=== PATIENT | female | born 1950 | race Caucasian/White ===

== ENCOUNTER 2022-09-08 18:03 | Outpatient (RCR) | payer MEDICARE, OTHER, SELFPAY | END 2022-10-03 23:59 | disposition home or self-care (01) | LOC: MM 18:03 | PROVIDERS: PCP Internal Medicine; Visit Provider Internal Medicine | DX: Z51.81 Encounter for therapeutic drug level monitoring (principal); Z79.01 Long term (current) use of anticoagulants; I48.91 Unspecified atrial fibrillation | CPT/HCPCS: 85610; G0463 ==

== ENCOUNTER 2022-10-01 14:39 | Emergency (ER) | payer MEDICARE, OTHER, SELFPAY ==
[2022-10-01 14:41] VITALS: BP 108/72; PULSE 88; RESP 20; TEMP 36.6; O2SAT 96; BMI 33.7
--- NOTE | 2022-10-01 14:53 | ED.GENADUL1 ---
HPI - General Adult General Chief complaint: Skin/Abscess/Foreign Body Stated complaint: BLEEDING AT KIDNEY OPERATION SITE/POSS. INFECTION Time Seen by Provider: 10/01/22 14:47 Source: patient and family Mode of arrival: walk-in Limitations: no limitations History of Present Illness HPI narrative: patient is a 72-year-old female who presents to the emergency department with concern for bleeding and possible infection at incisional site. Patient had surgery at the clinic clinic six weeks ago and has a large incision over the suprapubic abdomen, she had a kidney, ovaries and tubes removed for concern of cancer. [facility] in [place] 3-4 weeks ago with no issues to the incision site. Patient states she has had bleeding from the incision for the last six weeks intermittently but in the last several days has noticed some soreness to the area and a family member evaluated the incision with concern for redness and purulent drainage. She has had no fevers or vomiting. She is not receiving chemotherapy. She states she did not receive a call back from the [facility] so they presented to this emergency department. Related Data Home Medications Medication Instructions Recorded Confirmed carvedilol 25 mg tablet 25 mg PO DAILY 10/01/22 10/01/22 furosemide 20 mg tablet 40 mg PO DAILY 10/01/22 10/01/22 hydralazine 25 mg tablet 25 mg PO DAILY 10/01/22 10/01/22 omeprazole 40 mg capsule,delayed 40 mg PO DAILY 10/01/22 10/01/22 release pravastatin 80 mg tablet 80 mg PO DAILY 10/01/22 10/01/22 sacubitril 49 mg-valsartan 51 mg 1 tab PO BID 10/01/22 10/01/22 tablet (Entresto) sertraline 50 mg tablet 50 mg PO Q24H 10/01/22 10/01/22 warfarin 5 mg tablet 5 mg PO DAILY 10/01/22 10/01/22 Previous Rx's Medication Instructions Recorded cephalexin 500 mg capsule 500 mg PO Q8H 10 days #30 caps 10/01/22 fluconazole 150 mg tablet See Rx Instructions .Route 10/01/22 (Diflucan) .COMPLEX 2 doses #2 tabs Allergies Allergy/AdvReac Type Severity Reaction Status Date / Time No Known Drug Allergies Allergy Verified 10/01/22 14:46 Review of Systems ROS Constitutional Denies: fever or chills Ears, nose, mouth, and throat Denies: throat pain Respiratory Denies: shortness of breath or cough Gastrointestinal Denies: nausea or vomiting Genitourinary Denies: painful urination Integumentary/Breast Reports: rash, redness, skin pain and skin tenderness Neurological Denies: headache Allergic/Immunologic Denies: hives Exam Narrative Exam Narrative: Gen.: Awake, alert, in no distress Head: Normocephalic, atraumatic ENT: Moist mucous membranes Respiratory: No respiratory distress, lungs clear bilaterally Cardio: Regular rate and rhythm Gastrointestinal: Abdomen is soft, nondistended and nontender to palpation; incision to the suprapubic abdomen with erythema, no palpable abscess. Surrounding red patchy rash consistent with candidal irritation. No visible purulence or bleeding at this time Extremities: Moves extremities equally, no injuries noted Psych: Normal mood and affect Neuro: No focal neuro deficit Skin: Warm, dry Constitutional Vital Signs - 24 hr 10/01/22 14:41 Temperature 97.9 F Pulse Rate [Monitor] 88 Respiratory Rate 20 Blood Pressure [Right Arm] 108/72 Pulse Oximetry 96 Oxygen Delivery Method Room Air Course Vital Signs Vital signs: Vital Signs Temperature 97.9 F 10/01/22 14:41 Pulse Rate 88 10/01/22 14:41 Respiratory Rate 20 10/01/22 14:41 Blood Pressure 108/72 10/01/22 14:41 Pulse Oximetry 96 10/01/22 14:41 Oxygen Delivery Method Room Air 10/01/22 14:41 Temperature 97.9 F 10/01/22 14:41 Pulse Rate 88 10/01/22 14:41 Respiratory Rate 20 10/01/22 14:41 Blood Pressure 108/72 10/01/22 14:41 Pulse Oximetry 96 10/01/22 14:41 Oxygen Delivery Method Room Air 10/01/22 14:41 Medical Decision Making MDM Narrative Medical decision making narrative: patient declined any medication for pain or nausea in the Emergency Room. IV was established and labs were drawn, patient with no leukocytosis or bandemia. CT of the abdomen and pelvis was performed without IV contrast as the patient only has one kidney and her creatinine and BUN her too high. CT of the abdomen and pelvis without contrast shows no evidence of intraperitoneal abnormality or abscess. The area to the incision is draining, consistent with wound infection and probable candidal rash. Patient will be treated with Keflex, Diflucan. She is encouraged to keep warm compresses to the area. No evidence of wound dehiscence at this time. Follow-up with [facility] oncology/surgery. Return to the emergency department if symptoms change or worsen. Medical Records Medical records reviewed: Yes I reviewed the patient's medical records Lab Data Lab results reviewed: Yes I reviewed the patient's lab results Imaging Data CT scan - abdomen: Attestation: I have reviewed the pertinent imaging results. Radiologist's impression: Procedure: CT abdomen pelvis wo con EXAM: CT abdomen pelvis wo con; [id number] REASON FOR EXAM: Incisional abscess TECHNIQUE: Helical CT images of the abdomen and pelvis were obtained without IV contrast. Multiplanar reformats were generated at the scanner. Dose reduction technique used: Automated exposure control and/or adjustment of the mA and/or kV according to patient size and/or use of iterative reconstruction technique. COMPARISON: CT abdomen/pelvis 05/17/2022.. FINDINGS: Note: Compared with a contrast-enhanced CT exam, noncontrast images are relatively insensitive for detection of solid organ and vascular abnormalities. Visualized Chest: No acute abnormality. Medium-sized hiatal hernia containing approximately 20% of the stomach. Abdomen: Liver: -Multiple well-circumscribed subcentimeter hypodensities in the liver are too small to further characterize with any imaging modality though likely represent benign lesions. Gallbladder: Resected. Bile Ducts: No significant biliary ductal dilatation. Pancreas: No ductal dilatation or inflammatory changes. Spleen: No splenomegaly. Adrenals: -Low-density benign adrenal adenoma in the left adrenal gland measuring 7 mm, similar. -Intermediate attenuation nodularity of the right adrenal gland, similar. Kidneys: -Status post right nephrectomy. Postsurgical changes in the right nephrectomy surgical bed without loculated fluid collection or mass. -Intermediate attenuation partially exophytic lesion in the interpolar region of the left kidney measuring 12 mm (series 3 image 50), similar. -Cyst in the upper pole of the left kidney measuring 2.5 cm, similar. -Left renal vascular calcifications with a single possible punctate nonobstructing stone. Vascular: No aortic aneurysm. Lymph Nodes: Borderline enlarged upper periaortic lymph nodes are similar, for example, left upper periaortic lymph node at the level of the interpolar left kidney measuring 9 mm short axis (series 3 image 46), similar. No enlarging lymph nodes. Abdominal Wall: -Recent postsurgical changes to the intra-abdominal wall without evidence of subcutaneous gas or loculated fluid collection. -Small fat-containing right inguinal hernia. Pelvis: Postsurgical changes from hysterectomy and bilateral salpingo-oophorectomy. No loculated fluid collection. Bowel/Peritoneal Cavity/Mesentery: -No bowel obstruction or significant ileus. -No acute inflammatory changes. -No free air or free fluid. Musculoskeletal: No acute fracture or suspicious osseous lesion. IMPRESSION: Postsurgical changes to the low anterior abdominal wall without evidence of subcutaneous abscess or associated intraperitoneal abnormality. Electronically authenticated by: CARO SILVEIRA Date: 10/01/2022 16:36 Discharge Plan Discharge Chief Complaint: Skin/Abscess/Foreign Body Clinical Impression: Incisional infection, Maya infection Patient Disposition: Home, Self-Care Time of Disposition Decision: 16:44 Condition: Good Prescriptions / Home Meds: New cephalexin 500 mg capsule 500 mg PO Q8H 10 Days Qty: 30 0RF fluconazole [Diflucan] 150 mg tablet See Rx Instructions .ROUTE .COMPLEX Qty: 2 0RF Rx Instructions: 150 mg orally at the on day 1 and day 10 of antibiotic course No Action carvedilol 25 mg tablet 25 mg PO DAILY furosemide 20 mg tablet 40 mg PO DAILY hydralazine 25 mg tablet 25 mg PO DAILY omeprazole 40 mg capsule,delayed release(DR/EC) 40 mg PO DAILY pravastatin 80 mg tablet 80 mg PO DAILY Entresto 49-51 mg tablet 1 tab PO BID sertraline 50 mg tablet 50 mg PO Q24H warfarin 5 mg tablet 5 mg PO DAILY Instructions: Wound Infection (ED) Additional Instructions: Follow up with your surgeon in 3-5 days Stand Alone Forms: Portal Instructions Referrals: Shaikh Chung MD [Primary Care Provider] - 1 week
[2022-10-01 15:47] LABS: Basophils Absolute Auto 0.1 10^3/uL (0.0-0.1); Basophils Percent Auto 1.4 % (0.2-2.0); Eosinophils Absolute Auto 0.2 10^3/uL (0.0-0.7); Eosinophils Percent Auto 2.8 % (0.9-7.0); Hematocrit 39.7 % (36.0-48.0); Immature Granulocytes Abs Auto 0.03 10^3/uL (0.00-0.03); Immature Granulocytes Pct Auto 0.4 % (0.0-0.5); Lymphocytes Absolute Auto 1.6 10^3/uL (1.2-3.8); Lymphocytes Percent Auto 22.8 % (20.5-60.0); Mean Corpuscular HGB Conc 32.7 g/dL (29.9-35.2); Mean Corpuscular Hemoglobin 30.4 pg (26.7-34.0); Mean Platelet Volume 9.3 fL (9.5-13.5); Monocytes Absolute Auto 0.5 10^3/uL (0.3-0.8); Monocytes Percent Auto 6.9 % (1.7-12.0); Neutrophils Absolute Auto 4.7 10^3/uL (1.4-6.5); Neutrophils Percent Auto 65.7 % (43.0-75.0); Platelet Count 316 10^3/uL (150-450); Red Blood Count 4.27 10^6/uL (4.20-5.40); Red Cell Distribution Width 14.4 % (11.0-15.0); White Blood Count 7.1 10^3/uL (4.0-11.0)
[2022-10-01 15:57] LABS: Alanine Aminotransferase 30 U/L (14-59); Albumin Globulin Ratio 0.7; Albumin Level 3.4 g/dL (3.4-5.0); Alkaline Phosphatase 106 U/L (46-116); Anion Gap 12.3; Aspartate Amino Transferase 21 U/L (15-37); BUN Creatinine Ratio 13.7; Bilirubin Total 0.3 mg/dL (0.2-1.0); Calcium 8.8 mg/dL (8.5-10.1); Carbon Dioxide 27.9 mmol/L (21.0-32.0); Chloride 97 mmol/L (98-107); Estimated GFR (African America 29 (>=60); Estimated GFR (Non-African Ame 24 (>=60); Globulin 4.7 g/dL; Glucose 142 mg/dL (74-106); Potassium 4.2 mmol/L (3.5-5.1); Sodium 133 mmol/L (136-145); Total Protein 8.1 g/dL (6.4-8.2)
--- NOTE | 2022-10-01 16:02 | CT_ITS ---
[address] [address] Patient Name: THADDEUS RUBI MRN: [id number] date: 1950 Sex: F Assigned Patient Location: ER Current Patient Location: Accession/Order Number: [id number] Exam Date: 10/01/2022 16:09 Report Date: 10/01/2022 16:36 At the request of: NICOALS LYNCH Procedure: CT abdomen pelvis wo con EXAM: CT abdomen pelvis wo con; [id number] REASON FOR EXAM: Incisional abscess TECHNIQUE: Helical CT images of the abdomen and pelvis were obtained without IV contrast. Multiplanar reformats were generated at the scanner. Dose reduction technique used: Automated exposure control and/or adjustment of the mA and/or kV according to patient size and/or use of iterative reconstruction technique. COMPARISON: CT abdomen/pelvis 05/17/2022.. FINDINGS: Note: Compared with a contrast-enhanced CT exam, noncontrast images are relatively insensitive for detection of solid organ and vascular abnormalities. Visualized Chest: No acute abnormality. Medium-sized hiatal hernia containing approximately 20% of the stomach. Abdomen: Liver: -Multiple well-circumscribed subcentimeter hypodensities in the liver are too small to further characterize with any imaging modality though likely represent benign lesions. Gallbladder: Resected. Bile Ducts: No significant biliary ductal dilatation. Pancreas: No ductal dilatation or inflammatory changes. Spleen: No splenomegaly. Adrenals: -Low-density benign adrenal adenoma in the left adrenal gland measuring 7 mm, similar. -Intermediate attenuation nodularity of the right adrenal gland, similar. Kidneys: -Status post right nephrectomy. Postsurgical changes in the right nephrectomy surgical bed without loculated fluid collection or mass. -Intermediate attenuation partially exophytic lesion in the interpolar region of the left kidney measuring 12 mm (series 3 image 50), similar. -Cyst in the upper pole of the left kidney measuring 2.5 cm, similar. -Left renal vascular calcifications with a single possible punctate nonobstructing stone. Vascular: No aortic aneurysm. Lymph Nodes: Borderline enlarged upper periaortic lymph nodes are similar, for example, left upper periaortic lymph node at the level of the interpolar left kidney measuring 9 mm short axis (series 3 image 46), similar. No enlarging lymph nodes. Abdominal Wall: -Recent postsurgical changes to the intra-abdominal wall without evidence of subcutaneous gas or loculated fluid collection. -Small fat-containing right inguinal hernia. Pelvis: Postsurgical changes from hysterectomy and bilateral salpingo-oophorectomy. No loculated fluid collection. Bowel/Peritoneal Cavity/Mesentery: -No bowel obstruction or significant ileus. -No acute inflammatory changes. -No free air or free fluid. Musculoskeletal: No acute fracture or suspicious osseous lesion. IMPRESSION: Postsurgical changes to the low anterior abdominal wall without evidence of subcutaneous abscess or associated intraperitoneal abnormality. Electronically authenticated by: CARO SILVEIRA Date: 10/01/2022 16:36
[2022-10-01 16:08] LABS: INR 1.56; Prothrombin Time 16.1 sec (9.0-11.6)
[2022-10-01 16:55] VITALS: BP 108/76; PULSE 91; RESP 18; O2SAT 98
== END 2022-10-01 17:00 | disposition home or self-care (01) ==
PROVIDERS: Physician Assistant; Emergency Provider Emergency Medicine; PCP Internal Medicine
DX: T81.49XA Infection following a procedure, other surgical site, initial encounter (principal); B37.2 Candidiasis of skin and nail; Z90.5 Acquired absence of kidney; Z90.79 Acquired absence of other genital organ(s); Z90.722 Acquired absence of ovaries, bilateral; Z79.899 Other long term (current) drug therapy; Z79.01 Long term (current) use of anticoagulants
CPT/HCPCS: 36415; 74176; 80053; 83605; 85025; 85610; 87040; 87070; 99285

== ENCOUNTER 2022-10-09 08:55 | Outpatient (RCR) | payer MEDICARE, OTHER, SELFPAY | END 2022-11-03 16:50 | disposition home or self-care (01) | LOC: MM 08:55 | PROVIDERS: PCP Internal Medicine; Visit Provider Internal Medicine | DX: Z51.81 Encounter for therapeutic drug level monitoring (principal); Z79.01 Long term (current) use of anticoagulants; I48.0 Paroxysmal atrial fibrillation | CPT/HCPCS: 85610; G0463 ==

== ENCOUNTER 2022-10-09 13:49 | Outpatient (OUT) | payer MEDICARE, OTHER, SELFPAY ==
[2022-10-09 14:53] LABS: Chol HDL Ratio 3.7; Cholesterol 196 mg/dL (<=200); HDL Cholesterol 53 mg/dL (40-60); Triglycerides 217 mg/dL (<=150); VLDL CHOLESTEROL 43.4 mg/dL
== END 2022-10-09 13:50 | disposition home or self-care (01) ==
LOC: LAB 13:50
PROVIDERS: PCP Internal Medicine; Visit Provider Internal Medicine
DX: E78.5 Hyperlipidemia, unspecified (principal); Z51.81 Encounter for therapeutic drug level monitoring; Z79.01 Long term (current) use of anticoagulants; I48.0 Paroxysmal atrial fibrillation
CPT/HCPCS: 36415; 80061; 85610; G0463

== ENCOUNTER 2022-11-04 09:04 | Outpatient (RCR) | payer MEDICARE, OTHER, SELFPAY | END 2022-12-04 17:23 | disposition home or self-care (01) | LOC: MM 09:04 | PROVIDERS: PCP Internal Medicine; Visit Provider Internal Medicine | DX: Z51.81 Encounter for therapeutic drug level monitoring (principal); Z79.01 Long term (current) use of anticoagulants; I48.0 Paroxysmal atrial fibrillation | CPT/HCPCS: 85610; G0463 ==

== ENCOUNTER 2022-11-26 15:28 | Outpatient (OUT) | payer MEDICARE, OTHER, SELFPAY ==
[2022-11-26 16:21] LABS: Hematocrit 35.6 % (36.0-48.0); Hemoglobin 11.4 g/dL (12.0-16.0); Mean Corpuscular Volume 93.7 fL (81.0-99.0); Platelet Count 290 10^3/uL (150-450); Red Cell Distribution Width 14.8 % (11.0-15.0); White Blood Count 4.9 10^3/uL (4.0-11.0)
[2022-11-26 16:47] LABS: Albumin Level 3.6 g/dL (3.4-5.0); Anion Gap 15.2; BUN Creatinine Ratio 16.5; Calcium 8.8 mg/dL (8.5-10.1); Carbon Dioxide 28.5 mmol/L (21.0-32.0); Chloride 101 mmol/L (98-107); Estimated GFR (African America 23 (>=60); Estimated GFR (Non-African Ame 19 (>=60); Glucose 120 mg/dL (74-106); Magnesium 2.4 mg/dL (1.8-2.4); Phosphorus 4.5 mg/dL (2.6-4.7); Potassium 4.7 mmol/L (3.5-5.1); Sodium 140 mmol/L (136-145); Uric Acid 6.9 mg/dL (2.6-6.0)
[2022-11-26 17:05] LABS: Percent Iron Saturation 12.6 %
[2022-11-26 17:16] LABS: Creatinine Urine Random 165.12 mg/dL (20.00-300.00); Protein Creatinine Ratio Urine 0.22; Total Protein Urine Random 36.7 mg/dL (<=11.9)
[2022-11-26 17:17] LABS: Bilirubin Urine NEGATIVE (NEGATIVE); Blood Urine NEGATIVE (NEGATIVE); Clarity Urine CLEAR (CLEAR); Color Urine LT. YELLOW (YELLOW); Glucose Urine UA NEGATIVE (NEGATIVE); Ketones Urine NEGATIVE (NEGATIVE); Leukocyte Esterase Urine NEGATIVE (NEGATIVE); Nitrite Urine NEGATIVE (NEGATIVE); Protein Urine TRACE mg/dL (NEG/TRACE); Specific Gravity Urine 1.015 (1.005-1.025); Urobilinogen Urine 0.2 EU/dL (0.2-1.0); pH Urine 6.5 (5.0-9.0)
[2022-11-26 17:22] LABS: Bacteria Urine NONE SEEN #/HPF (NONE SEEN); RBC Urine NONE SEEN #/HPF (0-2); WBC Urine NONE SEEN #/HPF (NONE SEEN)
[2022-11-26 17:23] LABS: Cast Seen? NONE SEEN #/LPF (NONE SEEN); Crystals Seen? None Seen #/HPF (None Seen); Mucus Urine NONE SEEN (NONE SEEN); Squamous Epithelial Cell Urine MODERATE #/LPF (NONE/RARE)
[2022-11-28 13:08] LABS: PTH, Intact 107 pg/mL (15-65)
== END 2022-11-26 15:29 | disposition home or self-care (01) ==
LOC: LAB 15:30
PROVIDERS: PCP Internal Medicine; Visit Provider Internal Medicine
DX: I13.0 Hypertensive heart and chronic kidney disease with heart failure and stage 1 through stage 4 chronic kidney disease, or unspecified chronic kidney disease (principal); N18.30 Chronic kidney disease, stage 3 unspecified; D63.1 Anemia in chronic kidney disease; N25.81 Secondary hyperparathyroidism of renal origin; I50.22 Chronic systolic (congestive) heart failure; E78.5 Hyperlipidemia, unspecified
CPT/HCPCS: 36415; 80069; 81001; 82306; 82570; 82728; 83540; 83550; 83735; 83970; 84156; 84550; 85027

== ENCOUNTER 2022-12-05 08:38 | Outpatient (RCR) | payer MEDICARE, OTHER, SELFPAY | END 2023-01-02 16:41 | disposition home or self-care (01) | LOC: MM 08:38 | PROVIDERS: PCP Internal Medicine; Visit Provider Internal Medicine | DX: Z51.81 Encounter for therapeutic drug level monitoring (principal); Z79.01 Long term (current) use of anticoagulants; I48.0 Paroxysmal atrial fibrillation ==

== ENCOUNTER 2023-01-05 01:39 | Outpatient (RCR) | payer MEDICARE, OTHER, SELFPAY | END 2023-02-03 17:16 | disposition home or self-care (01) | LOC: MM 01:39 | PROVIDERS: PCP Internal Medicine; Visit Provider Internal Medicine | DX: Z51.81 Encounter for therapeutic drug level monitoring (principal); Z79.01 Long term (current) use of anticoagulants; I48.0 Paroxysmal atrial fibrillation | CPT/HCPCS: 85610; G0463 ==

== ENCOUNTER 2023-01-30 15:24 | Outpatient (OUT) | payer MEDICARE, OTHER, SELFPAY ==
[2023-01-30 15:47] LABS: Hematocrit 27.4 % (36.0-48.0); Hemoglobin 8.6 g/dL (12.0-16.0); Mean Corpuscular HGB Conc 31.4 g/dL (29.9-35.2); Mean Corpuscular Hemoglobin 27.9 pg (26.7-34.0); Mean Platelet Volume 8.8 fL (9.5-13.5); Platelet Count 286 10^3/uL (150-450); Red Blood Count 3.08 10^6/uL (4.20-5.40); Red Cell Distribution Width 13.6 % (11.0-15.0)
[2023-01-30 15:52] LABS: Creatinine Urine Random 156.71 mg/dL (20.00-300.00); Protein Creatinine Ratio Urine 0.12; Total Protein Urine Random 19.2 mg/dL (<=11.9)
[2023-01-30 16:00] LABS: Bilirubin Urine NEGATIVE (NEGATIVE); Blood Urine NEGATIVE (NEGATIVE); Clarity Urine CLEAR (CLEAR); Color Urine LT. YELLOW (YELLOW); Glucose Urine UA NEGATIVE (NEGATIVE); Ketones Urine NEGATIVE (NEGATIVE); Leukocyte Esterase Urine TRACE (NEGATIVE); Nitrite Urine NEGATIVE (NEGATIVE); Protein Urine NEGATIVE (NEG/TRACE); Specific Gravity Urine 1.015 (1.005-1.025); Urobilinogen Urine 0.2 EU/dL (0.2-1.0); pH Urine 5.5 (5.0-9.0)
[2023-01-30 16:09] LABS: Albumin Level 3.7 g/dL (3.4-5.0); Anion Gap 13.2; BUN Creatinine Ratio 13.5; Calcium 8.9 mg/dL (8.5-10.1); Carbon Dioxide 28.6 mmol/L (21.0-32.0); Chloride 102 mmol/L (98-107); Estimated GFR (African America 21 (>=60); Estimated GFR (Non-African Ame 18 (>=60); Glucose 111 mg/dL (74-106); Magnesium 2.3 mg/dL (1.8-2.4); Phosphorus 4.4 mg/dL (2.6-4.7); Potassium 4.8 mmol/L (3.5-5.1); Sodium 139 mmol/L (136-145); Uric Acid 6.6 mg/dL (2.6-6.0)
[2023-01-30 16:23] LABS: RBC Urine NONE SEEN #/HPF (0-2); WBC Urine 0-2 #/HPF (NONE SEEN)
[2023-01-30 16:24] LABS: Bacteria Urine SMALL #/HPF (NONE SEEN); Cast Seen? NONE SEEN #/LPF (NONE SEEN); Crystals Seen? None Seen #/HPF (None Seen); Mucus Urine NONE SEEN (NONE SEEN); Squamous Epithelial Cell Urine MODERATE #/LPF (NONE/RARE)
[2023-02-01 14:07] LABS: PTH, Intact 163 pg/mL (15-65)
== END 2023-01-30 15:25 | disposition home or self-care (01) ==
LOC: LAB 15:26
PROVIDERS: PCP Nurse Practitioner; Visit Provider Internal Medicine
DX: I13.0 Hypertensive heart and chronic kidney disease with heart failure and stage 1 through stage 4 chronic kidney disease, or unspecified chronic kidney disease (principal); D63.1 Anemia in chronic kidney disease; N18.30 Chronic kidney disease, stage 3 unspecified; N25.81 Secondary hyperparathyroidism of renal origin; I50.22 Chronic systolic (congestive) heart failure; E78.5 Hyperlipidemia, unspecified; R25.1 Tremor, unspecified
CPT/HCPCS: 36415; 80069; 81001; 82306; 82570; 83735; 83970; 84156; 84550; 85027

== ENCOUNTER 2023-02-04 00:42 | Outpatient (RCR) | payer MEDICARE, OTHER, SELFPAY | END 2023-03-05 16:36 | disposition home or self-care (01) | LOC: MM 00:42 | PROVIDERS: PCP Nurse Practitioner; Visit Provider Internal Medicine | DX: Z51.81 Encounter for therapeutic drug level monitoring (principal); Z79.01 Long term (current) use of anticoagulants; I48.0 Paroxysmal atrial fibrillation | CPT/HCPCS: 85610; G0463 ==

== ENCOUNTER 2023-02-20 07:34 | Outpatient (RCR) | payer MEDICARE, OTHER, SELFPAY ==
[2023-02-11] MEDS: IRON SUCROSE COMPLEX 200 MG in 0.9 % SODIUM CHLORIDE 100 ML 220 MG IV (14:28)
[2023-02-11 14:35] VITALS: BP 112/67; PULSE 77; RESP 20; TEMP 36.1; O2SAT 98
--- NOTE | 2023-02-11 14:37 | PC.NURSE ---
1400: Pt. to [facility] amb. Seated in recliner. VSS. Denies questions about Venofer. IV initiated to left hand on first attempt without difficulty. Flushes easily. Pt. karma. with minimal c/o.
--- NOTE | 2023-02-11 14:39 | PC.NURSE ---
1428: IV Odilia initiated at this time. Pt. denies needs. Snack and beverage offered, pt. declines.
--- NOTE | 2023-02-11 14:52 | PC.NURSE ---
Tolerating infusion without c/o.
--- NOTE | 2023-02-11 15:04 | PC.NURSE ---
1458: IV Venofer complete. Pt. without s&s of adverse reaction. IV d/c'd, pressure to site. 1503: Pt. d/c'd amb. to home.
[2023-02-13 13:00] VITALS: BP 108/55; PULSE 88; RESP 18; TEMP 36.8; O2SAT 95
[2023-02-13] MEDS: IRON SUCROSE COMPLEX 200 MG in 0.9 % SODIUM CHLORIDE 100 ML 220 MG IV (13:35)
[2023-02-13 13:37] VITALS: BP 108/55; PULSE 85; RESP 18; TEMP 36.8; O2SAT 95
[2023-02-16] MEDS: IRON SUCROSE COMPLEX 200 MG in 0.9 % SODIUM CHLORIDE 100 ML 220 MG IV (14:11)
[2023-02-16 14:17] VITALS: BP 126/58; PULSE 90; RESP 16; TEMP 36.8; O2SAT 98
--- NOTE | 2023-02-16 14:19 | PC.NURSE ---
1400: Pt. to [facility] amb. for iron infusion. Seated in recliner. VSS. Denies c/o adverse effects from previous iron infusions. #22 gauge IV initiated to right arm on first attempt without difficulty. Pt. tolerated without c/o. IV Venofer initiated at this time. Denies needs.
--- NOTE | 2023-02-16 14:40 | PC.NURSE ---
1433: ROSIBEL Hartley completed. Pt. denies c/o. IV d/c'd, pressure to site. 1435: Pt. d/c'd amb to home.
[2023-02-18] MEDS: IRON SUCROSE COMPLEX 200 MG in 0.9 % SODIUM CHLORIDE 100 ML 220 MG IV (14:36)
[2023-02-18 15:12] VITALS: BP 148/84; PULSE 81; RESP 18; TEMP 36.6; O2SAT 96
[2023-02-20 14:08] VITALS: BP 135/84; PULSE 83; RESP 18; TEMP 36.2; O2SAT 99
[2023-02-20] MEDS: IRON SUCROSE COMPLEX 200 MG in 0.9 % SODIUM CHLORIDE 100 ML 220 MG IV (14:13)
== END 2023-03-05 23:59 | disposition home or self-care (01) ==
LOC: INF 07:34
PROVIDERS: PCP Nurse Practitioner; Visit Provider Internal Medicine
DX: N18.30 Chronic kidney disease, stage 3 unspecified (principal); D63.1 Anemia in chronic kidney disease; Z51.81 Encounter for therapeutic drug level monitoring; Z79.01 Long term (current) use of anticoagulants; I48.0 Paroxysmal atrial fibrillation
CPT/HCPCS: 36415; 85610; 96360; 96365; G0463; J1756

== ENCOUNTER 2023-03-06 09:20 | Outpatient (RCR) | payer MEDICARE, OTHER, SELFPAY | END 2023-04-03 15:05 | disposition home or self-care (01) | LOC: MM 09:20 | PROVIDERS: PCP Nurse Practitioner; Visit Provider Internal Medicine | DX: Z51.81 Encounter for therapeutic drug level monitoring (principal); Z79.01 Long term (current) use of anticoagulants; I48.0 Paroxysmal atrial fibrillation | CPT/HCPCS: 85610; G0463 ==

== ENCOUNTER 2023-03-07 14:23 | Outpatient (OUT) | payer MEDICARE, OTHER, SELFPAY ==
[2023-03-07 16:48] LABS: INR 2.76; Prothrombin Time 27.6 sec (9.0-11.6)
== END 2023-03-07 14:24 | disposition home or self-care (01) ==
LOC: LAB 14:25
PROVIDERS: PCP Nurse Practitioner; Visit Provider Internal Medicine Interventional Cardiology
DX: U07.1 COVID-19 (principal)
CPT/HCPCS: 36415; 85610

== ENCOUNTER 2023-03-27 16:17 | Outpatient (OUT) | payer MEDICARE, OTHER, SELFPAY ==
[2023-03-27 16:44] LABS: Hematocrit 34.1 % (36.0-48.0); Hemoglobin 10.6 g/dL (12.0-16.0); Mean Corpuscular HGB Conc 31.1 g/dL (29.9-35.2); Mean Corpuscular Volume 93.2 fL (81.0-99.0); Mean Platelet Volume 9.5 fL (9.5-13.5); Platelet Count 254 10^3/uL (150-450); Red Blood Count 3.66 10^6/uL (4.20-5.40); Red Cell Distribution Width 18.4 % (11.0-15.0); White Blood Count 5.1 10^3/uL (4.0-11.0)
[2023-03-27 16:44] LABS: Bilirubin Urine NEGATIVE (NEGATIVE); Blood Urine NEGATIVE (NEGATIVE); Clarity Urine CLEAR (CLEAR); Color Urine LT. YELLOW (YELLOW); Glucose Urine UA NEGATIVE (NEGATIVE); Ketones Urine NEGATIVE (NEGATIVE); Leukocyte Esterase Urine NEGATIVE (NEGATIVE); Nitrite Urine NEGATIVE (NEGATIVE); Protein Urine NEGATIVE (NEG/TRACE); Urobilinogen Urine 0.2 EU/dL (0.2-1.0)
[2023-03-27 16:53] LABS: Bacteria Urine TRACE #/HPF (NONE SEEN); Cast Seen? NONE SEEN #/LPF (NONE SEEN); Crystals Seen? None Seen #/HPF (None Seen); Mucus Urine NONE SEEN (NONE SEEN); RBC Urine 0-2 #/HPF (0-2); Squamous Epithelial Cell Urine FEW #/LPF (NONE/RARE); WBC Urine NONE SEEN #/HPF (NONE SEEN)
[2023-03-27 17:10] LABS: Albumin Level 3.5 g/dL (3.4-5.0); Anion Gap 15.4; BUN Creatinine Ratio 15.4; Carbon Dioxide 27.1 mmol/L (21.0-32.0); Chloride 104 mmol/L (98-107); Estimated GFR (African America 23 (>=60); Estimated GFR (Non-African Ame 19 (>=60); Glucose 92 mg/dL (74-106); Magnesium 2.3 mg/dL (1.8-2.4); Phosphorus 4.1 mg/dL (2.6-4.7); Potassium 4.5 mmol/L (3.5-5.1); Sodium 142 mmol/L (136-145); Uric Acid 6.8 mg/dL (2.6-6.0)
[2023-03-27 17:10] LABS: Creatinine Urine Random 65.75 mg/dL (20.00-300.00); Protein Creatinine Ratio Urine 0.15; Total Protein Urine Random 9.6 mg/dL (<=11.9)
[2023-03-27 17:37] LABS: Percent Iron Saturation 13.2 %
[2023-03-29 14:08] LABS: PTH, Intact 147 pg/mL (15-65)
== END 2023-03-27 16:18 | disposition home or self-care (01) ==
PROVIDERS: PCP Nurse Practitioner; Visit Provider Internal Medicine
DX: I12.9 Hypertensive chronic kidney disease with stage 1 through stage 4 chronic kidney disease, or unspecified chronic kidney disease (principal); N18.30 Chronic kidney disease, stage 3 unspecified; D63.1 Anemia in chronic kidney disease; N25.81 Secondary hyperparathyroidism of renal origin; Q60.0 Renal agenesis, unilateral; E78.5 Hyperlipidemia, unspecified
CPT/HCPCS: 36415; 80069; 81001; 82306; 82570; 82607; 82728; 82746; 83540; 83550; 83735; 83970; 84156; 84550; 85027

== ENCOUNTER 2023-04-06 01:03 | Outpatient (RCR) | payer MEDICARE, OTHER, SELFPAY | END 2023-05-06 17:17 | disposition home or self-care (01) | LOC: MM 01:03 | PROVIDERS: PCP Nurse Practitioner; Visit Provider Internal Medicine | DX: Z51.81 Encounter for therapeutic drug level monitoring (principal); Z79.01 Long term (current) use of anticoagulants; I48.0 Paroxysmal atrial fibrillation | CPT/HCPCS: 85610; G0463 ==

== ENCOUNTER 2023-04-09 14:56 | Outpatient (OUT) | payer MEDICARE, OTHER, SELFPAY ==
--- NOTE | 2023-04-09 15:01 | XR_ITS ---
The [address] [address] Patient Name: THADDEUS RUBI MRN: [id number] date: 1950 Sex: F Assigned Patient Location: [facility] Current Patient Location: [facility] Accession/Order Number: [id number] Exam Date: 04/09/2023 15:08 Report Date: 04/09/2023 15:46 At the request of: KRYSTYNA HOLCOMB Procedure: XR chest 2V EXAMINATION: XR chest 2V, , 04/09/2023 3:08 PM EST INDICATION: chest congestion R09.89 HISTORY: Ordering Provider Reason for Exam: chest congestion R09.89 Technologist Note: Additional: COMPARISON: Chest dated 06/24/2018. TECHNIQUE: Chest x-ray: Two views. FINDINGS: No pneumothorax, pleural effusion or focal airspace consolidation. Heart is normal in size. Cardiac pacemaker is seen in place. Bony thorax is unremarkable. XR/XR chest 2V IMPRESSION: No acute cardiopulmonary process. Electronically authenticated by: JIAN FRENCH Date: 04/09/2023 15:46
== END 2023-04-09 14:57 | disposition home or self-care (01) ==
LOC: RAD 14:57
PROVIDERS: PCP Nurse Practitioner; Visit Provider Nurse Practitioner
DX: R09.89 Other specified symptoms and signs involving the circulatory and respiratory systems (principal)
CPT/HCPCS: 71046

== ENCOUNTER 2023-05-07 01:56 | Outpatient (RCR) | payer MEDICARE, OTHER, SELFPAY | END 2023-06-04 17:15 | disposition home or self-care (01) | LOC: MM 01:56 | PROVIDERS: PCP Nurse Practitioner; Visit Provider Internal Medicine | DX: Z51.81 Encounter for therapeutic drug level monitoring (principal); Z79.01 Long term (current) use of anticoagulants; I48.0 Paroxysmal atrial fibrillation | CPT/HCPCS: 85610; G0463 ==

== ENCOUNTER 2023-05-15 13:45 | Outpatient (OUT) | payer MEDICARE, OTHER, SELFPAY ==
[2023-05-15 15:00] LABS: Chol HDL Ratio 2.6; Cholesterol 138 mg/dL (<=200); HDL Cholesterol 54 mg/dL (40-60); Triglycerides 169 mg/dL (<=150); VLDL CHOLESTEROL 33.8 mg/dL
== END 2023-05-15 13:46 | disposition home or self-care (01) ==
LOC: LAB 13:46
PROVIDERS: PCP Nurse Practitioner; Visit Provider Internal Medicine Interventional Cardiology
DX: I25.10 Atherosclerotic heart disease of native coronary artery without angina pectoris (principal); I25.83 Coronary atherosclerosis due to lipid rich plaque
CPT/HCPCS: 36415; 80061

== ENCOUNTER 2023-05-15 13:47 | Outpatient (OUT) | payer MEDICARE, OTHER, SELFPAY ==
[2023-05-15 14:53] LABS: Albumin Level 3.3 g/dL (3.4-5.0); Anion Gap 10.2; BUN Creatinine Ratio 15.6; Calcium 8.8 mg/dL (8.5-10.1); Carbon Dioxide 30.2 mmol/L (21.0-32.0); Chloride 104 mmol/L (98-107); Estimated GFR (African America 24 (>=60); Estimated GFR (Non-African Ame 19 (>=60); Glucose 108 mg/dL (74-106); Hematocrit 37.4 % (36.0-48.0); Hemoglobin 11.6 g/dL (12.0-16.0); Magnesium 2.3 mg/dL (1.8-2.4); Mean Corpuscular Hemoglobin 28.7 pg (26.7-34.0); Mean Corpuscular Volume 92.6 fL (81.0-99.0); Mean Platelet Volume 9.3 fL (9.5-13.5); Phosphorus 3.6 mg/dL (2.6-4.7); Platelet Count 250 10^3/uL (150-450); Potassium 4.4 mmol/L (3.5-5.1); Red Blood Count 4.04 10^6/uL (4.20-5.40); Red Cell Distribution Width 15.9 % (11.0-15.0); Sodium 140 mmol/L (136-145); Uric Acid 6.9 mg/dL (2.6-6.0); White Blood Count 5.5 10^3/uL (4.0-11.0)
[2023-05-15 14:59] LABS: Creatinine Urine Random 75.37 mg/dL (20.00-300.00); Protein Creatinine Ratio Urine 0.22; Total Protein Urine Random 16.4 mg/dL (<=11.9)
[2023-05-15 15:40] LABS: Bilirubin Urine NEGATIVE (NEGATIVE); Blood Urine NEGATIVE (NEGATIVE); Clarity Urine CLEAR (CLEAR); Color Urine LT. YELLOW (YELLOW); Glucose Urine UA NEGATIVE (NEGATIVE); Ketones Urine NEGATIVE (NEGATIVE); Leukocyte Esterase Urine TRACE (NEGATIVE); Nitrite Urine NEGATIVE (NEGATIVE); Protein Urine NEGATIVE (NEG/TRACE); Specific Gravity Urine 1.015 (1.005-1.025); Urobilinogen Urine 0.2 EU/dL (0.2-1.0)
[2023-05-15 15:45] LABS: Percent Iron Saturation 11.1 %
[2023-05-15 16:06] LABS: Bacteria Urine TRACE #/HPF (NONE SEEN); Cast Seen? NONE SEEN #/LPF (NONE SEEN); Crystals Seen? None Seen #/HPF (None Seen); Mucus Urine NONE SEEN (NONE SEEN); RBC Urine 0-2 #/HPF (0-2); Squamous Epithelial Cell Urine FEW #/LPF (NONE/RARE)
[2023-05-16 14:09] LABS: PTH, Intact 75 pg/mL (15-65)
== END 2023-05-15 13:48 | disposition home or self-care (01) ==
LOC: LAB 13:48
PROVIDERS: PCP Nurse Practitioner; Visit Provider Internal Medicine
DX: I25.10 Atherosclerotic heart disease of native coronary artery without angina pectoris (principal); I25.83 Coronary atherosclerosis due to lipid rich plaque; N18.30 Chronic kidney disease, stage 3 unspecified; D63.1 Anemia in chronic kidney disease; I12.9 Hypertensive chronic kidney disease with stage 1 through stage 4 chronic kidney disease, or unspecified chronic kidney disease; N25.81 Secondary hyperparathyroidism of renal origin; Q60.0 Renal agenesis, unilateral; E78.5 Hyperlipidemia, unspecified
CPT/HCPCS: 36415; 80061; 80069; 81001; 82306; 82570; 82728; 83540; 83550; 83735; 83970; 84156; 84550; 85027

== ENCOUNTER 2023-06-05 01:09 | Outpatient (RCR) | payer MEDICARE, OTHER, SELFPAY | END 2023-07-03 13:12 | disposition home or self-care (01) | LOC: MM 01:09 | PROVIDERS: PCP Nurse Practitioner; Visit Provider Internal Medicine | DX: Z51.81 Encounter for therapeutic drug level monitoring (principal); Z79.01 Long term (current) use of anticoagulants; I48.0 Paroxysmal atrial fibrillation | CPT/HCPCS: 85610; G0463 ==

== ENCOUNTER 2023-07-06 00:07 | Outpatient (RCR) | payer MEDICARE, OTHER, SELFPAY | END 2023-08-04 17:51 | disposition home or self-care (01) | LOC: MM 00:07 | PROVIDERS: PCP Nurse Practitioner; Visit Provider Internal Medicine | DX: Z51.81 Encounter for therapeutic drug level monitoring (principal); Z79.01 Long term (current) use of anticoagulants; I48.0 Paroxysmal atrial fibrillation | CPT/HCPCS: 85610; G0463 ==

== ENCOUNTER 2023-08-05 04:35 | Outpatient (RCR) | payer MEDICARE, OTHER, SELFPAY | END 2023-09-04 11:50 | disposition home or self-care (01) | LOC: MM 04:35 | PROVIDERS: PCP Nurse Practitioner; Visit Provider Internal Medicine | DX: Z51.81 Encounter for therapeutic drug level monitoring (principal); Z79.01 Long term (current) use of anticoagulants; I48.0 Paroxysmal atrial fibrillation | CPT/HCPCS: 85610; G0463 ==

== ENCOUNTER 2023-09-07 00:22 | Outpatient (RCR) | payer MEDICARE, OTHER, SELFPAY | END 2023-10-02 10:18 | disposition home or self-care (01) | LOC: MM 00:22 | PROVIDERS: PCP Nurse Practitioner; Visit Provider Internal Medicine | DX: Z51.81 Encounter for therapeutic drug level monitoring (principal); Z79.01 Long term (current) use of anticoagulants; I48.0 Paroxysmal atrial fibrillation | CPT/HCPCS: 85610; G0463 ==

== ENCOUNTER 2023-10-05 00:48 | Outpatient (RCR) | payer MEDICARE, OTHER, SELFPAY | END 2023-11-04 16:52 | disposition home or self-care (01) | LOC: MM 00:48 | PROVIDERS: PCP Nurse Practitioner; Visit Provider Internal Medicine | DX: Z51.81 Encounter for therapeutic drug level monitoring (principal); Z79.01 Long term (current) use of anticoagulants; I48.0 Paroxysmal atrial fibrillation | CPT/HCPCS: 85610; G0463 ==

== ENCOUNTER 2023-11-05 00:27 | Outpatient (RCR) | payer MEDICARE, OTHER, SELFPAY | END 2023-12-04 09:32 | disposition home or self-care (01) | LOC: MM 00:27 | PROVIDERS: PCP Nurse Practitioner; Visit Provider Internal Medicine | DX: Z51.81 Encounter for therapeutic drug level monitoring (principal); Z79.01 Long term (current) use of anticoagulants; I48.0 Paroxysmal atrial fibrillation | CPT/HCPCS: 85610; G0463 ==

== ENCOUNTER 2023-12-07 00:57 | Outpatient (RCR) | payer MEDICARE, OTHER, SELFPAY | END 2024-01-04 23:36 | disposition home or self-care (01) | LOC: MM 00:57 | PROVIDERS: PCP Nurse Practitioner; Visit Provider Internal Medicine | DX: Z51.81 Encounter for therapeutic drug level monitoring (principal); Z79.01 Long term (current) use of anticoagulants; I48.0 Paroxysmal atrial fibrillation | CPT/HCPCS: 85610; G0463 ==

== ENCOUNTER 2023-12-16 15:42 | Outpatient (OUT) | payer MEDICARE, OTHER, SELFPAY ==
[2023-12-16 15:59] LABS: Bilirubin Urine NEGATIVE (NEGATIVE); Blood Urine NEGATIVE (NEGATIVE); Clarity Urine CLEAR (CLEAR); Color Urine LT. YELLOW (YELLOW); Glucose Urine UA NEGATIVE (NEGATIVE); Ketones Urine NEGATIVE (NEGATIVE); Leukocyte Esterase Urine TRACE (NEGATIVE); Nitrite Urine NEGATIVE (NEGATIVE); Protein Urine NEGATIVE (NEG/TRACE); Specific Gravity Urine 1.015 (1.005-1.025); Urobilinogen Urine 0.2 EU/dL (0.2-1.0)
[2023-12-16 16:05] LABS: Hematocrit 32.7 % (36.0-48.0); Hemoglobin 10.1 g/dL (12.0-16.0); Mean Corpuscular HGB Conc 30.9 g/dL (29.9-35.2); Mean Corpuscular Hemoglobin 25.6 pg (26.7-34.0); Mean Corpuscular Volume 82.8 fL (81.0-99.0); Mean Platelet Volume 9.4 fL (9.5-13.5); Platelet Count 280 10^3/uL (150-450); Red Blood Count 3.95 10^6/uL (4.20-5.40); Red Cell Distribution Width 15.7 % (11.0-15.0); White Blood Count 6.2 10^3/uL (4.0-11.0)
[2023-12-16 16:11] LABS: Bacteria Urine MODERATE #/HPF (NONE SEEN); Cast Seen? NONE SEEN #/LPF (NONE SEEN); Crystals Seen? None Seen #/HPF (None Seen); Mucus Urine TRACE (NONE SEEN); RBC Urine 0-2 #/HPF (0-2); Squamous Epithelial Cell Urine MODERATE #/LPF (NONE/RARE)
[2023-12-16 16:16] LABS: Creatinine Urine Random 65.16 mg/dL (20.00-300.00); Protein Creatinine Ratio Urine 0.11
[2023-12-16 16:35] LABS: Albumin Level 3.5 g/dL (3.4-5.0); Anion Gap 12.5; BUN Creatinine Ratio 13.6; Calcium 8.8 mg/dL (8.5-10.1); Carbon Dioxide 28.8 mmol/L (21.0-32.0); Chloride 105 mmol/L (98-107); Estimated GFR (African America 24 (>=60); Estimated GFR (Non-African Ame 20 (>=60); Glucose 118 mg/dL (74-106); Magnesium 1.9 mg/dL (1.8-2.4); Phosphorus 3.8 mg/dL (2.6-4.7); Potassium 4.3 mmol/L (3.5-5.1); Sodium 142 mmol/L (136-145); Uric Acid 7.2 mg/dL (2.6-6.0)
[2023-12-16 16:42] LABS: Percent Iron Saturation 7.4 %
[2023-12-18 11:10] LABS: PTH, Intact 113 pg/mL (15-65)
== END 2023-12-16 15:43 | disposition home or self-care (01) ==
LOC: LAB 15:43
PROVIDERS: PCP Nurse Practitioner; Visit Provider Internal Medicine
DX: N25.81 Secondary hyperparathyroidism of renal origin (principal); N18.4 Chronic kidney disease, stage 4 (severe); D63.1 Anemia in chronic kidney disease; N18.9 Chronic kidney disease, unspecified
CPT/HCPCS: 36415; 80069; 81001; 82306; 82570; 82728; 83540; 83550; 83735; 83970; 84156; 84550; 85027

== ENCOUNTER 2024-01-03 12:30 | Outpatient (RCR) | payer MEDICARE, OTHER, SELFPAY ==
[2023-12-28 12:50] VITALS: BP 146/84; PULSE 80; TEMP 36.2; O2SAT 98
[2023-12-28] MEDS: IRON SUCROSE COMPLEX 200 MG in 0.9 % SODIUM CHLORIDE 100 ML 220 MG IV (13:15)
--- NOTE | 2023-12-28 14:11 | PC.NURSE ---
1350 tolerated iron infusion without any s/s of reaction. IV line flushed with NS. IV dc'd, cottonball and coban applied, observed for 5 mins, no bleeding noted from venipuncture site. released ambulatory
[2023-12-31 13:42] VITALS: BP 138/72; PULSE 81; TEMP 36.4; O2SAT 96
[2023-12-31] MEDS: IRON SUCROSE COMPLEX 200 MG in 0.9 % SODIUM CHLORIDE 100 ML 220 MG IV (13:56)
--- NOTE | 2023-12-31 14:57 | PC.NURSE ---
1342: Pt. to [facility] amb. for iron infusion. Seated in recliner. VSS. Denies c/o or needs. Declines snack or drink. IV initiated, see documentation. Pt. tolerates without c/o. 1356: IV Venofer initiated at this time. Pt. cont. to deny needs.
[2024-01-03] MEDS: IRON SUCROSE COMPLEX 200 MG in 0.9 % SODIUM CHLORIDE 100 ML 220 MG IV (12:54)
== END 2024-01-04 23:59 | disposition home or self-care (01) ==
LOC: INF 12:30
PROVIDERS: PCP Nurse Practitioner; Visit Provider Internal Medicine
DX: N18.4 Chronic kidney disease, stage 4 (severe) (principal); D63.1 Anemia in chronic kidney disease; Z51.81 Encounter for therapeutic drug level monitoring; Z79.01 Long term (current) use of anticoagulants; I48.0 Paroxysmal atrial fibrillation
CPT/HCPCS: 85610; 96365; G0463; J1756

== ENCOUNTER 2024-01-05 01:30 | Outpatient (RCR) | payer MEDICARE, OTHER, SELFPAY | END 2024-02-04 23:38 | disposition home or self-care (01) | LOC: MM 01:30 | PROVIDERS: PCP Nurse Practitioner; Visit Provider Internal Medicine | DX: Z51.81 Encounter for therapeutic drug level monitoring (principal); Z79.01 Long term (current) use of anticoagulants; I48.0 Paroxysmal atrial fibrillation | CPT/HCPCS: 85610; G0463 ==

== ENCOUNTER 2024-01-09 12:38 | Outpatient (RCR) | payer MEDICARE, OTHER, SELFPAY ==
[2024-01-05 00:09] VITALS: BP 138/72; PULSE 81; TEMP 36.4; O2SAT 96
[2024-01-06] MEDS: IRON SUCROSE COMPLEX 200 MG in 0.9 % SODIUM CHLORIDE 100 ML 220 MG IV (13:58)
[2024-01-06 14:02] VITALS: BP 120/70; PULSE 60; TEMP 36.7; O2SAT 97
[2024-01-09 12:43] VITALS: BP 133/80; PULSE 84; O2SAT 97
[2024-01-09] MEDS: IRON SUCROSE COMPLEX 200 MG in 0.9 % SODIUM CHLORIDE 100 ML 220 MG IV (13:01)
== END 2024-02-04 23:59 | disposition home or self-care (01) ==
LOC: INF 12:38
PROVIDERS: PCP Nurse Practitioner; Visit Provider Internal Medicine
DX: N18.4 Chronic kidney disease, stage 4 (severe) (principal); D63.1 Anemia in chronic kidney disease
CPT/HCPCS: 96365; J1756

== ENCOUNTER 2024-02-05 11:15 | Outpatient (RCR) | payer MEDICARE, OTHER, SELFPAY | END 2024-03-05 23:59 | disposition home or self-care (01) | LOC: MM 11:15 | PROVIDERS: PCP Nurse Practitioner; Visit Provider Internal Medicine | DX: Z51.81 Encounter for therapeutic drug level monitoring (principal); Z79.01 Long term (current) use of anticoagulants; I48.0 Paroxysmal atrial fibrillation | CPT/HCPCS: 85610; G0463 ==

== ENCOUNTER 2024-03-02 15:19 | Outpatient (OUT) | payer MEDICARE, OTHER, SELFPAY ==
--- NOTE | 2024-03-02 15:11 | CA_ITS ---
Patient Name: THADDEUS RUBI MR#: [id number] : 1950 Exam Date: 03/02/2024 Ordering Doctor: DR DARIANA HELMS M.D. ECHOCARDIOGRAM REPORT PROCEDURE: CA ECHO DOPPLER COMPLETE INDICATIONS: heart failure with reduced ejection fraction COMPARISON: None. DESCRIPTION: COMPLETE ECHOCARDIOGRAM Real-time transthoracic echocardiography with 2D, M-mode, spectral and color flow Doppler performed. QUALITY: Technical quality was adequate. LEFT VENTRICLE: Normal chamber size. Thickened septal wall. Abnormal septal motion likely due to bundle branch block/pacing. Dyssynchronous contraction of the ventricular segments is noted. Global left ventricular systolic function is moderately to severely decreased. LV EF: Estimated left ventricular ejection fraction is 30%. DIASTOLIC: Grade I diastolic dysfunction. ATRIAL SEPTUM: LEFT ATRIUM: Mild dilatation. RIGHT ATRIUM: Mild dilatation. RIGHT VENTRICLE: Normal chamber size. Normal right ventricular systolic function. Pacer wire present. TRICUSPID VALVE: Normal mobility and thickness. No stenosis with No evidence of pulmonary hypertension. RVSP 20 mmHg MITRAL VALVE: Normal mobility and thickness. No evidence of mitral valve stenosis. Mild mitral annular calcification. Trivial mitral regurgitation. AORTIC VALVE: Normal trileaflet appearance. No visible sclerosis. Normal leaflet mobility. No evidence of aortic valve stenosis. No aortic regurgitation. AORTIC ROOT: Normal diameter and appearance. PULMONIC VALVE: Normal thickness and mobility. No stenosis. Trivial regurgitation. PERICARDIUM: No evidence of pericardial effusion. IVC: Collapses with inspirations. Normal size. PLEURA: CONCLUSION: 1. The left ventricle is normal in size and exhibits dyssynchronous contraction with abnormal septal motion and moderately to severely reduced systolic function. Estimated LVEF is 30%. 2. Normal right ventricular size and systolic function. 3. No significant valvular dysfunction. 4. Normal right-sided pressures. Adult Echocardiography Procedure Report Left Ventricle LVEDD (3.7 - 5.6 cm): 4.81 cm LVESD (2.2 - 4.0 cm): 4.02 cm LVIVS thickness (0.6 - 1.2 cm): 1.30 cm LVPW thickness (0.5 - 1.0 cm): 1.03 cm e': 0.08 m/s E - e': 5.55 LVOT Max Gradient: 1.19 mm[Hg] LVOT Area (cm2): 0.55 m/s Peak Velocity (LVOT): 0.55 m/s Mean Velocity (LVOT): 0.31 m/s LVOT Diameter 2.27 cm Left Ventricular Ejection Fraction: 30 % Left Atrium LA Volume Index (2D A2C): 38.54 ml/m2 Left Atrium Systolic Dimension: 3.87 cm Mitral Valve MV E to A Ratio: 0.67 Mitral Valve A-Wave Peak Velocity: 0.69 m/s Mitral Valve E-Wave Peak Velocity: 0.47 m/s Right Ventricle RV Internal Diastolic Dimension: 4.29 cm Aorta AO Root Diam: 3.21 cm Ascending Ao Diam: 2.59 cm Aortic Valve AoV Area (Peak Jack): 2.19 cm2, 2.19 cm2 AoV Area (VTI): 2.62 cm2, 2.62 cm2 Peak Velocity(Antegrade Flow): 1.01 m/s Peak Gradient(Antegrade Flow): 4.07 mm[Hg] Mean Velocity(Antegrade Flow): 0.58 m/s Mean Gradient(Antegrade Flow): 1.61 mm[Hg] Velocity Time Integral: 16.35 cm Tricuspid Valve Peak Velocity (Regurgitant Flow): 2.04 m/s, 1.85 m/s Pulmonic Valve Mean Gradient: 1.58 mm[Hg], 1.66 mm[Hg] Mean Velocity: 0.58 m/s, 0.60 m/s Peak Velocity: 0.95 m/s, 0.95 m/s Peak Gradient: 3.63 mm[Hg], 3.26 mm[Hg], 3.91 mm[Hg] Right Atrium Right Atrium Systolic Pressure: 50.04 ml, 50.04 ml Dictated by: Dariana Helms M.D. on 03/03/2024 at 14:59 Approved by: Dariana Helms M.D. on 03/03/2024 at 15:05
== END 2024-03-02 15:20 | disposition home or self-care (01) ==
LOC: CARD 15:19
PROVIDERS: PCP Nurse Practitioner; Visit Provider Internal Medicine Interventional Cardiology
DX: I50.22 Chronic systolic (congestive) heart failure (principal); Z51.81 Encounter for therapeutic drug level monitoring; Z79.01 Long term (current) use of anticoagulants; I48.0 Paroxysmal atrial fibrillation
CPT/HCPCS: 93306; G0463

== ENCOUNTER 2024-03-07 03:28 | Outpatient (RCR) | payer MEDICARE, OTHER, SELFPAY | END 2024-04-05 09:39 | disposition home or self-care (01) | LOC: MM 03:28 | PROVIDERS: PCP Nurse Practitioner; Visit Provider Internal Medicine | DX: Z51.81 Encounter for therapeutic drug level monitoring (principal); Z79.01 Long term (current) use of anticoagulants; I48.0 Paroxysmal atrial fibrillation ==

== ENCOUNTER 2024-03-07 14:02 | Emergency (ER) | payer MEDICARE, OTHER, SELFPAY ==
[2024-03-07 14:15] VITALS: BP 127/71; PULSE 76; TEMP 36.6; O2SAT 93; BMI 36.6
--- NOTE | 2024-03-07 14:27 | ECG_ITS ---
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
--- NOTE | 2024-03-07 14:27 | XR_ITS ---
The [address] [address] Patient Name: THADDEUS RUBI MRN: [id number] date: 1950 Sex: F Assigned Patient Location: ER Current Patient Location: Accession/Order Number: [id number] Exam Date: 03/07/2024 14:58 Report Date: 03/07/2024 15:14 At the request of: NICOLAS LYNCH Procedure: XR chest 1V EXAMINATION: XR chest 1V HISTORY: Cough, shortness of breath COMPARISON: XR chest 04/09/2023 FINDINGS: LUNGS: Underexpanded lungs with chronically elevated left hemidiaphragm. Mild opacities and stranding within lung bases. VASCULATURE: No increased pulmonary vasculature. PLEURA: No pneumothorax, effusion, or pleural thickening. CARDIAC: No cardiomegaly or cardiac silhouette abnormality. MEDIASTINUM: Prior sternotomy. No abnormal widening. BONES: No fracture or visible bone lesion. OTHER: Cardiac pacer. XR/XR chest 1V IMPRESSION: 1. Low lung volume examination with mild bibasilar infiltrates versus atelectasis. Electronically authenticated by: REGINA AGUIRRE Date: 03/07/2024 15:14
--- NOTE | 2024-03-07 14:28 | ED_ITS ---
HPI HPI - General Adult General Chief complaint: Upper Respiratory Infection Stated complaint: flu symptoms Time Seen by Provider: 03/07/24 14:20 Source: patient Limitations: no limitations History of Present Illness HPI narrative: Patient is a 73-year-old female with a history of CHF who is referred to the emergency department to be evaluated for upper respiratory symptoms for the last 4 days. She was seen by her primary care provider in the office just prior to arrival and because of her apparently multiple chronic medical conditions, she was referred to the ER to be evaluated. She reports cough, congestion, generalized bodyaches and shortness of breath. No objective fevers, chest pain, vomiting or diarrhea. No medications taken prior to arrival. She denies any peripheral edema. No difficulty swallowing. Related Data Home Medications ?Medication ?Instructions ?Recorded ?Confirmed carvedilol 25 mg tablet 25 mg PO DAILY 10/01/22 02/13/23 furosemide 20 mg tablet 40 mg PO DAILY 10/01/22 02/13/23 hydralazine 25 mg tablet 25 mg PO DAILY 10/01/22 02/13/23 omeprazole 40 mg capsule,delayed 40 mg PO DAILY 10/01/22 02/13/23 release pravastatin 80 mg tablet 80 mg PO DAILY 10/01/22 02/13/23 sacubitril 49 mg-valsartan 51 mg 1 tab PO BID 10/01/22 02/13/23 tablet (Entresto) sertraline 50 mg tablet 50 mg PO Q24H 10/01/22 02/13/23 warfarin 5 mg tablet 5 mg PO DAILY 10/01/22 02/13/23 Previous Rx's ?Medication ?Instructions ?Recorded albuterol sulfate 90 mcg/actuation 2 inh inhalation Q4H PRN shortness 03/07/24 aerosol inhaler of breath or wheezing #8.5 grams prednisone 20 mg tablet See Rx Instructions .Route 03/07/24 .COMPLEX #12 tabs Allergies Allergy/AdvReac Type Severity Reaction Status Date / Time No Known Drug Allergies Allergy Verified 03/07/24 14:20 Opioid HPI Opioid Management Most Recent Opioid Data: Last Pain Scale 4 10/01/22 14:51 10/01/22 Review of Systems ROS Constitutional Denies: fever or chills Ears, nose, mouth, and throat Reports: nasal congestion; Denies: throat pain Cardiovascular Denies: chest pain, edema or swelling of feet/ankles Respiratory Reports: shortness of breath, cough and wheezing Gastrointestinal Denies: abdominal pain, nausea or vomiting Musculoskeletal Denies: back pain Integumentary/Breast Denies: rash Neurological Reports: headache; Denies: numbness in extremities or weakness in extremities Hematologic/Lymphatic Denies: easy bruising or easy bleeding Exam Narrative Exam Narrative: Gen.: Awake, alert, in no distress Head: Normocephalic, atraumatic ENT: Moist mucous membranes Respiratory: No respiratory distress, lungs clear bilaterally; speaks in full sentences, no coughing noted. No wheezing or rhonchi Cardio: Regular rate and rhythm Gastrointestinal: Abdomen is soft, nondistended and nontender to palpation Extremities: Moves extremities equally, no pedal edema Psych: Normal mood and affect Neuro: No focal neuro deficit Skin: Warm, dry, intact Constitutional Vital Signs, click to edit/add: Last Vital Signs Temp 98 F 03/07/24 14:15 Pulse 62 03/07/24 14:44 Resp 20 03/07/24 14:44 BP 127/71 03/07/24 14:15 Pulse Ox 93 L 03/07/24 14:15 Course Vital Signs Vital signs: Vital Signs Temperature 98 F 03/07/24 14:15 Pulse Rate 76 03/07/24 14:15 Respiratory Rate 20 03/07/24 14:15 Blood Pressure 127/71 03/07/24 14:15 Pulse Oximetry 93 L 03/07/24 14:15 Temperature 98 F 03/07/24 14:15 Pulse Rate 62 03/07/24 14:44 Respiratory Rate 20 03/07/24 14:44 Blood Pressure 127/71 03/07/24 14:15 Pulse Oximetry 93 L 03/07/24 14:15 Medical Decision Making MDM Narrative Medical decision making narrative: Patient was given albuterol and prednisone. Laboratory studies show the patient's BNP is elevated, however she has no peripheral edema, rales or pulmonary edema on the chest x-ray. Patient is positive for RSV. Vital signs are stable. Reevaluated by attending physician and the patient is comfortable with discharge home. Follow-up with PCP and return to the emergency department if symptoms change or worsen. Albuterol and prednisone given for home with viral instructions. SHARED APC VISIT, PHYSICIAN ATTESTATION: [id number] I performed a substantive part of the MDM during the patient?s E/M visit. I personally evaluated and examined the patient. I personally made or approved the documented management plan and acknowledge its risk of complications. Medical Records Medical records reviewed: Yes I reviewed the patient's medical records Lab Data Lab results reviewed: Yes I reviewed the patient's lab results Labs: Lab Results 03/07/24 03/07/24 Range/Units 14:27 14:39 WBC 4.0 (4.0-11.0) 10^3/uL RBC 4.24 (4.20-5.40) 10^6/uL Hgb 12.7 (12.0-16.0) g/dL Hct 38.9 (36.0-48.0) % MCV 91.7 (81.0-99.0) fL MCH 30.0 (26.7-34.0) pg MCHC 32.6 (29.9-35.2) g/dL RDW 16.6 H (11.0-15.0) % Plt Count 186 (150-450) 10^3/uL MPV 9.2 L (9.5-13.5) fL Neut % (Auto) 61.8 (43.0-75.0) % Lymph % (Auto) 24.3 (20.5-60.0) % [place] % (Auto) 12.3 H (1.7-12.0) % Eos % (Auto) 0.8 L (0.9-7.0) % Baso % (Auto) 0.5 (0.2-2.0) % Neut # (Auto) 2.5 (1.4-6.5) 10^3/uL Lymph # (Auto) 1.0 L (1.2-3.8) 10^3/uL [place] # (Auto) 0.5 (0.3-0.8) 10^3/uL Eos # (Auto) 0.0 (0.0-0.7) 10^3/uL Baso # (Auto) 0.0 (0.0-0.1) 10^3/uL Abs Immat Gran (auto) 0.01 (0.00-0.03) 10^3/uL Imm/Tot Granulo (auto) 0.3 (0.0-0.5) % PT 19.0 H (9.0-11.6) sec INR 1.91 VBG pH 7.357 (7.330-7.430) VBG pCO2 44.7 (40.0-52.0) mmHg Sodium 139 (136-145) mmol/L Potassium 4.8 (3.5-5.1) mmol/L Chloride 105 (98-107) mmol/L Carbon Dioxide 25.4 (21.0-32.0) mmol/L Anion Gap 13.4 BUN 18.0 (7.0-18.0) mg/dL Creatinine 2.09 H (0.55-1.02) mg/dL Est GFR ( Amer) 28 L (>=60 mL/min/1.73m^2) Est GFR (Non-Af Amer) 23 L (>=60 mL/min/1.73m^2) BUN/Creatinine Ratio 8.6 Glucose 110 H (74-106) mg/dL Calcium 8.5 (8.5-10.1) mg/dL Total Bilirubin 0.3 (0.2-1.0) mg/dL AST 26 (15-37) U/L ALT 25 (14-59) U/L Alkaline Phosphatase 98 (46-116) U/L Troponin I High Sens 17.9 (4.0-51.3) pg/mL NT-Pro-B Natriuret Pep 7272.0 H* (<=900.0) pg/mL Total Protein 7.2 (6.4-8.2) g/dL Albumin 3.2 L (3.4-5.0) g/dL Globulin 4.0 g/dL Albumin/Globulin Ratio 0.8 Influenza Type A Ag Negative Influenza Type B Ag Negative RSV Antigen Detected A* (NOT DETECTE) SARS-CoV-2 Ag (CV2AG) Negative (NEGATIVE) Imaging Data Chest x-ray: Attestation: I have reviewed the pertinent imaging results. Radiologist's impression: ITS Impressions Chest X-Ray 03/07/24 14:27 IMPRESSION: 1. Low lung volume examination with mild bibasilar infiltrates versus atelectasis. Electronically authenticated by: REGINA AGUIRRE Date: 03/07/2024 15:14 ECG Data Attestation: I personally reviewed and interpreted this ECG as follows: (Electronic ventricular pacemaker at a rate of [address] elevation or ectopy. EKG reviewed by attending physician) Discharge Plan Discharge Chief Complaint: Upper Respiratory Infection Clinical Impression: Upper respiratory infection, RSV infection Patient Disposition: Home, Self-Care Time of Disposition Decision: 15:30 Condition: Good Prescriptions / Home Meds: New prednisone 20 mg tablet See Rx Instructions .ROUTE .COMPLEX Qty: 12 0RF Rx Instructions: 3 tabs daily for 2 days, then 2 tabs daily for 2 days, then 1 tab daily for 2 days albuterol sulfate 90 mcg/actuation HFA aerosol inhaler 2 inh inhalation Q4H PRN (Reason: shortness of breath or wheezing) Qty: 8.5 0RF No Action carvedilol 25 mg tablet 25 mg PO DAILY furosemide 20 mg tablet 40 mg PO DAILY hydralazine 25 mg tablet 25 mg PO DAILY omeprazole 40 mg capsule,delayed release(DR/EC) 40 mg PO DAILY pravastatin 80 mg tablet 80 mg PO DAILY Entresto 49-51 mg tablet 1 tab PO BID sertraline 50 mg tablet 50 mg PO Q24H warfarin 5 mg tablet 5 mg PO DAILY Print Language: Latvian Instructions: Upper Respiratory Infection (ED), RSV (Respiratory Syncytial Virus) Infection (ED) Referrals: Nadia Peacock NP [Primary Care Provider] - 1 week
[2024-03-07] MEDS: ALBUTEROL SULFATE 2.5 MG/3 ML VIAL NEB IH (14:42)
[2024-03-07 14:44] VITALS: PULSE 62
[2024-03-07 14:46] LABS: PCO2 VBG 44.7 mmHg (40.0-52.0); pH VBG 7.357 (7.330-7.430)
[2024-03-07 14:54] LABS: Influenza Virus A Antigen Negative; Influenza Virus B Antigen Negative; Internal Control Within Normal Limits
[2024-03-07 14:55] LABS: Internal Control Within Normal Limits; Respiratory Syncytial Virus Detected (NOT DETECTE); SARS-CoV-2 Ag NEGATIVE (NEGATIVE)
[2024-03-07 14:55] LABS: Basophils Percent Auto 0.5 % (0.2-2.0); Eosinophils Percent Auto 0.8 % (0.9-7.0); Hematocrit 38.9 % (36.0-48.0); Hemoglobin 12.7 g/dL (12.0-16.0); Immature Granulocytes Abs Auto 0.01 10^3/uL (0.00-0.03); Immature Granulocytes Pct Auto 0.3 % (0.0-0.5); Lymphocytes Percent Auto 24.3 % (20.5-60.0); Mean Corpuscular HGB Conc 32.6 g/dL (29.9-35.2); Mean Corpuscular Volume 91.7 fL (81.0-99.0); Mean Platelet Volume 9.2 fL (9.5-13.5); Monocytes Absolute Auto 0.5 10^3/uL (0.3-0.8); Monocytes Percent Auto 12.3 % (1.7-12.0); Neutrophils Absolute Auto 2.5 10^3/uL (1.4-6.5); Neutrophils Percent Auto 61.8 % (43.0-75.0); Platelet Count 186 10^3/uL (150-450); Red Blood Count 4.24 10^6/uL (4.20-5.40); Red Cell Distribution Width 16.6 % (11.0-15.0)
[2024-03-07 15:00] LABS: INR 1.91
[2024-03-07] MEDS: METHYLPREDNISOLONE SOD SUCC PF 125 MG/2 ML VIAL IVP (15:04)
[2024-03-07 15:08] LABS: Alanine Aminotransferase 25 U/L (14-59); Albumin Globulin Ratio 0.8; Albumin Level 3.2 g/dL (3.4-5.0); Alkaline Phosphatase 98 U/L (46-116); Anion Gap 13.4; Aspartate Amino Transferase 26 U/L (15-37); BUN Creatinine Ratio 8.6; Bilirubin Total 0.3 mg/dL (0.2-1.0); Calcium 8.5 mg/dL (8.5-10.1); Carbon Dioxide 25.4 mmol/L (21.0-32.0); Chloride 105 mmol/L (98-107); Estimated GFR (African America 28 (>=60 mL/min/1.73m^2); Estimated GFR (Non-African Ame 23 (>=60 mL/min/1.73m^2); Glucose 110 mg/dL (74-106); Potassium 4.8 mmol/L (3.5-5.1); Sodium 139 mmol/L (136-145); Total Protein 7.2 g/dL (6.4-8.2); Troponin I High Sensitivity 17.9 pg/mL (4.0-51.3)
[2024-03-07 15:48] VITALS: BP 146/70; PULSE 61; O2SAT 92
== END 2024-03-07 16:01 | disposition home or self-care (01) ==
PROVIDERS: Physician Assistant; Emergency Provider Emergency Medicine; PCP Nurse Practitioner
DX: J06.9 Acute upper respiratory infection, unspecified (principal); B97.4 Respiratory syncytial virus as the cause of diseases classified elsewhere; R06.02 Shortness of breath; I50.9 Heart failure, unspecified
CPT/HCPCS: 36415; 71045; 80053; 82800; 83880; 84484; 85025; 85610; 87420; 87804; 87811; 93005; 94640; 96374; 99285; J2919

== ENCOUNTER 2024-03-15 12:02 | Outpatient (OUT) | payer MEDICARE, OTHER, SELFPAY ==
--- NOTE | 2024-03-15 12:20 | XR_ITS ---
The [address] [address] Patient Name: THADDEUS RUBI MRN: [id number] date: 1950 Sex: F Assigned Patient Location: [facility] Current Patient Location: [facility] Accession/Order Number: [id number] Exam Date: 03/15/2024 12:10 Report Date: 03/15/2024 12:56 At the request of: KRYSTYNA HOLCOMB Procedure: XR chest 2V EXAM: XR chest 2V HISTORY: Acute Cough COMPARISON: 04/09/2023 TECHNIQUE: Upright PA and lateral chest x-ray FINDINGS: The heart is borderline enlarged without overt cardiac decompensation. Multiple sternal wire sutures and mediastinal clips are present as well as a left-sided pacemaker. No acute infiltrate, effusion or pneumothorax is identified. Diffuse osteopenia is noted with degenerative changes in the spine. XR/XR chest 2V IMPRESSION: Borderline cardiac enlargement without overt cardiac decompensation. A focal infiltrate is not identified. The overall appearance of the chest is essentially unchanged. Electronically authenticated by: YSABEL THOMPSON Date: 03/15/2024 12:56
== END 2024-03-15 12:03 | disposition home or self-care (01) ==
LOC: RAD 12:03
PROVIDERS: PCP Nurse Practitioner; Visit Provider Nurse Practitioner
DX: R05.1 Acute cough (principal)
CPT/HCPCS: 71046

== ENCOUNTER 2024-04-07 00:31 | Outpatient (RCR) | payer MEDICARE, OTHER, SELFPAY | END 2024-05-06 15:23 | disposition home or self-care (01) | LOC: MM 00:31 | PROVIDERS: PCP Nurse Practitioner; Visit Provider Internal Medicine | DX: Z51.81 Encounter for therapeutic drug level monitoring (principal); Z79.01 Long term (current) use of anticoagulants; I48.0 Paroxysmal atrial fibrillation | CPT/HCPCS: 85610; G0463 ==

== ENCOUNTER 2024-05-09 02:21 | Outpatient (RCR) | payer MEDICARE, OTHER, SELFPAY | END 2024-06-03 12:42 | disposition home or self-care (01) | LOC: MM 02:21 | PROVIDERS: PCP Nurse Practitioner; Visit Provider Internal Medicine | DX: Z51.81 Encounter for therapeutic drug level monitoring (principal); Z79.01 Long term (current) use of anticoagulants; I48.0 Paroxysmal atrial fibrillation | CPT/HCPCS: 85610; G0463 ==

== ENCOUNTER 2024-05-25 15:31 | Outpatient (OUT) | payer MEDICARE, OTHER, SELFPAY ==
[2024-05-25 15:52] LABS: Hematocrit 40.3 % (36.0-48.0); Mean Corpuscular HGB Conc 32.3 g/dL (29.9-35.2); Mean Corpuscular Hemoglobin 29.9 pg (26.7-34.0); Mean Corpuscular Volume 92.6 fL (81.0-99.0); Mean Platelet Volume 9.2 fL (9.5-13.5); Platelet Count 296 10^3/uL (150-450); Red Blood Count 4.35 10^6/uL (4.20-5.40); Red Cell Distribution Width 13.3 % (11.0-15.0); White Blood Count 7.8 10^3/uL (4.0-11.0)
[2024-05-25 16:42] LABS: Creatinine Urine Random 587.77 mg/dL (20.00-300.00); Protein Creatinine Ratio Urine 0.17; Total Protein Urine Random 100.7 mg/dL (<=11.9)
[2024-05-25 16:46] LABS: Percent Iron Saturation 65.8 %
[2024-05-25 16:47] LABS: Albumin Level 3.5 g/dL (3.4-5.0); Anion Gap 10.5; BUN Creatinine Ratio 15.7; Calcium 8.9 mg/dL (8.5-10.1); Carbon Dioxide 30.9 mmol/L (21.0-32.0); Chloride 104 mmol/L (98-107); Estimated GFR (African America 32 (>=60 mL/min/1.73m^2); Estimated GFR (Non-African Ame 27 (>=60 mL/min/1.73m^2); Glucose 100 mg/dL (74-106); Magnesium 2.2 mg/dL (1.8-2.4); Phosphorus 4.7 mg/dL (2.6-4.7); Potassium 4.4 mmol/L (3.5-5.1); Sodium 141 mmol/L (136-145); Uric Acid 5.2 mg/dL (2.6-6.0)
[2024-05-27 10:08] LABS: PTH, Intact 119 pg/mL (15-65)
== END 2024-05-25 15:32 | disposition home or self-care (01) ==
LOC: LAB 15:32
PROVIDERS: PCP Nurse Practitioner; Visit Provider Internal Medicine
DX: E79.0 Hyperuricemia without signs of inflammatory arthritis and tophaceous disease (principal); N18.4 Chronic kidney disease, stage 4 (severe); C64.9 Malignant neoplasm of unspecified kidney, except renal pelvis; I12.9 Hypertensive chronic kidney disease with stage 1 through stage 4 chronic kidney disease, or unspecified chronic kidney disease; N25.81 Secondary hyperparathyroidism of renal origin; Z90.5 Acquired absence of kidney
CPT/HCPCS: 36415; 80069; 82306; 82570; 82728; 83540; 83550; 83735; 83970; 84156; 84550; 85027

== ENCOUNTER 2024-06-05 08:14 | Outpatient (RCR) | payer MEDICARE, OTHER, SELFPAY | END 2024-07-01 13:28 | disposition home or self-care (01) | LOC: MM 08:14 | PROVIDERS: PCP Nurse Practitioner; Visit Provider Internal Medicine | DX: Z51.81 Encounter for therapeutic drug level monitoring (principal); Z79.01 Long term (current) use of anticoagulants; I48.0 Paroxysmal atrial fibrillation | CPT/HCPCS: 85610; G0463 ==

== ENCOUNTER 2024-07-05 05:58 | Outpatient (RCR) | payer MEDICARE, OTHER, SELFPAY | END 2024-08-03 15:03 | disposition home or self-care (01) | LOC: MM 05:58 | PROVIDERS: PCP Nurse Practitioner; Visit Provider Internal Medicine | DX: Z51.81 Encounter for therapeutic drug level monitoring (principal); Z79.01 Long term (current) use of anticoagulants; I48.0 Paroxysmal atrial fibrillation | CPT/HCPCS: 85610; G0463 ==

== ENCOUNTER 2024-07-07 12:56 | Outpatient (OUT) | payer MEDICARE, OTHER, SELFPAY ==
--- NOTE | 2024-07-07 12:59 | US_ITS ---
The [address] [address] Patient Name: THADDEUS RUBI MRN: [id number] date: 1950 Sex: F Assigned Patient Location: [place] Current Patient Location: [place] Accession/Order Number: [id number] Exam Date: 07/07/2024 13:35 Report Date: 07/07/2024 13:44 At the request of: PERLA LOPEZ MD Procedure: US soft tissue head and neck LIMITED ULTRASOUND - left upper neck CLINICAL DATA: Follow-up left parotid nodule seen on outside PET scan. History of small lymphocytic lymphoma and renal carcinoma COMPARISON: None A slightly lobulated hypoechoic nodule is present within the left parotid gland. It measures 2.5 x 1.1 x 1.3 cm. Given the configuration, lymph node is possible. Inferior to the parotid gland is another slightly lobulated hypoechoic nodule measuring 15 x 7 x 6 mm. This is near the carotid bifurcation. It may also be a lymph node. US/US soft tissue head and neck IMPRESSION: HYPOECHOIC NODULARITY WITHIN AND INFERIOR TO THE LEFT PAROTID GLAND, DESCRIBED. LYMPH NODES ARE IN THE DIFFERENTIAL. A PRIMARY PAROTID MASS IS THOUGHT LESS LIKELY, HOWEVER NOT COMPLETELY EXCLUDED. CORRELATION WITH PATIENT'S OUTSIDE PET CT IS THEREFORE RECOMMENDED. Impression dictated by: Laura Mcmahon M.D.07/07/2024 1:44 PM Dictation Location: [place] [address] Electronically authenticated by: [id number] Y Date: 07/07/2024 13:44
--- NOTE | 2024-07-07 13:00 | US_ITS ---
The [address] [address] Patient Name: THADDEUS RUBI MRN: [id number] date: 1950 Sex: F Assigned Patient Location: [place] Current Patient Location: [place] Accession/Order Number: [id number] Exam Date: 07/07/2024 14:25 Report Date: 07/07/2024 14:27 At the request of: PERLA LOPEZ MD Procedure: US renal bladder Renal ultrasound HISTORY: Right renal cell carcinoma. Right nephrectomy. Follow-up left renal cyst. Left kidney measures 11.0 cm in length. The cortex is 9 mm in thickness. Largest anechoic renal cyst is identified in the superior pole laterally measuring up to 2.9 cm. No hydronephrosis. The left ureteral jet visualized. No post steroid residual urinary bladder. US/US renal bladder IMPRESSION: Anechoic left renal cyst measuring up to 2.9 cm. No hydronephrosis. Right nephrectomy. Impression dictated by: Xiang Esqueda M.D.07/07/2024 2:27 PM Dictation Location: [place] [address] Electronically authenticated by: [id number] Y Date: 07/07/2024 14:27
== END 2024-07-07 12:57 | disposition home or self-care (01) ==
LOC: US 12:57
PROVIDERS: PCP Nurse Practitioner; Visit Provider Student in an Organized Health Care Education/Training Program
DX: C83.00 Small cell B-cell lymphoma, unspecified site (principal); C64.1 Malignant neoplasm of right kidney, except renal pelvis; R22.2 Localized swelling, mass and lump, trunk
CPT/HCPCS: 76536; 76770

== ENCOUNTER 2024-08-04 04:46 | Outpatient (RCR) | payer MEDICARE, OTHER, SELFPAY | END 2024-09-02 15:10 | disposition home or self-care (01) | LOC: MM 04:46 | PROVIDERS: PCP Nurse Practitioner; Visit Provider Internal Medicine | DX: Z51.81 Encounter for therapeutic drug level monitoring (principal); Z79.01 Long term (current) use of anticoagulants; I48.0 Paroxysmal atrial fibrillation | CPT/HCPCS: 85610; G0463 ==

== ENCOUNTER 2024-09-01 18:52 | Emergency (ER) | payer MEDICARE, OTHER, SELFPAY ==
[2024-09-01 19:30] VITALS: BP 135/67; PULSE 85; TEMP 36.8; O2SAT 96; BMI 36.0
[2024-09-01 21:34] LABS: Basophils Absolute Auto 0.1 10^3/uL (0.0-0.1); Basophils Percent Auto 1.6 % (0.2-2.0); Eosinophils Absolute Auto 0.2 10^3/uL (0.0-0.7); Eosinophils Percent Auto 3.6 % (0.9-7.0); Hematocrit 37.7 % (36.0-48.0); Hemoglobin 12.2 g/dL (12.0-16.0); Immature Granulocytes Abs Auto 0.01 10^3/uL (0.00-0.03); Immature Granulocytes Pct Auto 0.2 % (0.0-0.5); Lymphocytes Absolute Auto 1.7 10^3/uL (1.2-3.8); Lymphocytes Percent Auto 34.1 % (20.5-60.0); Mean Corpuscular HGB Conc 32.4 g/dL (29.9-35.2); Mean Corpuscular Hemoglobin 28.3 pg (26.7-34.0); Mean Corpuscular Volume 87.5 fL (81.0-99.0); Mean Platelet Volume 8.9 fL (9.5-13.5); Monocytes Absolute Auto 0.4 10^3/uL (0.3-0.8); Monocytes Percent Auto 8.3 % (1.7-12.0); Neutrophils Absolute Auto 2.6 10^3/uL (1.4-6.5); Neutrophils Percent Auto 52.2 % (43.0-75.0); Platelet Count 275 10^3/uL (150-450); Red Blood Count 4.31 10^6/uL (4.20-5.40); Red Cell Distribution Width 14.2 % (11.0-15.0)
[2024-09-01 21:42] LABS: Anion Gap 13.8; BUN Creatinine Ratio 15.5; Calcium 9.1 mg/dL (8.5-10.1); Carbon Dioxide 26.5 mmol/L (21.0-32.0); Chloride 104 mmol/L (98-107); Estimated GFR (African America 40 (>=60 mL/min/1.73m^2); Estimated GFR (Non-African Ame 33 (>=60 mL/min/1.73m^2); Glucose 128 mg/dL (74-106); Potassium 4.3 mmol/L (3.5-5.1); Sodium 140 mmol/L (136-145)
[2024-09-01] MEDS: PIPERACILLIN SODIUM/TAZOBACTAM 4.5 GM in 0.9 % SODIUM CHLORIDE 50 ML IV (21:43)
--- NOTE | 2024-09-01 21:50 | PC.NURSE ---
open area to lower abd, area open and skin surrounding this red. pt denies pain to this area, wound culture obtained
[2024-09-01 21:51] VITALS: BP 131/84
[2024-09-01 23:10] VITALS: BP 135/73; PULSE 72; O2SAT 95
[2024-09-02 00:24] VITALS: BP 165/97; PULSE 77; O2SAT 94
--- NOTE | 2024-09-02 07:18 | ED.GENADUL1 ---
HPI HPI - General Adult General Chief complaint: Skin/Abscess/Foreign Body Stated complaint: ABSESS LEAKING Time Seen by Provider: 09/01/24 20:32 Source: patient Mode of arrival: walk-in Limitations: no limitations Related Data Home Medications ?Medication ?Instructions ?Recorded ?Confirmed carvedilol 25 mg tablet 25 mg PO DAILY 10/01/22 09/01/24 hydralazine 25 mg tablet 25 mg PO DAILY 10/01/22 09/01/24 omeprazole 40 mg capsule,delayed 40 mg PO DAILY 10/01/22 09/01/24 release sacubitril 49 mg-valsartan 51 mg 1 tab PO BID 10/01/22 09/01/24 tablet (Entresto) warfarin 5 mg tablet 2.5 mg PO .COMPLEX 10/01/22 09/01/24 ezetimibe 10 mg tablet 10 mg PO QDAY 09/01/24 09/01/24 ferrous sulfate 325 mg (65 mg 325 mg PO .2 x weekly 09/01/24 09/01/24 iron) tablet rosuvastatin 10 mg tablet 10 mg PO .qhs 09/01/24 09/01/24 Previous Rx's ?Medication ?Instructions ?Recorded albuterol sulfate 90 mcg/actuation 2 inh inhalation Q4H PRN shortness 03/07/24 aerosol inhaler of breath or wheezing #8.5 grams amoxicillin 875 mg-potassium 1 tab PO Q12H #20 tabs 09/02/24 clavulanate 125 mg tablet Allergies Allergy/AdvReac Type Severity Reaction Status Date / Time No Known Drug Allergies Allergy Verified 09/01/24 19:26 Opioid HPI Opioid Management Most Recent Opioid Data: Last Pain Scale 4 10/01/22, 14:51 Review of Systems ROS Status of ROS 10 or more systems reviewed and unremarkable except as noted in history and below PFS PFS Social History Little interest or pleasure in doing things: not at all Feeling down, depressed, or hopeless: not at all Exam Narrative Exam Narrative: Prior to examining the patient, I have washed with hospital approved and provided Antiseptic Hand Drainman and have also applied gloves.? Prior to touching the patient, I asked for consent to examine the patient.? General: Alert and oriented, well nourished, mild distress. increased BMI Eye: PERRL, EOMI, normal conjunctiva. HENT: Normocephalic, normal hearing, moist oral mucosa, no scleral icterus, no sinus tenderness. Lungs: Clear to auscultation and percussion, non-labored respiration. Heart: Normal rate, regular rhythm, no murmur, gallop or edema. Abdomen: Soft, non-tender, non-distended, normal bowel sounds, no masses. BMI increased Musculoskeletal: Normal range of motion and strength, no tenderness or swelling. Skin: Skin is warm, dry and pink, no rashes or lesions. well-healed surgical incision. 2 cm opening and 1 cm open. No discharge. Induration of surrounding skin. Neurologic: Awake, alert, and oriented X3, CN II-XII intact. Psychiatric: Cooperative, appropriate mood and affect.? Following the conclusion of the examination, I have washed my hands thoroughly after removing examination gloves. Constitutional Vital Signs, click to edit/add: Last Vital Signs Temp 98.3 F 09/01/24 19:30 Pulse 77 09/02/24 00:24 Resp 20 09/02/24 00:24 BP 165/97 H 09/02/24 00:24 Pulse Ox 94 L 09/02/24 00:24 O2 Del Method Room Air 09/01/24 23:10 Course Course Hospital Course: Patient did consent to receiving a CT scan to make sure that the patient did not have any abscess that needed to be I&D. This is extremely important as the patient has a large body habitus and cannot visualize the lesion herself. Patient did consent to wound cultures and lab work. Due to the odor and evidence of surrounding cellulitis the patient did consent to receiving intravenous antibiotic therapy, although she did not want an IV. Vital Signs Vital signs: Vital Signs Temperature 98.3 F 09/01/24 19:30 Pulse Rate 85 09/01/24 19:30 Respiratory Rate 18 09/01/24 19:30 Blood Pressure 135/67 09/01/24 19:30 Pulse Oximetry 96 09/01/24 19:30 Oxygen Delivery Method Room Air 09/01/24 19:30 Temperature 98.3 F 09/01/24 19:30 Pulse Rate 77 09/02/24 00:24 Respiratory Rate 20 09/02/24 00:24 Blood Pressure 165/97 H 05/30/25 00:24 Pulse Oximetry 94 L 09/02/24 00:24 Oxygen Delivery Method Room Air 09/01/24 23:10 Medical Decision Making MDM Narrative Medical decision making narrative: Patient was evaluated. She had no evidence of sepsis. Patient had her wound cultured and was given intravenous antibiotic therapy thereafter. Her wound was cleaned and prepped in the normal fashion and then she had an dressing placed. Patient's cannot have prolonged healing. She likely had an infected seroma at the surgical site. Patient will be discharged with antibiotic therapy and follow-up with her primary care physician. She is return if her symptoms get worse or change. Differential Diagnosis Differential Diagnosis: Seroma, abscess, cellulitis, infected seroma Medical Records Medical records reviewed: Yes I reviewed the patient's medical records Lab Data Lab results reviewed: Yes I reviewed the patient's lab results Labs: Lab Results 09/01/24 Range/Units 21:23 WBC 5.0 (4.0-11.0) 10^3/uL RBC 4.31 (4.20-5.40) 10^6/uL Hgb 12.2 (12.0-16.0) g/dL Hct 37.7 (36.0-48.0) % MCV 87.5 (81.0-99.0) fL MCH 28.3 (26.7-34.0) pg MCHC 32.4 (29.9-35.2) g/dL RDW 14.2 (11.0-15.0) % Plt Count 275 (150-450) 10^3/uL MPV 8.9 L (9.5-13.5) fL Neut % (Auto) 52.2 (43.0-75.0) % Lymph % (Auto) 34.1 (20.5-60.0) % [place] % (Auto) 8.3 (1.7-12.0) % Eos % (Auto) 3.6 (0.9-7.0) % Baso % (Auto) 1.6 (0.2-2.0) % Neut # (Auto) 2.6 (1.4-6.5) 10^3/uL Lymph # (Auto) 1.7 (1.2-3.8) 10^3/uL [place] # (Auto) 0.4 (0.3-0.8) 10^3/uL Eos # (Auto) 0.2 (0.0-0.7) 10^3/uL Baso # (Auto) 0.1 (0.0-0.1) 10^3/uL Abs Immat Gran (auto) 0.01 (0.00-0.03) 10^3/uL Imm/Tot Granulo (auto) 0.2 (0.0-0.5) % Sodium 140 (136-145) mmol/L Potassium 4.3 (3.5-5.1) mmol/L Chloride 104 (98-107) mmol/L Carbon Dioxide 26.5 (21.0-32.0) mmol/L Anion Gap 13.8 BUN 24.0 H (7.0-18.0) mg/dL Creatinine 1.55 H (0.55-1.02) mg/dL Est GFR ( Amer) 40 L (>=60 mL/min/1.73m^2) Est GFR (Non-Af Amer) 33 L (>=60 mL/min/1.73m^2) BUN/Creatinine Ratio 15.5 Glucose 128 H (74-106) mg/dL Calcium 9.1 (8.5-10.1) mg/dL Discharge Plan Discharge Chief Complaint: Skin/Abscess/Foreign Body Clinical Impression: Left kidney mass Cellulitis Qualifiers: Site of cellulitis of trunk: abdominal wall Patient Disposition: Home, Self-Care Condition: Good Mode of Transportation: Private Vehicle Prescriptions / Home Meds: New amoxicillin-pot clavulanate 875-125 mg tablet 1 tab PO Q12H Qty: 20 0RF No Action ezetimibe 10 mg tablet 10 mg PO QDAY ferrous sulfate 325 mg (65 mg iron) tablet 325 mg PO .2 x weekly rosuvastatin 10 mg tablet 10 mg PO .qhs carvedilol 25 mg tablet 25 mg PO DAILY hydralazine 25 mg tablet 25 mg PO DAILY omeprazole 40 mg capsule,delayed release(DR/EC) 40 mg PO DAILY Entresto 49-51 mg tablet 1 tab PO BID warfarin 5 mg tablet 2.5 mg PO .COMPLEX Rx Instructions: 2.5 mg orally wed, Sat. 1.25mg on other 5 days; albuterol sulfate 90 mcg/actuation HFA aerosol inhaler 2 inh inhalation Q4H PRN (Reason: shortness of breath or wheezing) Qty: 8.5 0RF Print Language: Italian Instructions: Cellulitis (ED), Kidney Cyst (ED) Additional Instructions: The CT scan of the abdomen and pelvis was done to see if you had an abscess. Although you do not have an abscess. They do see a mass at the mid pole of your left kidney it is suspicious for cancer. There is a small possible cystic component as well. Having said that, your personal oncologist has done an ultrasound and has other films available for comparison. This may be something they are not concerned about or it may be something they are very concerned about. I know your appointment is not until January, but you must be seen sooner. I am providing you a copy of your CT scan to take with you for your follow-up appointment. It is imperative that you go to this follow-up. You can remove your abdominal bandage in 2 days. Then, you can keep it clean and dry and use some sort of padding to soak up any additional leakage. This will have to heal from the inside out and will take several weeks. Your primary medical physician may want to refer you to wound care. Thank you very much for providing me the opportunity to care for you. I appreciate your patience. We just wanted to make sure we are providing you with the highest quality of care possible for your condition. Enjoy your weekend. Referrals: Nadia Peacock NP [Primary Care Provider, [facility]] - 1 week Discharge Date/Time: 09/02/24 01:22 Procedures ED Procedure Instructions Procedures Procedures: Patient was cleaned and prepped in the normal sterile fashion by me with Hibiclens and sterile water. Patient was scrubbing her pannus and the wound area. Patient then had Xeroform gauze placed atop pressure dressing and sterile nonocclusive dressing was applied. Patient was given supplies for an additional dressing change until she can get some at the store. Patient sister is a nurse. The expectation is that she would go to a wound clinic or have her sister help her with daily dressing changes. Is can have to do granulate and heal from the inside out.
== END 2024-09-02 01:22 | disposition home or self-care (01) ==
PROVIDERS: Emergency Provider Emergency Medicine; PCP Nurse Practitioner
DX: L03.311 Cellulitis of abdominal wall (principal); Z90.49 Acquired absence of other specified parts of digestive tract; Z90.710 Acquired absence of both cervix and uterus; M16.0 Bilateral primary osteoarthritis of hip; M51.369 Other intervertebral disc degeneration, lumbar region without mention of lumbar back pain or lower extremity pain
CPT/HCPCS: 36415; 74177; 80048; 85025; 87070; 87075; 96365; 99285; J2543; Q9966

== ENCOUNTER 2024-09-04 07:59 | Outpatient (RCR) | payer MEDICARE, OTHER, SELFPAY | END 2024-09-29 14:50 | disposition home or self-care (01) | LOC: MM 07:59 | PROVIDERS: PCP Nurse Practitioner; Visit Provider Internal Medicine | DX: Z51.81 Encounter for therapeutic drug level monitoring (principal); Z79.01 Long term (current) use of anticoagulants; I48.0 Paroxysmal atrial fibrillation | CPT/HCPCS: 85610; G0463 ==

== ENCOUNTER 2024-10-04 02:36 | Outpatient (RCR) | payer MEDICARE, OTHER, SELFPAY | END 2024-11-03 16:39 | disposition home or self-care (01) | LOC: MM 02:36 | PROVIDERS: PCP Nurse Practitioner; Visit Provider Internal Medicine | DX: Z51.81 Encounter for therapeutic drug level monitoring (principal); Z79.01 Long term (current) use of anticoagulants; I48.0 Paroxysmal atrial fibrillation ==

== ENCOUNTER 2024-11-04 00:42 | Outpatient (RCR) | payer MEDICARE, OTHER, SELFPAY | END 2024-12-01 12:57 | disposition home or self-care (01) | LOC: MM 00:42 | PROVIDERS: PCP Nurse Practitioner; Visit Provider Internal Medicine | DX: Z51.81 Encounter for therapeutic drug level monitoring (principal); Z79.01 Long term (current) use of anticoagulants; I48.0 Paroxysmal atrial fibrillation | CPT/HCPCS: 85610; G0463 ==

== ENCOUNTER 2024-12-05 00:48 | Outpatient (RCR) | payer MEDICARE, OTHER, SELFPAY | END 2025-01-03 15:21 | disposition home or self-care (01) | LOC: MM 00:48 | PROVIDERS: PCP Nurse Practitioner; Visit Provider Internal Medicine | DX: Z51.81 Encounter for therapeutic drug level monitoring (principal); Z79.01 Long term (current) use of anticoagulants; I48.0 Paroxysmal atrial fibrillation | CPT/HCPCS: 85610; G0463 ==

== ENCOUNTER 2024-12-21 11:51 | Outpatient (OUT) | payer MEDICARE, OTHER, SELFPAY ==
[2024-12-21 12:22] LABS: Protein Creatinine Ratio Urine 0.32; Total Protein Urine Random 106.0 mg/dL (<=11.9)
[2024-12-21 12:23] LABS: Hematocrit 41.4 % (36.0-48.0); Hemoglobin 13.3 g/dL (12.0-16.0); Mean Corpuscular HGB Conc 32.1 g/dL (29.9-35.2); Mean Corpuscular Hemoglobin 29.2 pg (26.7-34.0); Mean Corpuscular Volume 90.8 fL (81.0-99.0); Platelet Count 206 10^3/uL (150-450); Red Blood Count 4.56 10^6/uL (4.20-5.40); White Blood Count 5.5 10^3/uL (4.0-11.0)
[2024-12-21 13:13] LABS: Iron 115.0 ug/dL (50.0-170.0); Percent Iron Saturation 32.9 %; Total Iron Binding Capacity 350.0 ug/dL (250.0-450.0)
[2024-12-21 13:14] LABS: Albumin Level 3.4 g/dL (3.4-5.0); Anion Gap 9.9; Blood Urea Nitrogen 20.0 mg/dL (7.0-18.0); Calcium 8.7 mg/dL (8.5-10.1); Carbon Dioxide 27.2 mmol/L (21.0-32.0); Chloride 108 mmol/L (98-107); Estimated GFR (African America 42 (>=60 mL/min/1.73m^2); Estimated GFR (Non-African Ame 35 (>=60 mL/min/1.73m^2); Glucose 100 mg/dL (74-106); Magnesium 2.0 mg/dL (1.8-2.4); Potassium 4.1 mmol/L (3.5-5.1); Sodium 141 mmol/L (136-145); Uric Acid 4.2 mg/dL (2.6-6.0)
[2024-12-21 13:28] LABS: Ferritin 27.0 ng/mL (8.0-252.0)
[2024-12-21 13:52] LABS: Glucose Urine UA NEGATIVE (NEGATIVE)
[2024-12-21 15:19] LABS: Cast Seen? NONE SEEN #/LPF (NONE SEEN); Crystals Seen? None Seen #/HPF (None Seen)
== END 2024-12-21 11:52 | disposition home or self-care (01) ==
LOC: LAB 11:54
PROVIDERS: PCP Nurse Practitioner; Visit Provider Internal Medicine
DX: E79.0 Hyperuricemia without signs of inflammatory arthritis and tophaceous disease (principal); N18.4 Chronic kidney disease, stage 4 (severe); C64.9 Malignant neoplasm of unspecified kidney, except renal pelvis; I12.9 Hypertensive chronic kidney disease with stage 1 through stage 4 chronic kidney disease, or unspecified chronic kidney disease; N25.81 Secondary hyperparathyroidism of renal origin; Z90.5 Acquired absence of kidney
CPT/HCPCS: 36415; 80069; 81001; 82306; 82570; 82728; 83540; 83550; 83735; 83970; 84156; 84550; 85027

== ENCOUNTER 2025-01-04 04:16 | Outpatient (RCR) | payer MEDICARE, OTHER, SELFPAY | END 2025-02-03 23:59 | disposition home or self-care (01) | LOC: MM 04:16 | PROVIDERS: PCP Nurse Practitioner; Visit Provider Internal Medicine | DX: Z51.81 Encounter for therapeutic drug level monitoring (principal); Z79.01 Long term (current) use of anticoagulants; I48.0 Paroxysmal atrial fibrillation | CPT/HCPCS: 85610; G0463 ==

== ENCOUNTER 2025-01-25 15:10 | Emergency (ER) | payer MEDICARE, OTHER, SELFPAY ==
--- OUTSIDE RECORDS SUMMARY | 2025-01-11 14:20 | XMS_ITS | Encounter Summary ---
Author Organization [facility] Address [address] [place] [id number] Care Team Providers Care Help Desk Engineer Name Role Phone Nadia Peacock CNP Primary Care Provider [phone] Issac Helms MD Unavailable [phone] Source Comments In the event this information is protected by the Federal Confidentiality of Alcohol and Drug AbusePatient Records regulations: The Federal rules restrict any use of the information to criminally investigate or prosecute any alcohol or drug abuse patient.[facility] Reason for Referral * MRI/CT (Routine) - AuthorizedSpecialtyDiagnoses / ProceduresReferred By ContactReferred To ContactCT IMAGING Diagnoses Renal oncocytoma of left kidney Procedures CT ABD/PEL WO IVCON CT ABD & PELVIS W/O CONTRAST Kenadll Clarke MD [address] [place] [address] [place] [address] Phone: tel: fax: [place] [address] Referral IDStatusReasonStart DateExpiration DateVisits RequestedVisits [id number] Auto-Generated Referral / Encounter Details DateTypeDepartmentCare Team (Latest Contact Info)Digujwccxfo68/08/2025 2:20 PM EDTVisit (SP) Office Hematology/Oncology [address] [facility] [facility] [place] [address] Kendall Clarke MD [address] [place] [address] [place] [address] Renal oncocytoma of left kidney (Primary Dx) Social History Tobacco UseTypesPacks/DayYears UsedDateSmoking Tobacco: [id number] - 2017Smokeless Tobacco: NeverAlcohol UseStandard Drinks/WeekCommentsNever0 (1 standard drink = 0.6 oz pure alcohol)Overall Financial Resource Strain (CARDIA) AnswerDate RecordedHow hard is it for you to pay for the very basics like food, housing, medical care, and heating?Patient /08/2023HQ-2AnswerDate RecordedPHQ-2 efmky446Hunger Vital SignAnswerDate RecordedWithin the past 12 months, you worried that your food would run out before you got the money to buymore.Patient /08/2023Within the past 12 months, the food you bought just didn't last and you didn't have money to get more.Patient wzuiwaxx75/08/2023RAPARE - TransportationAnswerDate RecordedIn the past 12 months, has lack of transportation kept you from medical appointments or from getting medications?Patient /08/2023In the past 12 months, has lack of transportation kept you from meetings, work, or from getting things needed for daily living?Patient yzeflwpi66/08/2023Housing Stability Vital SignAnswerDate RecordedIn the last 12 months, was there a time when you were not able to pay the mortgage or rent on time?Patient bfvnnmt1108/11/2022Number of Places Lived in the Last YearNot on file08/11/2022In the last 12 months, was there a time when you did not have a steady place to sleep or slept in ashelter (including now)? Patient knqngvs6908/11/2022rea Deprivation IndexAnswerDate RecordedNational Score (1-100), lower number is lower bojm790508/20/2022State Score (1-10), lower number is lower ziya3353Data from: https://www.neighborhoodatlas.[facility]/. Last address used for [address] [id number] and Gender InformationValueDate RecordedSex Assigned at BirthNot on fileLegal SexFemale 03/07/2012 9:35 AM ESTGender IdentityNot on fileSexual OrientationNot on file documented as of this encounter Last Filed Vital Signs Vital SignReadingTime TakenCommentsBlood Lzqjotvl242/7410 2:23 PM EDT Gmzzi6810 2:23 PM DPZRvufgfvtejg24.3 ??C (97.4 ??F)01/11/2025 2:23 PM EDTRespiratory Svau9170 2:23 PM EDTOxygen Fqvkccdtxd62%01/11/2025 2:23 PM EDTInhaled Oxygen Concentration--Xstspi90.9 kg (204 lb 12.9 oz)01/11/2025 2:23 PM EDTHeight--Body Mass Index36.8403 2:48 PM EDTdocumented in this encounter Functional Status * Are you deaf or do you have serious difficulty hearing?AnswerDate of PqrrdxjyanVtcnixGe86/10/2023 3:06 PM Contreras Walter RN * Are you blind or do you have serious difficulty seeing, even when wearing glasses?AnswerDate of HyhdmoykvwObxykqHo83/10/2023 3:06 PM Contreras Walter RN * Do you have serious difficulty walking or climbing stairs?AnswerDate of NolzwtrozyGdpbbpBo70/10/2023 3:06 PM Contreras Walter RN * Do you have difficulty dressing or bathing?AnswerDate of AssessmentAuthorNo 08/13/2022 3:06 PM Contreras Walter RN * Because of a physical, mental, or emotional condition, do you have difficulty doing errands alone such as visiting a doctor's office or shopping?AnswerDate of LfswoerbuiKmxmmnKa65/10/2023 3:06 PM Contreras Walter RN documented as of this encounter Mental Status * Because of a physical, mental, or emotional condition, do you have serious difficulty concentrating, remembering, or making decisions?AnswerEntry Date EjfkriGe61/10/2023 3:06 PM Contreras Walter RN documented in this encounter Patient Instructions * Patient Instructions* Kendall Clarke MD - 01/11/2025 2:[address] A/P to be done in 4 months F/u in 4 months documented in this encounter Progress Notes * Kendall Clarke MD - 01/11/2025 2:20 PM EDT PATIENT NAME: Jessica Burkett CLINIC NO.: [id number] ATTENDING PHYSICIAN: Kendall Clarke MD DATE OF SERVICE: 01/11/25 Some of the elements of this note have been copied from my previous progress note dated 11/14/24. All the information has been reviewed carefully. 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 HPI: Jessica returns for her 6 month follow up. She had a repeat CT chest without contrast 05/2023 as detailed below. Still seeing Dr. Mayorga. Did give her 5 IV iron infusions and her hemoglobin went from 8 to 11. Nowon oral iron every other days per nephrology. She contacted [facility] in February and was admitted. Overall doing well. Denies any new pain, fever, chills, nausea, vomiting, or appetite issues. No significant fatigue. Updated visit 12/29/23: Doing well Getting iron infusion with nephrology On warfarin - prescribed by cardiology Declined to do mammogram 07/05/24: - Doing well - No major complaints. - Had blood work done recently at [facility] - No smoking, alcohol 09/07/24: - Doing well - No major complaints. 11/14/24: - Left kidney biopsy on 11/01/24 showed - oncocytic renal neoplasm. This suggests an oncocytic renal neoplasm of low malignant potential within the spectrum of tumors described as low-grade oncocytic tumor/LOT . Tumor board (11/07/24)- Although pathology classifies it as an oncocytic renal neoplasm within the LOT (low-grade oncocytic tumor) spectrum and not clearly indolent, the renal preservation priority outweighs the unclear malignant potential. No immediate intervention is indicated. Continue close multid isciplinary monitoring with interval imaging and nephrology follow-up. - Doing well - Sees nephrology () at [facility]. - On warfarin for afib. 01/11/25: - Doing well - No major complaints - Seen last week - Quit smoking 8 yrs ago. PAST MEDICAL HISTORY Diagnosis Date CAD (coronary artery disease) CHF (congestive heart failure) (HCC) CKD (chronic kidney disease) HLD (hyperlipidemia) Social History Tobacco Use Smoking status: Former Current packs/day: 0.00 Average packs/day: 1 pack/day for 50.0 years (50.0 ttl pk-yrs) Types: Cigarettes Start date: 1966 Quit date: 2017 Years since quittin.7 Smokeless tobacco: Never Vaping Use Vaping status: Never Used Substance Use Topics Alcohol use: Never Drug use: Never FAMILY HISTORY Problem Relation Age of Onset Liver Transplant Mother Heart disease Mother Cancer Father bladder Heart disease Father Heart disease Sister Cancer Sister soft tissue Pancreatic Cancer Brother Pancreatic Cancer Brother Heart disease Maternal Grandmother Diabetes Maternal Grandmother No Known Problems Maternal Grandfather Heart disease Paternal Grandmother Past medical, social and family history reviewed without any changes. REVIEW OF SYSTEMS GENERAL: No weight loss, malaise or fevers. No night sweats. HEENT: Negative for headaches, No changes in hearing or vision, no nose bleeds or other nasal problems. RESPIRATORY: Negative for cough, wheezing and shortness of breath CARDIOVASCULAR: Negative for chest pain, leg swelling and palpitations GI: Negative for abdominal discomfort, blood in stools or black stools and change in bowel habits : Negative for dysuria, frequency and incontinence MUSCULOSKELETAL: Negative for joint pain or swelling, back pain, and muscle pain. SKIN: Negative for lesions, rash, and itching. HEMATOLOGY/LYMPHOLOGY Negative for prolonged bleeding, bruising easily, and swollen nodes. NEURO: Negative for numbness or tingling of hands/feet. No weakness. PHYSICAL EXAMINATION: There were no vitals taken for this visit. ECOG PERFORMANCE STATUS: 1- Restricted in physically strenuous activity. Carries out light duty. General: Alert and oriented, no distress, pleasant and cooperative. Heart: Regular, normal S1 and S2, no murmurs, rubs, or gallops Lungs: Clear to auscultation bilaterally Abdomen: Benign Extremities: Feet/ankles without edema, posterior tibial pulses full and symmetrical Lymph: no cervical, SC or axillary nodes on exam LABS: Glucose (mg/dL) Date Value 12/29/2023 123 Potassium (mmol/L) Date Value 12/29/2023 4.0 Sodium (mmol/L) Date Value 12/29/2023 140 Chloride (mmol/L) Date Value 12/29/2023 102 CO2 (mmol/L) Date Value 12/29/2023 26 Creatinine (mg/dL) Date Value 12/29/2023 2.10 BUN (mg/dL) Date Value 12/29/2023 28 Anion Gap (mmol/L) Date Value 12/29/2023 12 Calcium, Total (mg/dL) Date Value 12/29/2023 9.5 Protein, Total (g/dL) Date Value 12/29/2023 7.2 Albumin (g/dL) Date Value 12/29/2023 4.3 Bilirubin, Total (mg/dL) Date Value 12/29/2023 0.3 Alkaline Phosphatase (U/L) Date Value 12/29/2023 100 AST (U/L) Date Value 12/29/2023 13 ALT (U/L) Date Value 12/29/2023 11 WBC Date Value Ref Range Status 10/10/2024 5.20 3.70 - 11.00 k/uL Final RBC Date Value Ref Range Status 10/10/2024 4.90 3.90 - 5.20 m/uL Final Hemoglobin Date Value Ref Range Status 10/10/2024 14.0 11.5 - 15.5 g/dL Final Hematocrit Date Value Ref Range Status 10/10/2024 43.3 36.0 - 46.0 % Final MCV Date Value Ref Range Status 10/10/2024 88.4 80.0 - 100.0 fL Final MCH Date Value Ref Range Status 10/10/2024 28.6 26.0 - 34.0 pg Final MCHC Date Value Ref Range Status 10/10/2024 32.3 30.5 - 36.0 g/dL Final RDW-CV Date Value Ref Range Status 10/10/2024 14.9 11.5 - 15.0 % Final Platelet Count Date Value Ref Range Status 10/10/2024 218 150 - 400 k/uL Final MPV Date Value Ref Range Status 10/10/2024 8.9 (L) 9.0 - 12.7 fL Final Abs Neut Date Value Ref Range Status 12/29/2023 3.92 1.45 - 7.50 k/uL Final Lymphocytes % Date Value Ref Range Status 12/29/2023 28.9 % Final Abs Lymph Date Value Ref Range Status 12/29/2023 1.96 1.00 - 4.00 k/uL Final Monocytes % Date Value Ref Range Status 12/29/2023 8.2 % Final Abs Worth Date Value Ref Range Status 12/29/2023 0.56 <0.87 k/uL Final Abs Eosin Date Value Ref Range Status 12/29/2023 0.19 <0.46 k/uL Final Basophils % Date Value Ref Range Status 12/29/2023 1.2 % Final Abs Baso Date Value Ref Range Status 12/29/2023 0.08 <0.11 k/uL Final PATH: Right nephrectomy August 2022: KIDNEY: Nephrectomy 8th Edition - Protocol posted: 10/03/2020 KIDNEY: RESECTION - B SPECIMEN Procedure Total nephrectomy Specimen Laterality Right TUMOR Tumor Focality Unifocal Tumor Size Greatest Dimension (Centimeters): 7.7 cm Histologic Type Clear cell renal cell carcinoma Histologic Grade (WHO / ISUP) G4 (extreme nuclear pleomorphism and / or multi- nuclear giant cells and / or rhabdoid and / or sarcomatoid differentiation) Tumor Extent Limited to kidney Sarcomatoid Features Present Percentage of Sarcomatoid Element 20 % Rhabdoid Features Not identified Tumor Necrosis Not identified Lymphovascular Invasion Not identified MARGINS Margin Status All margins negative for invasive carcinoma REGIONAL LYMPH NODES Regional Lymph Node Status All regional lymph nodes negative for tumor Number of Lymph Nodes Examined 1 PATHOLOGIC STAGE CLASSIFICATION (pTNM, AJCC 8th Edition) Reporting of pT, pN, and (when applicable) pM categories is based on information available to the pathologist at the time the report is issued. As per the AJCC (Chapter 1, 8th Ed.) it is the managingphysician???s responsibility to establish the final pathologic stage based upon all pertinent information, including but potentially not limited to this pathology report. Primary Tumor (pT) pT2a Regional Lymph Nodes (pN) pN0 ADDITIONAL FINDINGS Additional Findings in Nonneoplastic Kidney None iden A. Paracaval lymph node, excision: - Lymph node involved by chronic lymphocytic leukemia/small lymphocytic lymphoma (CLL/SLL). - See comment IMAGING: PET June 2022: IMPRESSION: 1. NECK: * FDG avid left parotid nodules, may represent intrinsic low grade parotid neoplasm unrelated to renal mass. Otherwise no FDG avid neoplastic process. 2. CHEST: * No FDG avid neoplastic process. Multiple small lung nodules without focal FDG uptake, recommend continued CT follow-up. 3. ABDOMEN/PELVIS: * Large cystic right renal mass with mild peripheral FDG activity, compatible with renal cell carcinoma. * An indeterminate 1 cm interpolar exophytic left nodule with minimal FDG activity, cannot exclude additional sites of RCC * No FDG avid lymphadenopathy. Please note that FDG PET may not be sensitive to RCC. * Bilateral ovarian cystic masses with minimal peripheral FDG activity, cannot exclude ovarian neoplasm. * FDG avid skin thickening in the medial left upper thigh skin fold with a normal sized FDG avid left inguinal node, may represent focal inflammation/infection with reactive lymph node, recommend clinical correlation. 4. EXTREMITIES/SKELETON: * No suspicious FDG avid osseous lesion CT chest without contrast June 2022: 1. Several subcentimeter right-sided pulmonary nodules, largest measuring approximately 7-8 mm, the possibility of metastases cannot be excluded. Correlation with continued follow-up examinations is recommended. 2. Mildly prominent precarinal mediastinal lymph node. This can also be further assessed on follow-up studies. 3. Small bilateral pleural effusions, as above. 4. 1.1 cm left thyroid lobe nodule. Further workup with thyroid sonography is recommended. CT without contrast abdomen 06/2022 : 1. Exophytic large mass off the right kidney both solid and cystic neoplasm 2. Extensive atherosclerosis 3. Abnormal enlarged external iliac lymph node on the left. CT Scan of the Chest and Abdomen and Pelvis 12/2022: 1. Right-sided pulmonary nodules measuring up to 7 mm are unchanged in size and number from the previous CT in June 2022. No new pulmonary nodules or masses are identified. 2. No CT evidence of new metastatic disease in the chest. 1. Interval postsurgical changes from right nephrectomy. There is no CT evidence of residual neoplasm or metastatic disease in the abdomen/pelvis, given limitations of noncontrast technique. 2. No pathologically enlarged lymph nodes are identified in the abdomen or pelvis. 3. Stable incidental findings as detailed above. CT chest without contrast 06/10/2023: 1. Right-sided pulmonary nodules measuring up to 7 mm are unchanged from the previous CT performed in June 2022. No new pulmonary nodules or masses are identified. 2. No CT evidence of new metastatic disease in the chest. 3. Stable incidental findings are detailed above. Assessment and Plan: Jessica Burkett is a 72 year old year old female here for follow up. T2a,N0,MX clear cell RCC with 20% sarcomatoid feautures post resection 08/2022 - Had discussed adjuvant IO and decided not appropriate for her. Imaging studies in December 2023 did not show evidence of recurrence. Imaging studies in June 2024 did not show any evidence of recurrence. Ordered repeatimaging studies in 6 months. US kidney on 07/07/24 showed left renal cyst measuring 3cm. CT A/P with contrast on 09/01/24 done at [facility] showed heterogenous mass at midpole of left kidney measuring 3.7cm. Left kidney biopsy on 11/01/24 showed - oncocytic renal neoplasm. This suggests an oncocytic renal neoplasm of low malignant potential within the spectrum of tumors described as low-grade oncocytictumor/LOT . Tumor board (11/07/24)- Although pathology classifies it as an oncocytic renal neoplasm within the LOT (low-grade oncocytic tumor) spectrum and not clearly indolent, the renal preservation priority outweighs the unclear malignant potential. No immediate intervention is indicated. Continue close multid isciplinary monitoring with interval imaging and nephrology follow-up. - Seen by Urology on 11/22/24. Recommended surveillance - CT A/P on 01/04/25 showed mild increase in left midpole mass upto 2.1cm. Monitor for now - Ordered repeat CT A/P to be done in 4 months. Incidental SLL found in portacaval node with nephrectomy - no indication for therapy and will continue watchful waiting. CT A/P on 01/04/25 showed stable 1.4 x 1.1 cm left paraceliac lymph node and Stable 1.6 x 0.8 cm left para-aortic lymph node. CRI- Follows nephrology- F/u with at [facility]. CAD / CHF- Follow up with cardiology. Remains on warfarin for h/o Afib. Thyroid nodule chronic and has had US in the past Lung nodules-stable on recent CT chest from Jan 2025. F/u in 4 months. Total time spent 20 min. Kendall Clarke MD. [facility] Hematology/Oncology. CC: Nadia Peacock CNP Michelle Kuznicki, MD documented in this encounter Plan of Treatment DateTypeDepartmentCare Team (Latest Contact Info)Kpzubavpsww96/05/2026 1:45 PM ESTAppointment Radiology Pet CT [address] [facility] [place] [address] CT Abd / PelNameTypePriorityAssociated DiagnosesOrder ScheduleCT ABD/PEL WO IVCONRadiologyRoutine Renal oncocytoma of left kidney Expected: 05/14/2025 (Approximate), Expires: 02/10/2026OMPLETE BLOOD COUNT AND DIFFERENTIALLabRoutine Renal oncocytoma of left kidney Expected: 05/14/2025 (Approximate), Expires: 08/13/2025OMPREHENSIVE METABOLIC PANELLabRoutine Renal oncocytoma of left kidney Expected: 05/14/2025 (Approximate), Expires: 08/13/2025documented as of this encounter Visit Diagnoses Diagnosis Renal oncocytoma of left kidney- Primary documented in this encounter Care Teams Team MemberRelationshipSpecialtyStart DateEnd Date Nadia Peacock, SENIOR MORTGAGE UNDERWRITER [address] [place] [address] PCP - GeneralFamily Medicine06/04/22 Issac Helms MD [address] [facility] [address] [place] [phone] Cardiology07/15/22documented as of this encounter
--- OUTSIDE RECORDS SUMMARY | 2025-01-16 09:05 | XMS_ITS | Encounter Summary ---
Author Organization [facility] Address [address] [place] [address] Care Team Providers Care Forming Roll Operator Name Role Phone Nadia Peacock MD Primary Care Provider [phone] Encounter Details DateTypeDepartmentCare Team (Latest Contact Info)Kdeojeuytay73/13/2025 9:05 AM EDTAncillary Procedure [facility] [address] [place] [address] Pre-operative cardiovascular examination, ICD in place Social History Tobacco UseTypesPacks/DayYears UsedDateSmoking Tobacco: FormerCigarettes Smokeless Tobacco: NeverAlcohol UseStandard Drinks/WeekCommentsNot Currently0 (1 standard drink = 0.6 oz pure alcohol)UT Safety & EnvironmentAnswerDate Recorded Fear of Current or Ex-PartnerNot on file05/28/2023Emotionally AbusedNot on file 4Physically AbusedNot on file05/28/2023Sexually AbusedNot on file 4Physically or Sexually AbusedNot on file4CommentsNo Sex and Gender InformationValueDate RecordedSex Assigned at BirthFemale 06/15/2024 10:41 AM EDTLegal KisBsdhjd93/29/2022 10:33 PM EDTGender Identity Kpdcen1906/15/2024 10:41 AM EDTSexual OrientationHeterosexual or Straight 06/15/2024 10:41 AM EDTdocumented as of this encounter Plan of Treatment DateTypeDepartmentCare Team (Latest Contact Info)Yhcwfaesjfm39/03/2025 1:00 PM ESTOffice Visit [facility] [address] [place] [phone] Issac Helms MD [address] [facility] [address] [facility] [place] [phone] documented as of this encounter Procedures Procedure NamePriorityDate/TimeAssociated DiagnosisCommentsCARDIAC DEVICE CHECK CHECK - VXYJJDPwjwhiv14/15/2025 11:00 AM EDT Pre-operative cardiovascular examination, ICD in place documented in this encounter Results * CARDIAC DEVICE CHECK - REMOTE - ICD (01/18/2025 11:00 AM EDT)Specimen (Source) Anatomical Location / LateralityCollection Method / VolumeCollection Time Received Time Narrative Authorizing ProviderResult TypeResult StatusPaul Sivakumar MDCV IMPLANTABLE CARDIAC DEVICE PROCEDURESFinal ResultPerforming OrganizationAddressCity/State/ZIP Code Phone Number CPACS documented in this encounter Visit Diagnoses Diagnosis Pre-operative cardiovascular examination, ICD in place Pre-operative cardiovascular examination documented in this encounter Care Teams Team MemberRelationshipSpecialtyStart DateEnd Date Nadia Peacock MD [address] [place] [address] PCP - General06/16/22documented as of this encounter
--- OUTSIDE RECORDS SUMMARY | 2025-01-20 14:30 | XMS_ITS | Encounter Summary ---
Author Organization [facility] Address [address] [place] [id number] Care Team Providers Care Copy Camera Operator Name Role Phone Nadia Peacock CNP Primary Care Provider [phone] Issac Helms MD Unavailable [phone] Source Comments In the event this information is protected by the Federal Confidentiality of Alcohol and Drug AbusePatient Records regulations: The Federal rules restrict any use of the information to criminally investigate or prosecute any alcohol or drug abuse patient.[facility] Reason for Visit * ReasonCommentsEstablished Patient Encounter Details DateTypeDepartmentCare Team (Latest Contact Info)Bnzyeggekyy98/17/2025 2:30 PM EDTVisit (SP) Office Hematology [address] [facility] [place] [address] aErnest Joyce MD [address] [place] [address] Renal oncocytoma of left kidney (Primary Dx) Social History Tobacco UseTypesPacks/DayYears UsedDateSmoking Tobacco: [id number] - 2017Smokeless Tobacco: NeverAlcohol UseStandard Drinks/WeekCommentsNever0 (1 standard drink = 0.6 oz pure alcohol)Overall Financial Resource Strain (CARDIA) AnswerDate RecordedHow hard is it for you to pay for the very basics like food, housing, medical care, and heating?Patient uqtjdzxz32/08/2023HQ-2AnswerDate RecordedPHQ-2 cqlbw114Hunger Vital SignAnswerDate RecordedWithin the past 12 months, you worried that your food would run out before you got the money to buymore.Patient vxbeiyik49/08/2023Within the past 12 months, the food you bought just didn't last and you didn't have money to get more.Patient adynbepx67/08/2023RAPARE - TransportationAnswerDate RecordedIn the past 12 months, has lack of transportation kept you from medical appointments or from getting medications?Patient lojxuwff84/08/2023In the past 12 months, has lack of transportation kept you from meetings, work, or from getting things needed for daily living?Patient ijewwmai65/08/2023Housing Stability Vital SignAnswerDate RecordedIn the last 12 months, was there a time when you were not able to pay the mortgage or rent on time?Patient zvxzmmw9008/11/2022Number of Places Lived in the Last YearNot on file08/11/2022In the last 12 months, was there a time when you did not have a steady place to sleep or slept in ashelter (including now)? Patient axmjutr4108/11/2022rea Deprivation IndexAnswerDate RecordedNational Score (1-100), lower number is lower xlhb441908/20/2022State Score (1-10), lower number is lower [id number] from: https://www.neighborhoodatlas.medicine.[facility].edu/. Last address used for [address] regnantCommentsNoSex and Gender InformationValueDate RecordedSex Assigned at BirthNot on fileLegal SexFemale 03/07/2012 9:35 AM ESTGender IdentityNot on fileSexual OrientationNot on file documented as of this encounter Last Filed Vital Signs Vital SignReadingTime TakenCommentsBlood Juuthsze622/5201/20/2025 2:48 PM EDT Xxufw431201/20/2025 2:48 PM CMUQwpkbwgvpbm17.7 ??C (98.1 ??F)01/20/2025 2:48 PM EDTRespiratory Rate--Oxygen Lhalahnvow40%01/20/2025 2:48 PM EDTInhaled Oxygen Concentration--Qkrmwz33.5 kg (206 lb 2.1 oz)01/20/2025 2:48 PM EDTHeight--Body Mass Index37.0806/15/2023 2:48 PM EDTdocumented in this encounter Functional Status * Are you deaf or do you have serious difficulty hearing?AnswerDate of NvvjthovpwPefllcJr82/10/2023 3:06 PM Contreras Walter RN * Are you blind or do you have serious difficulty seeing, even when wearing glasses?AnswerDate of IshmirbzlyZwtcrrUy38/10/2023 3:06 PM Contreras Walter RN * Do you have serious difficulty walking or climbing stairs?AnswerDate of NakeesytmpQebqmpRp85/10/2023 3:06 PM Contreras Walter RN * Do you have difficulty dressing or bathing?AnswerDate of AssessmentAuthorNo 08/13/2022 3:06 PM Contreras Walter RN * Because of a physical, mental, or emotional condition, do you have difficulty doing errands alone such as visiting a doctor's office or shopping?AnswerDate of HltuxbnppuBiycwnFn49/10/2023 3:06 PM Contreras Walter RN documented as of this encounter Mental Status * Because of a physical, mental, or emotional condition, do you have serious difficulty concentrating, remembering, or making decisions?AnswerEntry Date LsicctTf69/10/2023 3:06 PM Contreras Walter RN documented in this encounter Progress Notes * Earnest Joyce MD - 01/20/2025 3:07 PM EDT PATIENT NAME: [facility] NO.: [id number] ATTENDING PHYSICIAN: Earnest Joyce MD DATE OF SERVICE: January 20, 2025 Some of the elements of this note have been copied from my previous progress note dated 12/17/2022. All the information has been reviewed carefully. 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 HPI: Jessica Burkett is a 74 year old year old female here for follow up. In 10/2024, a new renal mass was identified on CT scan and subsequently biopsied, confirming low-grade renal cell carcinoma. The patient has one remaining kidney. She has been under the care of Dr. Cook, who recommended annual CT scans for surveillance. A cyst was also identified on imaging, which has remained stable in size over the past 2 years. Today, the patient reports no hematuria and states that all other tests have been normal. She follows with a healthcare specialist every 6 months, with recent improvement in kidney function from 29% to 37% over the past 6 months. She expresses confusion regarding the significance of the renal cyst and the fr equency of surveillance imaging, as her previous oncologist recommended CT scans every 4 months. PAST MEDICAL HISTORY Diagnosis Date CAD (coronary [...] tingling of hands/feet. No weakness. PHYSICAL EXAMINATION: BP 125/52 Pulse 71 Temp (Src) 98.1 (Temporal Artery) Wt 206 lb 2.1 oz (93.5kg) SpO2 96% Wt 89.7 kg (197 lb 12.8 oz) BMI 35.58 kg/m2 Last 3 Encounter Wt Readings: Date: Wt: 12/17/2022 89.7 kg (197 lb 12.8 oz) 09/10/2022 86.5 kg (190 lb 9.6 oz) 08/20/2022 89.8 kg (198 lb) General appearance:ECOG PERFORMANCE STATUS: 1- Restricted in physically strenuous activity. Carries out light duty. Patient in NAD. Skin: Skin color, texture, turgor normal. No rashes or lesions. Eyes: Anicteric sclera. Pupils are equally round and reactive to light. Extraocular movements are intact. Lymph Nodes: No cervical, supraclavicular, axillary or inguinal adenopathy. Oropharynx: Lips, mucosa, and tongue normal. Back: No pain to percussion. Negative SLR test Lungs clear to auscultation, No wheezing or rhonchi Heart: RRR without murmur, gallop, or rubs. Abdomen soft, non-tender. No masses, organomegaly Extremities: No deformities. No edema Neuro: Gait and speech normal. Reflexes normal and symmetric. Muscular strength intact. Sensation grossly intact. Rectal: Deferred : Deferred LABS: Glucose (mg/dL) Date Value 12/29/2023 123 [...] Range Status 12/29/2023 8.2 % Final Abs [place] Date Value Ref Range Status 12/29/2023 0.56 [...] leukemia/small lymphocytic lymphoma (CLL/SLL). - See comment L Kidney Biopsy 10/2024: A. Kidney, left, needle core biopsy: - Oncocytic renal neoplasm (see comment). JKM 11/04/2024 at 1054 EDT Diagnosis Comment Histologic sections show an oncocytic renal neoplasm with low-grade/low-risk features. I performed immunohistochemistry in the assessment of this tumor, utilizing antibodies for CK7 and CD117. CK7 shows strong and diffuse cytoplasmic reactivity, whereas CD117 is negative. This suggests an oncocytic renal neoplasm of low malignant potential within the spectrum of tumors described as low-grade oncocytic tumor/LOT . IMAGING: PET June 2022: IMPRESSION: 1. NECK: [...] Stable incidental findings as detailed above. CT Abdomen and Pelvis 01/2025: 1. Along the lateral mid pole of the left kidney, there is a 2.1 x 2.1 cm exophytic hyperdense lesion, increased in size when compared to the prior exam from 06/28/2024, it measured 1.7 x 1.6 cm. This was also seen on an interval outside CT scan from 09/01/2024, where it demonstrated enhancement. Therefore, this is highly suspicious for a growing left renal cell carcinoma. Would advise urology referral to discuss management options. 2. Scattered small nonspecific retroperitoneal lymph nodes which are relatively stable when compared to the prior exam. 3. Stable nodular thickening of the adrenal glands. 4. Moderate sized hiatal hernia. Assessment and Plan: Jessica Burkett is a 74 year old year old female here for follow up. T2a,N0,MX clear cell RCC with 20% sarcomatoid feautures post resection 08/2022- Had discussed adjuvant IO and decided not appropriate for her Incidental SLL- no indication for therapy and will continue watchful waiting CRI- Follows nephrology CAD CHF- Parotid lesion on CT Thyroid nodule chronic and has had US in the past L kidney mid pole lesion biopsy per urology- Oncocytioc low malignant potential tumor also a cysticlesion in the L kidney which has been stable- She will follow up with Urology and imaging per urology Follow up with [facility] in [place] and Urology as planned Thank you for the kind referral. If there are any questions and or concerns please do not hesitate to contact me at [phone]. Earnest Joyce MD Hematology/Medical Oncology [facility] I spent a total of 30 minutes on the date of the service which included preparing to see the patient, lfqr-gu-wuje patient care, completing clinical documentation, obtaining and/or reviewing separately obtained history, performing a medically appropriate examination, and counseling and educating the patient/family/caregiver. CC: Nadia Peacock, BALWINDER Xiao MD documented in this encounter Plan of Treatment DateTypeDepartmentCare Team (Latest Contact Info)Qnpzjoofezy71/05/2026 1:45 PM ESTAppointment Radiology Pet CT [address] [place] [address] [place] [address] CT Abd / Peldocumented as of this encounter Visit Diagnoses Diagnosis Renal oncocytoma of left kidney- Primary documented in this encounter Care Teams Team MemberRelationshipSpecialtyStart DateEnd Date Nadia Peacock CNP [address] [place] [address] PCP - GeneralFamily Medicine06/04/22 Issac Helms MD [address] [facility] [address] [facility] [place] [id number] Cardiology07/15/22documented as of this encounter
[2025-01-25] VITALS (56 sets, daily range): BP systolic 122–188; BP diastolic 72–100; PULSE 0–101; TEMP 36.8; O2SAT 87–99; BMI 36.6
--- OUTSIDE RECORDS SUMMARY | 2025-01-25 15:36 | XMS_ITS ---
Author Organization [facility] Address [address] [place] [address] Care Team Providers Care Secondary Set Up Man Name Role Phone Nadia Peacock MD Primary Care Provider [phone] Active Problems ProblemNoted DateDiagnosed DateCentrilobular hbgzbewaj08/20/2025RSV infection 03/16/2024cute cough03/15/20243366Wrxjcchwtk52/02/2024KI (acute kidney injury) 02/24/2024Encounter for prophylactic measures, xrbvujfkxbe85/20/2024Generalized pvydubjl44/20/2024Impaired gait and cnofivpg55/20/2024Lesion of liver less than 1 cm in bcbwmjeb74/20/2024Mass of uterine sjcssn2104/25/2023UTI (urinary tract infection)02/24/20243915Nwhapkwuaolyz79/20/2024Immunodeficiency due to conditions classified vlbxxajvn48/20/2024Morbid (severe) obesity due to excess calories 11/24/2023Other wumkhxmlvcltq72/20/2024DD (degenerative disc disease), lumbar 08/20/2023Major depressive disorder, single episode, bvruiqrd95/14/2024Malignant neoplasm of right kidney, except renal kbnbmv9505/20/2023Thyroglossal duct cyst 05/20/2023hest fyuowwgali64/04/2024andidiasis, wuyyabzzj96/04/2023hronic lymphocytic /04/2023losed fracture of one rib of left side with routine ltzpqqy3903/09/2023OVID-19105/10/2022epressive ctpqqbzu12/04/2023 Gastroesophageal reflux qcsbdqt1303/09/2023Heart ekbocu0105/10/2022Hypokalemia 03/09/2023Ischemic myocardial coofzhqhokp23/04/2023Thyroid rtookf3103/09/2023S/P CABG (coronary artery bypass graft)08/10/2022Renal mass08/07/2022Obesity, Class II, BMI 35-39.9008/07/2022iventricular ICD (implantable cardioverter- defibrillator) in place07/17/2022 Overview (08/29/2022): Last Assessment & Plan: Assessment: ischemic s/p BEHAVIORAL INTERVENTIONIST-D placement ( 2017) in W for ischemic cardiomyopathy last device check 06/27/2022 (scanned into [employer]) Follows with cardiology Heralavuwxcxjv16/13/2023 Overview (08/29/2022): Last Assessment & Plan: Assessment: Per Dr. Issac Helms ([facility]) last visit 06/16/2022: Aspirin and warfarin can be held 5 days prior to the surgery and resumed afterwards Injury of delygf8206/05/2022Lack of hwahzlr9406/05/20220535Nwgemecnphbz04/02/2023leural digfwbfy13/02/2023Secondary surzhsefwbutagturzk40/02/2023Vomiting and diarrhea 06/05/2022Hypotension due to ojgoxmeiyzf35/02/2023Iron deficiency anemia 02/24/2022tage 3 chronic kidney avbdpmb1602/19/2022wollen dazhqwc5107/28/2018 Systolic heart wnuifpi6712/10/2017Atrial eiftkoqbazsf69/07/5392Eufelxhnh11/24/2018 Coronary mniqvcnydbqmnqf47/23/2018Coronary ftnbwqfyjststjrr99/23/2018 Cardiomyopathy, rjtenxmnkjb60/14/2018Tobacco dependence /14/2018 Hdffsqvcfhhtsc33/09/2018Peripheral vascular raizrhb6208/12/2017Hypertensive xaepbptf08/09/2018 Current Treatment and Therapy Plans No current plan information found. Past Treatment and Therapy Plans No past plan information found. Lifetime Dose Tracking * ChemicalLifetime DoseAutomatic EntryManual EntryFluoro Time15 minutes0 minutes 15 minutesAir Kerma69 mGy0 mGy69 mGy
--- OUTSIDE RECORDS SUMMARY | 2025-01-25 15:36 | XMS_ITS | Clinical Summary ---
Author Organization [facility] Address [address] [place] [address] Care Team Providers Care Hanging Flags Decorator Name Role Phone Nadia Peacock MD Primary Care Provider [phone] Allergies Active AllergyReactionsCriticalityNoted QlmuIvxyomvgBkczsishdupx03/25/2023 myalgias Medications MedicationSigDispense QuantityRefillsLast FilledStart DateEnd DateStatus aspirin 81 mg chewable tablet Chew 1 tablet every day by oral route.Active sacubitriL-valsartan (Entresto) 49-51 mg tablet Indications:Acute on chronic systolic heart failure (CMS/HCC)Take 1 tablet by mouth in the morning and at bedtime. 14 tablet 05/28/2022ctive warfarin (Coumadin) 5 mg tablet TAKE 1 TABLET BY MOUTH ONCE DAILY DIRECTED BY COUMADIN LPCHTV8512/04/2021ctive omeprazole (PriLOSEC) [address] capsule Take 40 mg by mouth in the morning.08/16/2022ctive ferrous sulfate 325 (65 Fe) MG tablet Take 325 mg by mouth 2 (two) times a week.06/12/2023ctive hydrALAZINE (Apresoline) 25 mg tablet Indications:Acute on chronic systolic heart failure (CMS/HCC)TAKE 1 TABLET IN THE MORNING AND AT BEDTIME 180 tablet tive rosuvastatin (Crestor) 10 mg tablet Indications:Hyperlipidemia, unspecified hyperlipidemia type,Coronary artery disease without angina pectoris, unspecified vessel or lesion type, unspecified whether rosebud or transplanted heartTAKE 1 TABLET AT BEDTIME (THIS IS REPLACING ATORVASTATIN) 90 tablet 5Active carvedilol (Coreg) 25 mg tablet Indications:Essential hypertensionTAKE 1 TABLET IN THE MORNING AND AT BEDTIME 180 tablet 303/24/2025Active furosemide (Lasix) 20 mg tablet Take 20 mg by mouth in the morning. Taking when slfdhp5002/18/2022ctive ezetimibe (Zetia) 10 mg tablet Indications:Hyperlipidemia, unspecified hyperlipidemia type,Coronary artery disease without angina pectoris, unspecified vessel or lesion type, unspecified whether rosebud or transplanted heartTake 1 tablet (10 mg) by mouth once daily as directed. 90 tablet /726011/ctive Active Problems ProblemNoted DateDiagnosed DateCentrilobular jtfusggis92/20/2025RSV infection 03/16/2024cute cough03/15/20249748Kxpcrkxnos59/02/2024KI (acute kidney injury) 02/24/2024Encounter for prophylactic measures, fcwwhiunknd93/20/2024Generalized ulwxvroq76/20/2024Impaired gait and cxnmvcok57/20/2024Lesion of liver less than 1 cm in rdmaigif66/20/2024Mass of uterine icxgor9604/25/2023UTI (urinary tract infection)02/24/20245626Xanenuyndxmaf81/20/2024Immunodeficiency due to conditions classified dtasroyqq22/20/2024Morbid (severe) obesity due to excess calories 11/24/2023Other goxgbgklmdabn26/20/2024DD (degenerative disc disease), lumbar 08/20/2023Major depressive disorder, single episode, /14/2024Malignant neoplasm of right kidney, except renal cmznuj0105/20/2023Thyroglossal duct cyst 05/20/2023hest wpmyocbnfd45/04/2024andidiasis, vgaoylntb52/04/2023hronic lymphocytic /04/2023losed fracture of one rib of left side with routine zepfgtz6103/09/2023OVID-19105/10/2022epressive juewjikv78/04/2023 Gastroesophageal reflux cjyqujc1703/09/2023Heart mtetqn8305/10/2022Hypokalemia 03/09/2023Ischemic myocardial oxxklejoida11/04/2023Thyroid tnstvb2903/09/2023S/P CABG (coronary artery bypass graft)08/10/2022Renal mass08/07/2022Obesity, Class II, BMI 35-39.905iventricular ICD (implantable cardioverter- defibrillator) in place07/17/2022 Overview (08/29/2022): Last Assessment & Plan: Assessment: 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 Issac Helms ([place] [facility]) last visit 06/16/2022: Aspirin and warfarin can be held 5 days prior to the surgery and resumed afterwards Injury of dlkpty1006/05/2022Lack of nrsfprs0806/05/20223839Sqavkzixcisv13/02/2023leural natxmein18/02/2023Secondary ahpgdkzoxrviofydqwi48/02/2023Vomiting and diarrhea 06/05/2022Hypotension due to rahuymifwao06/02/2023Iron deficiency anemia 02/24/2022tage 3 chronic kidney wjsvxte8802/19/2022wollen ktxsnfy2707/28/2018 Systolic heart dnwizxe2012/10/2017Atrial xgmmmxjgidcd51/07/1428Sazdbwcpt76/24/2018 Coronary mbtztodimixvmqo84/23/2018Coronary pecwzirrdrejflsg44/23/2018 Cardiomyopathy, zmdyxautred28/14/2018Tobacco dependence bhyllhac44/14/2018 Xmqapeiferjhie33/09/2018Peripheral vascular djglite5908/12/2017Hypertensive pjycirsm46/09/2018 Encounters DateTypeDepartmentCare SpshCppxompfeex03/13/2025 9:05 AM EDTAncillary Procedure [facility] [address] [place] [id number] Pre-operative cardiovascular examination, ICD in place01/14/2025Orders Only [facility] Heart [facility] [address] [place] [phone] Dominguez Shaver MD 12/21/2024 11:00 AM EDTAncillary Procedure [facility] Heart [facility] [address] [place] [address] Encounter for implantable defibrillator reprogramming or check11/16/2024Refill [facility] [address] [place] [phone] Belkis Apodaca MA Hyperlipidemia, unspecified hyperlipidemia type; Coronary artery disease without angina pectoris, unspecified vessel or lesion type, unspecified whether rosebud or transplanted heartfrom Last 3 Months Immunizations ImmunizationAdministration DatesNext DueUnspecified Sars-Cov-2 Vaccination 03/19/2021 Family History Medical HistoryRelationNameCommentsCancerBrotherCoronary artery diseaseBrother DiabetesBrotherHeart failureMotherCoronary artery diseaseSisterRelationName StatusCommentsBrotherFatherDeceasedMotherDeceasedSister Social History Tobacco UseTypesPacks/DayYears UsedDateSmoking Tobacco: FormerCigarettes Smokeless Tobacco: Never Tobacco Cessation:Counseling Given: Not Answered Alcohol UseStandard Drinks/WeekCommentsNot Currently0 (1 standard drink = 0.6 oz pure alcohol)UT Safety & EnvironmentAnswerDate RecordedFear of Current or Ex-PartnerNot on file05/28/2023Emotionally AbusedNot on file05/28/2023hysically AbusedNot on file05/28/2023Sexually AbusedNot on file05/28/2023hysically or Sexually AbusedNot on file05/28/2023CommentsNoSex and Gender Information ValueDate RecordedSex Assigned at ScofsCnekyh73/12/2025 10:41 AM EDTLegal Sex Cdhhki1210/02/2021 10:33 PM EDTGender MkaroxcfBxgitz33/12/2025 10:41 AM EDTSexual OrientationHeterosexual or Xzaqfesn62/12/2025 10:41 AM EDT Last Filed Vital Signs Vital SignReadingTime TakenCommentsBlood Biymauqz320/7606 3:01 PM EDT Snvgh328909/06/2024 3:01 PM EDTTemperature--Respiratory Kfus681206/15/2024 4:00 PM EDTOxygen Sqljaqzzkw55%09/06/2024 3:01 PM EDTInhaled Oxygen Concentration-- Cvjnos93.4 kg (206 lb)09/06/2024 3:01 PM XRRLefyaw413.5 cm (5' 2 )09/06/2024 3:01 PM EDTBody Mass Index37.68009/06/2024 3:01 PM EDT Plan of Treatment DateTypeDepartmentCare Team (Latest Contact Info)Ucffibaaajm26/03/2025 1:00 PM ESTOffice Visit [facility] [address] [place] [address] Issac Helms MD [address] [facility] [place] [address] Health MaintenanceDue DateLast DoneCommentsCT Tbobgsuzizdd91/09/1951Colonoscopy 1950olorectal Cancer Jyirozxyj70/09/1951FIT-DNA1950FIT1950 FOBT1950Medicare Annual Wellness (AWV)1950 8406Cwbvgnaifqkwp95/09/1951 Depression Ufktcunei61/09/1963Pneumococcal Vaccine: 50+ Years (1 of 2 - PCV) 1969Zoster Vaccines (1 of 2)1969Adult Xvhraad5109/12/1972Mammogram 1990Fall Risk Upvwvuiha69/09/2016COVID-19 Vaccine ( season) , 03/19/2021, 06/11/2020Influenza Vaccine (#1)2024HIB VaccinesAged OutNo longer eligible based on patient's age to complete this topic HPV VaccinesAged OutNo longer eligible based on patient's age to complete this topicIPV VaccinesAged OutNo longer eligible based on patient's age to complete this topicMeningococcal B VaccineAged OutNo longer eligible based on patient's age to complete this topicMeningococcal VaccineAged OutNo longer eligible based on patient's age to complete this topicRotavirus VaccinesAged OutNo longer eligible based on patient's age to complete this topic Medical Devices ImplantedTypeAreaManufacturerDevice IdentifierShelf Expiration DateModel / Serial / [id number] Alison Posey Mp [id number] Implanted:01/06/2018 (Quantity not on file)SET UP MECHANIC HEADING MACHINES-D [id number] ALISON POSEY MP / [id number] / [employer] Implanted:Qty: 1 on 06/15/2024 by [facility] ICDLeft: HeartABBOTT [id number] [id number] / [id number] / [id number] Implanted:01/06/2018 (Quantity not on file)[id number] / [id number] / 1458q Quartet [id number] Implanted:01/06/2018 (Quantity not on file)[id number] QUARTET / [id number] / 7122q/52 [id number] Implanted:01/06/2018 (Quantity not on file)[id number] / [id number] / Tendril Sts Implanted:Qty: 1 on 06/15/2024 by [facility]inguez [facility]aver [facility] HospitalLeadN/A: HeartST FRAN MEDCIAL [id number] / [id number] / Procedures Procedure NamePriorityDate/TimeAssociated DiagnosisCommentsCARDIAC DEVICE CHECK CHECK - NJTUSEAfyyemy23/15/2025 11:00 AM EDT Pre-operative cardiovascular examination, ICD in place CARDIAC DEVICE CHECK - REMOTE - UJKJqomwbf91/11/2025 12:00 AM EDTCARDIAC DEVICE CHECK - IN CLINIC - ICD BIVENTRICULAR CHAMBER W/ TURXTrvezww35/18/2025 9:24 AM EDT Encounter for implantable defibrillator reprogramming or check CARDIAC DEVICE CHECK CHECK - REHWDHSweavvc89/30/2025 11:18 AM EDT Pre-operative cardiovascular examination, ICD in place from Last 3 Months Results * CARDIAC DEVICE CHECK - REMOTE - ICD (01/18/2025 11:00 AM EDT) Only the most recent of2 resultswithin the time period is included. Specimen (Source)Anatomical Location / LateralityCollection Method / Volume Collection TimeReceived Time Narrative Authorizing ProviderResult TypeResult StatusPaestuardo Worrello MDCV IMPLANTABLE CARDIAC DEVICE PROCEDURESFinal ResultPerforming OrganizationAddressCity/State/ZIP Code Phone Number CPACS * Cardiac device check - Remote ICD (01/14/2025 12:00 AM EDT)Anatomical Region LateralityModalityOtherSpecimen (Source)Anatomical Location / Laterality Collection Method / VolumeCollection TimeReceived Time01/14/2025 Narrative Authorizing ProviderResult TypeResult StatusPaul Sivakumar MDCV IMPLANTABLE CARDIAC DEVICE PROCEDURESFinal Result * CARDIAC DEVICE CHECK - IN CLINIC - ICD BIVENTRICULAR CHAMBER W/ PROG (12/22/2024 9:24 AM EDT)Anatomical RegionLateralityModalityOtherSpecimen (Source)Anatomical Location / LateralityCollection Method / VolumeCollection TimeReceived Time Narrative 12/27/2024 9:54 AM EDT By using the attestations below, the signing clinician agrees that I have read and verify that the documentation has been personally reviewed by me and ensure that the documentation accurately reflects the encounter. Routine EP device follow up as per schedule. Please see attached note Authorizing ProviderResult TypeResult StatusDominguez Shaver MDCV IMPLANTABLE CARDIAC DEVICE PROCEDURESFinal Result from Last 3 Months Insurance [place] [id number] Care Teams Team MemberRelationshipSpecialtyStart DateEnd Date Nadia Peacock MD [address] [place] [id number] [facility] - General06/16/22
--- OUTSIDE RECORDS SUMMARY | 2025-01-25 15:36 | XMS_ITS | Clinical Summary ---
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 Name Role Phone Nadia Peacock CNP Primary Care Provider [phone] Issac Helms MD Unavailable [phone] Allergies No known active allergies Medications MedicationSigDispense QuantityRefillsLast FilledStart DateEnd DateStatus carvedilol (COREG) 25 mg tablet twice daily.10/02/2021ctive sacubitril-valsartan (ENTRESTO) 49-51 mg tablet twice daily.02/24/2022ctive hydrALAZINE (APRESOLINE) 25 mg tablet twice daily.02/24/2022ctive furosemide (LASIX) 20 mg tablet as needed.02/18/2022ctive warfarin (COUMADIN) 2.5 mg tablet q 24 HR.02/24/2022ctive omeprazole (PRILOSEC) 40 mg capsule once daily.02/24/2022ctive ferrous sulfate 325 mg (65 mg iron) tablet TAKE 1 TABLET BY MOUTH EVERY OTHER DAY FOR 90 DAYS06/12/2023ctive rosuvastatin (CRESTOR) 10 mg tablet Take 10 mg by mouth daily at bedtime.05/25/2023ctive aspirin 81 mg cap Take by mouth.Active ezetimibe (ZETIA) 10 mg tablet once daily.03/02/2023ctive Active Problems ProblemNoted DateDiagnosed DateChronic renal disease, stage IV12/17/2022S/P CABG (coronary artery bypass graft)08/10/2022Obesity, Class II, BMI 35-39.9008/07/2022 Renal mass08/07/2022iventricular ICD (implantable cardioverter-defibrillator) in place07/17/2022 Assessment & Plan (07/17/2022 2:53 PM EDT): Assessment: ischemic 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 Issac Helms ([place] [facility]) last visit 06/16/2022: Aspirin and warfarin can be held 5 days prior to the surgery and resumed afterwards Injury of vkeofp6506/05/2022Lack of kdnqqrk9306/05/20221001Kmhdqhfbdrxr52/02/2023leural qwxaqhhf50/02/2023 Assessment & Plan (07/17/2022 2:50 PM EDT): Assessment: small bilateral on 06/13/2022 CT Chest Asymptomatic updated CXR Secondary weduzsdcdjvhmlxslri42/02/2023 Assessment & Plan (07/17/2022 2:51 PM EDT): Assessment: last calcium level stable Vomiting and pwvjrqil12/02/2023Hypotension due to yixjobcdtzl18/02/2023Iron deficiency usncta9102/24/2022 Assessment & Plan (07/17/2022 2:52 PM EDT): Assessment: Hx iron infusion; last labs stable Stage 3 chronic kidney gcaxnqg5202/19/2022 Assessment & Plan (07/17/2022 2:51 PM EDT): Assessment: 06/07/2022 GFR 53 mL/min Creatinine Date Value Ref Range Status 06/07/2022 1.12 (H) 0.58 - 0.96 mg/dL Final 06/06/2022 1.58 (H) 0.58 - 0.96 mg/dL Final 06/05/2022 2.23 (H) 0.58 - 0.96 mg/dL Final Monitored by Nephrology Q 6 months Systolic heart vduxeif7212/10/2017 Assessment & Plan (07/17/2022 2:49 PM EDT): Assessment: due to ischemic cardiomyopathy, per 06/04/2022 ECHO CONCLUSION: 1. Left ventricle exhibits global hypokinesis with dyssynchronous contraction and abnormal septal motion. Systolic function is severely reduced. LVEF is estimated at 25%. Right ventricle appears to be normal in size Follows with Dr. Issac Helms ([facility]) last visit 06/16/2022 Pacer-ICD, ENTRESTO, diuretic Atrial ezkaiappcybt09/07/2018 Assessment & Plan (07/17/2022 2:49 PM EDT): Assessment: anticoagulated with warfarin Monitored by Cardiology Lvcftygpl05/24/2018Coronary yjowqsdwekscwrr61/23/2018 Assessment & Plan (07/17/2022 2:48 PM EDT): Assessment: s/p CBAG 09/[address] 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 ( 2017) in [facility] for ischemic cardiomyopathy last device check 06/27/2022 (scanned into [employer]) Follows with cardiology Pesyjzpvlqnztj77/09/2018 Assessment & Plan (07/17/2022 2:48 PM EDT): Assessment: Managed with Statin Peripheral vascular zdmmiif5608/12/2017 Encounters DateTypeDepartmentCare XsbjOgaqprbnwqt82/17/2025 2:30 PM EDTVisit (SP) Office Hematology [address] [place], [place] [id number] Earnest Joyce MD Renal oncocytoma of left kidney (Primary Dx)01/20/20259385Szitky01/13/2025 Patient Msg Hematology/Oncology [address] [place] [address] Kendall Clarke MD Appointment Zpyeeur0201/16/2025 Get Medical Advice Hematology [address] [facility] [address] [place], [place] [id number] Earnest Joyce MD Change in tumor and or cyst size on latest CT scan01/11/2025 2:20 PM EDTVisit (SP) Office Hematology/Oncology [address] [place] [address] Kendall Clarke MD Renal oncocytoma of left kidney (Primary Dx)01/06/2025 [place] [address] Provider, [facility] Actionable Imaging Result Notification Patient Hrxpksvh42/01/2025 1:12 PM EDT - 01/04/2025 11:59 PM EDTHospital Encounter Radiology Pet CT [address] [place] [address] Renal cell carcinoma of right kidney (HCC) [C64.1] Discharge Disposition: Home01/03/20250383Qmwlvu97/19/2025 11:30 AM EDTOffice Visit Urology [address] [address] Jerson Laguerre MD Left renal mass (Primary Dx); Screening for genitourinary ebdyfrcvb56/19/2025Patient Outreach Urology [address] [address] Jerson Laguerre MD 11/14/2024 2:00 PM EDTVisit (SP) Office Hematology/Oncology [address] [place] [address] Kendall Clarke MD Renal oncocytoma of left kidney (Primary Dx)11/14/20246182Oopyzi42/05/2025Telephone Urology [address] [place] [address] Charlie Coker MD 11/08/20243905Lvzknz32/04/2025 12:00 PM EDTTumor Board Tumor Board [address] [place] [address] 11/07/2024Results Follow-Up Urology [address] [place] [address] Charlie Coker MD 11/01/2024 2:00 PM EDT - 11/01/2024 3:00 PM EDTSurgery Angio [address] [place] [address] Matty Esqueda MD BIOPSY KIDNEY TQNSPSNDIFOH97/29/2025 12:26 PM EDT - 11/01/2024 6:02 PM EDT Hospital Encounter HOSP MAIN FB[address] [id number] Matty Esqueda MD History of kidney cancer [Z85.528] Discharge Disposition: Home10/25/2024 Patient Msg Angio [address] [id number] Provider, [facility] Pre procedure instructions 11/01from Last 3 Months Immunizations ImmunizationAdministration DatesNext DueCOVID-19 original vaccine, age 12+ yr, monovalent ([employer] - [facility])03/19/2021OVID-19 vaccine ([employer]) 06/11/2020 Family History Medical HistoryRelationCommentsPancreatic CancerBrother 1Pancreatic Cancer Brother 2CancerFatherbladderHeart diseaseFatherNo Known ProblemsMaternal GrandfatherDiabetesMaternal GrandmotherHeart diseaseMaternal GrandmotherHeart diseaseMotherLiver TransplantMotherHeart diseasePaternal GrandmotherHeart diseaseSister 1CancerSister 2soft tissueRelationStatusCommentsBrother 1Alive Brother 2DeceasedFatherMaternal GrandfatherMaternal GrandmotherMotherPaternal GrandmotherSister 1Sister 2Deceased Social History Tobacco UseTypesPacks/DayYears UsedDateSmoking Tobacco: FyywlkCdxbzsxxmw9200935 - 2017Smokeless Tobacco: Never Tobacco Cessation:Counseling Given: Not Answered Alcohol UseStandard Drinks/WeekCommentsNever0 (1 standard drink = 0.6 oz pure alcohol)Overall Financial Resource Strain (CARDIA)AnswerDate RecordedHow hard is it for you to pay for the very basics like food, housing, medical care, and heating?Patient /08/2023PHQ-2AnswerDate RecordedPHQ-2 Hunger Vital SignAnswerDate RecordedWithin the past 12 months, you worried that your food would run out before you got the money to buymore.Patient declined 08/11/2022Within the past 12 months, the food you bought just didn't last and you didn't have money to get more.Patient /08/2023RAPARE - TransportationAnswerDate RecordedIn the past 12 months, has lack of transportation kept you from medical appointments or from getting medications? Patient /08/2023In the past 12 months, has lack of transportation kept you from meetings, work, or from getting things needed for daily living?Patient dihqbxfb04/08/2023Housing Stability Vital SignAnswerDate RecordedIn the last 12 months, was there a time when you were not able to pay the mortgage or rent on time?Patient mtjzjly3208/11/2022Number of Places Lived in the Last YearNot on file 08/11/2022In the last 12 months, was there a time when you did not have a steady place to sleep or slept in [facility] (including now)?Patient jjeidkw6308/11/2022 Area Deprivation IndexAnswerDate RecordedNational Score (1-100), lower number is lower tgou886108/20/2022State Score (1-10), lower number is lower amsh500 Data from: https://www.neighborhoodatlas.[facility].edu/. Last address used for [address] regnantCommentsNoSex and Gender InformationValueDate RecordedSex Assigned at BirthNot on fileLegal SexFemale 03/07/2012 9:35 AM ESTGender IdentityNot on fileSexual OrientationNot on file Last Filed Vital Signs Vital SignReadingTime TakenCommentsBlood Sotgsjjn372/5201/20/2025 2:48 PM EDT Lnxih312501/20/2025 2:48 PM HSLKnclxmjwgzl65.7 ??C (98.1 ??F)01/20/2025 2:48 PM EDTRespiratory Pslc0357 2:23 PM EDTOxygen Kyeebofwds82%01/20/2025 2:48 PM EDTInhaled Oxygen Concentration--Flkhhj41.5 kg (206 lb 2.1 oz)01/20/2025 2:48 PM QSPOxemum840.8 cm (5' 2.52 )06/15/2023 2:48 PM EDTBody Mass Index37.08 06/15/2023 2:48 PM EDT Plan of Treatment DateTypeDepartmentCare Team (Latest Contact Info)Jrhxitwcrpq10/05/2026 1:45 PM ESTAppointment Radiology Pet CT [address] [place] [address] [place] [address] CT Abd / [facility] MaintenanceDue DateLast DoneCommentsAnnual PCP Team Chronic Disease Visit1968Anxiety Dvhyddhmp80/09/1969Depression Wnxvnjsza70/09/1969 Hepatitis C Lkgautcgg25/09/1969LDL Faiemvlrgix87/09/1969DTaP,Tdap,Td Vaccine (1 - Tdap)1969Mammogram Mvwlianme39/09/1991CT Swrrxggwjmzu00/09/1996Cologuard (FIT-DNA)09/13/19951140Oyqlqpnnquy52/09/1996Colorectal Cancer Vmtvivofd73/09/1996 Fecal Occult Blood09/13/1995Lipid Mvfbzjksj79/09/2026Inyjdiiflbhtz74/09/1996 Pneumococcal Vaccine: 50+ (1 of 1 - PCV)2000Shingrix Vaccine (1 of 2) 2000Medicare Annual Wellness Visit09/05/2015Bone Density Screening 09/13/2015Advance Directive Zfpbeyajth61/01/2025ovid-19 Vaccine ( season), 06/11/2020Influenza Vaccine (#1)2024Serum Lfzjxataxy83/24/29471012/29/2023, 06/15/2023, 12/17/2022, Additional history existsRSV Vaccine (1 - 1-dose 75+ series)2025Hemoglobin/Hematocrit 7/10/2024, 10/10/2024, 12/29/2023, Additional history existsLung Cancer Ythunusxp70, 06/28/2024, 06/28/2024, Additional history existsDiabetes Mtwhgaqzn00, 06/15/2023, 12/17/2022, Additional history exists Medical Devices ImplantedTypeAreaManufacturerDevice IdentifierShelf Expiration DateModel / Serial / LotPacemakerPacemakerLeft: Chest Wall Procedures Procedure NamePriorityDate/TimeAssociated DiagnosisCommentsCT ABD/PEL WO IVCON Cyvmcxz8501/04/2025 2:01 PM EDT Renal cell carcinoma of right kidney (HCC) Small lymphocytic lymphoma (HCC) CT CHEST WO EFUOIQfujrle69/01/2025 2:01 PM EDT Renal cell carcinoma of right kidney (HCC) Small lymphocytic lymphoma (HCC) UA DIP, URINE (POC)Lmlxacu7011/22/2024 11:51 AM EDT Screening for genitourinary condition US IMAGING GUIDED BIOPSY RENAL11/01/2024 3:42 PM EDT SURGICAL JAQOEMZTXCwpgrtt16/29/2025 3:32 PM EDT History of kidney cancer RENAL BIOPSY PRQ TROCAR/NVBGYV7511/01/2024 2:43 PM EDT History of kidney cancer INR (POC)Airkokh3511/01/2024 1:29 PM EDT COMPLETE BLOOD YWGIJICBW58/07/2025 12:09 PM EDT Left renal mass COMPREHENSIVE METABOLIC AICFWGgqqocy25/24/2024 1:12 PM EDT Renal cell carcinoma of right kidney (HCC) Small lymphocytic lymphoma (HCC) from Last 3 Months or Most Recently Relevant to Health Maintenance Results * CT CHEST WO IVCON (01/04/2025 2:01 PM EDT)Anatomical RegionLateralityModality ChestNuclear Medicine, Nuclear MedicineSpecimen (Source)Anatomical Location / LateralityCollection Method / VolumeCollection TimeReceived Time01/04/2025 2:01 PM EDT Impressions 01/05/2025 9:42 AM EDT IMPRESSION: 1. ??Stable subcentimeter pulmonary nodules. ??No significant thoracic adenopathy. Transcribe Date/Time: Jan ??2024 ??9:02A Dictated by: SHEREEN CLARK MD This examination was interpreted and the report reviewed and electronically signed by: SHEREEN CLARK MD on Jan ??2024 ??9:40AM ??EST Thank you for allowing us to participate in the care of your patient. Should there be any questions regarding this interpretation, please call [phone]. If you are unable to reach us at the number above, please feel free to contact [facility] at [phone]. Narrative 01/05/2025 9:42 AM EDT * * *Final Report* * * DATE OF EXAM: Jan ??2024 ??2:01PM ?? NRC ?? 0541 ??- ??CT CHEST WO IVCON ??/ PROCEDURE REASON: multiple diagnoses ? * * * * Physician Interpretation * * * * RESULT: EXAMINATION: ??CHEST CT WITHOUT CONTRAST CLINICAL HISTORY: Small lymphocytic lymphoma. ??Renal cell carcinoma. Technique: ??Spiral CT acquisition of the chest from the thoracic inlet to the upper abdomen without contrast. MQ: ??CTCWO_6 CT Radiation dose: Integrated Dose-length product (DLP) for this visit = ?? 1473 mGy*cm CT Dose Reduction Employed: Automated exposure control (AEC) Comparison: Chest CT from 06/28/2024 RESULT: Limitations: ??None. Lines, tubes, and devices: ??None. Lung parenchyma and airways: Mild centrilobular emphysema. Scattered pulmonary nodules are again noted. ??For example, on series 4, -9 mm nodule in the posterior right upper on slice 81, stable when measured in the same plane as the prior exam. -Stable 6 mm nodule anterior right middle lobe on slice 114. -Stable 5 mm nodule in the lateral right lower lobe on slice 116. Additional stable subcentimeter pulmonary nodules Pleural space: ??Trace right pleural effusion. ??This is decreased in volume when compared to the prior exam. Lower neck, lymph nodes, and mediastinum: ??Nonspecific thyroid nodules which are similar in appearance to the prior exam. ??No significant axillary or mediastinal lymphadenopathy. Heart, pericardium, and thoracic vessels: ??No pericardial effusion. ?? Anterior chest surgery compatible with coronary artery bypass grafting. Bones and soft tissues: ??Old left lateral rib fracture. Upper abdomen: ??A CT of the abdomen and pelvis was performed and will be reported separately. Localizer images: No additional findings. Procedure Note Provider, [facility] - 01/05/2025 * * *Final Report* * * DATE OF EXAM: Jan 04 2025 2:01PM [facility] 0541 - CT CHEST WO IVCON / PROCEDURE REASON: multiple diagnoses * * * * Physician Interpretation * * * * RESULT: EXAMINATION: CHEST CT WITHOUT CONTRAST CLINICAL HISTORY: Small lymphocytic lymphoma. Renal cell carcinoma. Technique: Spiral CT acquisition of the chest from the thoracic inlet to the upper abdomen without contrast. MQ: CTCWO_6 CT Radiation dose: Integrated Dose-length product (DLP) for this visit = 1473 mGy*cm CT Dose Reduction Employed: Automated exposure control (AEC) Comparison: Chest CT from 06/28/2024 RESULT: Limitations: None. Lines, tubes, and devices: None. Lung parenchyma and airways: Mild centrilobular emphysema. Scattered pulmonary nodules are again noted. For example, on series 4, -9 mm nodule in the posterior right upper on slice 81, stable when measured in the same plane as the prior exam. -Stable 6 mm nodule anterior right middle lobe on slice 114. -Stable 5 mm nodule in the lateral right lower lobe on slice 116. Additional stable subcentimeter pulmonary nodules Pleural space: Trace right pleural effusion. This is decreased in volume when compared to the prior exam. Lower neck, lymph nodes, and mediastinum: Nonspecific thyroid nodules which are similar in appearance to the prior exam. No significant axillary or mediastinal lymphadenopathy. Heart, pericardium, and thoracic vessels: No pericardial effusion. Anterior chest surgery compatible with coronary artery bypass grafting. Bones and soft tissues: Old left lateral rib fracture. Upper abdomen: A CT of the abdomen and pelvis was performed and will be reported separately. Localizer images: No additional findings. IMPRESSION IMPRESSION: 1. Stable subcentimeter pulmonary nodules. No significant thoracic adenopathy. Transcribe Date/Time: Jan 05 2025 9:02A Dictated by: SHEREEN CLARK MD This examination was interpreted and the report reviewed and electronically signed by: SHEREEN CLARK MD on Jan 05 2025 9:40AM EST Thank you for allowing us to participate in the care of your patient. Should there be any questions regarding this interpretation, please call [phone]. If you are unable to reach us at the number above, please feel free to contact [facility] at [phone]. Authorizing ProviderResult TypeResult StatusAdarsh Vennepureddy MDCT-PAMAFinal Result * (ABNORMAL) CT ABD/PEL WO IVCON (01/04/2025 2:01 PM EDT)ComponentValueRef Range Test MethodAnalysis TimePerformed AtPathologist SignatureRadiology Result ACTIONABLE(Actionable)DIVISION OF RADIOLOGYComment: This report contains an incidental or actionable finding. ??This finding may be a new finding separate from the reason your provider ordered the imaging test or it may be an already known finding that needs additional or continued follow-up. Because of this incidental or actionable finding, you may need another test (imaging or a different type of test). ??Please contact your provider for the next steps. Anatomical RegionLateralityModalityAbdomenNuclear Medicine, Nuclear Medicine Specimen (Source)Anatomical Location / LateralityCollection Method / Volume Collection TimeReceived Time01/04/2025 2:01 PM EDT Impressions 01/05/2025 8:34 AM EDT IMPRESSION: 1. Along the lateral mid pole of the left kidney, there is a 2.1 x 2.1 cm exophytic hyperdense lesion, increased in size when compared to the prior exam from 06/28/2024, it measured 1.7 x 1.6 cm. ??This was also seen on an interval outside CT scan from 09/01/2024, where it demonstrated enhancement. ??Therefore, this is highly suspicious for a growing left renal cell carcinoma. ??Would advise urology referral to discuss management options. 2. ??Scattered small nonspecific retroperitoneal lymph nodes which are relatively stable when compared to the prior exam. 3. ??Stable nodular thickening of the adrenal glands. 4. ??Moderate sized hiatal hernia. ACTIONABLE RESULT: FOLLOW-UP Acuity: Actionable Findings: Kidneys/Ureters/Bladder Routing Code: ??GU_1 Recommendation: SUBSPECIALTY CONSULTATION SUGGESTED Time Frame: At the discretion of the clinical team. COMMUNICATION: Results will be communicated with the ordering provider via [employer] staff message or phone message by Imaging Support Services within 2 business days of report finalization. --END OF FINDING-- Algorithms for management of incidental imaging findings can be found on the [facility] Intranet Sharepoint site at: http://spo.cc.org/documentation/mychartlinks/Managing%20Incidental%20Findi ngs%20at%20Imaging/Forms/AllItems.aspx Transcribe Date/Time: Jan ??2024 ??7:53A Dictated by: SHEREEN CLARK MD This examination was interpreted and the report reviewed and electronically signed by: SHEREEN CLARK MD on Jan ??2024 ??8:32AM ??EST Thank you for allowing us to participate in the care of your patient. Should there be any questions regarding this interpretation, please call [phone]. If you are unable to reach us at the number above, please feel free to contact [facility] at [phone]. Narrative 01/05/2025 8:34 AM EDT * * *Final Report* * * DATE OF EXAM: Jan ??2024 ??2:01PM ?? NRC ?? 0531 ??- ??CT ABD/PEL WO IVCON ??/ PROCEDURE REASON: multiple diagnoses ? * * * * Physician Interpretation * * * * RESULT: EXAMINATION: ??CT ABDOMEN AND PELVIS WITHOUT IV CONTRAST CLINICAL HISTORY: ??Small lymphocytic lymphoma. ??Right renal cell carcinoma. TECHNIQUE: Non-IV contrast imaging of the abdomen and pelvis was performed using standard technique, scanning from just above the dome of the diaphragm to the symphysis pubis. ??Unenhanced imaging is limited for the evaluation of some intra-abdominal and pelvic pathology. MQ: ??CTAPWO_3 Contrast: IV: None Oral: ??500 ml of Omni 240 10-25ml diluted with water CT Radiation dose: Integrated Dose-length product (DLP) for this visit = ?? 1473 mGy*cm. CT Dose Reduction Employed: Automated exposure control (AEC) COMPARISON: Outside CT scan of the abdomen and pelvis with contrast from 09/01/[address] of the abdomen pelvis without contrast from 06/28/2024. RESULT: Evaluation of the abdomen and pelvis is limited due to the lack of intravenous contrast. ??The following findings are within this limitation. Abdomen / Pelvis: Liver: Scattered small hypodense hepatic lesions which are not adequately characterize of contrast but are stable and may represent cysts. ??Would advise continued attention on surveillance imaging. Biliary: Cholecystectomy. Spleen: No splenomegaly. Pancreas: Unremarkable. Adrenals: Stable nodular thickening of the adrenal glands. Kidneys: Status post right nephrectomy. ??No abnormal soft tissue detected within the nephrectomy bed within the limitations of a noncontrast examination. 3.1 x 2.9 cm exophytic hypodense lesion arising from the lateral upper pole of the left kidney, likely representing a renal cyst. Along the lateral mid pole of the left kidney, there is a 2.1 x 2.1 cm exophytic hyperdense lesion, increased in size when compared to the prior exam from 06/28/2024, it measured 1.7 x 1.6 cm. ??This was also seen on an interval outside CT scan from 09/01/2024, where it demonstrated enhancement. ??Therefore, this is highly suspicious for a growing left renal cell carcinoma. ??Would advise urology referral to discuss management options. GI Tract: Moderate sized hiatal hernia. ??No small bowel obstruction. Lymph Nodes: Again noted are scattered retroperitoneal lymph nodes. ??For example, on series 3, -Stable 1.4 x 1.1 cm left paraceliac lymph node on slice 26. -Stable 1.6 x 0.8 cm left para-aortic lymph node on slice 36. Mesentery/peritoneum: No ascites. Pelvis: Hysterectomy. Bones/Soft Tissues: Degenerative changes. ??Small fat-containing inguinal hernia bilaterally. Lower thorax: A chest CT performed will be reported separately. Localizer images: No additional findings. Procedure Note Provider, [facility] - 01/05/2025 * * *Final Report* * * DATE OF EXAM: Jan 04 2025 2:01PM [facility] 0531 - CT ABD/PEL WO IVCON / PROCEDURE REASON: multiple diagnoses * * * * Physician Interpretation * * * * RESULT: EXAMINATION: CT ABDOMEN AND PELVIS WITHOUT IV CONTRAST CLINICAL HISTORY: Small lymphocytic lymphoma. Right renal cell carcinoma. TECHNIQUE: Non-IV contrast imaging of the abdomen and pelvis was performed using standard technique, scanning from just above the dome of the diaphragm to the symphysis pubis. Unenhanced imaging is limited for the evaluation of some intra-abdominal and pelvic pathology. MQ: CTAPWO_3 Contrast: IV: None Oral: 500 ml of Omni 240 10-25ml diluted with water CT Radiation dose: Integrated Dose-length product (DLP) for this visit = 1473 mGy*cm. CT Dose Reduction Employed: Automated exposure control (AEC) COMPARISON: Outside CT scan of the abdomen and pelvis with contrast from 09/01/[address] of the abdomen pelvis without contrast from06/28/2024. RESULT: Evaluation of the abdomen and pelvis is limited due to the lack of intravenous contrast. The following findings are within thislimitation. Abdomen / Pelvis: Liver: Scattered small hypodense hepatic lesions which are not adequately characterize of contrast but are stable and may represent cysts. Would advise continued attention on surveillance imaging. Biliary: Cholecystectomy. Spleen: No splenomegaly. Pancreas: Unremarkable. Adrenals: Stable nodular thickening of the adrenal glands. Kidneys: Status post right nephrectomy. No abnormal soft tissue detected within the nephrectomy bed within the limitations of a noncontrast examination. 3.1 x 2.9 cm exophytic hypodense lesion arising from the lateral upper pole of the left kidney, likely representing a renal cyst. Along the lateral mid pole of the [...] advise urology referral to discuss management options. GI Tract: Moderate sized hiatal hernia. No small bowel obstruction. Lymph Nodes: Again noted are scattered retroperitoneal lymph nodes. For example, on series 3, -Stable 1.4 x 1.1 cm left paraceliac lymph node on slice 26. -Stable 1.6 x 0.8 cm left para-aortic lymph node on slice 36. Mesentery/peritoneum: No ascites. Pelvis: Hysterectomy. Bones/Soft Tissues: Degenerative changes. Small fat-containing inguinal hernia bilaterally. Lower thorax: A chest CT performed will be reported separately. Localizer images: No additional findings. IMPRESSION IMPRESSION: 1. Along the lateral mid pole of [...] adrenal glands. 4. Moderate sized hiatal hernia. ACTIONABLE RESULT: FOLLOW-UP Acuity: Actionable Findings: Kidneys/Ureters/Bladder Routing Code: GU_1 Recommendation: SUBSPECIALTY CONSULTATION SUGGESTED Time Frame: At the discretion of the clinical team. COMMUNICATION: Results will be communicated with the ordering provider via [employer] staff message or phone message by Imaging Support Services within 2 business days of report finalization. --END OF FINDING-- Algorithms for management of incidental imaging findings can be found on the [facility] Intranet Sharepoint site at: [email or web address] [email or web address].[email or web address] Transcribe Date/Time: Jan 05 2025 7:53A Dictated by: SHEREEN CLARK MD This examination was interpreted and the report reviewed and electronically signed by: SHEREEN CLARK MD on Jan 05 2025 8:32AM EST Thank you for allowing us to participate in the care of your patient. Should there be any questions regarding this interpretation, please call [phone]. If you are unable to reach us at the number above, please feel free to contact [facility]iology at [phone]. Authorizing ProviderResult TypeResult StatusAdarsevans Eddyepureddy MDCT-PAMAFinal Result * (ABNORMAL) UA DIP, URINE (POC) (11/22/2024 11:51 AM EDT)ComponentValueRef RangeTest MethodAnalysis TimePerformed AtPathologist SignatureGLUCOSE UA (POCT)NegativeNegative mg/dLGrafton ClinicBILIRUBIN UA (POCT)Negative NegativeGrafton ClinicKETONE UA (POCT)NegativeNegative mg/dLParkwood Hospital SPECIFIC GRAVITY UA (POCT)1.0201.005 - 1.030[facility] HospitalHEMOGLOBIN/BLOOD UA (POCT)NegativeNegativeParkwood HospitalPH UA (POCT)5.54.5 - 8.0[facility] HospitalPROTEIN UA (POCT)100(A)Negative mg/dLParkwood HospitalUROBILINOGEN UA (POCT)1.0Normal E.U./dLParkwood HospitalNITRITE UA (POCT)NegativeNegative [facility] HospitalLEUKOCYTES UA (POCT)Trace(A)NegativeParkwood HospitalCOLOR UA (POCT)Dark yellowParkwood HospitalCLARITY UA (POCT)Slightly CloudUniversity Hospitals Geneva Medical Centerpecimen (Source)Anatomical Location / LateralityCollection Method / VolumeCollection TimeReceived TimeUrine specimen (specimen)URINE SPECIMEN / Kwhugpj8911/22/2024 11:51 AM EDT Narrative [facility] - 11/22/2024 11:51 AM EDT Location:[facility], [address] [place] [address], [id number] Authorizing ProviderResult TypeResult StatusJerson Laguerre MDPOC TESTINGFinal ResultPerforming OrganizationAddressCity/State/ZIP CodePhone Number [facility] [address] * US IMAGING GUIDED BIOPSY RENAL (11/01/2024 3:42 PM EDT)Anatomical Region LateralityModalityUltrasoundSpecimen (Source)Anatomical Location / Laterality Collection Method / VolumeCollection TimeReceived Time11/01/2024 3:42 PM EDT Impressions 11/01/2024 5:04 PM EDT IMPRESSION: Ultrasound-guided left renal lesion biopsy, as described. Terrazzo Polisher Helper: PSCB ?? Transcribe Date/Time: Nov 01 2024 ??3:51P Dictated by : MARILYN DUVALL MD This examination was interpreted and the report reviewed and electronically signed by: MATTY ESQUEDA MD on Nov 01 2024 ??5:02PM ??EST Narrative 11/01/2024 5:04 PM EDT * * *Final Report* * * DATE OF EXAM: Nov 01 2024 ??3:42PM ?? [facility] ?? 1070 ??- ??US BIOPSY RENAL ??/ PROCEDURE REASON: HX of Kidney cancer, Left renal mass ? * * * * Physician Interpretation * * * * PROCEDURE PERFORMED: ULTRASOUND GUIDED BIOPSY PRE-PROCEDURE DIAGNOSIS: Left renal interpolar mass lesion POST-PROCEDURE DIAGNOSIS: Same as pre-procedure diagnosis INDICATION FOR PROCEDURE: Left renal interpolar mass lesion RELEVANT PRIOR STUDIES: CT 09/01/2024 STAFF RADIOLOGIST: Dr. Esquedafitter up(S): Dr. Duvall CONSENT: ??The risks, benefits, treatment options, potential complications and personnel involved were discussed with the patient. ??All questions were answered and consent was obtained. The patient indicated willingness to proceed. ??The staff physician personally verified consent. TIME OUT: ??A time out was performed immediately prior to procedure start with the nursing, anesthesia and interventional team, correctly identifying the patient name, date of , procedure, anatomy (including marking of site and side), patient position, procedure consent form, relevant diagnostic and radiology test results, antibiotic administration, safety precautions, and procedure-specific equipment needs. RESULT: PROCEDURE: After performing the time out, the kidney lesion was localized with ultrasound, images were obtained and archived. The left flank was prepped and draped in the usual sterile fashion. ??Under direct ultrasound guidance, 3 passes was/were made into the kidney lesion using an 18 gauge core biopsy needle. ? The procedure was performed by the: attending radiologist, with an real estate executive assistant. ? The attending radiologist performed the following procedural activities: Personal supervision and participation of the entire procedure, including hudson and critical portions. ANESTHESIA/SEDATION: ? Conscious sedation: ?Versed: 1.0 mg IV ?Fentanyl: 50 mcg IV ? Local anesthesia: ?Lidocaine 1%: 8 cc ? Vital signs were monitored by the nurse. START TIME: 1523 END TIME: 1537 INTRA-SERVICE (SEDATION) TIME: 14 minutes PATIENT MONITORING: ??The staff physician personally supervised and directed an independent trained observer who assisted in monitoring the patient?s level of consciousness and physiological status throughout the procedure. SIGNIFICANT COMPLICATIONS: None MINOR COMPLICATIONS: None SIGN-OUT DISCUSSION: ??Completed ESTIMATED BLOOD LOSS: ??None SPECIMENS: 3 core biopsy specimen(s) was/were placed in formalin and sent to surgical pathology BIOPSY DEVICE: 18 gauge Corvocet core biopsy needle. Procedure Note Provider, [facility] [place] - 11/01/2024 * * *Final Report* * * DATE OF EXAM: Nov 01 2024 3:42PM [facility] 1070 - US BIOPSY RENAL / PROCEDURE REASON: HX of Kidney cancer, Left renal mass * * * * Physician Interpretation * * * * PROCEDURE PERFORMED: ULTRASOUND GUIDED BIOPSY PRE-PROCEDURE DIAGNOSIS: Left renal interpolar mass lesion POST-PROCEDURE DIAGNOSIS: Same as pre-procedure diagnosis INDICATION FOR PROCEDURE: Left renal interpolar mass lesion RELEVANT PRIOR STUDIES: CT 09/01/2024 STAFF RADIOLOGIST: Dr. Esquedafitter up(S): Dr. Duvall CONSENT: The risks, benefits, treatment options, potential complications and personnel involved were discussed with the patient. All questions were answered and consent was obtained. The patient indicated willingness to proceed. The staff physician personally verified consent. TIME OUT: A time out was performed immediately prior to procedure start with the nursing, anesthesia and interventional team, correctly identifying the patient name, date of , procedure, anatomy (including marking of site and side), patient position, procedure consent form, relevant diagnostic and radiology test results, antibiotic administration, safety precautions, and procedure-specific equipment needs. RESULT: PROCEDURE: After performing the time out, the kidney lesion was localized with ultrasound, images were obtained and archived. The left flank was prepped and draped in the usual sterile fashion. Under direct ultrasound guidance, 3 passes was/were made into the kidney lesion using an 18 gauge core biopsy needle. The procedure was performed by the: attending radiologist, with an real estate executive assistant. The attending radiologist performed the following procedural activities: Personal supervision and participation of the entire procedure, including hudson and critical portions. ANESTHESIA/SEDATION: Conscious sedation: Versed: 1.0 mg IV Fentanyl: 50 mcg IV Local anesthesia: Lidocaine 1%: 8 cc Vital signs were monitored by the nurse. START TIME: 1523 END TIME: 1537 INTRA-SERVICE (SEDATION) TIME: 14 minutes PATIENT MONITORING: The staff physician personally supervised and directed an independent trained observer who assisted in monitoring the patient?s level of consciousness and physiological status throughout the procedure. SIGNIFICANT COMPLICATIONS: None MINOR COMPLICATIONS: None SIGN-OUT DISCUSSION: Completed ESTIMATED BLOOD LOSS: None SPECIMENS: 3 core biopsy specimen(s) was/were placed in formalin and sent to surgical pathology BIOPSY DEVICE: 18 gauge Corvocet core biopsy needle. IMPRESSION IMPRESSION: Ultrasound-guided left renal lesion biopsy, as described. Terrazzo Polisher Helper: SIDRA Transcribe Date/Time: Nov 01 2024 3:51P Dictated by : MARILYN DUVALL MD This examination was interpreted and the report reviewed and electronically signed by: MATTY ESQUEDA MD on Nov 01 2024 5:02PM EST Authorizing ProviderResult TypeResult StatusRobert Abouassaly MDUS-PAMAFinal Result * SURGICAL PATHOLOGY (11/01/2024 3:32 PM EDT)ComponentValueRef RangeTest Method Analysis TimePerformed AtPathologist SignatureCase ReportSurgical Pathology Report ? Case: [id number] ? Authorizing Provider: ??Matty Esqueda MD ? Collected: ? 11/01/2024 03:32PM ? Ordering Location: ? [facility] FB36 ? Received: ?11/01/2024 08:07 PM ? Pathologist: ? Phoenix Manuel MD ? Specimen: ?Kidney, Mass, Left, Biopsy ? 11/04/2024 10:54 AM [facility] LABFINAL DIAGNOSISA. Kidney, left, needle core biopsy: - Oncocytic renal neoplasm (see comment). JKM 10:54 AM [facility] at 1054 EDTDiagnosis CommentHistologic sections show an oncocytic renal neoplasm with low-grade/low-risk features. I performed immunohistochemistry in the assessment of this tumor, utilizing antibodies for CK7 and CD117. CK7 shows strong and diffuse cytoplasmic reactivity, whereas CD117 is negative. 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 Kidney, Mass, Left, Biopsy Received in formalin are multiple segments of cylindrical tissue aggregating to 1.8 x 0.4 x 0.1 cm,hart and of a soft and friable consistency. Totally submitted in one cassette. Gross examination performed at [facility], [address] [place] [address] FF 11/01/2024 11:59 PM11/04/2024 10:54 AM [facility] Clinical Historyleft renal interpolar mass11/04/2024 10:54 AM [facility] LABPerforming LabDiagnostic interpretation performed at: [facility], [address] [place] [address], [place] [address] CLIA# [id number] Cnc Mill Operator: Chris Murguia MD11/04/2024 10:54 AM [facility] LABDisclaimerLaboratory Developed Test (LDT) Disclaimer: Performance characteristics of immunohistochemical, immunofluorescent, and chromogenic in-situ hybridization tests have been determined by the performing laboratory within [facility]'s [facility] and Laboratory Medicine Department ([facility], [facility], [facility], [facility], [facility], [facility], or [facility]) in a manner consistent with CLIA requirements. One or more of these tests may not have been cleared or approved by the FDA. [facility] is regulated under CLIA as qualified to perform high- complexity testing. These tests are used for clinical purposes. These should not be regarded asinvestigational or for research. Positive and negative controls stain appropriately.11/04/2024 10:54 AM [facility] Specimen (Source)Anatomical Location / LateralityCollection Method / Volume Collection TimeReceived TimeTissueKIDNEY BIOPSY / Vgxnsws5811/01/2024 3:32 PM EDT 11/01/2024 8:07 PM EDTComment:Pre-op diagnosis: History of kidney cancer [Z85.528] Narrative Authorizing ProviderResult TypeResult StatusRyan Esqueda MDSURGICAL PATHOLOGYFinal ResultPerforming OrganizationAddressCity/State/ZIP CodePhone Number [facility] [address] [place] [address] [address] [place] [address], * INR (POC) (11/01/2024 1:29 PM EDT)ComponentValueRef RangeTest MethodAnalysis TimePerformed AtPathologist SignatureINR (POCT)1.20.8 - 1.2CAdena Pike Medical Center Internal Quality CheckAcceptableCleveland Clinic Mercy Hospitalpecimen (Source)Anatomical Location / LateralityCollection Method / VolumeCollection TimeReceived Time 11/01/2024 1:29 PM EDT Narrative [facility] - 11/01/2024 1:29 PM EDT Location:[facility], [address] [place] [address], [place] Authorizing ProviderResult TypeResult StatusRyan Esqueda MDPOC TESTINGFinal Result Performing OrganizationAddressCity/State/ZIP CodePhone Number [facility] [address] [place], [place] * (ABNORMAL) COMPLETE BLOOD COUNT (10/10/2024 12:09 PM EDT)ComponentValueRef RangeTest MethodAnalysis TimePerformed AtPathologist SignatureWBC5.203.70 - 11.00 k/uL10/10/2024 12:12 PM EDTNOWYOM[facility] LABRBC4.90 3.90 - 5.20 m/uL10/10/2024 12:12 PM EDTNOWYOMING [facility]AL [facility] LAB Lsfbxbjqou55.011.5 - 15.5 g/dL10/10/2024 12:12 PM EDTJE[facility] OCIUgpdeliaxx24.336.0 - 46.0 %10/10/2024 12:12 PM EDTJE[facility] LRJTOK07.480.0 - 100.0 fL10/10/2024 12:12 PM EDT [facility] AHOAFG30.626.0 - 34.0 pg10/10/2024 12:12 PM EDTJEFF[facility] UCDUNQF36.330.5 - 36.0 g/dL10/10/2024 12:12 PM EDTJEFF[facility] LABRDW-CV14.911.5 - 15.0 % 10/10/2024 12:12 PM [facility] LABPlatelet Pqqwu279 150 - 400 k/uL10/10/2024 12:12 PM [facility] LABMPV 8.9(L)9.0 - 12.7 fL10/10/2024 12:12 PM [facility] LABAbsolute nRBC<0.01<0.01 k/uL10/10/2024 12:12 PM [facility] LABSpecimen (Source)Anatomical Location / LateralityCollection Method / VolumeCollection TimeReceived TimeBloodBLOOD SPECIMEN / Unknown Venipuncture / Ziekfer5410/10/2024 12:09 PM EDT10/10/2024 12:09 PM EDT Narrative Authorizing ProviderResult TypeResult StatusChristopher P Coppa MDLABORATORY Final ResultPerforming OrganizationAddressCity/State/ZIP CodePhone Number [facility] [address] [place] [address] * (ABNORMAL) COMP METABOLIC PANEL (12/29/2023 1:12 PM EDT)ComponentValueRef RangeTest MethodAnalysis TimePerformed AtPathologist SignatureProtein, Total 7.26.3 - 8.0 g/dL12/29/2023 1:56 PM EDTNORTHCBRONSON [facility]ATTLE [facility] LAB Albumin4.33.9 - 4.9 g/dL12/29/2023 1:56 PM EDTNOWYOMING GENERAL [facility] LABCalcium, Total9.58.5 - 10.2 mg/dL12/29/2023 1:56 PM EDTNORTSELECT [facility] LABBilirubin, Total0.30.2 - 1.3 mg/dL12/29/2023 1:56 PM EDTNORTSELECT [facility] LABAlkaline Vfvbhwmejko10850 - 123 U/L 12/29/2023 1:56 PM EDTJEFF[facility] RQNQWA5697 - 35 U/L 12/29/2023 1:56 PM EDTNOWYOMING GENERAL [facility]OSP[facility] YECGKP953 - 38 U/L 12/29/2023 1:56 PM [facility] KJNGuahwlc023(H)74 - 99 mg/dL12/29/2023 1:56 PM [facility]DLOG[facility] LABComment: The [place] Diabetes Association (ADA) provides guidance for cutoff values for fasting glucose andrandom glucose. The ADA defines fasting as no caloric intake for at least 8 hours. Fasting plasma glucose results between 100 to 125 mg/dL indicate increased risk for diabetes (prediabetes). Fasting plasma glucose results greater than or equal to 126 mg/dL meet the criteria for diagnosis of diabetes. In the absence of unequivocal hyperglycemia, results should be confirmed by repeat testing. In a patient with classic symptoms of hyperglycemia or hyperglycemic crisis, random plasma glucose results greater than or equal to 200 mg/dL meet the criteria for diagnosis of diabetes. Reference: Standards of Medical Care in Diabetes 2016, [place] Diabetes Association. Diabetes Care. 2016.39(Suppl 1). BUN28(H)7 - 21 mg/dL12/29/2023 1:56 PM [facility] Creatinine2.10(H)0.58 - 0.96 mg/dL12/29/2023 1:56 PM [facility] DSJMjiiyr019964 - 144 mmol/L12/29/2023 1:56 PM [facility] LABPotassium4.03.7 - 5.1 mmol/L12/29/2023 1:56 PM EDT [facility] YJEKbkcmdlg97727 - 107 mmol/L12/29/2023 1:56 PM [facility] ANAAI14055 - 30 mmol/L12/29/2023 1:56 PM [facility] LABAnion Evn219 - 15 mmol/L12/29/2023 1:56 PM [facility] LABEstimated Glomerular Filtration Rate 24(L)>=60 mL/min/1.73m 12/29/2023 1:56 PM [facility] LABComment:Estimated Glomerular Filtration Rate (eGFR) is calculated using the 2020 CKD-EPI creatinine equation. This equation utilizes serum creatinine, sex, and age as parameters. The creatinine assay has traceable calibration to isotope dilution- mass spectrometry. Refer to KDIGO guidelines for clinical interpretation. In patients with unstable renal function, e.g. those with acute kidney injury, the eGFRmay not accurately reflect actual GFR.Specimen (Source)Anatomical Location / LateralityCollection Method / VolumeCollection TimeReceived TimeBloodBLOOD SPECIMEN / UnknownVenipuncture / Ekxekzn3412/29/2023 1:12 PM EDT12/29/2023 1:12 PM EDT Narrative Authorizing ProviderResult TypeResult StatusMindakotah KENNY-CLABORATORYFinal ResultPerforming OrganizationAddressCity/State/ZIP CodePhone Number [facility] [address] [place] [address] from Last 3 Months or Most Recently Relevant to Health Maintenance Insurance Advance Directives TypeDate RecordedPatient RepresentativeExplanationAdvance Directive(s)06/05/2022 7:58 AM * DNR-CCA (Latest Code Status on File) Date ActivatedDate InactivatedComments06/05/2022 4:13 PM06/07/2022 3:47 PMQuestion AnswerCommentsDNR Order Discussed With:* Patient Care Teams Team MemberRelationshipSpecialtyStart DateEnd Date Nadia Peacock, SECURITY INSTALLATION TECHNICIAN [address] [place] [address] PCP - GeneralFamily Medicine06/04/22 Issac Helms MD [address] [facility] [address] [facility] [place] [address] 07/15/22
--- OUTSIDE RECORDS SUMMARY | 2025-01-25 15:36 | XMS_ITS | Encounter Summary ---
Author Organization [facility] Address [address] [place] [address] Care Team Providers Care District Director Name Role Phone Nadia Peacock MD Primary Care Provider [phone] Encounter Details DateTypeDepartmentCare Team (Latest Contact Info)Vxhqwbehgeo39/11/2025Orders Only [facility] [address] [place] [address] Dominguez Shaver MD [address] [place] [address] Social History Tobacco UseTypesPacks/DayYears UsedDateSmoking Tobacco: FormerCigarettes Smokeless Tobacco: NeverAlcohol UseStandard Drinks/WeekCommentsNot Currently0 (1 standard drink = 0.6 oz pure alcohol)[place] Safety & EnvironmentAnswerDate Recorded Fear of Current or Ex-PartnerNot on file05/28/2023Emotionally AbusedNot on file 4Physically AbusedNot on file05/28/2023Sexually AbusedNot on file 4Physically or Sexually AbusedNot on file05/28/2023CommentsNo Sex and Gender InformationValueDate RecordedSex Assigned at BirthFemale 06/15/2024 10:41 AM EDTLegal UrdTqbiwb33/29/2022 10:33 PM EDTGender Identity Zznnae1706/15/2024 10:41 AM EDTSexual OrientationHeterosexual or Straight 06/15/2024 10:41 AM EDTdocumented as of this encounter Plan of Treatment DateTypeDepartmentCare Team (Latest Contact Info)Ltqjelytbyh87/06/2024 1:00 PM ESTOffice Visit [facility] [address] [place] [phone] Issac Helms MD [address] [facility] [address] [place] [address] documented as of this encounter Procedures Procedure NamePriorityDate/TimeAssociated DiagnosisCommentsCARDIAC DEVICE CHECK - REMOTE - FWCOwcekyl36/11/2025 12:00 AM EDTdocumented in this encounter Results * Cardiac device check - Remote ICD (01/14/2025 12:00 AM EDT)Anatomical Region LateralityModalityOtherSpecimen (Source)Anatomical Location / Laterality Collection Method / VolumeCollection TimeReceived Time01/14/2025 Narrative Authorizing ProviderResult TypeResult StatusPaul Sivakumar MDCV IMPLANTABLE CARDIAC DEVICE PROCEDURESFinal Result documented in this encounter Visit Diagnoses Not on filedocumented in this encounter Care Teams Team MemberRelationshipSpecialtyStart DateEnd Date Nadia Peacock MD [address] [place] [address] PCP - General06/16/22documented as of this encounter
--- OUTSIDE RECORDS SUMMARY | 2025-01-25 15:37 | XMS_ITS | Encounter Summary ---
Author Organization [facility] Address [address] [place] [id number] Care Team Providers Care Water Meter Reader Name Role Phone Nadia Peacock CNP Primary Care Provider [phone] Issac Helms MD Unavailable [phone] Source Comments In the event this information is protected by the Federal Confidentiality of Alcohol and Drug AbusePatient Records regulations: The Federal rules restrict any use of the information to criminally investigate or prosecute any alcohol or drug abuse patient.[facility] Encounter Details DateTypeDepartmentCare Team (Latest Contact Info)Gimmwzbdnos12/13/2025 Patient Msg Hematology/Oncology [address] [place] [address] Kendall Clarke MD [facility] [address] Appointment Request Social History Tobacco UseTypesPacks/DayYears UsedDateSmoking Tobacco: [id number] - 2017Smokeless Tobacco: NeverAlcohol UseStandard Drinks/WeekCommentsNever0 (1 standard drink = 0.6 oz pure alcohol)Overall Financial Resource Strain (CARDIA) AnswerDate RecordedHow hard is it for you to pay for the very basics like food, housing, medical care, and heating?Patient xkazxgim65/08/2023HQ-2AnswerDate RecordedPHQ-2 [id number] Vital SignAnswerDate RecordedWithin the past 12 months, you worried that your food would run out before you got the money to buymore.Patient inbqhkws09/08/2023Within the past 12 months, the food you bought just didn't last and you didn't have money to get more.Patient ubwwgrwg57/08/2023RAPARE - TransportationAnswerDate RecordedIn the past 12 months, has lack of transportation kept you from medical appointments or from getting medications?Patient zgdayybe69/08/2023In the past 12 months, has lack of transportation kept you from meetings, work, or from getting things needed for daily living?Patient lfconmmi91/08/2023Housing Stability Vital SignAnswerDate RecordedIn the last 12 months, was there a time when you were not able to pay the mortgage or rent on time?Patient gstnfqq1808/11/2022Number of Places Lived in the Last YearNot on file08/11/2022In the last 12 months, was there a time when you did not have a steady place to sleep or slept in ashelter (including now)? Patient hnduynn7408/11/2022rea Deprivation IndexAnswerDate RecordedNational Score (1-100), lower number is lower lwqh150908/20/2022State Score (1-10), lower number is lower mnhk000ata from: https://www.neighborhoodatlas.medicine.[facility].edu/. Last address used for [address] regnantCommentsNoSex and Gender InformationValueDate RecordedSex Assigned at BirthNot on fileLegal SexFemale 03/07/2012 9:35 AM ESTGender IdentityNot on fileSexual OrientationNot on file documented as of this encounter Functional Status * Are you deaf or do you have serious difficulty hearing?AnswerDate of LutbcyrnzkKlbsniWs96/10/2023 3:06 PM Contreras Walter RN * Are you blind or do you have serious difficulty seeing, even when wearing glasses?AnswerDate of KariumflmtFhkegaAz24/10/2023 3:06 PM Contreras Walter RN * Do you have serious difficulty walking or climbing stairs?AnswerDate of PingzlesfdHcbuicJx52/10/2023 3:06 PM Contreras Walter RN * Do you have difficulty dressing or bathing?AnswerDate of AssessmentAuthorNo 08/13/2022 3:06 PM Contreras Walter RN * Because of a physical, mental, or emotional condition, do you have difficulty doing errands alone such as visiting a doctor's office or shopping?AnswerDate of DwaourdtbaLikwncVy59/10/2023 3:06 PM Contreras Walter RN documented as of this encounter Mental Status * Because of a physical, mental, or emotional condition, do you have serious difficulty concentrating, remembering, or making decisions?AnswerEntry Date CwkudoMz99/10/2023 3:06 PM Contreras Walter RN documented in this encounter Plan of Treatment DateTypeDepartmentCare Team (Latest Contact Info)Btzmbxwahsr72/05/2026 1:45 PM ESTAppointment Radiology Pet CT [address] [place] [address] [place] [address] CT Abd / Peldocumented as of this encounter Visit Diagnoses Not on filedocumented in this encounter Care Teams Team MemberRelationshipSpecialtyStart DateEnd Date Nadia Peacock, [employer] [address] [place] [address] PCP - GeneralFamily Medicine06/04/22 Issac Helms MD [address] [facility] [address] [place] [id number] Cardiology07/15/22documented as of this encounter
--- OUTSIDE RECORDS SUMMARY | 2025-01-25 15:37 | XMS_ITS | Clinical Summary ---
Author Organization [facility] Address [address] [place] [address] Care Team Providers Care Cmm Technician Name Role Phone Nadia Peacock NP Unavailable [phone] Mychal Bowie MD Primary Care Provider [phone] Nadia Peacock PHARMACY RESOURCE TECH Unavailable [phone] Nadia Peacock PHARMACY RESOURCE TECH Unavailable [phone] Allergies Active AllergyReactionsCriticalityNoted RtkqVijqvwfsUjedwgwfrsih92/25/2023 myalgias Medications MedicationSigDispense QuantityRefillsLast FilledStart DateEnd DateStatus aspirin (Aspir-Low) 81 MG EC tablet Take 81 mg by mouth 1 (one) timeActive furosemide (Lasix) 20 MG tablet Take 20 mg by mouth in the morning and 20 mg before bedtime.02/23/2023ctive warfarin (Coumadin) 2.5 MG tablet Take 10 mg by mouth 1 (one) time per week03/08/2023ctive carvedilol (Coreg) 25 MG tablet Take 1 tablet by mouth in the morning and 1 tablet before bedtime.Active ezetimibe (Zetia) 10 MG tablet Take 10 mg by mouth in the morning.Active rosuvastatin (Crestor) 10 MG tablet Take 10 mg by mouth at bedtimeActive Entresto 49-51 MG tablet Take 1 tablet by mouth in the morning and 1 tablet before bedtime.05/28/2022 Active nystatin (Mycostatin) cream Apply 1 application topically if neededActive hydrALAZINE (Apresoline) 25 MG tablet Take 1 tablet by mouth in the morning and 1 tablet before bedtime.Active ferrous sulfate 325 (65 Fe) MG tablet Take 325 mg by mouth 2 (two) times a week03/08/2024Active iron sucrose (Venofer) 20 MG/ML injection Infuse 200 mg into a venous cgnxafnh92/17/2024Active Qcawwmbfdzl-Daemfvatz-Lsggbl (Trelegy Ellipta) 100-62.5-25 MCG/ACT aerosol powder Inhale 1 puff DailyActive albuterol HFA 90 mcg/act inhaler Indications:BronchitisInhale 2 puffs every 6 (six) hours if needed for shortness of breath or wheezing 18 g 5Active omeprazole (PriLOSEC) [address] capsule Indications:Gastroesophageal reflux disease, unspecified whether esophagitis presentTake 1 capsule (40 mg) by mouth Daily 90 capsule 5Active Active Problems ProblemNoted DateDiagnosed DateChronic kidney disease, stage 3b08/24/2024 Centrilobular wirplainn60/20/2025 Assessment & Plan (08/24/2024 6:56 AM EDT): No longer smoker Current med: albuterol and trelegy Assessment & Plan (05/26/2024 1:38 PM EST): No longer smoker Current med: albuterol and trelegy Dyspnea does not seem to be COPD related, sounds more heart failure related RSV msrqiascd09/11/2024 Assessment & Plan (03/23/2024 6:56 AM EST): Dx in [facility] on 03/07/24 Assessment & Plan (03/16/2024 2:10 PM EST): Dx in [facility] on 03/07/24 Morbid (severe) obesity due to excess dndvqcwe68/20/2024 Assessment & Plan (08/24/2024 6:59 AM EDT): Discussed with patient their BMI (actual, verses recommended). We have also discussed lifestyle modifications: attempts to perform physical activity as chronic conditions allow, also to monitor dietary intake: increasing protein/fruits/veggies and lowering carb intake (unless contraindicated). Limit sodas, juices, and sugary drinks. D/t chronic conditions physical activity is diffiult Assessment & Plan (05/26/2024 6:49 AM EST): Discussed with patient their BMI (actual, verses recommended). We have also discussed lifestyle modifications: attempts to perform physical activity as chronic conditions allow, also to monitor dietary intake: increasing protein/fruits/veggies and lowering carb intake (unless contraindicated). Limit sodas, juices, and sugary drinks. D/t chronic conditions physical activity is diffiult Assessment & Plan (03/23/2024 6:56 AM EST): Discussed with patient their BMI (actual, verses recommended). We have also discussed lifestyle modifications: attempts to perform physical activity as chronic conditions allow, also to monitor dietary intake: increasing protein/fruits/veggies and lowering carb intake (unless contraindicated). Limit sodas, juices, and sugary drinks. Assessment & Plan (03/16/2024 6:53 AM EST): Discussed with patient their BMI (actual, verses recommended). We have also discussed lifestyle modifications: attempts to perform physical activity as chronic conditions allow, also to monitor dietary intake: increasing protein/fruits/veggies and lowering carb intake (unless contraindicated). Limit sodas, juices, and sugary drinks. Body mass index (BMI) 35.0-35.9, adult11/24/2023Other thrombophilia ([facility]) 11/24/2023Immunodeficiency due to conditions classified owzhnuizn10/20/2024 Atherosclerosis of aorta11/24/2023 Assessment & Plan (11/24/2023 6:56 AM EDT): Cont statin use Hypertensive chronic kidney disease with stage 1 through stage 4 chronic kidney disease, or unspecified chronic kidney kdoliyr4311/24/2023 Assessment & Plan (05/26/2024 6:53 AM EST): Continue with Nephrology Had labs 05/25/24: cr 1.85 Assessment & Plan (03/07/2024 1:54 PM EST): Continue with Nephrology Assessment & Plan (11/24/2023 12:08 PM EDT): Continue with Nephrology CKD (chronic kidney disease) stage 4, GFR 15-29 ml/min11/24/2023 Assessment & Plan (08/24/2024 6:59 AM EDT): Continues with Nephrology on a regular basis Recommend adequate control of BP Assessment & Plan (03/23/2024 6:56 AM EST): Continues with Nephrology on a regular basis Assessment & Plan (03/16/2024 6:52 AM EST): Continues with Nephrology on a regular basis Fkxwkpnbyqrwk32/20/2024nemia of renal kjqpyzg4811/24/2023Encounter for subsequent annual wellness visit (AWV) in Medicare nsduhec6211/24/2023 Assessment & Plan (11/24/2023 12:06 PM EDT): Reviewed Ht/Wt/BMI Recommend eye exam yearly Recommend dental exams twice a year Balance work/leisure activities Exercises is recommended most days of the week (appropriate as chronic conditions allow) Follow up yearly and prn DDD (degenerative disc disease), xjxuon7808/20/2023 Assessment & Plan (08/20/2023 1:28 PM EDT): Will work with chiropractor for this, Peripheral vascular disease, kexbqxjyonn39/14/2024 Assessment & Plan (05/26/2024 6:47 AM EST): Continue statin and asa Assessment & Plan (11/24/2023 6:56 AM EDT): Continue statin and asa Systolic heart ekwozfj9105/20/2023 Assessment & Plan (08/24/2024 6:57 AM EDT): Managed by [facility] Recent ECHO completed 03/02/24 Current meds: asa, b mallory, entresto, hydralazine, lasix, crestor, coumadin Assessment & Plan (05/26/2024 1:39 PM EST): Managed by [facility] Recent ECHO completed 03/02/24 Current meds: asa, b mallory, entresto, hydralazine, lasix, crestor, coumadin Took 2 dose of lasix 20mg on Thursday, diuresed 6 pounds, had been compliant with meds, cardiology took her off of lasix a few months ago to give kidneys a break Is feeling better now Assessment & Plan (03/23/2024 6:56 AM EST): Managed by [facility] Recent ECHO completed 03/02/24 Assessment & Plan (03/07/2024 1:52 PM EST): Managed by [facility] Recent ECHO completed 03/02/24 Assessment & Plan (08/20/2023 1:24 PM EDT): Appears to be stable, no acute symptoms at this time No changes in meds or doses Assessment & Plan (05/20/2023 1:29 PM EST): Stable, chest is clear today Major depressive disorder, single episode, /14/2024 Assessment & Plan (05/26/2024 1:40 PM EST): No current medication use PHQ 9=1 JUAN 7=0 Malignant neoplasm of right kidney, except renal qtqlpn3805/20/2023 Assessment & Plan (11/24/2023 6:57 AM EDT): Follows with nephrology/oncology Thyroglossal duct cyst05/20/2023hronic lymphocytic leukemia of B-cell type not having achieved ohlfjomzn49/14/2024 Assessment & Plan (03/23/2024 6:56 AM EST): Continue with Oncology Assessment & Plan (03/16/2024 6:53 AM EST): Continue with Oncology Assessment & Plan (03/07/2024 1:53 PM EST): Continue with Oncology Assessment & Plan (11/24/2023 12:08 PM EDT): Continue with Oncology Unspecified atrial macyupgnuuyr23/04/2023 Assessment & Plan (05/26/2024 6:48 AM EST): B mallory, coumadin cardiology Assessment & Plan (11/24/2023 12:07 PM EDT): Cont coumadin as well as cardiac meds Cont with cardiology Leukemia, lymphocytic, vghfunv3603/09/2023 Assessment & Plan (11/24/2023 6:58 AM EDT): Continue with oncology Heart fgkvro7305/10/20220026Izpawpcuywfoyi82/04/2023Essential (primary) hypertension 03/09/2023 Assessment & Plan (08/24/2024 6:56 AM EDT): Please check blood pressure daily and record DASH diet Limit caffeine Take medication as directed Contact office if chest pain, pressure, dizziness, shortness of breath, swelling legs Recommend slow position changes Current meds: carvedilol, entresto, hydralazine, furosemide, Assessment & Plan (05/26/2024 6:47 AM EST): Please check blood pressure daily and record DASH diet Limit caffeine Take medication as directed Contact office if chest pain, pressure, dizziness, shortness of breath, swelling legs Recommend slow position changes Current meds: carvedilol, entresto, hydralazine, furosemide, Assessment & Plan (03/23/2024 6:55 AM EST): Please check blood pressure daily and record DASH diet Limit caffeine Take medication as directed Contact office if chest pain, pressure, dizziness, shortness of breath, swelling legs Recommend slow position changes Current meds: carvedilol, entresto, hydralazine, furosemide, Assessment & Plan (03/16/2024 6:50 AM EST): Please check blood pressure daily and record DASH diet Limit caffeine Take medication as directed Contact office if chest pain, pressure, dizziness, shortness of breath, swelling legs Recommend slow position changes Current meds: carvedilol, entresto, hydralazine, furosemide, Assessment & Plan (11/24/2023 12:07 PM EDT): Continue current meds Assessment & Plan (08/20/2023 1:24 PM EDT): No changes in meds or doses Assessment & Plan (05/20/2023 1:29 PM EST): stable Assessment & Plan (04/09/2023 2:36 PM EST): stable Assessment & Plan (03/09/2023 4:43 PM EST): Stable at this time No changes to meds Uupeufcbwrc40/04/2023astroesophageal reflux eneqoqt0703/09/2023 Assessment & Plan (05/26/2024 6:49 AM EST): Recommendations: freq small meals, nothing to eat or drink at least 2 hours prior to bed, limit caffeine, alcohol, as well as spicy foods Meds to limit or avoid if possible: NSAIDS Elevate HOB if possible Current meds: omeprazole Cardiomyopathy, pipnmyrn93/04/2023 Assessment & Plan (08/24/2024 6:57 AM EDT): Continues w cardiology Current meds: carvedilol, entresto, asa, lasix, hydralazine, crest, zetia,, coumadin Assessment & Plan (05/26/2024 6:46 AM EST): Continues w cardiology Current meds: carvedilol, entresto, asa, lasix, hydralazine, crest, zetia,, coumadin Assessment & Plan (03/23/2024 6:55 AM EST): Continues w cardiology Current meds: carvedilol, entresto, asa, lasix, hydralazine, crest, zetia,, coumadin Assessment & Plan (03/16/2024 6:51 AM EST): Continues w cardiology Current meds: carvedilol, entresto, asa, lasix, hydralazine, crest, zetia,, coumadin Assessment & Plan (04/09/2023 2:36 PM EST): Follows with cardiology once a year now Thyroid wfaxoh8003/09/20239330MKYYQ78/04/2023 Assessment & Plan (03/09/2023 4:44 PM EST): Resp ruff is better Still w some weakness, will trial home PT for strengthening Fu in 2-3 weeks for a recheck Closed fracture of one rib of left side with routine uaodetv0403/09/2023 Assessment & Plan (03/09/2023 4:43 PM EST): Xray rib fracture from fall with dog Encouraged deep breathing and cough S/P CABG (coronary artery bypass graft)08/10/2022iventricular ICD (implantable cardioverter-defibrillator) in place07/17/2022 Overview (03/09/2023): Last Assessment & Plan: Assessment: 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 ( 2018) in [facility] for ischemic cardiomyopathy last device check 06/27/2022 (scanned into Epic) Follows with cardiology Last Assessment & Plan: Assessment: 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 ( 2018) in [facility] for ischemic cardiomyopathy last device check06/27/2022 (scanned into Epic) Follows with cardiology Assessment & Plan (05/26/2024 1:38 PM EST): Continues with [facility] cardiology Current meds: asa, carvedilol, entresto, hydralizine, crestor, warfarin Will be having battery replacement in future Assessment & Plan (03/16/2024 6:52 AM EST): Continues with [facility] cardiology Current meds: asa, carvedilol, entresto, hydralizine, crestor, warfarin Dowattrxyvzskf53/13/2023 Overview (05/20/2023): Last Assessment & Plan: Assessment: Per Dr. Issac Helms ([facility]) last visit 06/16/2022: Aspirin and warfarin can be held 5 days prior to the surgery and resumed afterwards Last Assessment & Plan: Assessment: Per Dr. Issac Helms ([facility]) last visit 06/16/2022: Aspirin and warfarin can be held 5 days prior to the surgery and resumed afterwards Assessment & Plan (03/07/2024 1:53 PM EST): Continues on anti coagulation Secondary hyperparathyroidism of renal ajjjwd4706/05/2022 Overview (03/09/2023): Last Assessment & Plan: Assessment: last calcium level stable Assessment & Plan (11/24/2023 6:57 AM EDT): Cont with nephrology Iron deficiency wsmuih6702/24/2022 Overview (03/09/2023): Last Assessment & Plan: Assessment: Hx iron infusion; last labs stable Coronary gioesuezxonhcvqq64/23/2018 Assessment & Plan (08/24/2024 6:57 AM EDT): Current meds: asa, b mallory, entresto, zetia, crestor Assessment & Plan (05/26/2024 6:47 AM EST): Current meds: asa, b mallory, entresto, zetia, crestor Resolved Problems ProblemNoted DateDiagnosed DateResolved DateAcute cough Wdveyploqj43 Assessment & Plan (03/23/2024 10:19 AM EST): Repeat cxr on 03/15/24 no pneumonia Last appt was prescribed: Trelegy 100 sample given, Augmentin BID for 10 days, and Low dose of bromfed, reduced dose d/t PMH. Repeat cxr was neg Today feels a lot better, no cough no current sxs Assessment & Plan (03/16/2024 2:43 PM EST): Repeat cxr on 03/15/24 no pneumonia Trelegy 100 sample given, explained how to use this and rinse mouth Augmentin BID for 10 days Low dose of bromfed, reduced dose d/t PMH Sat is better today Fu in 1 week Fluids, rest Assessment & Plan (03/07/2024 1:55 PM EST): Suspect possible pneumonia, ?COVID, ?FLU D/t chronic health problems, would recommend go to ER to be evaluated Pt presents with her sister, and is agreeable to be seen and will go to [facility] ER CKD (chronic kidney disease) Assessment & Plan (08/20/2023 1:24 PM EDT): Continue with seeing Nephrology Assessment & Plan (05/20/2023 1:28 PM EST): Continue with Nephrology Fractured rib/ Overview (05/20/2023): left side number 7 Tobacco user4Chest qilmbdprrw61 Assessment & Plan (04/09/2023 2:35 PM EST): Lung sound as though loose rales, absolutely no resp distress No s/s URI Will check CXR Advised if sudden onset dyspnea, cough etc go to ER Acute kidney injury (nontraumatic)hronic kidney disease epressive flitmdsg99 Assessment & Plan (05/26/2024 1:40 PM EST): PHQ 9=1 No current meds Candidiasis, eynqjrqtz52Heart failure, epgqufds50/04/2023 03/07/2024 Assessment & Plan (04/09/2023 2:36 PM EST): Cont with entresto Will check cxr for evidence of acute HR Cont current meds, VSS Obesity (BMI 30-39.9)ardiomyopathy, dotsdokggnl04/14/2018 03/07/2024 Overview (03/09/2023): Last Assessment & Plan: Assessment: 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 ( 2017) in [facility] for ischemic cardiomyopathy last device check 06/27/2022 (scanned into [employer]) Follows with cardiology Encounters DateTypeDepartmentCare EwtiYoabuhfpprh26/11/2025Abstract [facility] [address] [place] [address] Nadia Peacock NP 11/13/2024Refill [facility] [address] [place] [address] Nadia Peacock NP Gastroesophageal reflux disease, unspecified whether esophagitis present 5Clinisync Result Encounter [facility] External Department Unsolicited Provider, Generic External Data from Last 3 Months Immunizations ImmunizationAdministration DatesNext DueJanssen MGBT-PgB-414/08/2021Pfizer Purple Cap SARS-CoV-2 Yiuoisguusj29/14/4906WFAP-ZqS-4, Eyjtvgxtjle16/14/2021 Family History Medical HistoryRelationNameCommentsCancerFatherHeart diseaseFatherHypertension Fatherbladder problemFatherstomach problemFatherHeart diseaseMaternal GrandfatherHeart diseaseMaternal GrandmotherHypertensionMaternal Grandmother StrokeMaternal GrandmotherDiabetesMotherHeart diseaseMotherHypertensionMother Heart diseasePaternal GrandmotherHypertensionPaternal GrandmotherDiabetesSibling Heart diseaseSiblingRelationNameStatusCommentsFatherDeceasedMaternal Grandfather Maternal GrandmotherMotherDeceasedPaternal GrandmotherSibling Social History Tobacco UseTypesPacks/DayYears UsedDateSmoking Tobacco: FormerCigarettesQuit: 10/2017Smokeless Tobacco: Never Tobacco Cessation:Counseling Given: Not Answered Alcohol UseStandard Drinks/WeekCommentsNever0 (1 standard drink = 0.6 oz pure alcohol)caffeine more than 4 cups per dayPHQ-2AnswerDate RecordedPatient Health Questionnaire-2 Ffksx112CommentsUnknownSex and Gender InformationValueDate RecordedSex Assigned at BirthNot on fileLegal SexFemale 06/18/2022 8:26 PM EDTGender IdentityNot on fileSexual OrientationNot on file Last Filed Vital Signs Vital SignReadingTime TakenCommentsBlood Vrsusgga340/80008/24/2024 1:03 PM EDT Fpnem482108/24/2024 1:03 PM APNFjbbfqlrguk33.7 ??C (98.1 ??F)08/24/2024 1:03 PM EDTRespiratory Toeb880508/24/2024 1:03 PM EDTOxygen Wqfjwpdzsm24%08/24/2024 1:03 PM EDTInhaled Oxygen Concentration--Zfqqdo08.8 kg (202 lb 6.4 oz)08/24/2024 1:03 PM QHOVzfnda577.6 cm (5' 4 )03/23/2024 10:03 AM ESTBody Mass Index34.74 03/23/2024 10:03 AM EST Plan of Treatment Health MaintenanceDue DateLast DoneCommentsCT Ibgbdhqtwotn93/09/1951FIT-DNA 1950FIT1950FOBT1950 3782Bxtbvrvkwxpit15/09/1951neumococcal Vaccine: 65+ Years (1 of 2 - PCV)06/09/1970Medicare Annual Wellness (AWV) 508/, 11/24/20237734Hixuurtiz79/11/375807/02/2024 (Patient Refused), 03/09/2023 (Patient Refused)Iolubvrzwyl93/21/22342804/26/2021olorectal Cancer Ueasovnvz36/21/2032Influenza VaccineDiscontinued Procedures Procedure NamePriorityDate/TimeAssociated DiagnosisCommentsTISS PATH BX REPORT Rnyyvuu7711/01/2024 3:32 PM EDT from Last 3 Months Results * TISS PATH BX REPORT (11/01/2024 3:32 PM EDT)ComponentValueRef RangeTest Method Analysis TimePerformed AtPathologist SignatureCCF CASE REPORTCCFComment: Surgical Pathology Report ? Case: [id number] ? Authorizing Provider: ??Matty Esqueda MD ? Collected: ? 11/01/2024 03:32PM ? Ordering Location: ? [facility] FB36 ? Received: ?11/01/2024 08:07 PM ? Pathologist: ? Phoenix Manuel MD ? Specimen: ?Kidney, Mass, Left, Biopsy ? [facility] FINAL DIAGNOSISCCFComment: A. ??Kidney, left, needle core biopsy: - Oncocytic renal neoplasm (see comment). 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 ??I performed immunohistochemistry in the assessment of this tumor, utilizing antibodies for CK7 and CD117. ??CK7 shows strong and diffuse cytoplasmic reactivity, whereas CD117 is negative. 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 CCFCCF GROSS DESCRIPTIONCCFComment: A. Kidney, Mass, Left, Biopsy Received in formalin are multiple segments of cylindrical tissue aggregating to 1.8 x 0.4 x 0.1 cm,hart and of a soft and friable consistency. Totally submitted in one cassette. Gross examination performed at [facility], [address] [place] [address] 11/01/2024 11:59 PM [facility] CLINICAL HISTORYleft renal interpolar massCCFCCF FINAL PERFORMING LABCCF Comment: Diagnostic interpretation performed at: [facility], [address] [place] [address], [place] [address] ?? CLIA# [id number] Labor Relations Or Personnel Negotiator: Chris Murguia MD AP DISCLAIMERCCFComment: Laboratory Developed Test (LDT) Disclaimer: Performance characteristics of immunohistochemical, immunofluorescent, and chromogenic in-situ hybridization tests have been determined by the performing laboratory within [facility]'s [facility] Pathology and Laboratory Medicine Department ([facility], [facility], [facility], [facility], [facility], [facility], or [facility]) in a manner consistent with CLIA requirements. One or more of these tests may not have been cleared or approved by the FDA. [facility] is regulated under CLIA as qualified to perform high- complexity testing. These tests are used for clinical purposes. These should not be regarded asinvestigational or for research. Positive and negative controls stain appropriately. Specimen (Source)Anatomical Location / LateralityCollection Method / Volume Collection TimeReceived Time11/01/2024 3:32 PM EDT11/01/2024 8:07 PM EDT Narrative [facility] - 11/04/2024 10:54 AM EDT Specimen Type: TISSUE SPECIMEN Ordering Facility: [facility] ?Address: [address] [place] [address] Original Ordering Provider: MATTY ESQUEDA Authorizing ProviderResult TypeResult StatusGeneric External Data ProviderLAB BLOOD ORDERABLESFinal ResultPerforming OrganizationAddressCity/State/ZIP Code Phone Number [place] [facility] [address] [place] [address] from Last 3 Months Insurance Care Teams Team MemberRelationshipSpecialtyStart DateEnd Date Mychal Bowie MD PCP - GeneralFamily Medicine05/20/23 Nadia Peacock NP [address] [place] [address] PCP - ACO Reach05/13/24 Nadia Peacock NP Nurse Practitioner[facility]12/05/22 Nadia Peacock NP [facility]05/20/23
--- OUTSIDE RECORDS SUMMARY | 2025-01-25 15:37 | XMS_ITS | Encounter Summary ---
Author Organization [facility] Address [address] [place] [address] Care Team Providers Care Senior Mechanical Project Manager Name Role Phone Nadia Peacock CNP Primary Care Provider [phone] Issac Helms MD Unavailable [phone]- [phone] Source Comments In the event this information is protected by the Federal Confidentiality of Alcohol and Drug AbusePatient Records regulations: The Federal rules restrict any use of the information to criminally investigate or prosecute any alcohol or drug abuse patient.[facility] Encounter Details DateTypeDepartmentCare Team (Latest Contact Info)Uuaazrzpkdu76/13/2025 Get Medical Advice Hematology [address] [facility] [place] [address] Earnest Joyce MD [address] [place] [address] Change in tumor and or cyst size on latest CT scan Social History Tobacco UseTypesPacks/DayYears UsedDateSmoking Tobacco: [id number] - 2017Smokeless Tobacco: NeverAlcohol UseStandard Drinks/WeekCommentsNever0 (1 standard drink = 0.6 oz pure alcohol)Overall Financial Resource Strain (CARDIA) AnswerDate RecordedHow hard is it for you to pay for the very basics like food, housing, medical care, and heating?Patient azlydfnp91/08/2023HQ-2AnswerDate RecordedPHQ-2 sqate125Hunger Vital SignAnswerDate RecordedWithin the past 12 months, you worried that your food would run out before you got the money to buymore.Patient madakivd02/08/2023Within the past 12 months, the food you bought just didn't last and you didn't have money to get more.Patient nydyrmqr33/08/2023RAPARE - TransportationAnswerDate RecordedIn the past 12 months, has lack of transportation kept you from medical appointments or from getting medications?Patient uoxuriku29/08/2023In the past 12 months, has lack of transportation kept you from meetings, work, or from getting things needed for daily living?Patient excexkcx72/08/2023Housing Stability Vital SignAnswerDate RecordedIn the last 12 months, was there a time when you were not able to pay the mortgage or rent on time?Patient bewnlsb1608/11/2022Number of Places Lived in the Last YearNot on file08/11/2022In the last 12 months, was there a time when you did not have a steady place to sleep or slept in ashelter (including now)? Patient ocfdnnc3208/11/2022rea Deprivation IndexAnswerDate RecordedNational Score (1-100), lower number is lower qrhv405108/20/2022State Score (1-10), lower number is lower zfkl353ata from: https://www.neighborhoodatlas.medicine.[facility].edu/. Last address used for [address] regnantCommentsNoSex and Gender InformationValueDate RecordedSex Assigned at BirthNot on fileLegal SexFemale 03/07/2012 9:35 AM ESTGender IdentityNot on fileSexual OrientationNot on file documented as of this encounter Functional Status * Are you deaf or do you have serious difficulty hearing?AnswerDate of UblzokuiqaAidzzqTo60/10/2023 3:06 PM Contreras Walter RN * Are you blind or do you have serious difficulty seeing, even when wearing glasses?AnswerDate of ItbdealhvyYakqgwIv82/10/2023 3:06 PM Contreras Walter RN * Do you have serious difficulty walking or climbing stairs?AnswerDate of NdcrxdgcqpFhwkstDo33/10/2023 3:06 PM Contreras Walter RN * Do you have difficulty dressing or bathing?AnswerDate of AssessmentAuthorNo 08/13/2022 3:06 PM Contreras Walter RN * Because of a physical, mental, or emotional condition, do you have difficulty doing errands alone such as visiting a doctor's office or shopping?AnswerDate of HucgdkclkiCsaeuzGb77/10/2023 3:06 PM Contreras Walter RN documented as of this encounter Mental Status * Because of a physical, mental, or emotional condition, do you have serious difficulty concentrating, remembering, or making decisions?AnswerEntry Date WhzwnwWv98/10/2023 3:06 PM Contreras Walter RN documented in this encounter Miscellaneous Notes * Telephone Encounter - Marlene Rodas - 01/18/2025 1:03 PM EDT [facility] and sent to schedule follow up with Dr. Joyce to review scans as well as a follow up withthe urologist at [facility]. documented in this encounter Plan of Treatment DateTypeDepartmentCare Team (Latest Contact Info)Ybqnkuodjyg80/05/2026 1:45 PM ESTAppointment Radiology Pet CT [address] [place] [address] [place] [address] CT Abd / Peldocumented as of this encounter Visit Diagnoses Not on filedocumented in this encounter Care Teams Team MemberRelationshipSpecialtyStart DateEnd Date Nadia Peacock, COMMUNITY DEVELOPMENT SPECIALIST [address] [place] [address] PCP - GeneralFamily Medicine06/04/22 Issac Helms MD [address] [place] [id number] Cardiology07/15/22documented as of this encounter
--- OUTSIDE RECORDS SUMMARY | 2025-01-25 15:37 | XMS_ITS | Clinical Summary ---
Author Organization [facility] Address [id number] [address] [place] [address] Care Team Providers Care Pick Up Man Name Role Phone Nadia Peacock [facility] Primary Care Provider Allergies No known active allergies Medications MedicationSigDispense QuantityRefillsLast FilledStart DateEnd DateStatus apixaban (ELIQUIS) 5 mg tablet Eliquis 5 mg tabletActive aspirin 81 mg chewable tablet daily.Active carvediloL (COREG) 25 mg tablet carvedilol 25 mg tabletActive famotidine (PEPCID) 20 mg tablet famotidine 20 mg tabletActive furosemide (LASIX) 20 mg tablet furosemide 20 mg tabletActive hydrALAZINE (APRESOLINE) 25 mg tablet hydralazine 25 mg tabletActive pravastatin (PRAVACHOL) 40 mg tablet pravastatin 40 mg tabletActive sacubitriL-valsartan (ENTRESTO) 49-51 mg tablet Entresto 49 mg-51 mg tabletActive Social History Tobacco UseTypesPacks/DayYears UsedDateSmoking Tobacco: FormerSmokeless Tobacco: NeverPHQ-2AnswerDate RecordedTotal Djxxn737ChildcareAnswerDate Recorded FxswaktpfGikydpy19/24/2020EmploymentAnswerDate RecordedEmploymentUnknown 11/28/2019Purpose - LifeAnswerDate RecordedPurpose and direction in lifeUnknown 1CommentsUnknownSex and Gender InformationValueDate RecordedSex Assigned at BirthNot on fileLegal DreIpfxkr86/24/2020 3:06 PM EDTGender Identity Not on fileSexual OrientationNot on file Last Filed Vital Signs Vital SignReadingTime TakenCommentsBlood Wjhhmiff079/8212/28/2019 4:19 PM EDT Pulse--Temperature--Respiratory Rate--Oxygen Saturation--Inhaled Oxygen Concentration--Arrpai23.7 kg (200 lb)12/28/2019 4:19 PM TYIIkhtnu985.5 cm (5' 2 )12/28/2019 4:19 PM EDTBody Mass Index36.5809 4:19 PM EDT Plan of Treatment Health MaintenanceDue DateLast DoneCommentsDepression Qybjheypf42/09/1963Tobacco Yafvilbgy39/09/1963Adult BMI Vloetlalq50/09/1969DTaP,Tdap and Td Vaccines (1 - Tdap)1969Zoster (Shingles) Vaccine (1 of 2)2000Fall Risk Screening 09/13/2015Influenza Zqgtdpb2112/05/2024 Medical Devices Not on file Insurance Care Teams Team MemberRelationshipSpecialtyStart DateEnd Date Nadia Peacock, CRYPTOLOGICAL TECHNICIAN-MECHANICAL MAINTENANCE ENGINEER PCP - GeneralNurse Practitioner12/28/19
--- OUTSIDE RECORDS SUMMARY | 2025-01-25 15:37 | XMS_ITS | Encounter Summary ---
Author Organization [facility] Address [address] [place] [address] Care Team Providers Care Authorization Representative Name Role Phone Nadia Peacock CNP Primary Care Provider [phone] Issac Helms MD Unavailable [phone] Source Comments In the event this information is protected by the Federal Confidentiality of Alcohol and Drug AbusePatient Records regulations: The Federal rules restrict any use of the information to criminally investigate or prosecute any alcohol or drug abuse patient.[facility] Encounter Details DateTypeDepartmentCare Team (Latest Contact Info)Dhnanmrsinv25/17/2025Travel Social History Tobacco UseTypesPacks/DayYears UsedDateSmoking Tobacco: [id number] - 2017Smokeless Tobacco: NeverAlcohol UseStandard Drinks/WeekCommentsNever0 (1 standard drink = 0.6 oz pure alcohol)Overall Financial Resource Strain (CARDIA) AnswerDate RecordedHow hard is it for you to pay for the very basics like food, housing, medical care, and heating?Patient mxljrwly84/08/2023PHQ-2AnswerDate RecordedPHQ-2 ttyqn620Hunger Vital SignAnswerDate RecordedWithin the past 12 months, you worried that your food would run out before you got the money to buymore.Patient mkubaxap20/08/2023Within the past 12 months, the food you bought just didn't last and you didn't have money to get more.Patient xzoxcvcq50/08/2023RAPARE - TransportationAnswerDate RecordedIn the past 12 months, has lack of transportation kept you from medical appointments or from getting medications?Patient byhnxnnk41/08/2023In the past 12 months, has lack of transportation kept you from meetings, work, or from getting things needed for daily living?Patient jwdkeyvp56/08/2023Housing Stability Vital SignAnswerDate RecordedIn the last 12 months, was there a time when you were not able to pay the mortgage or rent on time?Patient okprmqu5108/11/2022Number of Places Lived in the Last YearNot on file08/11/2022In the last 12 months, was there a time when you did not have a steady place to sleep or slept in ashelter (including now)? Patient cxudeek5708/11/2022rea Deprivation IndexAnswerDate RecordedNational Score (1-100), lower number is lower hont480208/20/2022State Score (1-10), lower number is lower zhgy6013Data from: https://www.neighborhoodatlas.medicine.[facility].edu/. Last address used for [address] regnantCommentsNoSex and Gender InformationValueDate RecordedSex Assigned at BirthNot on fileLegal SexFemale 03/07/2012 9:35 AM ESTGender IdentityNot on fileSexual OrientationNot on file documented as of this encounter Functional Status * Are you deaf or do you have serious difficulty hearing?AnswerDate of NoostrlyojNhxsewNp53/10/2023 3:06 PM Contreras Walter RN * Are you blind or do you have serious difficulty seeing, even when wearing glasses?AnswerDate of AmdkksatspLcbzdwVa08/10/2023 3:06 PM Contreras Walter RN * Do you have serious difficulty walking or climbing stairs?AnswerDate of RjinooqkhjScbvwaVr33/10/2023 3:06 PM Contreras Walter RN * Do you have difficulty dressing or bathing?AnswerDate of AssessmentAuthorNo 08/13/2022 3:06 PM Contreras Walter RN * Because of a physical, mental, or emotional condition, do you have difficulty doing errands alone such as visiting a doctor's office or shopping?AnswerDate of GfetdcrmddWxrefeGv20/10/2023 3:06 PM Contreras Walter RN documented as of this encounter Mental Status * Because of a physical, mental, or emotional condition, do you have serious difficulty concentrating, remembering, or making decisions?AnswerEntry Date GsznacTw50/10/2023 3:06 PM Contreras Walter RN documented in this encounter Plan of Treatment DateTypeDepartmentCare Team (Latest Contact Info)Ozepbvrmruf84/05/2026 1:45 PM ESTAppointment Radiology Pet CT [address] [facility] [place] [address] CT Abd / Peldocumented as of this encounter Visit Diagnoses Not on filedocumented in this encounter Care Teams Team MemberRelationshipSpecialtyStart DateEnd Date Nadia Peacock, WASTEWATER PLANT OPERATOR [address] [place] [address] PCP - GeneralFamily Medicine06/04/22 Issac Helms MD [address] [place] [address] Cardiology07/15/22documented as of this encounter
--- NOTE | 2025-01-25 15:52 | ECG_ITS ---
[facility] Test Date: 2025-01-25 Pat Name: THADDEUS RUBI Department: Room: - Gender: Female Food And Beverage Coordinator: : 1950 Requested By: [id number] Order Number: [id number] Reading MD: DARIANA MARQUEZ M.D. Measurements Intervals [place] Rate: 75 P: 36 AL: 124 QRS: -48 QRSD: 158 T: 169 QT: 480 QTc: 508 Interpretive Statements 1100 Sinus rhythm Electronic ventricular pacemaker 1570 with occasional ventricular premature complexes 9150 abnormal ECG Compared to ECG 03/07/2024 15:02:20 Ventricular premature complex(es) now present Electronically Signed On 01-26-2025 0:00:56 EDT by DARIANA MARQUEZ M.D.
--- NOTE | 2025-01-25 15:57 | ED.GENADUL1 ---
HPI HPI - General Adult General Chief complaint: Shortness of Breath/Dyspnea Stated complaint: SOB Time Seen by Provider: 01/25/25 15:42 Source: patient Mode of arrival: walk-in History of Present Illness HPI narrative: Patient is a 74-year-old female with a PMH of left-sided kidney cancer, A-fib, pacemaker/defibrillator, and surgical history of CABG on Coumadin that presents with progressive shortness of breath, started to get worse on Thursday. She does follow with Dr. Helms at [facility]. Her nurse practitioner prescribed her an inhaler recently for the shortness of breath. She denies having COPD or asthma. She has been using that over the weekend up until today without relief of her shortness of breath. She states when she had a heart attack 9 years ago she somewhat felt like this. She states that her defibrillator has not fired in 9 years since she got it. She denies cough, sore throat, fever, or chills. She has been getting night sweats for many years. Related Data Home Medications ?Medication ?Instructions ?Recorded ?Confirmed carvedilol 25 mg tablet 25 mg PO DAILY 10/01/22 01/25/25 hydralazine 25 mg tablet 25 mg PO DAILY 10/01/22 01/25/25 omeprazole 40 mg capsule,delayed 40 mg PO DAILY 10/01/22 01/25/25 release sacubitril 49 mg-valsartan 51 mg 1 tab PO BID 10/01/22 01/25/25 tablet (Entresto) warfarin 5 mg tablet 2.5 mg PO .COMPLEX 10/01/22 01/25/25 ezetimibe 10 mg tablet 10 mg PO QDAY 09/01/24 01/25/25 ferrous sulfate 325 mg (65 mg 325 mg PO .2 x weekly 09/01/24 01/25/25 iron) tablet rosuvastatin 10 mg tablet 10 mg PO .qhs 09/01/24 01/25/25 Previous Rx's ?Medication ?Instructions ?Recorded albuterol sulfate 90 mcg/actuation 2 inh inhalation Q4H PRN shortness 03/07/24 aerosol inhaler of breath or wheezing #8.5 grams Allergies Allergy/AdvReac Type Severity Reaction Status Date / Time No Known Drug Allergies Allergy Verified 01/25/25 15:28 Opioid HPI Opioid Management Most Recent Opioid Data: Last Pain Scale 4 10/01/22, 14:51 Review of Systems ROS Status of ROS 10 or more systems reviewed and unremarkable except as noted in history and below PFSH [facility] Social History Little interest or pleasure in doing things: not at all Feeling down, depressed, or hopeless: not at all Exam Narrative Exam Narrative: General: No distress, age-appropriate Skin: Warm, dry, no pallor. No rash. Head: Normocephalic, atraumatic. Neck: Supple, non-tender. Eye: Pupils are equal, round and EOMI. No scleral icterus. Ears, Nose, Mouth, and Throat: No nasal mucosal hypertrophy. Oral mucosa is moist, no posterior oropharynx erythema, uvula is mid-line Cardiovascular: Regular Rate and Rhythm without murmur, gallop or rub. Respiratory: No accessory muscle use or respiratory distress. Lungs are clear to auscultation, no wheezing, rales or rhonchi Chest Wall: no tenderness, well-healed midline surgical incision, left chest wall transverse well-healed surgical incision consistent with pacemaker/defibrillator. Musculoskeletal: Full ROM of all extremities, no calf or popliteal tenderness GI: Abdomen is soft, non-distended, non tender to palpation. No masses appreciated. No rebound, guarding, or rigidity noted. Neurological: A&O x4. No cranial nerve dysfunction observed. No truncal ataxia. Moves all extremities. Sensation intact. Psychiatric: Cooperative and interactive. Normal mood and affect. Constitutional Vital Signs, click to edit/add: Last Vital Signs Temp 98.2 F 01/25/25 15:29 Pulse 78 01/25/25 18:10 Resp 23 H 01/25/25 18:10 BP 149/81 H 01/25/25 18:01 Pulse Ox 96 01/25/25 18:10 O2 Del Method Room Air 01/25/25 15:29 Course Vital Signs Vital signs: Vital Signs Temperature 98.2 F 01/25/25 15:29 Pulse Rate 66 01/25/25 15:29 Respiratory Rate 18 01/25/25 15:29 Blood Pressure 156/84 H 01/25/25 15:29 Pulse Oximetry 96 01/25/25 15:29 Oxygen Delivery Method Room Air 01/25/25 15:29 Temperature 98.2 F 01/25/25 15:29 Pulse Rate 78 01/25/25 18:10 Respiratory Rate 23 H 01/25/25 18:10 Blood Pressure 149/81 H 01/25/25 18:01 Pulse Oximetry 96 01/25/25 18:10 Oxygen Delivery Method Room Air 01/25/25 15:29 Medical Decision Making MDM Narrative Medical decision making narrative: This is a 74-year-old female with a PMH of A-fib, CABG, pacemaker/defibrillator, left kidney mass that presented to the emergency department with a few weeks of shortness of breath that worsened about 3 days ago on Thursday. She had been using an inhaler given by her WAITER/WAITRESS COUNTER for this known issue. The SOB persisted despite inhaler use this weekend and would be at rest at times. Patient concerned as she states this is similar to when she had her first heart attack 9 years ago. She did have a CABG and is on Coumadin. She also has a pacemaker/defibrillator, she states that the defibrillator has not fired in the 9 years that she has had it. On arrival patient is in no distress, speaks in full sentences. No respiratory distress. 96% O2 saturation on room air. Vital signs are hemodynamically stable. IV placed. CBC, CMP, INR, troponin, D-Dimer, EKG and chest x-ray ordered. CTA considered, patient has had a right sided nephrectomy and does have cancer in the left kidney. She is not on chemo or radiation, they are just watching it with serial imaging. VQ scan ordered as PE is high on differential despite negative D-dimer. Left kidney mass, s/p right nephrectomy - Cr/BUN: 1.6/22-at baseline - Cannot have IV contrast Shortness of breath -No anemia, Hgb 14.3 - Chest x-ray with cardiomegaly. Minimal atelectasis suspected. No effusion. -Troponin 27, 31 on repeat - VQ scan ordered At this time, 2200 patient was signed out to Dr Kim at the end of my shift. Disposition depending on VQ scan results. Differential Diagnosis Differential Diagnosis: ACS, arrhythmia, PE Lab Data Lab results reviewed: Yes I reviewed the patient's lab results Labs: Lab Results 01/25/25 01/25/25 Range/Units 16:34 19:45 WBC 5.7 (4.0-11.0) 10^3/uL RBC 4.70 (4.20-5.40) 10^6/uL Hgb 14.3 (12.0-16.0) g/dL Hct 42.7 (36.0-48.0) % MCV 90.9 (81.0-99.0) fL MCH 30.4 (26.7-34.0) pg MCHC 33.5 (29.9-35.2) g/dL RDW 14.2 (11.0-15.0) % Plt Count 215 (150-450) 10^3/uL MPV 9.4 L (9.5-13.5) fL Neut % (Auto) 51.1 (43.0-75.0) % Lymph % (Auto) 33.5 (20.5-60.0) % Sharkey % (Auto) 9.8 (1.7-12.0) % Eos % (Auto) 4.2 (0.9-7.0) % Baso % (Auto) 1.2 (0.2-2.0) % Neut # (Auto) 2.9 (1.4-6.5) 10^3/uL Lymph # (Auto) 1.9 (1.2-3.8) 10^3/uL Sharkey # (Auto) 0.6 (0.3-0.8) 10^3/uL Eos # (Auto) 0.2 (0.0-0.7) 10^3/uL Baso # (Auto) 0.1 (0.0-0.1) 10^3/uL Abs Immat Gran (auto) 0.01 (0.00-0.03) 10^3/uL Imm/Tot Granulo (auto) 0.2 (0.0-0.5) % PT 22.6 H (9.0-11.6) sec INR 2.32 APTT 44.9 H* (22.3-36.2) sec D-Dimer 0.25 (<=0.59) mg/L FEU Sodium 143 (136-145) mmol/L Potassium 4.4 (3.5-5.1) mmol/L Chloride 103 (98-107) mmol/L Carbon Dioxide 30.5 (21.0-32.0) mmol/L Anion Gap 13.9 BUN 22.0 H (7.0-18.0) mg/dL Creatinine 1.68 H (0.55-1.02) mg/dL Est GFR ( Amer) 36 L (>=60 mL/min/1.73m^2) Est GFR (Non-Af Amer) 30 L (>=60 mL/min/1.73m^2) BUN/Creatinine Ratio 13.1 Glucose 101 (74-106) mg/dL Calcium 9.1 (8.5-10.1) mg/dL Total Bilirubin 0.5 (0.2-1.0) mg/dL AST 17 (15-37) U/L ALT 20 (14-59) U/L Alkaline Phosphatase 97 (46-116) U/L Troponin I High Sens 27.1 31.1 (4.0-51.3) pg/mL Total Protein 7.7 (6.4-8.2) g/dL Albumin 3.7 (3.4-5.0) g/dL Globulin 4.0 g/dL Albumin/Globulin Ratio 0.9 Imaging Data Chest x-ray: Attestation: I have reviewed the pertinent imaging results. Radiologist's impression: ITS Impressions Chest X-Ray 01/25/25 16:25 IMPRESSION: Cardiomegaly. Minimal atelectasis suspected. Impression dictated by: Olegario Moreno M.D. 01/25/2025 4:42 PM Dictation Location: [place] [address] Electronically authenticated by: [id number] Y Date: 01/25/2025 16:42 ECG Data Attestation: ?I have reviewed the pertinent ECG results. Discharge Plan Discharge Patient Disposition: Still a Patient
--- NOTE | 2025-01-25 16:25 | XR_ITS ---
The [address] [address] Patient Name: THADDEUS RUBI MRN: [id number] date: 1950 Sex: F Assigned Patient Location: ER Current Patient Location: ER Accession/Order Number: [id number] Exam Date: 01/25/2025 16:20 Report Date: 01/25/2025 16:42 At the request of: JULISA KENNY Procedure: XR chest 1V PA CHEST: CLINICAL HISTORY: SOB COMPARISON: 03/15/2024 Sternotomy wires. Left-sided pacemaker device. No central congestion. Suspect minimal bibasilar atelectasis. XR/XR chest 1V IMPRESSION: Cardiomegaly. Minimal atelectasis suspected. Impression dictated by: Olegario Moreno M.D. 01/25/2025 4:42 PM Dictation Location: [place] [address] Electronically authenticated by: [id number] Y Date: 01/25/2025 16:42
[2025-01-25 16:41] LABS: Hematocrit 42.7 % (36.0-48.0); Hemoglobin 14.3 g/dL (12.0-16.0); Immature Granulocytes Abs Auto 0.01 10^3/uL (0.00-0.03); Immature Granulocytes Pct Auto 0.2 % (0.0-0.5); Lymphocytes Absolute Auto 1.9 10^3/uL (1.2-3.8); Mean Corpuscular HGB Conc 33.5 g/dL (29.9-35.2); Mean Corpuscular Hemoglobin 30.4 pg (26.7-34.0); Mean Corpuscular Volume 90.9 fL (81.0-99.0); Platelet Count 215 10^3/uL (150-450); Red Blood Count 4.70 10^6/uL (4.20-5.40); White Blood Count 5.7 10^3/uL (4.0-11.0)
[2025-01-25 16:56] LABS: Alanine Aminotransferase 20 U/L (14-59); Albumin Globulin Ratio 0.9; Albumin Level 3.7 g/dL (3.4-5.0); Alkaline Phosphatase 97 U/L (46-116); Anion Gap 13.9; Aspartate Amino Transferase 17 U/L (15-37); Blood Urea Nitrogen 22.0 mg/dL (7.0-18.0); Calcium 9.1 mg/dL (8.5-10.1); Carbon Dioxide 30.5 mmol/L (21.0-32.0); Chloride 103 mmol/L (98-107); Estimated GFR (African America 36 (>=60 mL/min/1.73m^2); Estimated GFR (Non-African Ame 30 (>=60 mL/min/1.73m^2); Globulin 4.0 g/dL; Glucose 101 mg/dL (74-106); Potassium 4.4 mmol/L (3.5-5.1); Sodium 143 mmol/L (136-145); Total Protein 7.7 g/dL (6.4-8.2)
[2025-01-25 17:29] LABS: INR 2.32; Prothrombin Time 22.6 sec (9.0-11.6)
[2025-01-25 17:30] LABS: Partial Thromboplastin Time 44.9 sec (22.3-36.2)
--- NOTE | 2025-01-25 19:13 | PC.NURSE ---
States feels fine at present. Denies SOB. Explained testing and aprox. wait time
--- NOTE | 2025-01-25 22:56 | ED.SOB1 ---
HPI - SOB/Dyspnea General Chief Complaint: Shortness of Breath/Dyspnea Stated Complaint: SOB Time Seen by Provider: 01/25/25 15:42 Source: patient Mode of arrival: walk-in History of Present Illness HPI Narrative: This 74-year-old female was signed out to me at shift change pending VQ scan to rule out pulmonary embolism. The patient presents for evaluation of intermittent shortness of breath for the past several weeks to months. She does have a history of coronary artery disease. She has had bypass surgery in the past and has a pacemaker defibrillator. She denies that the fibrillator has fired. She was making an appointment with her director of scientific research earlier today when she decided to come to the emergency department. She is on blood thinners. Her shortness of breath is exertional and she states comes and goes frequently. She does not have any chest pain. She was on the monitor while we are waiting the radioactive isotope for the VQ scan. She remains paced with intermittent episodes of bradycardia and tachycardia. Her pulse ox did drop when she was ambulating but quickly returned to a normal level. The patient states that she has been having exertional shortness of breath that has been worsening to the point where she can only walk up to 10 feet without becoming dyspneic. 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 She states that she had a PET scan at the beginning of this month at the cancer center in [place] and she has several nodules that have not grown. They are not thought to be cancer. I reviewed her labs. She has a normal white count and stable hemoglobin. Troponins x 2 are negative. D-dimer is normal. INR is 2.32. BUN and creatinine are mildly elevated. Potassium is normal. After the VQ scan the patient requested to be discharged home. She feels comfortable being discharged home. I explained to her that I will call her with the report and she agreed to come back to the emergency department if there is any notable findings. She states she made an appointment with her director of scientific research for February 06 and thinks he will probably do a repeat cardiac cath on her as her bypass surgery was 9 years ago. She does not wish to be admitted at this time. She feels comfortable being discharged home. VQ scan results are normal with normal ventilation/perfusion lung scan with no features to suggest pulmonary embolus. It did show an enlarged heart size. The patient was called and I left a message on her phone regarding these results. Related Data Home Medications ?Medication ?Instructions ?Recorded ?Confirmed carvedilol 25 mg tablet 25 mg PO DAILY 10/01/22 01/25/25 hydralazine 25 mg tablet 25 mg PO DAILY 10/01/22 01/25/25 omeprazole 40 mg capsule,delayed 40 mg PO DAILY 10/01/22 01/25/25 release sacubitril 49 mg-valsartan 51 mg 1 tab PO BID 10/01/22 01/25/25 tablet (Entresto) warfarin 5 mg tablet 2.5 mg PO .COMPLEX 10/01/22 01/25/25 ezetimibe 10 mg tablet 10 mg PO QDAY 09/01/24 01/25/25 ferrous sulfate 325 mg (65 mg 325 mg PO .2 x weekly 09/01/24 01/25/25 iron) tablet rosuvastatin 10 mg tablet 10 mg PO .qhs 09/01/24 01/25/25 Previous Rx's ?Medication ?Instructions ?Recorded albuterol sulfate 90 mcg/actuation 2 inh inhalation Q4H PRN shortness 03/07/24 aerosol inhaler of breath or wheezing #8.5 grams Allergies Allergy/AdvReac Type Severity Reaction Status Date / Time No Known Drug Allergies Allergy Verified 01/25/25 15:28 [facility] Social History Little interest or pleasure in doing things: not at all Feeling down, depressed, or hopeless: not at all Exam Constitutional Vital Signs, click to edit/add: Last Vital Signs Temp 98.2 F 01/25/25 15:29 Pulse 77 01/25/25 22:20 Resp 21 H 01/25/25 21:01 BP 133/88 01/25/25 22:00 Pulse Ox 93 L 01/25/25 22:20 O2 Del Method Room Air 01/25/25 15:29 Course Vital Signs Vital signs: Vital Signs Temperature 98.2 F 01/25/25 15:29 Pulse Rate 66 01/25/25 15:29 Respiratory Rate 18 01/25/25 15:29 Blood Pressure 156/84 H 01/25/25 15:29 Pulse Oximetry 96 01/25/25 15:29 Oxygen Delivery Method Room Air 01/25/25 15:29 Temperature 98.2 F 01/25/25 15:29 Pulse Rate 77 01/25/25 22:20 Respiratory Rate 21 H 01/25/25 21:01 Blood Pressure 133/88 01/25/25 22:00 Pulse Oximetry 93 L 01/25/25 22:20 Oxygen Delivery Method Room Air 01/25/25 15:29 MDM - SOB/Dyspnea Lab Data Labs: Lab Results 01/25/25 01/25/25 Range/Units 16:34 19:45 WBC 5.7 (4.0-11.0) 10^3/uL RBC 4.70 (4.20-5.40) 10^6/uL Hgb 14.3 (12.0-16.0) g/dL Hct 42.7 (36.0-48.0) % MCV 90.9 (81.0-99.0) fL MCH 30.4 (26.7-34.0) pg MCHC 33.5 (29.9-35.2) g/dL RDW 14.2 (11.0-15.0) % Plt Count 215 (150-450) 10^3/uL MPV 9.4 L (9.5-13.5) fL Neut % (Auto) 51.1 (43.0-75.0) % Lymph % (Auto) 33.5 (20.5-60.0) % [facility] % (Auto) 9.8 (1.7-12.0) % Eos % (Auto) 4.2 (0.9-7.0) % Baso % (Auto) 1.2 (0.2-2.0) % Neut # (Auto) 2.9 (1.4-6.5) 10^3/uL Lymph # (Auto) 1.9 (1.2-3.8) 10^3/uL [facility] # (Auto) 0.6 (0.3-0.8) 10^3/uL Eos # (Auto) 0.2 (0.0-0.7) 10^3/uL Baso # (Auto) 0.1 (0.0-0.1) 10^3/uL Abs Immat Gran (auto) 0.01 (0.00-0.03) 10^3/uL Imm/Tot Granulo (auto) 0.2 (0.0-0.5) % PT 22.6 H (9.0-11.6) sec INR 2.32 APTT 44.9 H* (22.3-36.2) sec D-Dimer 0.25 (<=0.59) mg/L FEU Sodium 143 (136-145) mmol/L Potassium 4.4 (3.5-5.1) mmol/L Chloride 103 (98-107) mmol/L Carbon Dioxide 30.5 (21.0-32.0) mmol/L Anion Gap 13.9 BUN 22.0 H (7.0-18.0) mg/dL Creatinine 1.68 H (0.55-1.02) mg/dL Est GFR ( Amer) 36 L (>=60 mL/min/1.73m^2) Est GFR (Non-Af Amer) 30 L (>=60 mL/min/1.73m^2) BUN/Creatinine Ratio 13.1 Glucose 101 (74-106) mg/dL Calcium 9.1 (8.5-10.1) mg/dL Total Bilirubin 0.5 (0.2-1.0) mg/dL AST 17 (15-37) U/L ALT 20 (14-59) U/L Alkaline Phosphatase 97 (46-116) U/L Troponin I High Sens 27.1 31.1 (4.0-51.3) pg/mL Total Protein 7.7 (6.4-8.2) g/dL Albumin 3.7 (3.4-5.0) g/dL Globulin 4.0 g/dL Albumin/Globulin Ratio 0.9 Discharge Plan Discharge Chief Complaint: Shortness of Breath/Dyspnea Clinical Impression: Breath shortness, Exertional dyspnea Patient Disposition: Home, Self-Care Time of Disposition Decision: 00:11 Condition: Good Mode of Transportation: Private Vehicle Prescriptions / Home Meds: No Action ezetimibe 10 mg tablet 10 mg PO QDAY ferrous sulfate 325 mg (65 mg iron) tablet 325 mg PO .2 x weekly rosuvastatin 10 mg tablet 10 mg PO .qhs carvedilol 25 mg tablet 25 mg PO DAILY hydralazine 25 mg tablet 25 mg PO DAILY omeprazole 40 mg capsule,delayed release(DR/EC) 40 mg PO DAILY sacubitril-valsartan [Entresto] 49-51 mg tablet 1 tab PO BID warfarin 5 mg tablet 2.5 mg PO .COMPLEX Rx Instructions: 2.5 mg orally wed, Sat. 1.25mg on other 5 days; albuterol sulfate 90 mcg/actuation HFA aerosol inhaler 2 inh inhalation Q4H PRN (Reason: shortness of breath or wheezing) Qty: 8.5 0RF Print Language: Swedish Instructions: Dyspnea (ED) Referrals: Nadia Peacock NP [Primary Care Provider, Family Practice] - 1 week Discharge Date/Time: 01/26/25 00:21
== END 2025-01-26 00:21 | disposition home or self-care (01) ==
PROVIDERS: Physician Assistant; Emergency Provider Emergency Medicine; PCP Nurse Practitioner
DX: R06.02 Shortness of breath (principal); R06.09 Other forms of dyspnea; I25.10 Atherosclerotic heart disease of native coronary artery without angina pectoris; Z95.810 Presence of automatic (implantable) cardiac defibrillator; Z95.1 Presence of aortocoronary bypass graft; Z90.5 Acquired absence of kidney; I48.91 Unspecified atrial fibrillation; Z85.528 Personal history of other malignant neoplasm of kidney; Z79.01 Long term (current) use of anticoagulants; I25.2 Old myocardial infarction
CPT/HCPCS: 36415; 71045; 78582; 80053; 84484; 85025; 85378; 85610; 85730; 93005; 99285; A9540; A9567

== ENCOUNTER 2025-02-06 14:00 | Outpatient (OUT) | payer MEDICARE, OTHER, SELFPAY ==
--- OUTSIDE RECORDS SUMMARY | 2025-02-06 13:00 | XMS_ITS | Encounter Summary ---
Author Organization [facility] Address [address] [place] [address] Care Team Providers Care Primer Powder Blender Wet Name Role Phone Nadia Peacock MD Primary Care Provider [phone] Reason for Referral * Imaging (Routine) - Pending ReviewSpecialtyDiagnoses / ProceduresReferred By ContactReferred To ContactCardiology Diagnoses Chronic systolic congestive heart failure (CMS/HCC) Shortness of breath Procedures Transthoracic echo (TTE) complete Issac Helms MD [address] [facility] [address] Phone: tel: fax: Referral IDStatusReasonStart DateExpiration DateVisits RequestedVisits [id number] Review Perform Procedure Encounter Details DateTypeDepartmentCare Team (Latest Contact Info)Ctbbdxixtmk30/03/2025 1:00 PM ESTOffice Visit [facility] [place] [address] [place] [address] Issac Helms MD [address] [place] [address] Chronic systolic congestive heart failure (CMS/HCC) (Primary Dx); Shortness of breath; Coronary artery disease involving port lions coronary artery of port lions heart without angina pectoris; Hx of CABG; LBBB (left bundle branch block); Paroxysmal atrial fibrillation (CMS/HCC); Cardiac resynchronization therapy defibrillator (PAN DEVULCANIZER-D) in place Social History Tobacco UseTypesPacks/DayYears UsedDateSmoking Tobacco: FormerCigarettes Smokeless Tobacco: NeverAlcohol UseStandard Drinks/WeekCommentsNot Currently0 (1 standard drink = 0.6 oz pure alcohol)UT Safety & EnvironmentAnswerDate Recorded Fear of Current or Ex-PartnerNot on file05/28/2023Emotionally AbusedNot on file 05/28/2023hysically AbusedNot on file05/28/2023Sexually AbusedNot on file 05/28/2023hysically or Sexually AbusedNot on file05/28/2023CommentsNo Sex and Gender InformationValueDate RecordedSex Assigned at BirthFemale 06/15/2024 10:41 AM EDTLegal VwhZjsmgb59/29/2022 10:33 PM EDTGender Identity Dtzvsm0206/15/2024 10:41 AM EDTSexual OrientationHeterosexual or Straight 06/15/2024 10:41 AM EDTdocumented as of this encounter Last Filed Vital Signs Vital SignReadingTime TakenCommentsBlood Ittefesv280/6002/06/2025 1:20 PM EST Leaup250102/06/2025 1:20 PM ESTTemperature--Respiratory Rate--Oxygen Bihcevjyur65% 02/06/2025 1:20 PM ESTInhaled Oxygen Concentration--Btgydv69.6 kg (202 lb) 02/06/2025 1:20 PM QKHNrbxcs384.5 cm (5' 2 )02/06/2025 1:20 PM ESTBody Mass Index36.9502/06/2025 1:20 PM ESTdocumented in this encounter Functional Status * BPAnswerDate of PvcnpzcqxpZcpdsj934/6002/06/2025 1:20 PM Ibis Bettencourt MA * PulseAnswerDate of QeswwfsxcjWookhr0708/03/2025 1:20 PM Ibis Bettencourt MA * Patient PositionAnswerDate of XvxlbzltbnQeygpqIsbtucv42/03/2025 1:20 PM Ibis Raphael MA * BPAnswerDate of GpgbklueepZggfsq652/6002/06/2025 1:20 PM Ibis Bettencourt MA * PulseAnswerDate of CrjfiyscvyQdvugs9305 1:20 PM Ibis Bettencourt MA * OiT8UesyhuGqwi of EczthqtybvMswxwu6256/03/2025 1:20 PM Ibis Bettencourt MA * BP LocationAnswerDate of AssessmentAuthorLeft arm02/06/2025 1:20 PM Ibis Raphael MA * Patient PositionAnswerDate of DdaeufoxgfHxuwduLusgugb99/03/2025 1:20 PM Ibis Raphael MA documented as of this encounter Progress Notes * Issac Helms MD - 02/06/2025 1:00 PM EST Images from the original note were not included. [place] [facility] Subjective Jessica Burkett is a 74 y.o. year old female patient being seen for for a follow up [facility] for SOB .Patient states she had [...] Biventricular ICD (implantable cardioverter-defibrillator) in place Anticoagulated VICNETA (acute kidney injury) Candidiasis, cutaneous Chest congestion [...] increased and I stopped spironolactone. She underwent PAN DEVULCANIZER-D placement on 01/06/2019. Prior device check showed 99% biventricular pacing. Shenever really was a good responder to the therapy and her ejection fraction remained on the lower side. At visit of 05/20/2021 I recommended adding Jardiance. She could not afford it. Early in 2022 she underwent neph[place] [facility] [place] and postoperativelyshe went into heart failure from [...] (two) times a week., Disp: , Rfl: furosemide (Lasix) 20 mg tablet, Take 20 mg by mouth in the morning. Taking when needed (Patient taking differently: Take 20 mg by mouth if needed. Taking when needed), Disp: , Rfl: hydrALAZINE (Apresoline) 25 mg [...] DIRECTED BY [facility], Disp: , Rfl: Recent Labs No visits with results within 6 Month(s) from this visit. Latest known visit with results is: Admission on 06/15/2024, Discharged on 06/15/2024 Component Date Value INR 06/15/2024 1.8 Protime 06/15/2024 n/a QC Pass/Fail 06/15/2024 Passed QC LOT # 06/15/2024 [id number] QC Expiration Date 06/15/2024 [id number] Ventricular Rate 06/15/2024 81 Atrial Rate 06/15/2024 81 OH Interval 06/15/2024 116 QRS DURATION 06/15/2024 172 QT Interval 06/15/2024 488 QTC CALCULATION(BAZETT) 06/15/2024 566 P [place] 06/15/2024 42 R-[place] 06/15/2024 240 T Wave [place] 06/15/2024 91 Blood testing 01/25/2025: Hemoglobin 14.3, [...] QRS duration 158 ms. Device check 01/14/2025: [facility] Report PRESENTING RHYTHM Ap/BVp BATTERY 5.3-5.7 years remaining. LEADS No new or significant issues requiring intervention PACING PERCENTAGE AP: 58%, BVP: >99% ARRHYTHMIAS No episodes noted. THORACIC IMPEDANCE VALUES Within Normal Limits ECG 09/06/2024: Sinus rhythm with frequent AV dual paced complexes. Electrophysiology procedure 06/15/2024: PROCEDURE PERFORMED: 1. Biventricular ICD generator change ([place]). 2. Explantation of previously implanted BiV ICD generator ([place] [employer]). 3. New RV septal pacing lead placement. [...] pacemaker. Underlying sinus rhythm. Echocardiogram 10/10/2019 at [facility]: LVEF 20-25%. Blood testing 05/11/2019: Hemoglobin 13.9, [...] Future - Transthoracic echo (TTE) complete; Future Shortness of breath - Lexiscan Stress Myocardial Perfusion Imaging; Future - Transthoracic echo (TTE) complete; Future Coronary artery disease involving port lions coronary artery of port lions heart without angina pectoris Hx of CABG - Lexiscan Stress Myocardial Perfusion Imaging; Future LBBB (left bundle branch block) Paroxysmal atrial fibrillation (CMS/HCC) Cardiac resynchronization therapy defibrillator (PAN DEVULCANIZER-D) in place 1. CAD: She is doing [...] mg bid. continue Entresto. She is s/p PAN DEVULCANIZER-D. There was no clear response with PAN DEVULCANIZER therapy. She recently underwent generator change and [...] up in about 6 months (around 08/06/2025). Issac Helms MD documented in this encounter Plan of Treatment NameTypePriorityAssociated DiagnosesOrder SchedulePro-BNPLabRoutine Chronic systolic congestive heart failure (CMS/HCC) Expected: 02/06/2025 (Approximate), Expires: 02/06/2026Lexiscan Stress Myocardial Perfusion ImagingCardiac ServicesRoutine Hx of CABG Shortness of breath Expected: 02/06/2025 (Approximate), Expires: 02/06/2027Transthoracic echo (TTE) completeEchocardiographyRoutine Chronic systolic congestive heart failure (CMS/HCC) Shortness of breath Expected: 02/06/2025 (Approximate), Expires: 02/06/2027documented as of this encounter Visit Diagnoses Diagnosis Chronic systolic congestive heart failure (CMS/HCC)- Primary Shortness of breath Coronary artery disease involving port lions coronary artery of port lions heart without angina pectoris Hx of CABG Postsurgical aortocoronary bypass status LBBB (left bundle branch block) Other left bundle branch block Paroxysmal atrial fibrillation (CMS/HCC) Atrial fibrillation Cardiac resynchronization therapy defibrillator (PAN DEVULCANIZER-D) in place documented in this encounter Care Teams Team MemberRelationshipSpecialtyStart DateEnd Date Nadia Peacock MD [address] [place] [address] PCP - 06/16/22documented as of this encounter
--- OUTSIDE RECORDS SUMMARY | 2025-02-06 14:06 | XMS_ITS ---
Author Organization [facility] Address [address] [place] [address] Care Team Providers Care Ends Breakage Clerk Name Role Phone Nadia Peacock MD Primary Care Provider [phone] Active Problems ProblemNoted DateDiagnosed DateCOPD mixed type02/02/2025Lung cancer screening declined by znfyqmo9402/02/2025Morbid (severe) obesity with alveolar njxdmyhwfitwoek77/30/2025Oncocytic /30/2025Procedure and treatment not carried out because of patient's decision for unspecified gpyntxz6702/02/2025 Centrilobular xvdcdijrf95/20/2025RSV rpuloeavd51/11/2024cute cough03/15/2024 Cjtubgxpkm96/02/2024KI (acute kidney injury)02/24/2024Encounter for prophylactic measures, idfnvgleegj81/20/2024Generalized eeoaeoin28/20/2024 Impaired gait and /20/2024Lesion of liver less than 1 cm in diameter 02/24/2024Mass of uterine tmkgrz6604/25/2023UTI (urinary tract infection) 02/24/20244018Giugrxlhilnbi88/20/2024Immunodeficiency due to conditions classified fadtnggtj03/20/2024Morbid (severe) obesity due to excess rcxbpfoh07/20/2024Other csmjlhemzzyvc32/20/2024DD (degenerative disc disease), ezrkfh9708/20/2023Major depressive disorder, single episode, aaligjmd06/14/2024Malignant neoplasm of right kidney, except renal ktbmff6505/20/2023Thyroglossal duct cyst05/20/2023hest ynpjncuwqv66/04/2024andidiasis, yrpgvotun09/04/2023hronic lymphocytic leukemia 03/09/2023losed fracture of one rib of left side with routine bfpvckj7803/09/2023 COVID-19105/10/2022epressive mnqurnbj44/04/2023astroesophageal reflux disease 03/09/2023Heart gfingl6405/10/20225720Euvdbdvqqpk66/04/2023Ischemic myocardial slyfazsksab38/04/2023Thyroid krwukq4003/09/2023S/P CABG (coronary artery bypass graft)08/10/2022Renal mass08/07/2022Obesity, Class II, BMI 35-39.9008/07/2022 Biventricular ICD (implantable cardioverter-defibrillator) in place07/17/2022 Overview (08/29/2022): Last Assessment & Plan: Assessment: ischemic s/p HOME OFFICE CLAIMS EXAMINER-D placement ( 2017) in W for ischemic cardiomyopathy last device check 06/27/2022 (scanned into [employer]) Follows with cardiology Nomcrnhbtspnvm97/13/2023 Overview (08/29/2022): Last Assessment & Plan: Assessment: Per Dr. Issac Helms ([facility]) last visit 06/16/2022: Aspirin and warfarin can be held 5 days prior to the surgery and resumed afterwards Injury of rrctpp6006/05/2022Lack of hdgmlys9906/05/20221367Hcbtlhbqqcmq72/02/2023leural tnwdrejv59/02/2023Secondary gveqxsblaggsbbuesdy75/02/2023Vomiting and diarrhea 06/05/2022Hypotension due to jodgtfnlpgl45/02/2023Iron deficiency anemia 02/24/2022tage 3 chronic kidney phcpwvt1302/19/2022wollen sduflfn1207/28/2018 Systolic heart yqlrgyz4212/10/2017Atrial atttyztxmelq10/07/1653Rlnlkhxwg08/24/2018 Coronary fhuaxdaagnmghtv51/23/2018Coronary kkiuwosrfkfuniwh67/23/2018 Cardiomyopathy, cwieudwwwag49/14/2018Tobacco dependence /14/2018 Sfhucvcamblyvk49/09/2018Peripheral vascular gungpye2808/12/2017Hypertensive lyevouvb50/09/2018 Current Treatment and Therapy Plans No current plan information found. Past Treatment and Therapy Plans No past plan information found. Lifetime Dose Tracking * ChemicalLifetime DoseAutomatic EntryManual EntryFluoro Time15 minutes0 minutes 15 minutesAir Kerma69 mGy0 mGy69 mGy
--- OUTSIDE RECORDS SUMMARY | 2025-02-06 14:06 | XMS_ITS | Encounter Summary ---
Author Organization [facility] Address [address] [place] [address] Care Team Providers Care Sales Representative Adding Machines Name Role Phone Nadia Peacock SKY CAP Unavailable [phone] Mychal Bowie MD Primary Care Provider [phone] Nadia Peacock SKY CAP Unavailable [phone] Nadia Peacock SKY CAP Unavailable [phone] Kemal Biswas MA Unavailable [phone] Encounter Details DateTypeDepartmentCare Team (Latest Contact Info)Oyroepweqos57/06/2024Clinisync Result Encounter [facility] External Department Unsolicited Provider, Generic External Data Social History Tobacco UseTypesPacks/DayYears UsedDateSmoking Tobacco: FormerCigarettesQuit: 10/2017Smokeless Tobacco: NeverAlcohol UseStandard Drinks/WeekCommentsNever0 (1 standard drink = 0.6 oz pure alcohol)caffeine more than 4 cups per dayPHQ-2 AnswerDate RecordedPatient Health Questionnaire-2 Khclc0744 CommentsUnknownSex and Gender InformationValueDate RecordedSex Assigned at Not on fileLegal IrrSnxehd72/15/2023 8:26 PM EDTGender IdentityNot on fileSexual OrientationNot on filedocumented as of this encounter Functional Status * Over the past 2 weeks, how often have you been bothered by any of the following problems?QuestionAnswerDate of AssessmentAuthorLittle interest or pleasure in doing thingsSeveral days11/24/2023 11:07 AM Leticia Gregg MAFeeling down, depressed, or hopelessNot at all11/24/2023 11:07 AM Leticia Rodriguez MAPatient Health Questionnaire-2 Kqxyf476 11:07 AM Leticia Gregg MA * QuestionAnswerDate of AssessmentAuthorTrouble falling or staying asleep, or sleeping too muchNot at all11/24/2023 11:07 AM Leticia Gregg MA Feeling tired or having little energyNot at all11/24/2023 11:07 AM Leticia Rodriguez MAPoor appetite or overeatingNot at all11/24/2023 11:07 AM Leticia Gregg MAFeeling bad about yourself - or that you are a failure or have let yourself or your family downNot at all11/24/2023 11:07 AM Leticia Gregg MATrouble concentrating on things, such as reading the newspaper or watching televisionNot at all11/24/2023 11:07 AM Leticia Gregg, MAMoving or speaking so slowly that other people could have noticed? Or the opposite - being so fidgety or restless that you have been moving around a lot more than usual.Not at all11/24/2023 11:07 AM Leticia Gregg MAThoughts that you would be better off or hurting yourself in some wayNot at all11/24/2023 11:07 AM Leticia Gregg MAPatient Health Questionnaire-9 Awqbp706 11:07 AM Leticia Gregg MA * How difficult have these problems made it for you to do your work, take care of things at home, or get along with other people?AnswerDate of Assessment AuthorNot difficult at all11/24/2023 11:07 AM Leticia Gregg MA * Geriatric Depression Scale (Short Version)QuestionAnswerDate of Assessment AuthorAre you basically satisfied with your life?Yes11/24/2023 11:10 AM Leticia Rodriguez MAHave you dropped many of your activities and interests? No11/24/2023 11:10 AM eLticia Gregg MADo you feel that your life is empty?No11/24/2023 11:10 AM Leticia Gregg MADo you often get bored?No 11/24/2023 11:10 AM Leticia Gregg MAAre you in good spirits most of the time?No11/24/2023 11:10 AM Leticia Gregg MAAre you afraid that something bad is going to happen to you?No11/24/2023 11:10 AM Leticia Gregg MADo you feel happy most of the time?No11/24/2023 11:10 AM EDT Leticia Hays MADo you often feel helpless?No11/24/2023 11:10 AM EDT Leticia Hays MADo you prefer to stay at home, rather than going out and doing new things?Yes11/24/2023 11:10 AM Leticia Gregg MADo you feel you have more problems with memory than most?No11/24/2023 11:10 AM EDT Leticia Hays MADo you think it is wonderful to be alive now?No 11/24/2023 11:10 AM Leticia Gregg MADo you feel pretty worthless the way you are now?11/24/2023 11:10 AM Leticia Gregg MADo you feel full of energy?11/24/2023 11:10 AM Leticia Gregg MADo you feel that your situation is hopeless?No11/24/2023 11:10 AM Leticia Gregg MADo you think that most people are better off than you are?No11/24/2023 11:10 AM Leticia Gregg MAGeriatric Depression Scale (Short Version) Total5 11/24/2023 11:10 AM Leticia Gregg MA documented as of this encounter Plan of Treatment Not on file documented as of this encounter Procedures Procedure NamePriorityDate/TimeAssociated DiagnosisCommentsCT CHEST WO IV ARBCAIVK36/09/2023 1:16 PM EST documented in this encounter Results * CT chest wo IV contrast (06/10/2023 1:16 PM EST)Anatomical RegionLaterality ModalityBody, ChestComputed TomographySpecimen (Source)Anatomical Location / LateralityCollection Method / VolumeCollection TimeReceived Time06/10/2023 1:16 PM EST Narrative 06/10/2023 3:17 PM EST * * *Final Report* * * DATE OF EXAM: Jun ??2023 ??1:16PM ?? [facility] ?? 0541 ??- ??CT CHEST WO IVCON ??/ PROCEDURE REASON: multiple diagnoses ? * * * * Physician Interpretation * * * * RESULT: EXAMINATION: ??CHEST CT WITHOUT CONTRAST CLINICAL HISTORY: Renal cell carcinoma. Small lymphocytic lymphoma Technique: ??Spiral CT acquisition of the chest from the thoracic inlet to the upper abdomen without contrast. MQ: ??CTCWO_6 CT Radiation dose: Integrated Dose-length product (DLP) for this visit = ?? 338 mGy*cm CT Dose Reduction Employed: Automated exposure control (AEC) Comparison: Previous chest CTs dated 12/11/2022 and 06/13/2022 RESULT: Limitations: ??None. Lines, tubes, and devices: ??None. Lung parenchyma and airways: There is redemonstration of multiple right-sided pulmonary nodules measuring up to 7 mm in size, these are seen on series 3 images 75, 111, 106, 130, and 167. All of these nodules are unchanged from the two previous CT scans dating back to June 2022. No new pulmonary nodules or masses are identified. The lungs are otherwise clear. The central airways are patent. Pleural space: ??No pleural effusion. ??No pleural thickening. Lower neck, lymph nodes, and mediastinum: ??Partially calcified thyroid nodules measuring up to 1 cm are unchanged. No pathologically enlarged lymph nodes are identified in the chest, within limitations of noncontrast technique. Heart, pericardium, and thoracic vessels: ??Postsurgical changes from median sternotomy and CABG. Cardiac size is within normal limits. Moderate to significant coronary artery calcifications are again noted. The thoracic aorta and central pulmonary arteries normal in caliber. A moderate size hiatal hernia is unchanged. Bones and soft tissues: ??No destructive skeletal lesion is present. A mild superior endplate deformity at T10 is unchanged. No destructive skeletal lesion is present. Upper abdomen: ??There is an incidental cyst at the upper pole of the left kidney. The included images of the upper abdomen are otherwise unremarkable, within limitations of noncontrast technique. Hand Model (topogram) images: No additional findings. IMPRESSION: 1. ??Right-sided pulmonary nodules measuring up to 7 mm are unchanged from the previous CT performed in June 2022. No new pulmonary nodules or masses are identified. 2. ??No CT evidence of new metastatic disease in the chest. 3. ??Stable incidental findings are detailed above. Transcribe Date/Time: Jun ??2023 ??3:03P Dictated by: CANDACE LIVINGSTON MD This examination was interpreted and the report reviewed and electronically signed by: CANDACE LIVINGSTON MD on Jun ??2023 ??3:15PM ??EST Thank you for allowing us to participate in the care of your patient. Should there be any questions regarding this interpretation, please call [phone]. If you are unable to reach us at the number above, please feel free to contact [facility] at [phone]. [id number]^[email or web address]^SI^ACN Procedure Note Radiology, Radiologist, - 06/11/2023 * * *Final Report* * * DATE OF EXAM: Jun 10 2023 1:16PM [facility] 0541 - CT CHEST WO IVCON / PROCEDURE REASON: multiple diagnoses * * * * Physician Interpretation * * * * RESULT: EXAMINATION: CHEST CT WITHOUT CONTRAST CLINICAL HISTORY: Renal cell carcinoma. Small lymphocytic lymphoma Technique: Spiral CT acquisition of the chest from the thoracic inlet to the upper abdomen without contrast. MQ: CTCWO_6 CT Radiation dose: Integrated Dose-length product (DLP) for this visit = 338 mGy*cm CT Dose Reduction Employed: Automated exposure control (AEC) Comparison: Previous chest CTs dated 12/11/2022 and 06/13/2022 RESULT: Limitations: None. Lines, tubes, and devices: None. Lung parenchyma and airways: There is redemonstration of multiple right-sided pulmonary nodules measuring up to 7 mm in size, these are seen on series 3 images 75, 111, 106, 130, and 167. All of these nodules are unchanged from the two previous CT scans dating back to June 2022. No new pulmonary nodules or masses are identified. The lungs are otherwise clear. The central airways are patent. Pleural space: No pleural effusion. No pleural thickening. Lower neck, lymph nodes, and mediastinum: Partially calcified thyroid nodules measuring up to 1 cm are unchanged. No pathologically enlarged lymph nodes are identified in the chest, within limitations of noncontrast technique. Heart, pericardium, and thoracic vessels: Postsurgical changes from median sternotomy and CABG. Cardiac size is within normal limits. Moderate to significant coronary artery calcifications are again noted. The thoracic aorta and central pulmonary arteries normal in caliber. A moderate size hiatal hernia is unchanged. Bones and soft tissues: No destructive skeletal lesion is present. A mild superior endplate deformity at T10 is unchanged. No destructive skeletal lesion is present. Upper abdomen: There is an incidental cyst at the upper pole of the left kidney. The included images of the upper abdomen are otherwise unremarkable, within limitations of noncontrast technique. Hand Model (topogram) images: No additional findings. IMPRESSION: 1. Right-sided pulmonary nodules measuring up to 7 mm are unchanged from the previous CT performed in June 2022. No new pulmonary nodules or masses are identified. 2. No CT evidence of new metastatic disease in the chest. 3. Stable incidental findings are detailed above. Transcribe Date/Time: Jun 10 2023 3:03P Dictated by: CANDACE LIVINGSTON MD This examination was interpreted and the report reviewed and electronically signed by: CANDACE LIVINGSTON MD on Jun 10 2023 3:15PM EST Thank you for allowing us to participate in the care of your patient. Should there be any questions regarding this interpretation, please call [phone]. If you are unable to reach us at the number above, please feel free to contact [facility] at [phone]. [id number]^[email or web address]^SI^ACN Authorizing ProviderResult TypeResult StatusGeneric External Data ProviderIMG CT PROCEDURESFinal Result documented in this encounter Visit Diagnoses Not on filedocumented in this encounter Care Teams Team MemberRelationshipSpecialtyStart DateEnd Date Mychal Bowie MD PCP - GeneralFamily Medicine05/20/23 Nadia Peacock NP [address] [place] [address] PCP - ACO Reach05/13/24 Nadia Peacock NP Nurse PractitionerFamily Medicine12/05/22 Nadia Peacock NP Nurse PractitionerFami Medicine05/20/23 Kemal Biswas, [place] [address] [place] [address] Family Medicine08/31/documented as of this encounter
--- OUTSIDE RECORDS SUMMARY | 2025-02-06 14:06 | XMS_ITS | Encounter Summary ---
Author Organization [facility] Address [address] [facility] [place] [address] Care Team Providers Care Sales And In Home Delivery Specialist Name Role Phone Nadia Peacock NP Unavailable [phone] Mychal Bowie MD Primary Care Provider Nadia Peacock COOLING TOWER OPERATOR Unavailable [phone] Nadia Peacock COOLING TOWER OPERATOR Unavailable [phone] Kemal Biswas MA Unavailable [phone] Encounter Details DateTypeDepartmentCare Team (Latest Contact Info)Qoaaitlpren35/28/2024Clinisync Result Encounter [facility] External Department Unsolicited Provider, Generic External Data Social History Tobacco UseTypesPacks/DayYears UsedDateSmoking Tobacco: FormerCigarettesQuit: 10/2017Smokeless Tobacco: NeverAlcohol UseStandard Drinks/WeekCommentsNever0 (1 standard drink = 0.6 oz pure alcohol)caffeine more than 4 cups per dayPHQ-2 AnswerDate RecordedPatient Health Questionnaire-2 [id number] CommentsUnknownSex and Gender InformationValueDate RecordedSex Assigned at Not on fileLegal OiiQjuptl43/15/2023 8:26 PM EDTGender IdentityNot on fileSexual OrientationNot on filedocumented as of this encounter Plan of Treatment Not on file documented as of this encounter Procedures Procedure NamePriorityDate/TimeAssociated DiagnosisCommentsCA ECHO DOPPLER SABRXEAC44/28/2024 3:05 PM EST documented in this encounter Results * CA ECHO DOPPLER COMPLETE (03/03/2024 3:05 PM EST)Anatomical RegionLaterality ModalityOtherSpecimen (Source)Anatomical Location / LateralityCollection Method / VolumeCollection TimeReceived Time03/03/2024 3:05 PM EST Narrative 03/03/2024 3:07 PM EST [facility] ?[address] ? [place] [address] ? Cardiology Report ? Signed ? Patient: THADDEUS BURKETT ?MR#: [id number] ?? : 1950 ?Acct:[id number] ?? Age/Sex: 73 / F ?ADM Date: 03/02/24 ?? Loc: CARD ? Attending Dr: DARIANA HELMS ? Ordering Physician: DARIANA HELMS ?? Date of Service: 03/02/24 ?? Procedure(s): CA echo doppler complete ?? Accession Number(s): [id number] ? cc: Nadia Peacock NP; DARIANA HELMS ? Patient Name: ? THADDEUS BURKETT ? MR#: [id number] ? : 1950 ? Exam Date: 03/02/2024 ?? Ordering Doctor: DR DARIANA HELMS M.D. ? ECHOCARDIOGRAM REPORT ? PROCEDURE: ? CA ECHO DOPPLER COMPLETE ? INDICATIONS: ? heart failure with reduced ejection fraction ? COMPARISON: ? None. ? DESCRIPTION: ? COMPLETE ECHOCARDIOGRAM Real-time transthoracic ?? echocardiography with 2D, M-mode, spectral and color flow Doppler performed. ? QUALITY: ? Technical quality was adequate. ? LEFT VENTRICLE: ? Normal chamber size. Thickened septal wall. ??Abnormal ?? septal motion likely due to bundle branch block/pacing. ??Dyssynchronous ?? contraction of the ventricular segments is noted. ??Global left ventricular ?? systolic function is moderately to severely decreased. ?? LV EF: ? Estimated left ventricular ejection fraction is 30%. ?? DIASTOLIC: ? Grade I diastolic dysfunction. ?? ATRIAL SEPTUM: ? LEFT ATRIUM: ? Mild dilatation. ?? RIGHT ATRIUM: ? Mild dilatation. ?? RIGHT VENTRICLE: ? Normal chamber size. Normal right ventricular systolic ?? function. ?Pacer wire present. ?? TRICUSPID VALVE: ? Normal mobility and thickness. No stenosis with No ?? evidence of pulmonary hypertension. RVSP 20 mmHg ? MITRAL VALVE: ? Normal mobility and thickness. ?? No evidence of mitral valve ?? stenosis. ??Mild mitral annular calcification. Trivial mitral regurgitation. ? AORTIC VALVE: ? Normal trileaflet appearance. No visible sclerosis. ??Normal ?? leaflet mobility. ??No evidence of aortic valve stenosis. No aortic ?? regurgitation. ? AORTIC ROOT: ? Normal diameter and appearance. ? PULMONIC VALVE: ? Normal thickness and mobility. No stenosis. Trivial ?? regurgitation. ? PERICARDIUM: ? No evidence of pericardial effusion. ? IVC: ? Collapses with inspirations. Normal size. ? PLEURA: ? CONCLUSION: ? 1. The left ventricle is normal in size and exhibits dyssynchronous ?? contraction with abnormal septal motion and moderately to severely reduced ?? systolic function. ??Estimated LVEF is 30%. ?? 2. Normal right ventricular size and systolic function. ?? 3. No significant valvular dysfunction. ?? 4. Normal right-sided pressures. ? Adult Echocardiography Procedure Report ?? Left Ventricle ?? LVEDD (3.7 - 5.6 cm): ? 4.81 cm ?? LVESD (2.2 - 4.0 cm): ? 4.02 cm ?? LVIVS thickness (0.6 - 1.2 cm): ? 1.30 cm ?? LVPW thickness (0.5 - 1.0 cm): ? 1.03 cm ?? e': ? 0.08 m/s ?? E - e': ? 5.55 ?? LVOT Max Gradient: ? 1.19 mm[Hg] ?? LVOT Area (cm2): ? 0.55 m/s ?? Peak Velocity (LVOT): ? 0.55 m/s ?? Mean Velocity (LVOT): ? 0.31 m/s ?? LVOT Diameter ? 2.27 cm ?? Left Ventricular Ejection Fraction: ? 30 % ?? Left Atrium ?? LA Volume Index (2D A2C): ? 38.54 ml/m2 ?? Left Atrium Systolic Dimension: ? 3.87 cm ?? Mitral Valve ?? MV E to A Ratio: ? 0.67 ?? Mitral Valve A-Wave Peak Velocity: ? 0.69 m/s ?? Mitral Valve E-Wave Peak Velocity: ? 0.47 m/s ?? Right Ventricle ?? RV Internal Diastolic Dimension: ? 4.29 cm ?? Aorta ?? AO Root Diam: ? 3.21 cm ?? Ascending Ao Diam: ? 2.59 cm ?? Aortic Valve ?? AoV Area (Peak Jack): ? 2.19 cm2, 2.19 cm2 ?? AoV Area (VTI): ? 2.62 cm2, 2.62 cm2 ?? Peak Velocity(Antegrade Flow): ? 1.01 m/s ?? Peak Gradient(Antegrade Flow): ? 4.07 mm[Hg] ?? Mean Velocity(Antegrade Flow): ? 0.58 m/s ?? Mean Gradient(Antegrade Flow): ? 1.61 mm[Hg] ?? Velocity Time Integral: ? 16.35 cm ?? Tricuspid Valve ?? Peak Velocity (Regurgitant Flow): ? 2.04 m/s, 1.85 m/s ?? Pulmonic Valve ?? Mean Gradient: ? 1.58 mm[Hg], 1.66 mm[Hg] ?? Mean Velocity: ? 0.58 m/s, 0.60 m/s ?? Peak Velocity: ? 0.95 m/s, 0.95 m/s ?? Peak Gradient: ? 3.63 mm[Hg], 3.26 mm[Hg], 3.91 mm[Hg] ?? Right Atrium ?? Right Atrium Systolic Pressure: ? 50.04 ml, 50.04 ml ? Dictated by: Dariana Helms M.D. on 03/03/2024 at 14:59 ? Approved by: Dariana Helms M.D. on 03/03/2024 at 15:05 ? Dictated By: ?DARIANA HELMS ? Signed By: ?03/03/ 1507 ? DD/DT: 03/03/ 1505 ? TD/TT: ? Wool Shearer: Procedure Note Radiology, Radiologist, - 03/03/2024 [place] [address] Cardiology Report Signed Patient: THADDEUS BURKETT AMR#: [id number] : 1950cct:[id number] Age/Sex: 73 / FADM Date: 03/02/24 Loc: CARD Attending Dr: DARIANA HELMS Ordering Physician: DARIANA HELMS Date of Service: 03/02/24 Procedure(s): CA echo doppler complete Accession Number(s): [id number] cc: Nadia Peacock NP; DARIANA HELMS Patient Name: THADDEUS BURKETT MR#: [id number] : 1950 Exam Date: 03/02/2024 Ordering Doctor: DR DARIANA HELMS M.D. ECHOCARDIOGRAM REPORT PROCEDURE: CA ECHO DOPPLER COMPLETE INDICATIONS: heart failure with reduced ejection fraction COMPARISON: None. DESCRIPTION: COMPLETE ECHOCARDIOGRAM Real-time transthoracic echocardiography with 2D, M-mode, spectral and color flow Dopplerperformed. QUALITY: Technical quality was adequate. LEFT VENTRICLE: Normal chamber size. Thickened septal wall. Abnormal septal motion likely due to bundle branch block/pacing. Dyssynchronous contraction of the ventricular segments is noted. Global left ventricular systolic function is moderately to severely decreased. LV EF: Estimated left ventricular ejection fraction is 30%. DIASTOLIC: Grade I diastolic dysfunction. ATRIAL SEPTUM: LEFT ATRIUM: Mild dilatation. RIGHT ATRIUM: Mild dilatation. RIGHT VENTRICLE: Normal chamber size. Normal right ventricularsystolic function. Pacer wire present. TRICUSPID VALVE: Normal mobility and thickness. No stenosis with No evidence of pulmonary hypertension. RVSP 20 mmHg MITRAL VALVE: Normal mobility and thickness. No evidence of mitralvalve stenosis. Mild mitral annular calcification. Trivial mitralregurgitation. AORTIC VALVE: Normal trileaflet appearance. No visible sclerosis.Normal leaflet mobility. No evidence of aortic valve stenosis. No aortic regurgitation. AORTIC ROOT: Normal diameter and appearance. PULMONIC VALVE: Normal thickness and mobility. No stenosis. Trivial regurgitation. PERICARDIUM: No evidence of pericardial effusion. IVC: Collapses with inspirations. Normal size. PLEURA: CONCLUSION: 1. The left ventricle is normal in size and exhibits dyssynchronous contraction with abnormal septal motion and moderately to severely reduced systolic function. Estimated LVEF is 30%. 2. Normal right ventricular size and systolic function. 3. No significant valvular dysfunction. 4. Normal right-sided pressures. Adult Echocardiography Procedure Report Left Ventricle LVEDD (3.7 - 5.6 cm): 4.81 cm LVESD (2.2 - 4.0 cm): 4.02 cm LVIVS thickness (0.6 - 1.2 cm): 1.30 cm LVPW thickness (0.5 - 1.0 cm): 1.03 cm e': 0.08 m/s E - e': 5.55 LVOT Max Gradient: 1.19 mm[Hg] LVOT Area (cm2): 0.55 m/s Peak Velocity (LVOT): 0.55 m/s Mean Velocity (LVOT): 0.31 m/s LVOT Diameter 2.27 cm Left Ventricular Ejection Fraction: 30 % Left Atrium LA Volume Index (2D A2C): 38.54 ml/m2 Left Atrium Systolic Dimension: 3.87 cm Mitral Valve MV E to A Ratio: 0.67 Mitral Valve A-Wave Peak Velocity: 0.69 m/s Mitral Valve E-Wave Peak Velocity: 0.47 m/s Right Ventricle RV Internal Diastolic Dimension: 4.29 cm Aorta AO Root Diam: 3.21 cm Ascending Ao Diam: 2.59 cm Aortic Valve AoV Area (Peak Jack): 2.19 cm2, 2.19 cm2 AoV Area (VTI): 2.62 cm2, 2.62 cm2 Peak Velocity(Antegrade Flow): 1.01 m/s Peak Gradient(Antegrade Flow): 4.07 mm[Hg] Mean Velocity(Antegrade Flow): 0.58 m/s Mean Gradient(Antegrade Flow): 1.61 mm[Hg] Velocity Time Integral: 16.35 cm Tricuspid Valve Peak Velocity (Regurgitant Flow): 2.04 m/s, 1.85 m/s Pulmonic Valve Mean Gradient: 1.58 mm[Hg], 1.66 mm[Hg] Mean Velocity: 0.58 m/s, 0.60 m/s Peak Velocity: 0.95 m/s, 0.95 m/s Peak Gradient: 3.63 mm[Hg], 3.26 mm[Hg], 3.91 mm[Hg] Right Atrium Right Atrium Systolic Pressure: 50.04 ml, 50.04 ml Dictated by: Dariana Helms M.D. on 03/03/2024 at 14:59 Approved by: Dariana Helms M.D. on 03/03/2024 at 15:05 Dictated By: DARIANA HELMS Signed By:03/03/24 1507 DD/ 1505 TD/TT: Wool Shearer: Authorizing ProviderResult TypeResult StatusGeneric External Data Provider CLINISYNC IMAGINGFinal Result documented in this encounter Visit Diagnoses Not on filedocumented in this encounter Additional Health Concerns AssessmentNoted TimePQ-9 Depression Total Score: 11:07 AM EDT documented as of this encounter Care Teams Team MemberRelationshipSpecialtyStart DateEnd Date Mychal Bowie MD PCP - GeneralFamily Medicine05/20/23 Nadia Peacock NP [address] [place] [address] PCP - ACO Reach05/13/24 Nadia Peacock NP Nurse PractitionerFamily Medicine12/05/22 Nadia Peacock NP Nurse PractitionerFamily Medicine05/20/23 Kemal Biswas MA [address] [place] [address] Family Medicine08/31/documented as of this encounter
--- OUTSIDE RECORDS SUMMARY | 2025-02-06 14:06 | XMS_ITS | Clinical Summary ---
Author Organization [facility] Address [address] [place] [address] Care Team Providers Care Knife Finisher Name Role Phone Nadia Peacock NP Unavailable [phone] Mychal Bowie MD Primary Care Provider [phone] Nadia Peacock CHEMICAL PROCESSOR Unavailable [phone] Nadia Peacock CHEMICAL PROCESSOR Unavailable [phone] Allergies Active AllergyReactionsCriticalityNoted EveaAnogdhobEkwrvpcpegcp95/25/2023 myalgias Medications MedicationSigDispense QuantityRefillsLast FilledStart DateEnd DateStatus [...] injection Infuse 200 mg into a venous /17/2024Active Nyawlytknme-Rvbrpxnev-Kqheft (Trelegy Ellipta) 100-62.5-25 MCG/ACT aerosol powder Inhale [...] DateDiagnosed DateChronic kidney disease, stage 3b08/24/2024 Centrilobular ljfqpdhxo99/20/2025 Assessment & Plan (08/24/2024 6:56 AM EDT): No longer smoker Current med: albuterol and trelegy Assessment & Plan (05/26/2024 1:38 PM EST): No longer smoker Current med: albuterol and trelegy Dyspnea does not seem to be COPD related, sounds more heart failure related RSV /11/2024 Assessment & Plan (03/23/2024 6:56 AM EST): Dx in [facility] on 03/07/24 Assessment & Plan (03/16/2024 2:10 PM EST): Dx in [facility] on 03/07/24 Morbid (severe) obesity due to excess azbyfnpf31/20/2024 Assessment & Plan (08/24/2024 6:59 AM EDT): [...] Body mass index (BMI) 35.0-35.9, adult11/24/2023Other thrombophilia ([facility]) 11/24/2023Immunodeficiency due to conditions classified ukeftypra64/20/2024 Atherosclerosis of aorta11/24/2023 Assessment & Plan (11/24/2023 6:56 AM EDT): Cont statin use Hypertensive chronic kidney disease with stage 1 through stage 4 chronic kidney disease, or unspecified chronic kidney atfziqr7511/24/2023 Assessment & Plan (05/26/2024 6:53 AM EST): [...] Continues with Nephrology on a regular basis Wwmdjyisnuhea26/20/2024nemia of renal ktqwkcd0011/24/2023Encounter for subsequent annual wellness visit (AWV) in Medicare xqzurqj5411/24/2023 Assessment & Plan (11/24/2023 12:06 PM EDT): Reviewed Ht/Wt/BMI Recommend eye exam yearly Recommend dental exams twice a year Balance work/leisure activities Exercises is recommended most days of the week (appropriate as chronic conditions allow) Follow up yearly and prn DDD (degenerative disc disease), clfwrb6708/20/2023 Assessment & Plan (08/20/2023 1:28 PM EDT): Will work with chiropractor for this, Peripheral vascular disease, jzdrtsybfun25/14/2024 Assessment & Plan (05/26/2024 6:47 AM EST): Continue statin and asa Assessment & Plan (11/24/2023 6:56 AM EDT): Continue statin and asa Systolic heart zrtiojr1005/20/2023 Assessment & Plan (08/24/2024 6:57 AM EDT): Managed by [facility] Recent ECHO completed 03/02/24 Current meds: asa, b mallory, entresto, hydralazine, lasix, crestor, coumadin Assessment & Plan (05/26/2024 1:39 PM EST): Managed by [facility] Recent ECHO completed 03/02/24 Current meds: asa, b mallory, entresto, hydralazine, lasix, crestor, coumadin Took 2 dose of lasix 20mg on Thursday, diuresed 6 pounds, had been compliant with meds, cardiology took her off of lasix a few months ago to give kidneys a break Is feeling better now Assessment & Plan (03/23/2024 6:56 AM EST): Managed by [facility] Recent ECHO completed 03/02/24 Assessment & Plan (03/07/2024 1:52 PM EST): Managed by [facility] Recent ECHO completed 03/02/24 Assessment & Plan (08/20/2023 1:24 PM EDT): Appears to be stable, no acute symptoms at this time No changes in meds or doses Assessment & Plan (05/20/2023 1:29 PM EST): Stable, chest is clear today Major depressive disorder, single episode, gqlltmku13/14/2024 Assessment & Plan (05/26/2024 1:40 PM EST): No current medication use PHQ 9=1 JUAN 7=0 Malignant neoplasm of right kidney, except renal xwfuju6405/20/2023 Assessment & Plan (11/24/2023 6:57 AM EDT): Follows with nephrology/oncology Thyroglossal duct cyst05/20/2023hronic lymphocytic leukemia of B-cell type not having achieved ggyjpkghb87/14/2024 Assessment & Plan (03/23/2024 6:56 AM EST): Continue with Oncology Assessment & Plan (03/16/2024 6:53 AM EST): Continue with Oncology Assessment & Plan (03/07/2024 1:53 PM EST): Continue with Oncology Assessment & Plan (11/24/2023 12:08 PM EDT): Continue with Oncology Unspecified atrial crbroiwovzrm43/04/2023 Assessment & Plan (05/26/2024 6:48 AM EST): B mallory, coumadin cardiology Assessment & Plan (11/24/2023 12:07 PM EDT): Cont coumadin as well as cardiac meds Cont with cardiology Leukemia, lymphocytic, pjddibz3603/09/2023 Assessment & Plan (11/24/2023 6:58 AM EDT): Continue with oncology Heart ykwoyf4805/10/20223754Psrahzavegekwt20/04/2023Essential (primary) hypertension 03/09/2023 Assessment & Plan (08/24/2024 [...] at this time No changes to meds Gjmocqifgya71/04/2023astroesophageal reflux venjmbz1403/09/2023 Assessment & Plan (05/26/2024 6:49 AM EST): Recommendations: freq small meals, nothing to eat or drink at least 2 hours prior to bed, limit caffeine, alcohol, as well as spicy foods Meds to limit or avoid if possible: NSAIDS Elevate HOB if possible Current meds: omeprazole Cardiomyopathy, mxaieoja32/04/2023 Assessment & Plan (08/24/2024 6:57 AM EDT): [...] with cardiology once a year now Thyroid ssgnam0403/09/20233160HAZSA55/04/2023 Assessment & Plan (03/09/2023 4:44 PM EST): Resp ruff is better Still w some weakness, will trial home PT for strengthening Fu in 2-3 weeks for a recheck Closed fracture of one rib of left side with routine uwwpdfd8603/09/2023 Assessment & Plan (03/09/2023 4:43 PM EST): Xray rib fracture from fall with dog Encouraged deep breathing and cough S/P CABG (coronary artery bypass graft)08/10/2022iventricular ICD (implantable cardioverter-defibrillator) in place07/17/2022 Overview (03/09/2023): Last Assessment & Plan: Assessment: ischemic s/p AIRCRAFT CYLINDER MECHANIC-D placement ( 2018) in [facility] for ischemic cardiomyopathy last device check 06/27/2022 (scanned into Epic) Follows with cardiology Last Assessment & Plan: Assessment: ischemic s/p AIRCRAFT CYLINDER MECHANIC-D placement ( 2018) in [facility] for ischemic cardiomyopathy last device check06/27/2022 (scanned into Epic) Follows with cardiology Assessment & Plan (05/26/2024 1:38 PM EST): Continues with [facility] cardiology Current meds: asa, carvedilol, entresto, hydralizine, crestor, warfarin Will be having battery replacement in future Assessment & Plan (03/16/2024 6:52 AM EST): Continues with [facility] cardiology Current meds: asa, carvedilol, entresto, hydralizine, crestor, warfarin Ayhpjjdkbbisew11/13/2023 Overview (05/20/2023): Last Assessment & Plan: Assessment: Per Dr. Issac Helms ([facility]) last visit 06/16/2022: Aspirin and warfarin can be held 5 days prior to the surgery and resumed afterwards Last Assessment & Plan: Assessment: Per Dr. Issac Helms ([facility]) last visit 06/16/2022: Aspirin and warfarin can be held 5 days prior to the surgery and resumed afterwards Assessment & Plan (03/07/2024 1:53 PM EST): Continues on anti coagulation Secondary hyperparathyroidism of renal gxbiws9006/05/2022 Overview (03/09/2023): Last Assessment & Plan: Assessment: last calcium level stable Assessment & Plan (11/24/2023 6:57 AM EDT): Cont with nephrology Iron deficiency xkaknk1602/24/2022 Overview (03/09/2023): Last Assessment & Plan: Assessment: Hx iron infusion; last labs stable Coronary fcrubgyxzfhgguxp63/23/2018 Assessment & Plan (08/24/2024 6:57 AM EDT): Current meds: asa, b mallory, entresto, zetia, crestor Assessment & Plan (05/26/2024 6:47 AM EST): Current meds: asa, b mallory, entresto, zetia, crestor Resolved Problems ProblemNoted DateDiagnosed DateResolved DateAcute cough Ckxxzxtvlq20 Assessment & Plan (03/23/2024 10:19 AM EST): [...] to be seen and will go to [facility] ER CKD (chronic kidney disease) Assessment & Plan (08/20/2023 1:24 PM EDT): Continue with seeing Nephrology Assessment & Plan (05/20/2023 1:28 PM EST): Continue with Nephrology Fractured rib/ Overview (05/20/2023): left side number 7 Tobacco user4Chest bnndwtdemj17 Assessment & Plan (04/09/2023 2:35 PM EST): Lung sound as though loose rales, absolutely no resp distress No s/s URI Will check CXR Advised if sudden onset dyspnea, cough etc go to ER Acute kidney injury (nontraumatic)hronic kidney disease epressive vllruqls26 Assessment & Plan (05/26/2024 1:40 PM EST): PHQ 9=1 No current meds Candidiasis, xoymftyab45Heart failure, eqqrduuj90/04/2023 03/07/2024 Assessment & Plan (04/09/2023 2:36 PM EST): Cont with entresto Will check cxr for evidence of acute HR Cont current meds, VSS Obesity (BMI 30-39.9)ardiomyopathy, rgtcjsfwuwp90/14/2018 03/07/2024 Overview (03/09/2023): Last Assessment & Plan: Assessment: ischemic s/p AIRCRAFT CYLINDER MECHANIC-D placement ( 2017) in [facility] for ischemic cardiomyopathy last device check 06/27/2022 (scanned into [employer]) Follows with cardiology Encounters DateTypeDepartmentCare LnqiUeshpligvsw44/11/2025bstract [facility] [address] [place] [address] Nadia Peacock NP 11/13/2024Refill [facility] [address] [place] [address] Nadia Peacock NP Gastroesophageal reflux disease, unspecified whether esophagitis presentfrom Last 3 Months Immunizations ImmunizationAdministration DatesNext DueJanssen UXGL-DzA-902/08/2021Pfizer Purple Cap SARS-CoV-2 Xllukdyrrdn85/14/3394CKVJ-OgL-5, Moujflhnwap56/14/2021 Family History Medical HistoryRelationNameCommentsCancerFatherHeart diseaseFatherHypertension Fatherbladder problemFatherstomach problemFatherHeart diseaseMaternal GrandfatherHeart diseaseMaternal GrandmotherHypertensionMaternal Grandmother StrokeMaternal GrandmotherDiabetesMotherHeart diseaseMotherHypertensionMother Heart diseasePaternal GrandmotherHypertensionPaternal GrandmotherDiabetesSibling Heart diseaseSiblingRelationNameStatusCommentsFatherDeceasedMaternal Grandfather Maternal GrandmotherMotherDeceasedPaternal GrandmotherSibling Social History Tobacco UseTypesPacks/DayYears UsedDateSmoking Tobacco: FormerCigarettesQuit: 10/2017Smokeless Tobacco: Never Tobacco Cessation:Counseling Given: Not Answered Alcohol UseStandard Drinks/WeekCommentsNever0 (1 standard drink = 0.6 oz pure alcohol)caffeine more than 4 cups per dayPHQ-2AnswerDate RecordedPatient Health Questionnaire-2 Tbjtp7014CommentsUnknownSex and Gender InformationValueDate RecordedSex Assigned at BirthNot on fileLegal SexFemale 06/18/2022 8:26 PM EDTGender IdentityNot on fileSexual OrientationNot on file Last Filed Vital Signs Vital SignReadingTime TakenCommentsBlood Cyjxdnmk716/80008/24/2024 1:03 PM EDT Ubchr877108/24/2024 1:03 PM MTPTdfmxvpektj37.7 ??C (98.1 ??F)08/24/2024 1:03 PM EDTRespiratory Exut835308/24/2024 1:03 PM EDTOxygen Sdmgkqwmvn07%08/24/2024 1:03 PM EDTInhaled Oxygen Concentration--Pkqnkx20.8 kg (202 lb 6.4 oz)08/24/2024 1:03 PM OPWTfqxfz662.6 cm (5' 4 )03/23/2024 10:03 AM ESTBody Mass Index34.74 03/23/2024 10:03 AM EST Plan of Treatment Health MaintenanceDue DateLast DoneCommentsCT Xmbpbvhqckgu38/09/1951FIT-DNA 1950FIT1950FOBT1950 5654Nqatahcsigini62/09/1951DTaP/Tdap/Td Vaccines (1 - Tdap)1957Pneumococcal Vaccine: 65+ Years (1 of 2 - PCV) 1969Medicare Annual Wellness (AWV)508/, 4COVID-19 Vaccine ( season), 03/19/2021, 06/11/2020 Jhnpzkoij13 (Patient Refused), 03/09/2023 (Patient Refused) Zrdlvmlbxox592Colorectal Cancer Psfzwgltk26/21/2032HIB Vaccines Aged OutNo longer eligible based on patient's age to complete this topicHPV VaccinesAged OutNo longer eligible based on patient's age to complete this topic Hepatitis A VaccinesAged OutNo longer eligible based on patient's age to complete this topicHepatitis B VaccinesAged OutNo longer eligible based on patient's age to complete this topicIPV VaccinesAged OutNo longer eligible based on patient's age to complete this topicInfluenza VaccineDiscontinued Meningococcal B VaccineAged OutNo longer eligible based on patient's age to complete this topicMeningococcal VaccineAged OutNo longer eligible based on patient's age to complete this topicRotavirus VaccinesAged OutNo longer eligible based on patient's age to complete this topic Insurance Care Teams Team MemberRelationshipSpecialtyStart DateEnd Date Mychal Bowie MD [facility] - [facility] Nadia Peacock NP [address] [place] [address] PCP - ACO Reach05/13/24 Nadia Peacock [facility]12/05/22 Nad[facility]acock [facility]05/20/23
--- OUTSIDE RECORDS SUMMARY | 2025-02-06 14:06 | XMS_ITS | Encounter Summary ---
Author Organization [facility] Address [address] [facility] [place] [address] Care Team Providers Care Accounting Consultant Name Role Phone Nadia Peacock NP Unavailable [phone] Mychal Bowie MD Primary Care Provider Nadia Peacock NP Unavailable [phone] Nadia Peacock NP Unavailable [phone] Kemal Biswas MA Unavailable [phone] Encounter Details DateTypeDepartmentCare Team (Latest Contact Info)Wdprtkooges53/10/2024Clinisync Result Encounter [facility] External Department Unsolicited Nadia Peacock NP [address] [place] [address] Social History Tobacco UseTypesPacks/DayYears UsedDateSmoking Tobacco: FormerCigarettesQuit: 10/2017Smokeless Tobacco: NeverAlcohol UseStandard Drinks/WeekCommentsNever0 (1 standard drink = 0.6 oz pure alcohol)caffeine more than 4 cups per dayPHQ-2 AnswerDate RecordedPatient Health Questionnaire-2 [id number] CommentsUnknownSex and Gender InformationValueDate RecordedSex Assigned at Not on fileLegal ToyRkrcgd98/15/2023 8:26 PM EDTGender IdentityNot on fileSexual OrientationNot on filedocumented as of this encounter Plan of Treatment Not on file documented as of this encounter Procedures Procedure NamePriorityDate/TimeAssociated DiagnosisCommentsXR CHEST 2V105/16/2023 12:56 PM EST documented in this encounter Results * XR CHEST 2V (03/15/2024 12:56 PM EST)Anatomical RegionLateralityModalityOther Specimen (Source)Anatomical Location / LateralityCollection Method / Volume Collection TimeReceived Time03/15/2024 12:56 PM EST Narrative 03/15/2024 12:59 PM EST [facility] ?[address] ? [place] [address] ?XRay Report ? Signed ? Patient: GREYSONTHADDEUS A ?MR#: [id number] ?? : 1950 ?Acct:[id number] ?? Age/Sex: 73 / F ?ADM Date: 03/15/24 ?? Loc: RAD ? Attending Dr: Nadia Peacock GAS ANALYST ? Ordering Physician: Nadia Peacock NP ?? Date of Service: 03/15/24 ?? Procedure(s): XR chest 2V ?? Accession Number(s): [id number] ? cc: Nadia Peacock NP ? [facility] ? [address] [facility] ? [place] [address] ? Patient Name: ?? THADDEUS BURKETT ? MRN: [facility]:[id number] ? date: 1950 ?Sex: F ?? Assigned Patient Location: RAD ?? Current Patient Location: RAD ?? Accession/Order Number: [id number] ?? Exam Date: 03/15/2024 ??12:10 ?Report Date: 03/15/2024 ??12:56 ? At the request of: ?? NADIA PEACOCK ? Procedure: ??XR chest 2V ? EXAM: XR chest 2V ? HISTORY: Acute Cough ? COMPARISON: 04/09/2023 ? TECHNIQUE: Upright PA and lateral chest x-ray ? FINDINGS: The heart is borderline enlarged without overt cardiac ?? decompensation. Multiple sternal wire sutures and mediastinal clips are ?? present ?? as well as a left-sided pacemaker. No acute infiltrate, effusion or ?? pneumothorax is identified. Diffuse osteopenia is noted with degenerative ?? changes in the spine. ? XR/XR chest 2V ?? IMPRESSION: ? Borderline cardiac enlargement without overt cardiac decompensation. A focal ?? infiltrate is not identified. The overall appearance of the chest is ?? essentially unchanged. ? Electronically authenticated by: RAMU ??JAY ?? Date: 03/15/2024 ??12:56 ? Dictated By: ?Ramu Robb M.D. ? Signed By: ?03/15/24 1259 ? DD/ ? TD/TT: ? Flight Test Data Acquisition Technician: Procedure Note Radiology, Radiologist, MD - 03/15/2024 [place] [address] XRay Report Signed Patient: THADDEUS BURKETT [facility]#: [id number] : 1950cct:[id number] Age/Sex: 73 / FADM Date: 03/15/24 Loc: RAD Attending Dr: Nadia Peacock NP Ordering Physician: Nadia Peacock NP Date of Service: 03/15/24 Procedure(s): XR chest 2V Accession Number(s): [id number] cc: Nadia Peacock NP The [place] [address] Patient Name: THADDEUS BURKETT MRN: [id number] date: 1950 Sex: F Assigned Patient Location: [facility] Current Patient Location: [facility] Accession/Order Number: [id number] Exam Date: 03/15/2024 12:10 Report Date: 03/15/2024 12:56 At the request of: NADIA PEACOCK Procedure: XR chest 2V EXAM: XR chest 2V HISTORY: Acute Cough COMPARISON: 04/09/2023 TECHNIQUE: Upright PA and lateral chest x-ray FINDINGS: The heart is borderline enlarged without overt cardiac decompensation. Multiple sternal wire sutures and mediastinal clips are present as well as a left-sided pacemaker. No acute infiltrate, effusion or pneumothorax is identified. Diffuse osteopenia is noted with degenerative changes in the spine. XR/XR chest 2V IMPRESSION: Borderline cardiac enlargement without overt cardiac decompensation. Afocal infiltrate is not identified. The overall appearance of the chest is essentially unchanged. Electronically authenticated by: RAMU ROBB Date: 03/15/2024 12:56 Dictated By: Ramu Robb M.D. Signed By:03/15/24 1259 DD/ 1256 TD/TT: Flight Test Data Acquisition Technician: Authorizing ProviderResult TypeResult StatusLisa Peacock NPCLINISYNC IMAGING Final Result documented in this encounter Visit Diagnoses Not on filedocumented in this encounter Additional Health Concerns AssessmentNoted TimePHQ-9 Depression Total Score: 11:07 AM EDT documented as of this encounter Care Teams Team MemberRelationshipSpecialtyStart DateEnd Date Mychal Bowie MD PCP - GeneralFamily Medicine05/20/23 Nadia Peacock NP [address] [place] [address] PCP - ACO Reach05/13/24 Nadia Peacock NP Nurse PractitionerFamily Medicine12/05/22 Nadia Peacock NP Nurse PractitionerFami Medicine05/20/23 Kemal Biswas, SURESH [address] [place] [address] Family Medicine08/31/documented as of this encounter
--- OUTSIDE RECORDS SUMMARY | 2025-02-06 14:06 | XMS_ITS | Encounter Summary ---
Author Organization [facility] Address [address] [facility] [place] [address] Care Team Providers Care Client Care Representative Name Role Phone Nadia Peacock NP Unavailable [phone] Mychal Bowie MD Primary Care Provider Nadia Peacock NP Unavailable [phone] Nadia Peacock NP Unavailable [phone] Kemal Biswas MA Unavailable [phone] Encounter Details DateTypeDepartmentCare Team (Latest Contact Info)Wctzvkbnnhk05/04/2024Clinisync Result Encounter [facility] External Department Unsolicited Nadia Peacock NP [address] [place] [address] Social History Tobacco UseTypesPacks/DayYears UsedDateSmoking Tobacco: FormerCigarettesQuit: 10/2017Smokeless Tobacco: NeverAlcohol UseStandard Drinks/WeekCommentsNever0 (1 standard drink = 0.6 oz pure alcohol)caffeine more than 4 cups per dayPHQ-2 AnswerDate RecordedPatient Health Questionnaire-2 [id number] CommentsUnknownSex and Gender InformationValueDate RecordedSex Assigned at Not on fileLegal SwzTglltn30/15/2023 8:26 PM EDTGender IdentityNot on fileSexual OrientationNot on filedocumented as of this encounter Functional Status * Over the past 2 weeks, how often have you been bothered by any of the following problems?QuestionAnswerDate of AssessmentAuthorLittle interest or pleasure in doing thingsSeveral days11/24/2023 11:07 AM Leticia Gregg MAFeeling down, depressed, or hopelessNot at all11/24/2023 11:07 AM Leticia Rodriguez MAPatient Health Questionnaire-2 Vnvzx686 11:07 AM Leticia Gregg MA * QuestionAnswerDate [...] 11:07 AM Leticia Gregg MAPatient Health Questionnaire-9 [id number] 11:07 AM Leticia Gregg MA * How difficult have these problems made it for you to do your work, take care of things at home, or get along with other people?AnswerDate of Assessment AuthorNot difficult at all11/24/2023 11:07 AM Leticia Gregg MA * Geriatric Depression Scale (Short Version)QuestionAnswerDate of Assessment AuthorAre you basically satisfied with your life?Yes11/24/2023 11:10 AM EDT Leticia Hays MAHave you dropped many of your activities and interests? No11/24/2023 11:10 AM Leticia Gregg MADo you feel that your life [...] problems with memory than most?No11/24/2023 11:10 AM JOSE GT Leticia Hays MADo you think it is wonderful to be alive now?No 11/24/2023 11:10 AM Leticia Gregg MADo you feel pretty worthless the way you are now?No11/24/2023 11:10 AM Leticia Gregg MADo you feel [...] this encounter Procedures Procedure NamePriorityDate/TimeAssociated DiagnosisCommentsXR CHEST 2V04/09/2023 3:46 PM EST documented in this encounter Results * XR CHEST 2V (04/09/2023 3:46 PM EST)Anatomical RegionLateralityModalityOther Specimen (Source)Anatomical Location / LateralityCollection Method / Volume Collection TimeReceived Time04/09/2023 3:46 PM EST Narrative 04/09/2023 3:48 PM EST [facility] ?[address] ? [place], [place] [address] ?XRay Report ? Signed ? Patient: THADDEUS BURKETT A ?MR#: [id number] ?? : 1950 ?Acct:[id number] ?? Age/Sex: 72 / F ?ADM Date: 04/09/23 ?? Loc: RAD ? Attending Dr: Nadia Peacock CHALK EXTRUDING MACHINE OPERATOR ? Ordering Physician: Nadia Peacock NP ?? Date of Service: 04/09/23 ?? Procedure(s): XR chest 2V ?? Accession Number(s): [id number] ? cc: Nadia Peacock NP ? [facility] ? [address] ? [place] [address] ? Patient Name: ?? THADDEUS BURKETT ? MRN: [facility]:[id number] ? date: 1950 ?Sex: F ?? Assigned Patient Location: RAD ?? Current Patient Location: RAD ?? Accession/Order Number: [id number] ?? Exam Date: 04/09/2023 ??15:08 ?Report Date: 04/09/2023 ??15:46 ? At the request of: ?? NADIA ??ZHANG ? Procedure: ??XR chest 2V ? EXAMINATION: XR chest 2V, , 04/09/2023 3:08 PM EST ? INDICATION: ?? chest congestion R09.89 ? HISTORY: ?? Ordering Provider Reason for Exam: chest congestion R09.89 ?? Technologist Note: ?? Additional: ? COMPARISON: Chest dated 06/24/2018. ? TECHNIQUE: Chest x-ray: Two views. ? FINDINGS: ? No pneumothorax, pleural effusion or focal airspace consolidation. Heart is ?? normal in size. Cardiac pacemaker is seen in place. Bony thorax is ?? unremarkable. ? XR/XR chest 2V ?? IMPRESSION: ? No acute cardiopulmonary process. ? Electronically authenticated by: AGUSTINA ??GILLIAN ?? Date: 04/09/2023 ??15:46 ? Dictated By: ?Agustina Barrios M.D. ? Signed By: ?04/09/23 1548 ? DD/ 1546 ? TD/TT: ? Mortgage Underwriter: Procedure Note Radiology, Radiologist, MD - 04/09/2023 [place] [address] XRay Report Signed Patient: THADDEUS BURKETT AMR#: [id number] : 1950cct:[id number] Age/Sex: 72 / FADM Date: 04/09/23 Loc: [facility] Attending Dr: Nadia Peacock NP Ordering Physician: Nadia Peacock NP Date of Service: 04/09/23 Procedure(s): XR chest 2V Accession Number(s): [id number] cc: Nadia Peacock NP The [place] [address] Patient Name: THADDEUS BURKETT MRN: [id number] date: 1950 Sex: F Assigned Patient Location: [facility] Current Patient Location: [facility] Accession/Order Number: [id number] Exam Date: 04/09/2023 15:08 Report Date: 04/09/2023 15:46 At the request of: NADIA PEACOCK Procedure: XR chest 2V EXAMINATION: XR chest 2V, , 04/09/2023 3:08 PM EST INDICATION: chest congestion R09.89 HISTORY: Ordering Provider Reason for Exam: chest congestion R09.89 Technologist Note: Additional: COMPARISON: Chest dated 06/24/2018. TECHNIQUE: Chest x-ray: Two views. FINDINGS: No pneumothorax, pleural effusion or focal airspace consolidation. Heartis normal in size. Cardiac pacemaker is seen in place. Bony thorax is unremarkable. XR/XR chest 2V IMPRESSION: No acute cardiopulmonary process. Electronically authenticated by: AGUSTINA BARRIOS Date: 04/09/2023 15:46 Dictated By: Agustina Barrios M.D. Signed By:04/09/23 1548 DD/ 1546 TD/TT: Mortgage Underwriter: Authorizing ProviderResult TypeResult StatusLisa [facility] Systemsshane NPCLINISYNC IMAGING Final Result documented in this encounter Visit Diagnoses Not on filedocumented in this encounter Care Teams Team MemberRelationshipSpecialtyStart DateEnd Date Mychal Bowie MD PCP - GeneralFamily Medicine05/20/23 Nadia Peacock NP [address] [facility] [place] [address] PCP - ACO Reach05/13/24 Nadia Peacock NP Nurse PractitionerFamily Medicine12/05/22 Nadia Peacock NP Nurse PractitionerFamily Medicine05/20/23 Kemal Biswas, SURESH [address] [place] [address] Family Medicine08/31/documented as of this encounter
--- OUTSIDE RECORDS SUMMARY | 2025-02-06 14:06 | XMS_ITS | Encounter Summary ---
Author Organization [facility] Address [address] [facility] [place] [address] Care Team Providers Care Diathermy Equipment Repairer Name Role Phone Nadia Peacock DENTAL FLOSS PACKER Unavailable [phone] Mychal Bowie MD Primary Care Provider [phone] Nadia Peacock DENTAL FLOSS PACKER Unavailable [phone] Nadia Peacock DENTAL FLOSS PACKER Unavailable [phone] Kemal Biswas MA Unavailable [phone] Encounter Details DateTypeDepartmentCare Team (Latest Contact Info)Gvhkfqkhlbk60/17/2024Clinisync Result Encounter [facility] External Department Unsolicited Provider, Generic External Data Social History Tobacco UseTypesPacks/DayYears UsedDateSmoking Tobacco: FormerCigarettesQuit: 10/2017Smokeless Tobacco: NeverAlcohol UseStandard Drinks/WeekCommentsNever0 (1 standard drink = 0.6 oz pure alcohol)caffeine more than 4 cups per dayPHQ-2 AnswerDate RecordedPatient Health Questionnaire-2 [id number] CommentsUnknownSex and Gender InformationValueDate RecordedSex Assigned at Not on fileLegal YceXtpuww83/15/2023 8:26 PM EDTGender IdentityNot on fileSexual OrientationNot on filedocumented as of this encounter Plan of Treatment Not on file documented as of this encounter Procedures Procedure NamePriorityDate/TimeAssociated DiagnosisCommentsCT ABD/PEL WO IVCON 12/22/2023 1:48 PM EDT documented in this encounter Results * CT ABD/PEL WO IVCON (12/22/2023 1:48 PM EDT)Anatomical RegionLaterality ModalityOtherSpecimen (Source)Anatomical Location / LateralityCollection Method / VolumeCollection TimeReceived Time12/22/2023 1:48 PM EDT Narrative 12/22/2023 3:56 PM EDT * * *Final Report* * * DATE OF EXAM: Dec 22 2023 ??1:48PM ?? [facility] ?? 0531 ??- ??CT ABD/PEL WO IVCON ??/ PROCEDURE REASON: multiple diagnoses ? * * * * Physician Interpretation * * * * RESULT: EXAMINATION: ??CT ABDOMEN AND PELVIS WITHOUT IV CONTRAST PATIENT/TECHNOLOGIST PROVIDED HISTORY: ?? Kidney cancer CLINICAL INFORMATION ( PROVIDED BY ORDERING CLINICIAN) : ??Renal cell carcinoma of right kidney (HCC) Small lymphocytic lymphoma (HCC) TECHNIQUE: Non-IV contrast imaging of the abdomen and pelvis was performed using standard technique, scanning from just above the dome of the diaphragm to the symphysis pubis. ??Unenhanced imaging is limited for the evaluation of some intra-abdominal and pelvic pathology. M: CTAPWO_3 Contrast: IV: None Oral: ??500 ml of Omni Oral 9mg per ml CT Radiation dose: Integrated Dose-length product (DLP) for this visit = ?? 1616 mGy*cm. CT Dose Reduction Employed: mAs-kVp adjusted based on patient size-age COMPARISON: 12/11/2022 RESULT: Abdomen / Pelvis: Liver: ??Unchanged hepatic cysts. No new lesions. Spleen: No focal splenic lesion. Pancreas: No focal pancreatic lesions. Adrenals: Unchanged 2 cm right adrenal gland nodule. Left adrenal gland appears thickened, unchanged. Biliary: No bile duct dilation. ??Status post cholecystectomy. Kidneys: Right nephrectomy. No nodular soft tissue in the nephrectomy bed. No left-sided hydronephrosis or urolithiasis. Unchanged above water attenuation structure in the interpolar left kidney. Unchanged left upper pole cyst. Vasculature: ??Severe atherosclerotic calcifications of the abdominal aorta without aneurysm. GI tract: No bowel obstruction. Moderate hiatal hernia. Lymph nodes: Unchanged subcentimeter left para-aortic nodes. No adenopathy by size criteria. Mesentery/Peritoneum: No ascites, fluid collection, or mass. Pelvis: No mass, ascites or fluid collection. Urinary bladder is unremarkable. Bones/Soft Tissues: Bilateral fat-containing inguinal hernias. Degenerative changes in the lumbar spine. No aggressive osseous lesions. Lower thorax: Dedicated CT imaging of the chest was performed concurrently and is dictated separately. Teller Manager (topogram) images: Unremarkable. IMPRESSION: No metastatic disease in the abdomen or pelvis within limitations of a noncontrast examination. Transcribe Date/Time: Dec 22 2023 ??3:42P Dictated by: SAMM GILBERT MD This examination was interpreted and the report reviewed and electronically signed by: SAMM GILBERT MD on Dec 22 2023 ??3:54PM ??EST Thank you for allowing us to participate in the care of your patient. Should there be any questions regarding this interpretation, please call [phone]. If you are unable to reach us at the number above, please feel free to contact [facility] at [phone]. [id number]^[email or web address]^ACN Procedure Note Radiology, Radiologist, - 12/22/2023 * * *Final Report* * * DATE OF EXAM: Dec 22 2023 1:48PM [facility] 0531 - CT ABD/PEL WO IVCON / PROCEDURE REASON: multiple diagnoses * * * * Physician Interpretation * * * * RESULT: EXAMINATION: CT ABDOMEN AND PELVIS WITHOUT IV CONTRAST PATIENT/TECHNOLOGIST PROVIDED HISTORY: Kidney cancer CLINICAL INFORMATION ( PROVIDED BY ORDERING CLINICIAN) : Renal cell carcinoma of right kidney (HCC) Small lymphocytic lymphoma (HCC) TECHNIQUE: Non-IV contrast imaging of the abdomen and pelvis was performed using standard technique, scanning from just above the dome of the diaphragm to the symphysis pubis. Unenhanced imaging is limited for the evaluation of some intra-abdominal and pelvic pathology. M: CTAPWO_3 Contrast: IV: None Oral: 500 ml of Omni Oral 9mg per ml CT Radiation dose: Integrated Dose-length product (DLP) for this visit = 1616 mGy*cm. CT Dose Reduction Employed: mAs-kVp adjusted based on patient size-age COMPARISON: 12/11/2022 RESULT: Abdomen / Pelvis: Liver: Unchanged hepatic cysts. No new lesions. Spleen: No focal splenic lesion. Pancreas: No focal pancreatic lesions. Adrenals: Unchanged 2 cm right adrenal gland nodule. Left adrenal gland appears thickened, unchanged. Biliary: No bile duct dilation. Status post cholecystectomy. Kidneys: Right nephrectomy. No nodular soft tissue in the nephrectomy bed. No left-sided hydronephrosis or urolithiasis. Unchanged above water attenuation structure in the interpolar left kidney. Unchanged left upper pole cyst. Vasculature: Severe atherosclerotic calcifications of the abdominal aorta without aneurysm. GI tract: No bowel obstruction. Moderate hiatal hernia. Lymph nodes: Unchanged subcentimeter left para-aortic nodes. No adenopathy by size criteria. Mesentery/Peritoneum: No ascites, fluid collection, or mass. Pelvis: No mass, ascites or fluid collection. Urinary bladder is unremarkable. Bones/Soft Tissues: Bilateral fat-containing inguinal hernias. Degenerative changes in the lumbar spine. No aggressive osseous lesions. Lower thorax: Dedicated CT imaging of the chest was performed concurrently and is dictated separately. Teller Manager (topogram) images: Unremarkable. IMPRESSION: No metastatic disease in the abdomen or pelvis within limitations of a noncontrast examination. Transcribe Date/Time: Dec 22 2023 3:42P Dictated by: SAMM GILBERT MD This examination was interpreted and the report reviewed and electronically signed by: SAMM GILBERT MD on Dec 22 2023 3:54PM EST Thank you for allowing us to participate in the care of your patient. Should there be any questions regarding this interpretation, please call [phone]. If you are unable to reach us at the number above, please feel free to contact [facility] at [phone]. [id number]^[email or web address]^SI^ACN Authorizing ProviderResult TypeResult StatusGeneric External Data Provider CLINISYNC IMAGINGFinal Result documented in this encounter Visit Diagnoses Not on filedocumented in this encounter Additional Health Concerns AssessmentNoted TimePHQ-9 Depression Total Score: 11:07 AM EDT documented as of this encounter Care Teams Team MemberRelationshipSpecialtyStart DateEnd Date Mychal Bowie MD PCP - GeneralFamily Medicine05/20/23 Nadia Peacock NP [address] [place] [address] PCP - ACO Reach05/13/24 Nadia Peacock NP Nurse PractitionerFaboston nursery for blind babies Medicine12/05/22 Nadia Peacock NP Nurse PractitionerFami Medicine05/20/23 Kemal Biswas, SURESH [address] [place] [address] Family Medicine08/31/documented as of this encounter
--- OUTSIDE RECORDS SUMMARY | 2025-02-06 14:06 | XMS_ITS | Encounter Summary ---
Author Organization [facility] Address [address] [place] [address] Care Team Providers Care Certified Activities Director Name Role Phone Nadia Peacock PUBLIC WELFARE DIRECTOR Unavailable [phone] Mychal Bowie MD Primary Care Provider Nadia Peacock PUBLIC WELFARE DIRECTOR Unavailable [phone] Nadia Peacock PUBLIC WELFARE DIRECTOR Unavailable [phone] Kemal Biswas MA Unavailable [phone] Encounter Details DateTypeDepartmentCare Team (Latest Contact Info)Yxigcvcvtbk44/17/2024Clinisync Result Encounter [facility] External Department Unsolicited Provider, Generic External Data Social History Tobacco UseTypesPacks/DayYears UsedDateSmoking Tobacco: FormerCigarettesQuit: 10/2017Smokeless Tobacco: NeverAlcohol UseStandard Drinks/WeekCommentsNever0 (1 standard drink = 0.6 oz pure alcohol)caffeine more than 4 cups per dayPHQ-2 AnswerDate RecordedPatient Health Questionnaire-2 [id number] CommentsUnknownSex and Gender InformationValueDate RecordedSex Assigned at Not on fileLegal TvgRjxemz13/15/2023 8:26 PM EDTGender IdentityNot on fileSexual OrientationNot on filedocumented as of this encounter Plan of Treatment Not on file documented as of this encounter Procedures Procedure NamePriorityDate/TimeAssociated DiagnosisCommentsCT CHEST WO IV FIAKDDDA58/17/2024 1:48 PM EDT documented in this encounter Results * CT chest wo IV contrast (12/22/2023 1:48 PM EDT)Anatomical RegionLaterality ModalityBody, ChestComputed TomographySpecimen (Source)Anatomical Location / LateralityCollection Method / VolumeCollection TimeReceived Time12/22/2023 1:48 PM EDT Narrative 12/22/2023 3:42 PM EDT * * *Final Report* * * DATE OF EXAM: Dec 22 2023 ??1:48PM ?? [facility] ?? 0541 ??- ??CT CHEST WO IVCON ??/ PROCEDURE REASON: multiple diagnoses ? * * * * Physician Interpretation * * * * RESULT: EXAMINATION: ??CHEST CT WITHOUT CONTRAST CLINICAL HISTORY: ??Renal cell carcinoma of right kidney (HCC) Small lymphocytic lymphoma (HCC) ?? Kidney cancer Technique: ??Spiral CT acquisition of the chest from the thoracic inlet to the upper abdomen without contrast. MQ: ??CTCWOR_4 CT Dose-Length Product: ??1616 mGy*cm CT Dose Reduction Employed: mAs-kVp adjusted based on patient size-age Comparison: 06/10/2023 and 06/13/2022 RESULT: Lines, tubes, and devices: ??Left-sided cardiac device unchanged. Lung parenchyma and airways: Trachea and central airways are patent. Multiple unchanged pulmonary nodules since 06/13/2022. Index nodules are as follows: * ??7 mm right upper lobe nodule (image 69) * ??6 mm right middle lobe nodule (image 102) * ??4 mm right middle lobe nodule (125) No new suspicious appearing pulmonary nodules. Pleural space: ??No pleural effusion or pneumothorax. Lower neck, lymph nodes, and mediastinum: ??No axillary, supraclavicular, mediastinal or hilar lymphadenopathy by CT size criteria. Heart, pericardium, and thoracic vessels: ??Mild cardiomegaly. No pericardial effusion. The thoracic aorta and main pulmonary artery are normal in caliber. Atherosclerotic calcifications of the thoracic aorta and coronary arteries. CABG. Bones/Soft Tissues: Median sternotomy. Degenerative changes in thoracic spine. Upper abdomen: ??Dedicated CT imaging of the abdomen and pelvis was performed concurrently and is dictated separately. [employer] Pathology Associate Professor (topogram) images: Unremarkable. IMPRESSION: No metastatic disease in the chest. Transcribe Date/Time: Dec 22 2023 ??3:31P Dictated by: SAMM GILBERT MD This examination was interpreted and the report reviewed and electronically signed by: SAMM GILBERT MD on Dec 22 2023 ??3:40PM ??EST Thank you for allowing us to participate in the care of your patient. Should there be any questions regarding this interpretation, please call [phone]. If you are unable to reach us at the number above, please feel free to contact [facility] at [phone]. [id number]^[email or web address]^SI^ACN Procedure Note Radiology, Radiologist, - 12/22/2023 * * *Final Report* * * DATE OF EXAM: Dec 22 2023 1:48PM [facility] 0541 - CT CHEST WO IVCON / PROCEDURE REASON: multiple diagnoses * * * * Physician Interpretation * * * * RESULT: EXAMINATION: CHEST CT WITHOUT CONTRAST CLINICAL HISTORY: Renal cell carcinoma of right kidney (HCC) Small lymphocytic lymphoma (HCC) Kidney cancer Technique: Spiral CT acquisition of the chest from the thoracic inlet to the upper abdomen without contrast. MQ: CTCWOR_4 CT Dose-Length Product: 1616 mGy*cm CT Dose Reduction Employed: mAs-kVp adjusted based on patient size-age Comparison: 06/10/2023 and 06/13/2022 RESULT: Lines, tubes, and devices: Left-sided cardiac device unchanged. Lung parenchyma and airways: Trachea and central airways are patent. Multiple unchanged pulmonary nodules since 06/13/2022. Index nodules are as follows: * 7 mm right upper lobe nodule (image 69) * 6 mm right middle lobe nodule (image 102) * 4 mm right middle lobe nodule (125) No new suspicious appearing pulmonary nodules. Pleural space: No pleural effusion or pneumothorax. Lower neck, lymph nodes, and mediastinum: No axillary, supraclavicular, mediastinal or hilar lymphadenopathy by CT size criteria. Heart, pericardium, and thoracic vessels: Mild cardiomegaly. No pericardial effusion. The thoracic aorta and main pulmonary artery are normal in caliber. Atherosclerotic calcifications of the thoracic aorta and coronary arteries. CABG. Bones/Soft Tissues: Median sternotomy. Degenerative changes in thoracic spine. Upper abdomen: Dedicated CT imaging of the abdomen and pelvis was performed concurrently and is dictated separately. [employer] Pathology Associate Professor (topogram) images: Unremarkable. IMPRESSION: No metastatic disease in the chest. Transcribe Date/Time: Dec 22 2023 3:31P Dictated by: SAMM GILBERT MD This examination was interpreted and the report reviewed and electronically signed by: SAMM GILBERT MD on Dec 22 2023 3:40PM EST Thank you for allowing us to participate in the care of your patient. Should there be any questions regarding this interpretation, please call [phone]. If you are unable to reach us at the number above, please feel free to contact [facility] at [phone]. [id number]^AGFA_IDC^SI^ACN Authorizing ProviderResult TypeResult StatusGeneric External Data ProviderIMG CT PROCEDURESFinal Result documented in this encounter Visit Diagnoses Not on filedocumented in this encounter Additional Health Concerns AssessmentNoted TimePHQ-9 Depression Total Score: 108 11:07 AM EDT documented as of this encounter Care Teams Team MemberRelationshipSpecialtyStart DateEnd Date Mychal Bowie MD PCP - GeneralFamily Medicine05/20/23 Nadia Peacock NP [address] [place] [address] PCP - ACO Reach05/13/24 Nadia Peacock NP Nurse PractitionerFamily Medicine12/05/22 Nadia Peacock NP Nurse PractitionerFamily Medicine05/20/23 Kemal Biswas, MA [address] [place] [address] Family Medicine08/31//08/28documented as of this encounter
--- OUTSIDE RECORDS SUMMARY | 2025-02-06 14:06 | XMS_ITS | Clinical Summary ---
Author Organization [facility] Address [address] [place] [address] Care Team Providers Care Java J2Ee Application Developer Name Role Phone Nadia Peacock MD Primary Care Provider [phone] Allergies Active AllergyReactionsCriticalityNoted PtbnDccxdttmMsgvhgtyxsxy70/25/2023 myalgias Medications MedicationSigDispense QuantityRefillsLast FilledStart DateEnd DateStatus aspirin 81 mg chewable tablet Chew 1 tablet every day by oral route.Active sacubitriL-valsartan (Entresto) 49-51 mg tablet Indications:Acute on chronic systolic heart failure (CMS/HCC)Take 1 tablet by mouth in the morning and at bedtime. 14 tablet 05/28/2022ctive warfarin (Coumadin) 5 mg tablet TAKE 1 TABLET BY MOUTH ONCE DAILY DIRECTED BY COUMADIN AXUMXU4812/04/2021ctive omeprazole (PriLOSEC) [address] capsule Take [...] unspecified vessel or lesion type, unspecified whether [place] or transplanted heartTAKE 1 TABLET AT BEDTIME (THIS IS REPLACING ATORVASTATIN) 90 tablet 5Active carvedilol (Coreg) 25 mg tablet Indications:Essential hypertensionTAKE 1 TABLET IN THE MORNING AND AT BEDTIME 180 tablet 303/24/2025Active furosemide (Lasix) 20 mg tablet Take 20 mg by mouth in the morning. Taking when fbodjy552Active ezetimibe (Zetia) 10 mg tablet Indications:Hyperlipidemia, unspecified hyperlipidemia type,Coronary artery disease without angina pectoris, unspecified vessel or lesion type, unspecified whether [place] or transplanted heartTake 1 tablet (10 mg) by mouth once daily as directed. 90 tablet //6Active albuterol 90 mcg/actuation inhaler Inhale 2 puffs if needed.5Active Active Problems ProblemNoted DateDiagnosed DateCOPD mixed type02/02/2025Lung cancer screening declined by uuwjjaa5702/02/2025Morbid (severe) obesity with alveolar dohrljndxevfbok35/30/2025Oncocytic nkcqlpit03/30/2025Procedure and treatment not carried out because of patient's decision for unspecified doljxdt5702/02/2025 Centrilobular slkregcvh49/20/2025RSV kjfokyhew61/11/2024cute cough03/15/2024 Qgswdoaixu26/02/2024KI (acute kidney injury)02/24/2024Encounter for prophylactic measures, prezjvcjbav10/20/2024Generalized rzikaihc69/20/2024 Impaired gait and uacfkcrd44/20/2024Lesion of liver less than 1 cm in diameter 02/24/2024Mass of uterine idmrxw5904/25/2023UTI (urinary tract infection) 02/24/20242244Aqcdavsyzvekn74/20/2024Immunodeficiency due to conditions classified igxttssyr64/20/2024Morbid (severe) obesity due to excess vairodms43/20/2024Other tvgyjogbqnltf92/20/2024DD (degenerative disc disease), gotzhb6708/20/2023Major depressive disorder, single episode, dvdruqii30/14/2024Malignant neoplasm of right kidney, except renal vajdvm1405/20/2023Thyroglossal duct cyst05/20/2023hest icqkafgamt09/04/2024andidiasis, byvfcjlmd75/04/2023hronic lymphocytic leukemia 03/09/2023losed fracture of one rib of left side with routine pcknete3503/09/2023 COVID-19105/10/2022epressive ilqurfxq18/04/2023astroesophageal reflux disease 03/09/2023Heart rclhpg9405/10/20229307Wrguaihpiqw23/04/2023Ischemic myocardial oghmmbnfqbk88/04/2023Thyroid rvzrox1203/09/2023S/P CABG (coronary artery bypass graft)08/10/2022Renal mass08/07/2022Obesity, Class II, BMI 35-39.9008/07/2022 Biventricular ICD (implantable cardioverter-defibrillator) in place07/17/2022 Overview (08/29/2022): Last Assessment & Plan: Assessment: ischemic s/p ACCOUNTS RECEIVABLE ASSOCIATE-D placement ( 2017) in [facility] for ischemic cardiomyopathy last device check 06/27/2022 (scanned into [employer]) Follows with cardiology Qxbmiivgrxecwa84/13/2023 Overview (08/29/2022): Last Assessment & Plan: Assessment: Per Dr. Issac Helms ([facility]) last visit 06/16/2022: Aspirin and warfarin can be held 5 days prior to the surgery and resumed afterwards Injury of vamzrd8806/05/2022Lack of imlpbpb7906/05/20224954Tmrnerlxhsdx92/02/2023leural mkelgqqw20/02/2023Secondary pkjboiuxpliixjqizzb73/02/2023Vomiting and diarrhea 06/05/2022Hypotension due to spcqkrqygwv07/02/2023Iron deficiency anemia 02/24/2022tage 3 chronic kidney rjomexv2002/19/2022wollen eruzgcf5007/28/2018 Systolic heart schvkme4112/10/2017Atrial sdyckmseqzbe65/07/4055Vzqhkfelh89/24/2018 Coronary hkatccdygblybod72/23/2018Coronary widwglpttuiisuad23/23/2018 Cardiomyopathy, gqvutqgigzb15/14/2018Tobacco dependence zcmojsbw56/14/2018 Kwstxxgvvsloxz35/09/2018Peripheral vascular nqwywco1308/12/2017Hypertensive yievtrpg04/09/2018 Encounters DateTypeDepartmentCare TqbxZvuhzedrqzb89/03/2025 1:00 PM ESTOffice Visit [facility] [address] [place] [address] Issac Helms MD Chronic systolic congestive heart failure (CMS/HCC) (Primary Dx); Shortness of breath; Coronary artery disease involving [place] coronary artery of [place] heart without angina pectoris; Hx of CABG; LBBB (left bundle branch block); Paroxysmal atrial fibrillation (CMS/HCC); Cardiac resynchronization therapy defibrillator (ACCOUNTS RECEIVABLE ASSOCIATE-D) in place01/16/2025 9:05 AM EDTAncillary Procedure [facility] [address] [place] [phone] Pre-operative cardiovascular examination, ICD in place01/14/2025Orders Only [facility] [address] [place] [address] Dominguez Shaver MD 12/21/2024 11:00 AM EDTAncillary Procedure [facility] [address] [place] [address] Encounter for implantable defibrillator reprogramming or check11/16/2024Refill [address] [address] Belkis Apodaca MA Hyperlipidemia, unspecified hyperlipidemia type; Coronary artery disease without angina pectoris, unspecified vessel or lesion type, unspecified whether [place] or transplanted heartfrom Last 3 Months Immunizations [...] and Gender Information ValueDate RecordedSex Assigned at YmirxHfftdk70/12/2025 10:41 AM EDTLegal Sex Wrfazp7810/02/2021 10:33 PM EDTGender NvoevrujJauyhw87/12/2025 10:41 AM EDTSexual OrientationHeterosexual or Vfieocdj57/12/2025 10:41 AM EDT Last Filed Vital Signs Vital SignReadingTime TakenCommentsBlood Luaoxhde855/6002/06/2025 1:20 PM EST Mfmwg787202/06/2025 1:20 PM ESTTemperature--Respiratory Rwlx192606/15/2024 4:00 PM EDTOxygen Innmlzccal08%02/06/2025 1:20 PM ESTInhaled Oxygen Concentration-- Wgrzhl75.6 kg (202 lb)02/06/2025 1:20 PM XGWKrcfzv588.5 cm (5' 2 )02/06/2025 1:20 PM ESTBody Mass Index36.9502/06/2025 1:20 PM EST Plan of Treatment Health MaintenanceDue DateLast DoneCommentsCT Bmuozwanredk15/09/1951Colonoscopy 1950olorectal Cancer Mzuglclqn98/09/1951FIT-DNA1950FIT1950 FOBT1950Medicare Annual Wellness (AWV)1950 9095Syoetnotbkgoo31/09/1951 Depression Yfoqbohra33/09/1963Pneumococcal Vaccine: 50+ Years (1 of 2 - PCV) 1969Zoster Vaccines (1 of 2)1969Adult Wqjuvhw7509/12/1972Mammogram 1990Fall Risk Khozdjdip00/09/2016COVID-19 Vaccine ( - season) , 03/19/2021, 06/11/2020Influenza Vaccine (#1)2024HIB VaccinesAged [...] ImplantedTypeAreaManufacturerDevice IdentifierShelf Expiration DateModel / Serial / [id number] Quadra Assura Mp [id number] Implanted:01/06/2018 (Quantity not on file)ACCOUNTS RECEIVABLE ASSOCIATE-D [id number] QUADRA ASSURA MP / [id number] / Unify Assura Implanted:Qty: 1 on 06/15/2024 by [facility] ICDLeft: HeartABBOTT [id number] 40Q / [id number] / [id number] Implanted:01/06/2018 (Quantity not on file)[id number] / [id number] / 1458q Quartet [id number] Implanted:01/06/2018 (Quantity not on file)[id number] QUARTET / [id number] / 7122q/52 [id number] Implanted:01/06/2018 (Quantity not on file)[id number]/52 / [id number] / Tendril Sts Implanted:Qty: 1 on 06/15/2024 by Dominguez [facility]aver [facility]A: HeartST FRAN MEDCIAL [id number] / [id number] / Procedures Procedure NamePriorityDate/TimeAssociated DiagnosisCommentsCARDIAC DEVICE CHECK CHECK - KFENSMYsupbph83/15/2025 11:00 AM EDT Pre-operative cardiovascular examination, ICD in place CARDIAC DEVICE CHECK - REMOTE - UXCWcathzs80/11/2025 12:00 AM EDTCARDIAC DEVICE CHECK - IN CLINIC - ICD BIVENTRICULAR CHAMBER W/ FZXTXfqohfc49/18/2025 9:24 AM EDT Encounter for implantable defibrillator reprogramming or check from Last 3 Months Results * CARDIAC [...] Please see attached note Authorizing ProviderResult TypeResult StatusPaul Sivakumar [facility] [place] CARDIAC DEVICE PROCEDURESFinal Result from Last 3 Months Insurance Care Teams Team MemberRelationshipSpecialtyStart DateEnd Date Nadia ePacock MD [address] [place] [address] [facility]06/16/22
--- OUTSIDE RECORDS SUMMARY | 2025-02-06 14:06 | XMS_ITS | Clinical Summary ---
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 Issac Helms ([facility]) last visit 06/16/2022: Aspirin and warfarin can be held 5 days prior to the surgery and resumed afterwards Injury of geuhdq0806/05/2022Lack of kdxkhlb2406/05/20221259Ctkayqygvqsk20/02/2023leural tmkipgci84/02/2023 Assessment & Plan (07/17/2022 2:50 PM EDT): Assessment: small bilateral on 06/13/2022 CT Chest Asymptomatic updated CXR Secondary uoaaxwugcixmzxzhcwl30/02/2023 Assessment & Plan (07/17/2022 2:51 PM EDT): Assessment: last calcium level stable Vomiting and sikymyde60/02/2023Hypotension due to qjuxuuwnqwt39/02/2023Iron deficiency eiltxk3902/24/2022 Assessment & Plan (07/17/2022 2:52 PM EDT): Assessment: Hx iron infusion; last labs stable Stage 3 chronic kidney lmkslgg2502/19/2022 Assessment & Plan (07/17/2022 2:51 PM EDT): Assessment: 06/07/2022 GFR 53 mL/min Creatinine Date Value Ref Range Status 06/07/2022 1.12 (H) 0.58 - 0.96 mg/dL Final 06/06/2022 1.58 (H) 0.58 - 0.96 mg/dL Final 06/05/2022 2.23 (H) 0.58 - 0.96 mg/dL Final Monitored by Nephrology Q 6 months Systolic heart zwzzlqj1612/10/2017 Assessment & Plan (07/17/2022 2:49 PM EDT): Assessment: due to ischemic cardiomyopathy, per 06/04/2022 ECHO CONCLUSION: 1. Left ventricle exhibits global hypokinesis with dyssynchronous contraction and abnormal septal motion. Systolic function is severely reduced. LVEF is estimated at 25%. Right ventricle appears to be normal in size Follows with Dr. Issac Helms ([facility]) last visit 06/16/2022 Pacer-ICD, ENTRESTO, diuretic Atrial lfoimucdhnmd96/07/2018 Assessment & Plan (07/17/2022 2:49 PM EDT): Assessment: anticoagulated with warfarin Monitored by Cardiology Tcteufdir74/24/2018Coronary zepxrovaldjavlc58/23/2018 Assessment & Plan (07/17/2022 2:48 PM EDT): Assessment: s/p CBAG 09/[address] 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 [facility] for ischemic cardiomyopathy last device check 06/27/2022 (scanned into [facility]) Follows with cardiology Uclbxvbkzdjolh81/09/2018 Assessment & Plan (07/17/2022 2:48 PM EDT): Assessment: Managed with Statin Peripheral vascular zegwezj6408/12/2017 Encounters DateTypeDepartmentCare DbfzUleylpraurv30/17/2025 2:30 PM EDTVisit (SP) Office Hematology [address] [place], [place] [id number] Earnest Joyce MD Renal oncocytoma of left kidney (Primary Dx)01/20/20250041Iopnid34/13/2025 Patient Msg Hematology/Oncology [address] [place] [address] Kendall Clarke MD Appointment Onetwle0401/16/2025 Get Medical Advice Hematology [address] [facility] [address] [place], [place] [phone] Earnest Joyce MD Change in tumor and or cyst size on latest CT scan01/11/2025 2:20 PM EDTVisit (SP) Office Hematology/Oncology [address] [place] [address] Kendall Clarke MD Renal oncocytoma of left kidney (Primary Dx)01/06/2025 [place] [address] Provider, [facility] Actionable Imaging Result Notification Patient Rnrpumsm44/01/2025 1:12 PM EDT - 01/04/2025 11:59 PM EDTHospital Encounter Radiology Pet CT [address] [address] Renal cell carcinoma of right kidney (HCC) [C64.1] Discharge Disposition: Home01/03/20254917Tqahwr61/19/2025 11:30 AM EDTOffice Visit Urology [address] [address] Jerson Laguerre MD Left renal mass (Primary Dx); Screening for genitourinary /19/2025Patient Outreach Urology [address] [address] Jerson Laguerre MD 11/14/2024 2:00 PM EDTVisit (SP) Office Hematology/Oncology [address] [place] [address] Kendall Clarke MD Renal oncocytoma of left kidney (Primary Dx)11/14/20242187Yooclj22/05/2025Telephone Urology [address] [place] [address] Charlie Coker MD 11/08/20240309Pvepbt84/04/2025 12:00 PM EDTTumor Board Tumor Board [address] [place] [address] 11/07/2024Results Follow-Up Urology [address] [place] [address] Charlie Coker MD from Last 3 Months Immunizations ImmunizationAdministration DatesNext DueCOVID-19 original vaccine, age 12+ yr, monovalent ([facility] - [facility])03/19/2021OVID-19 vaccine (KIMMIE) 06/11/2020 Family History Medical HistoryRelationCommentsPancreatic CancerBrother 1Pancreatic Cancer Brother 2CancerFatherbladderHeart diseaseFatherNo Known ProblemsMaternal GrandfatherDiabetesMaternal GrandmotherHeart diseaseMaternal GrandmotherHeart diseaseMotherLiver TransplantMotherHeart diseasePaternal GrandmotherHeart diseaseSister 1CancerSister 2soft tissueRelationStatusCommentsBrother 1Alive Brother 2DeceasedFatherMaternal GrandfatherMaternal GrandmotherMotherPaternal GrandmotherSister 1Sister 2Deceased Social History Tobacco UseTypesPacks/DayYears UsedDateSmoking Tobacco: EowminUoxxqyuvpi9306087 - 2017Smokeless Tobacco: Never Tobacco Cessation:Counseling Given: Not Answered Alcohol UseStandard Drinks/WeekCommentsNever0 (1 standard drink = 0.6 oz pure alcohol)Overall Financial Resource Strain (CARDIA)AnswerDate RecordedHow hard is it for you to pay for the very basics like food, housing, medical care, and heating?Patient myrmzfzu13/08/2023PHQ-2AnswerDate RecordedPHQ-2 jeakw555 Hunger Vital SignAnswerDate RecordedWithin the past 12 months, you worried that your food would run out before you got the money to buymore.Patient declined 08/11/2022Within the past 12 months, the food you bought just didn't last and you didn't have money to get more.Patient dnxypdsq26/08/2023PRAPARE - TransportationAnswerDate RecordedIn the past 12 months, has lack of transportation kept you from medical appointments or from getting medications? Patient zcradyic46/08/2023In the past 12 months, has lack of transportation kept you from meetings, work, or from getting things needed for daily living?Patient pvapnaxc21/08/2023Housing Stability Vital SignAnswerDate RecordedIn the last 12 months, was there a time when you were not able to pay the mortgage or rent on time?Patient lgvddkk7208/11/2022Number of Places Lived in the Last YearNot on file 08/11/2022In the last 12 months, was there a time when you did not have a steady place to sleep or slept in ashelter (including now)?Patient hfustzr7608/11/2022 Area Deprivation IndexAnswerDate RecordedNational Score (1-100), lower number is lower lebp053608/20/2022State Score (1-10), lower number is lower radm013 Data from: https://www.neighborhoodatlas.medicine.[facility].edu/. Last address used for [address]/20/2022CommentsNoSex and Gender InformationValueDate RecordedSex Assigned at BirthNot on fileLegal SexFemale 03/07/2012 9:35 AM ESTGender IdentityNot on fileSexual OrientationNot on file Last Filed Vital Signs Vital SignReadingTime TakenCommentsBlood Dhiadyqe909/5201/20/2025 2:48 PM EDT Yukaf177501/20/2025 2:48 PM VQAXhajjffbysk70.7 ??C (98.1 ??F)01/20/2025 2:48 PM EDTRespiratory Utzt4120 2:23 PM EDTOxygen Irchjwllhq91%01/20/2025 2:48 PM EDTInhaled Oxygen Concentration--Roitps66.5 kg (206 lb 2.1 oz)01/20/2025 2:48 PM LTVLtdocu010.8 cm (5' 2.52 )06/15/2023 2:48 PM EDTBody Mass Index37.08 06/15/2023 2:48 PM EDT Plan of Treatment DateTypeDepartmentCare Team (Latest Contact Info)Evvkpdnhswn21/05/2026 1:45 PM ESTAppointment Radiology Pet CT [address] [place] [address] CT Abd / PelHealth MaintenanceDue DateLast DoneCommentsAnnual PCP Team Chronic Disease Visit1968Anxiety Tzollajyc27/09/1969Depression Magqjnyte82/09/1969 Hepatitis C Yzumdejxx87/09/1969LDL Ildjtyacexx12/09/1969DTaP,Tdap,Td Vaccine (1 - Tdap)1969Mammogram Zeisjqtdm14/09/1991CT Fumcvvywtkqp43/09/1996Cologuard (FIT-DNA)09/13/19951907Fwekjseyvfj14/09/1996Colorectal Cancer Tqfjttmav46/09/1996 Fecal Occult Blood09/13/1995Lipid Jsxuamlty60/09/1294Taqvexrlwgjtn25/09/1996 Pneumococcal Vaccine: 50+ (1 of 1 - PCV)2000Shingrix Vaccine (1 of 2) 2000Medicare Annual Wellness Visit09/05/2015Bone Density Screening 09/13/2015Advance Directive Rqavdxkexv35/01/2025ovid-19 Vaccine (3 - season)/, 06/11/2020Influenza Vaccine (#1)2024Serum Ackyeejpzx23/24/436421/, 06/15/2023, 12/17/2022, Additional history existsRSV Vaccine (1 - 1-dose 75+ series)2025Hemoglobin/Hematocrit /10/2024, 10/10/2024, 12/29/2023, Additional history existsLung Cancer Sqwoympps68, 06/28/2024, 06/28/2024, Additional history existsDiabetes Ahazcljvz82, 06/15/2023, 12/17/2022, Additional history exists Medical Devices ImplantedTypeAreaManufacturerDevice IdentifierShelf Expiration DateModel / Serial / LotPacemakerPacemakerLeft: Chest Wall Procedures Procedure NamePriorityDate/TimeAssociated DiagnosisCommentsCT ABD/PEL WO IVCON Jqqkakb8601/04/2025 2:01 PM EDT Renal cell carcinoma of right kidney (HCC) Small lymphocytic lymphoma (HCC) CT CHEST WO NCQNPUuzdlnu14/01/2025 2:01 PM EDT Renal cell carcinoma of right kidney (HCC) Small lymphocytic lymphoma (HCC) UA DIP, URINE (POC)Bsxuebv5511/22/2024 11:51 AM EDT Screening for genitourinary condition COMPLETE BLOOD CUENOAAXZ61/07/2025 12:09 PM EDT Left renal mass COMPREHENSIVE METABOLIC DFXDSJrakphg75/24/2024 1:12 PM EDT Renal cell carcinoma of [...] ??No significant thoracic adenopathy. Transcribe Date/Time: Jan ??2 2024 ??9:02A Dictated by: SHEREEN CLARK MD This examination was interpreted and the report reviewed and electronically signed by: SHEREEN CLARK MD on Jan ??2024 ??9:40AM ??EST Thank you for allowing us to participate in the care of your patient. Should there be any questions regarding this interpretation, please call [phone]. If you are unable to reach us at the number above, please feel free to contact [facility] at [phone]. Narrative 01/05/2025 9:42 AM EDT * * [...] images: No additional findings. Procedure Note Provider, [facility] - 01/05/2025 * * *Final Report* * * DATE OF EXAM: Jan 04 2025 2:01PM [facility] 0541 - CT CHEST WO IVCON / [...] any questions regarding this interpretation, please call [phone]. If you are unable to reach us at the number above, please feel free to contact [facility] eRadiology at [phone]. Authorizing ProviderResult TypeResult StatusAdarsh Vennepureddy MDCT-PAMAFinal Result [...] your provider for the next steps. Anatomical RegionLateralityModalityAbdomArizona Spine and Joint Hospital Medicine, Nuclear Medicine Specimen (Source)Anatomical Location / [...] be communicated with the ordering provider via [facility] staff message or phone message by Imaging Support Services within 2 business days of report finalization. --END OF FINDING-- Algorithms for management of incidental imaging findings can be found on the [facility] Intranet Sharepoint site at: http://spo.[facility].org/documentation/mychartlinks/Managing%20Incidental%20Findi ngs%20at%20Imaging/Forms/AllItems.aspx Transcribe Date/Time: Jan ??2024 ??7:53A Dictated by: SHEREEN CLARK MD This examination was interpreted and the report reviewed and electronically signed by: SHEREEN CLARK MD on Jan ??2024 ??8:32AM ??EST Thank you for allowing us to participate in the care of your patient. Should there be any questions regarding this interpretation, please call [phone]. If you are unable to reach us at the number above, please feel free to contact [facility] eRadiology at [phone]. Narrative 01/05/2025 8:34 AM EDT * * [...] images: No additional findings. Procedure Note Provider, [facility] - 01/05/2025 * * *Final Report* * * DATE OF EXAM: Jan 04 2025 2:01PM [facility] 0531 - CT ABD/PEL WO IVCON / [...] be communicated with the ordering provider via [facility] staff message or phone message by Imaging Support Services within 2 business days of report finalization. --END OF FINDING-- Algorithms for management of incidental imaging findings can be found on the [facility] Intranet Sharepoint site at: http://spo.[facility].org/documentation/mychartlinks/Managing%20Incidental%20Findi ngs%20at%20Imaging/Forms/AllItems.aspx Transcribe Date/Time: Jan 05 2025 7:53A Dictated by: SHEREEN CLARK MD This examination was interpreted and the report reviewed and electronically signed by: SHEREEN CLARK MD on Jan 05 2025 8:32AM EST Thank you for allowing us to participate in the care of your patient. Should there be any questions regarding this interpretation, please call [phone]. If you are unable to reach us at the number above, please feel free to contact [facility] eRadiology at [phone]. Authorizing ProviderResult TypeResult StatusAdarsh Vennepureddy MDCT-PAMAFinal Result * (ABNORMAL) UA DIP, URINE (POC) (11/22/2024 11:51 AM EDT)ComponentValueRef RangeTest MethodAnalysis TimePerformed AtPathologist SignatureGLUCOSE UA (POCT)NegativeNegative mg/dLUniversity Hospitals Portage Medical CenterBILIRUBIN UA (POCT)Negative NegativeUniversity Hospitals Portage Medical CenterKETONE UA (POCT)NegativeNegative mg/dLUniversity Hospitals [facility] Center SPECIFIC GRAVITY UA (POCT)1.0201.005 - 1.030[facility] CenterHEMOGLOBIN/BLOOD UA (POCT)NegativeNegativeUniversity Hospitals Portage Medical CenterPH UA (POCT)5.54.5 - 8.0[facility] CenterPROTEIN UA (POCT)100(A)Negative mg/dLUniversity Hospitals Portage Medical CenterUROBILINOGEN UA (POCT)1.0Normal E.U./dLUniversity Hospitals Portage Medical CenterNITRITE UA (POCT)NegativeNegative [facility] CenterLEUKOCYTES UA (POCT)Trace(A)NegativeUniversity Hospitals Portage Medical CenterCOLOR UA (POCT)Dark yellowUniversity Hospitals Portage Medical CenterCLARITY UA (POCT)Slightly CloudTrumbull Memorial Hospitalpecimen (Source)Anatomical Location / LateralityCollection Method / VolumeCollection TimeReceived TimeUrine specimen (specimen)URINE SPECIMEN / Qtmmihd3411/22/2024 11:51 AM EDT Narrative [facility] - 11/22/2024 11:51 AM EDT Location:[facility], [address] [place] [address], [facility] Authorizing ProviderResult TypeResult StatusVenblack Laguerre MDPOC TESTINGFinal ResultPerforming OrganizationAddressCity/State/ZIP CodePhone Number [facility] [address] * (ABNORMAL) COMPLETE BLOOD COUNT (10/10/2024 12:09 PM EDT)ComponentValueRef RangeTest MethodAnalysis TimePerformed AtPathologist SignatureWBC5.203.70 - 11.00 k/uL10/10/2024 12:12 PM EDTNORTPAUL OLIVER [facility]IAL [facility] LABRBC4.90 3.90 - 5.20 m/uL10/10/2024 12:12 PM EDTNORTPAUL [facility]IVER [facility] LAB Vwmbrocfyd36.011.5 - 15.5 g/dL10/10/2024 12:12 PM EDTST[facility] NWGPbrimdstgz31.336.0 - 46.0 %10/10/2024 12:12 PM EDTNORTPAUL OLIVER [facility] VCHRAS42.480.0 - 100.0 fL10/10/2024 12:12 PM EDT [facility] VJLZYO70.626.0 - 34.0 pg10/10/2024 12:12 PM EDTNORTPAUL [facility]IVER [facility] KCKPRBL06.330.5 - 36.0 g/dL10/10/2024 12:12 PM EDTNORTPAUL OLIVER [facility] LABRDW-CV14.911.5 - 15.0 % 10/10/2024 12:12 PM EDTNORTPAUL OLIVER [facility] LABPlatelet Aluih563 150 - 400 k/uL07/10/2024 12:12 PM EDTNOSTONEWALL JACK[facility] LABMPV 8.9(L)9.0 - 12.7 fL10/10/2024 12:12 PM EDBL[facility] LABAbsolute nRBC<0.01<0.01 k/uL10/10/2024 12:12 PM EDBLUEFIELD [facility] LABSpecimen (Source)Anatomical Location / LateralityCollection Method / VolumeCollection TimeReceived TimeBloodBLOOD SPECIMEN / Unknown Venipuncture / Iowxcmp2510/10/2024 12:09 PM EDT10/10/2024 12:09 PM EDT Narrative Authorizing ProviderResult TypeResult StatusChristopher P Coppa MDLABORATORY Final ResultPerforming OrganizationAddressCity/State/ZIP CodePhone Number [facility] [address] [place] [phone] * (ABNORMAL) COMP METABOLIC PANEL (12/29/2023 1:12 PM EDT)ComponentValueRef RangeTest MethodAnalysis TimePerformed AtPathologist SignatureProtein, Total 7.26.3 - 8.0 g/dL12/29/2023 1:56 PM EDTNOSTONEWALL JACKSON [facility]OR[facility] LAB Albumin4.33.9 - 4.9 g/dL12/29/2023 1:56 PM [facility] LABCalcium, Total9.58.5 - 10.2 mg/dL12/29/2023 1:56 PM EDTSTEV[facility]IC [facility] LABBilirubin, Total0.30.2 - 1.3 mg/dL12/29/2023 1:56 PM EDTSTEV[facility] CL[facility]IC [facility] LABAlkaline Hlpdokazcti02561 - 123 U/L 12/29/2023 1:56 PM EDTSTEV[facility] CL[facility]IC [facility] ZERDNM2574 - 35 U/L 12/29/2023 1:56 PM EDTSTEV[facility] CL[facility]IC [facility] KKIVOZ861 - 38 U/L 12/29/2023 1:56 PM EDTSTEV[facility]IC [facility] RVQWhukhpz760(H)74 - 99 mg/dL12/29/2023 1:56 PM [facility] LABComment: The [place] [employer] Association (ADA) provides guidance for cutoff [...] Standards of Medical Care in Diabetes 2016, [place] [employer]. Diabetes Care. 2016.39(Suppl 1). BUN28(H)7 - 21 mg/dL12/29/2023 1:56 PM [facility] Creatinine2.10(H)0.58 - 0.96 mg/dL12/29/2023 1:56 PM [facility] VTJDabwsl219722 - 144 mmol/L12/29/2023 1:56 PM [facility] LABPotassium4.03.7 - 5.1 mmol/L12/29/2023 1:56 PM T [facility] SLWQgbfxulv07673 - 107 mmol/L12/29/2023 1:56 PM [facility] JXXFS74350 - 30 mmol/L12/29/2023 1:56 PM [facility] LABAnion Suo611 - 15 mmol/L12/29/2023 1:56 PM [facility] [...] VolumeCollection TimeReceived TimeBloodBLOOD SPECIMEN / UnknownVenipuncture / Hdifgqo1712/29/2023 1:12 PM EDT12/29/2023 1:12 PM EDT Narrative Authorizing ProviderResult TypeResult StatusBekah KENNY-CLABORATORYFinal ResultPerforming OrganizationAddressCity/State/ZIP CodePhone Number [facility] [address] [place] [address] from Last 3 Months or Most Recently Relevant to Health Maintenance Insurance Advance Directives TypeDate RecordedPatient RepresentativeExplanationAdvance Directive(s)06/05/2022 7:58 AM * DNR-CCA (Latest Code Status on File) Date ActivatedDate InactivatedComments06/05/2022 4:13 PM06/07/2022 3:47 PMQuestion AnswerCommentsDNR Order Discussed With:* Patient Care Teams Team MemberRelationshipSpecialtyStart DateEnd Date Nadia Peacock, BELL CLERK [address] [facility] [place] [address] PCP - GeneralFamily Medicine06/04/22 Issac Helms MD [address] [facility] [address] [facility] [address] Cardiology07/15/22
--- OUTSIDE RECORDS SUMMARY | 2025-02-06 14:06 | XMS_ITS | Clinical Summary ---
Author Organization [employer] [facility] Address [id number] [address] [place] [address] Care Team Providers Care Habilitation Worker Name Role Phone Nadia Peacock [facility] Primary Care Provider Allergies No known active [...] UseTypesPacks/DayYears UsedDateSmoking Tobacco: FormerSmokeless Tobacco: NeverPHQ-2AnswerDate RecordedTotal Zovlv648ChildcareAnswerDate Recorded CxdaexmiwKdvirii02/24/2020EmploymentAnswerDate RecordedEmploymentUnknown 11/28/2019Purpose - LifeAnswerDate RecordedPurpose and direction in lifeUnknown 1CommentsUnknownSex and Gender InformationValueDate RecordedSex Assigned at BirthNot on fileLegal GzgWoesdo86/24/2020 3:06 PM EDTGender Identity Not on fileSexual OrientationNot on file Last Filed Vital Signs Vital SignReadingTime TakenCommentsBlood Phrvrqvq922/8212/28/2019 4:19 PM EDT Pulse--Temperature--Respiratory Rate--Oxygen Saturation--Inhaled Oxygen Concentration--Rvklvu52.7 kg (200 lb)12/28/2019 4:19 PM RDJRxjjky118.5 cm (5' 2 )12/28/2019 4:19 PM EDTBody Mass Index36.5809 4:19 PM EDT Plan of Treatment Health MaintenanceDue DateLast DoneCommentsDepression Ikympmorg54/09/1963Tobacco Auhowomia00/09/1963Adult BMI Yyzogqcjp33/09/1969DTaP,Tdap and Td Vaccines (1 - Tdap)1969Zoster (Shingles) Vaccine (1 of 2)2000Fall Risk Screening 09/13/2015Influenza Ltprrwn7512/05/2024RSV ( or age 60+ yrs) (1 - 1-dose 75+ series)2025 Medical Devices Not on file Insurance Care Teams Team MemberRelationshipSpecialtyStart DateEnd Date Nadia Peacock, MANAGER RESEARCH-DIRECTOR OF INSTRUCTIONAL TECHNOLOGY PCP - GeneralNurse Practitioner12/28/19
[2025-02-06 14:51] LABS: NT Pro B Type Natriuretic Pept 12881.0 pg/mL (<=900.0)
== END 2025-02-06 14:01 | disposition home or self-care (01) ==
PROVIDERS: PCP Nurse Practitioner; Visit Provider Internal Medicine Interventional Cardiology
DX: I50.22 Chronic systolic (congestive) heart failure (principal)
CPT/HCPCS: 36415; 83880

== ENCOUNTER 2025-02-07 11:58 | Outpatient (RCR) | payer MEDICARE, OTHER, SELFPAY | END 2025-03-05 23:59 | disposition home or self-care (01) | LOC: MM 11:58 | PROVIDERS: PCP Nurse Practitioner; Visit Provider Nurse Practitioner | DX: Z51.81 Encounter for therapeutic drug level monitoring (principal); Z79.01 Long term (current) use of anticoagulants; I48.0 Paroxysmal atrial fibrillation | CPT/HCPCS: 85610; G0463 ==

== ENCOUNTER 2025-02-14 09:32 | Outpatient (OUT) | payer MEDICARE, OTHER, SELFPAY ==
--- OUTSIDE RECORDS SUMMARY | 2025-02-06 13:00 | XMS_ITS | Encounter Summary ---
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 Name Role Phone Nadia Peacock MD Primary Care Provider [phone] Reason for Referral * Imaging (Routine) - Pending ReviewSpecialtyDiagnoses / ProceduresReferred By ContactReferred To ContactCardiology Diagnoses Chronic systolic congestive heart failure (CMS/HCC) Shortness of breath Procedures Transthoracic echo (TTE) complete Dariana Helms MD [address] [place] [address] Phone: tel: fax: Referral IDStatusReasonStart DateExpiration DateVisits RequestedVisits [id number] Review Perform Procedure Encounter Details DateTypeDepartmentCare Team (Latest Contact Info)Aagomysyzdu43/03/2025 1:00 PM ESTOffice Visit [facility] [place] [address] [place] [address] Dariana Helms MD [address] [place] [address] Chronic systolic congestive heart failure (CMS/HCC) (Primary Dx); Shortness of breath; Coronary artery disease involving ely shoshone coronary artery of ely shoshone heart without angina pectoris; Hx of CABG; LBBB (left bundle branch block); Paroxysmal atrial fibrillation (CMS/HCC); Cardiac resynchronization therapy defibrillator (COMPLIANCE PROJECT MANAGER-D) in place Social History Tobacco UseTypesPacks/DayYears UsedDateSmoking Tobacco: FormerCigarettes Smokeless Tobacco: NeverAlcohol UseStandard Drinks/WeekCommentsNot Currently0 (1 standard drink = 0.6 oz pure alcohol)UT Safety & EnvironmentAnswerDate Recorded Fear of Current or Ex-PartnerNot on file05/28/2023Emotionally AbusedNot on file 05/28/2023hysically AbusedNot on file05/28/2023Sexually AbusedNot on file 05/28/2023hysically or Sexually AbusedNot on file05/28/2023CommentsNo Sex and Gender InformationValueDate RecordedSex Assigned at BirthFemale 06/15/2024 10:41 AM EDTLegal NzvOthpqw29/29/2022 10:33 PM EDTGender Identity Fskjyg2706/15/2024 10:41 AM EDTSexual OrientationHeterosexual or Straight 06/15/2024 10:41 AM EDTdocumented as of this encounter Last Filed Vital Signs Vital SignReadingTime TakenCommentsBlood Ofmuiqbz816/6002/06/2025 1:20 PM EST Sjhvb516502/06/2025 1:20 PM ESTTemperature--Respiratory Rate--Oxygen Cwdheypblu56% 02/06/2025 1:20 PM ESTInhaled Oxygen Concentration--Mbkpea72.6 kg (202 lb) 02/06/2025 1:20 PM VZIZmgqvl722.5 cm (5' 2 )02/06/2025 1:20 PM ESTBody Mass Index36.9502/06/2025 1:20 PM ESTdocumented in this encounter Functional Status * BPAnswerDate of QdpfliynidOfjmfx591/6002/06/2025 1:20 PM Ibis Bettencourt MA * PulseAnswerDate of LyjlaymjvwJtnnqz1138/03/2025 1:20 PM Ibis Bettencourt MA * Patient PositionAnswerDate of BeosdhidflEkedsiXmmijlq96/03/2025 1:20 PM Ibis Raphael MA * BPAnswerDate of EjguxyribzPcynhk515/6002/06/2025 1:20 PM Ibis Bettencourt MA * PulseAnswerDate of TjljxlnaqwWptqbv0903 1:20 PM Ibis Bettencourt MA * GoH1SwgkevRiot of HhhwwugzxgFpwgre6032/03/2025 1:20 PM Ibis Bettencourt MA * BP LocationAnswerDate of AssessmentAuthorLeft arm02/06/2025 1:20 PM Ibis Raphael MA * Patient PositionAnswerDate of LwdenrrvpsCpbmtcGsakozm11/03/2025 1:20 PM Ibis Raphael MA documented as of this encounter Progress Notes * Dariana Helms MD - 02/06/2025 1:00 PM EST Images from the original note were not included. DC Cardiology [facility] Subjective Jessica Burkett is a 74 y.o. year old female patient being seen for for a follow up [facility] ER for SOB .Patient states she had had about 3 to 4 episodes today of SOB/TAM with and without activity, which is relieved with albuterol. Patient states when she went to the ER her o2 was down to 86. Patient denies chest pain, leg swelling. Patient complains of SOB/TAM with and with out activity, fatigue Patient Active Problem List Diagnosis Coronary atherosclerosis Dizziness Hyperlipidemia Peripheral vascular disease Swollen abdomen Systolic heart failure (CMS/HCC) Atrial fibrillation (CMS/HCC) Cardiomyopathy, unspecified (CMS/HCC) Injury of kidney Iron deficiency anemia Lack of stamina Leukocytosis Pleural effusion Secondary hyperparathyroidism Stage 3 chronic kidney disease (CMS/HCC) Tobacco dependence syndrome Vomiting and diarrhea Coronary arteriosclerosis Hypertensive disorder Hypotension due to hypovolemia S/P CABG (coronary artery bypass graft) Renal mass Obesity, Class II, BMI 35-39.9 Biventricular ICD (implantable cardioverter-defibrillator) in place Anticoagulated VICENTA (acute kidney injury) Candidiasis, cutaneous Chest congestion Chronic lymphocytic leukemia (CMS/HCC) Closed fracture of one rib of left side with routine healing COVID-19 DDD (degenerative disc disease), lumbar Depressive disorder Encounter for prophylactic measures, unspecified Gastroesophageal reflux disease Generalized weakness Heart murmur Hyperuricemia Hypokalemia Immunodeficiency due to conditions classified elsewhere Impaired gait and mobility Ischemic myocardial dysfunction Lesion of liver less than 1 cm in diameter Major depressive disorder, single episode, moderate (CMS/HCC) Malignant neoplasm of right kidney, except renal pelvis (CMS/HCC) Mass of uterine adnexa Morbid (severe) obesity due to excess calories (CMS/HCC) Other thrombophilia Thyroglossal duct cyst Thyroid nodule UTI (urinary tract infection) Acute cough Bronchitis RSV infection Centrilobular emphysema (CMS/HCC) COPD mixed type (CMS/HCC) Lung cancer screening declined by patient Morbid (severe) obesity with alveolar hypoventilation (CMS/HCC) Oncocytic neoplasm Procedure and treatment not carried out because of patient's decision for unspecified reasons Family History Problem Relation Name Age of Onset Heart failure Mother Coronary artery disease Sister Coronary artery disease Brother Diabetes Brother Cancer Brother Social History Tobacco Use Smoking status: Former Types: Cigarettes Smokeless tobacco: Never Substance Use Topics Alcohol use: Not Currently Drug use: Never GUILHERME Jessica is seen in follow up. She is a 74 yo woman with diagnosis of systolic heart failure due to ischemic cardiomyopathy related to severe 3 vessel disease. She underwent CABG on 09/10/2017. She developed AF after that. She was started on eliquis and amiodarone. Amiodarone was stopped on follow up. Previously, her creatinine had increased and I stopped spironolactone. She underwent COMPLIANCE PROJECT MANAGER-D placement on 01/06/2019. Prior device check showed 99% biventricular pacing. Shenever really was a good responder to the therapy and her ejection fraction remained on the lower side. At visit of 05/20/2021 I recommended adding Jardiance. She could not afford it. Early in 2022 she underwent nephrectomy at [facility] [place] and postoperativelyshe went into heart failure from fluid administration and was noted to have wide-complex tachycardia, likely SVT with aberrant conduction. I her on 09/25/2022. I had increased her pravastatin to 80 mg daily due to LDL being at 95. A follow-up LDL level was 100. Her primary care provider changed pravastatin to atorvastatin 40 mg daily. After visit with me on 02/24/2024, I referred her to Dr. Dominguez Shaver to review her biventricular pacer and optimize it since she did not get significant benefit from biventricular pacing. Review by Dr. Dominguez Shaver showed that the LV lead was in a suboptimal position. He then proceeded with generator change as well as attempt at placement of a septal lead. He saw her in follow-up but it appeared that her ECG continued to show wide-complex paced rhythm indicating a lack of significant benefit from septal pacing. Recently she has been having some worsening symptoms of shortness of breath. She was evaluated in the emergency room in January 2025 and her blood testing was negative. She underwent a VQ scan that was negative for pulmonary embolism. Her chest x-ray was within normal limits. She continues to have shortness of breath symptoms that happen with exertion NYHA class II. In addition she has episodes of difficulty breathing that happen on and off at rest. No chest pain. No leg edema. She is currently taking furosemide on an as needed basis. Review of Systems Constitutional: Positive for malaise/fatigue. Cardiovascular: Positive for dyspnea on exertion (stable). Respiratory: Positive for shortness of breath. Musculoskeletal: Positive for arthritis and back pain. All other systems reviewed and are negative. Objective Visit Vitals BP 121/60 (BP Location: Left arm, Patient Position: Sitting) Pulse 60 Ht 1.575 m (5' 2 ) Wt 91.6 kg (202 lb) SpO2 92% BMI 36.95 kg/m?? OB Status Postmenopausal Smoking Status Former BSA 2 m?? Physical Exam Constitutional: Appearance: She is well-developed. She is not ill-appearing. HENT: Head: Normocephalic and atraumatic. Nose: Nose normal. Eyes: General: No scleral icterus. Pupils: Pupils are equal, round, and reactive to light. Neck: Thyroid: No thyromegaly. Vascular: No JVD. Cardiovascular: Rate and Rhythm: Normal rate and regular rhythm. Pulses: Radial pulses are 2+ on the right side and 2+ on the left side. Heart sounds: Normal heart sounds. No murmur heard. No friction rub. No gallop. Pulmonary: Effort: Pulmonary effort is normal. No respiratory distress. Breath sounds: Normal breath sounds. No wheezing or rales. Chest: Chest wall: No tenderness. Abdominal: General: Bowel sounds are normal. There is no distension. Palpations: Abdomen is soft. Tenderness: There is no abdominal tenderness. Musculoskeletal: General: No swelling. Cervical back: Neck supple. Skin: General: Skin is warm and dry. Neurological: General: No focal deficit present. Mental Status: She is alert and oriented to person, place, and time. Psychiatric: Mood and Affect: Mood normal. Behavior: Behavior is cooperative. Judgment: Judgment normal. Allergies Allergies Allergen Reactions Atorvastatin myalgias Medications Current Outpatient Medications: albuterol 90 mcg/actuation inhaler, Inhale 2 puffs if needed., Disp: , Rfl: aspirin 81 mg chewable tablet, Chew 1 tablet every day by oral route., Disp: , Rfl: carvedilol (Coreg) 25 mg tablet, TAKE 1 TABLET IN THE MORNING AND AT BEDTIME, Disp: 180 tablet, Rfl: 3 ezetimibe (Zetia) 10 mg tablet, Take 1 tablet (10 mg) by mouth once daily as directed., Disp: 90 tablet, Rfl: 3 ferrous sulfate 325 (65 Fe) MG tablet, Take 325 mg by mouth 2 (two) times a week., Disp: , Rfl: hydrALAZINE (Apresoline) 25 mg tablet, TAKE 1 TABLET IN THE MORNING AND AT BEDTIME, Disp: 180 tablet, Rfl: 3 omeprazole (PriLOSEC) [address] capsule, Take 40 mg by mouth in the morning., Disp: , Rfl: rosuvastatin (Crestor) 10 mg tablet, TAKE 1 TABLET AT BEDTIME (THIS IS REPLACING ATORVASTATIN), Disp: 90 tablet, Rfl: 3 sacubitriL-valsartan (Entresto) 49-51 mg tablet, Take 1 tablet by mouth in the morning and at bedtime., Disp: 14 tablet, Rfl: 0 warfarin (Coumadin) 5 mg tablet, TAKE 1 TABLET BY MOUTH ONCE DAILY DIRECTED BY COUMADIN CLINIC, Disp: , Rfl: furosemide (Lasix) 40 mg tablet, Take 1 tablet (40 mg) by mouth in the morning., Disp: 90 tablet, Rfl: 3 Recent Labs No visits with results within 6 Month(s) from this visit. Latest known visit with results is: Admission on 06/15/2024, Discharged on 06/15/2024 Component Date Value INR 06/15/2024 1.8 Protime 06/15/2024 n/a QC Pass/Fail 06/15/2024 Passed QC LOT # 06/15/2024 [id number] QC Expiration Date 06/15/2024 [id number] Ventricular Rate 06/15/2024 81 Atrial Rate 06/15/2024 81 MT Interval 06/15/2024 116 QRS DURATION 06/15/2024 172 QT Interval 06/15/2024 488 QTC CALCULATION(BAZETT) 06/15/2024 566 P Comstock 06/15/2024 42 R-Comstock 06/15/2024 240 T Wave Comstock 06/15/2024 91 Blood testing 01/25/2025: Hemoglobin 14.3, platelets 215, potassium 4.4, D-dimer 0.25, BUN 22, creatinine 1.68, eGFR 30, LFTs normal, high-sensitivity troponin 31.1. Blood testing 12/21/2024: Hemoglobin 13.3, platelets 206, BUN 20, creatinine 1.47, eGFR 35, magnesium 2.0. Lipid panel 05/15/2023: Triglycerides 168, HDL 54, LDL 51, cholesterol 138. Blood testing 10/09/2022: Triglycerides 217, cholesterol 196, LDL 100, HDL 53. Blood testing 08/13/2022: BUN 7 - 21 mg/dL 26 High Creatinine 0.58 - 0.96 mg/dL 1.69 High Sodium 136 - 144 mmol/L 136 Potassium 3.7 - 5.1 mmol/L 3.4 Low Chloride 97 - 105 mmol/L 99 CO2 22 - 30 mmol/L 25 Anion Gap 9 - 18 mmol/L 12 Calcium, Total 8.5 - 10.2 mg/dL 8.2 Low Estimated Glomerular Filtration Rate >=60 mL/min/1.73m 32 Low Ref Range & Units 1 mo ago WBC 3.70 - 11.00 k/uL 2.64 Low RBC 3.90 - 5.20 m/uL 3.13 Low Hemoglobin 11.5 - 15.5 g/dL 9.8 Low Hematocrit 36.0 - 46.0 % 29.4 Low MCV 80.0 - 100.0 fL 93.9 MCH 26.0 - 34.0 pg 31.3 MCHC 30.5 - 36.0 g/dL 33.3 RDW-CV 11.5 - 15.0 % 14.0 Platelet Count 150 - 400 k/uL 183 MPV 9.0 - 12.7 fL 8.9 Low Absolute nRBC <0.01 k/uL <0.01 Blood testing 12/16/2023: Hemoglobin 10.1, platelets 280, EGFR 20, BUN 33. Blood testing 05/15/2023: Hemoglobin 11.6, platelets 250, BUN 38, creatinine 2.44, EGFR 19, LDL 51, cholesterol 138, HDL 54, triglycerides 169. Blood testing 04/29/2022: Hemoglobin 14.3, platelets 294, potassium 4.0, BUN 26, creatinine 1.39, EGFR 37. Blood testing 08/21/2021: Hemoglobin 11.5, platelets 280, potassium 4.3, BUN 19, creatinine 1.28, GFR 41. Blood testing 01/30/2021: Hemoglobin 13, platelets 254, 0.1, BUN 20, creatinine 1.38. Blood testing 04/19/2018: Cr 1.43, K 4.0. BMP 12/16/2017 showed Cr 1.6, BUN 18, K 4.4. 01/30/2020-CBC normal, BUN 22.6 creatinine 1.59. Blood testing 07/31/2020: K 3.9, BUN 24, Cr 1.49, TG 165, Chol 178, HDL 50, DL 95. 11/02/2019: K 4.0, BUN 24, Cr 1.47. 10/19/2019: Cr 1.49, BUN 18, K 4.1 Imaging and other tests VQ scan 01/25/2025: Normal ventilation/perfusion lung scan. No features to suggest pulmonary embolus. Enlarged heart size. ECG 01/25/2025: Sinus rhythm, electronic ventricular pacemaker with occasional ventricular premature complexes. QRS duration 158 ms. Device check 01/14/2025: [facility] Report PRESENTING RHYTHM Ap/BVp BATTERY 5.3-5.7 years remaining. LEADS No new or significant issues requiring intervention PACING PERCENTAGE AP: 58%, BVP: >99% ARRHYTHMIAS No episodes noted. THORACIC IMPEDANCE VALUES Within Normal Limits ECG 09/06/2024: Sinus rhythm with frequent AV dual paced complexes. Electrophysiology procedure 06/15/2024: PROCEDURE PERFORMED: 1. Biventricular ICD generator change ([place]). 2. Explantation of previously implanted BiV ICD generator ([id number]). 3. New RV septal pacing lead placement. 4. ICD pocket revision. 5. U/S access Echocardiogram 03/02/2024: CONCLUSION: 1. The left ventricle is normal in size and exhibits dyssynchronous contraction with abnormal septal motion and moderately to severely reduced systolic function. Estimated LVEF is 30%. 2.Normal right ventricular size and systolic function. 3. No significant valvular dysfunction. 4. Normal right-sided pressures. Device check 01/26/2024: A pacing 4.5%, BiV pacing 99%. AF burden 0%. No events. Echocardiogram 06/04/2022: Left ventricle exhibits global hypokinesis with dyssynchronous contractionand abnormal septal motion, systolic function is severely reduced, LVEF is estimated at 25%, right ventricle appears to be normal in size with normal systolic function. No significant valvular dysfunction. No pericardial effusion. ECG 12/13/2021: Electronic ventricular pacemaker. Underlying sinus rhythm. Echocardiogram 10/10/2019 at [facility]: LVEF 20-25%. Blood testing 05/11/2019: Hemoglobin 13.9, platelets 249, potassium 4.1, BUN 13, creatinine 1.43. BMP 11/11/2018: Cr 1.34, BUN 19, K 3.8. BMP 07/05/2018 Cr 1.47, BUN 19, K 4.2. ECG 04/20/2018: sinus rhythm with ventricular pacing and QRS 188 ms. Echocardiogram 04/19/2018: Global left ventricular systolic function is severely reduced (Visually estimated EF 10%). Regional wall motion abnormalities (see diagram). Right ventricular systolic function appears normal. A pacemaker wire is seen in the right ventricle. The left atrium appears enlarged. Unable to assess right sided pressures due to lack of measurable tricuspid regurgitation. Limited echocardiogram performed to assess left ventricular systolic function and right-sided pressure. Systolic function is severely reduced and very similar in wall motion abnormalities to the last study of 12/21/17 Echocardiogram 12/21/2017: Global left ventricular systolic function is severely reduced (Visually estimated EF 10%). The left ventricle is mildly enlarged. Left ventricular wall thickness is normal. Regional wall motion abnormalities (see diagram). Doppler studies suggest normal right sided pressures. Limited echocardiogram was done to assess left ventricular systolic function Systolic function is severely reduced and very similar in wall motion abnormalities to the last echocardiographic exam performed on 10/13/2017. ECG 10/26/2017: sinus rhythm at 59 bpm. LBBB, QRS 168 ms. Echocardiogram 10/13/2017: Global left ventricular systolic function is severely reduced (Visually estimated EF 15-20%). The left ventricle is severely enlarged. Regional wall motion abnormalities (see diagram). Normal right ventricular systolic function. The left atrium is mildly enlarged. The right atrium is mildly enlarged. No pericardial effusion. Event 09/18/2017: Baseline Rhythm = Sinus Rhythm. Two episodes of atrial fibrillation were seen - see above for details. No significant symptoms during the monitored time; one episode of headache; underlying rhythm was normal sinus. Assessment/Plan Diagnoses and all orders for this visit: Chronic systolic congestive heart failure (CMS/HCC) - Pro-BNP; Future - Transthoracic echo (TTE) complete; Future - furosemide (Lasix) 40 mg tablet; Take 1 tablet (40 mg) by mouth in the morning. - Pro-BNP; Future Shortness of breath - Lexiscan Stress Myocardial Perfusion Imaging; Future - Transthoracic echo (TTE) complete; Future Coronary artery disease involving ely shoshone coronary artery of ely shoshone heart without angina pectoris Hx of CABG - Lexiscan Stress Myocardial Perfusion Imaging; Future LBBB (left bundle branch block) Paroxysmal atrial fibrillation (CMS/HCC) Cardiac resynchronization therapy defibrillator (COMPLIANCE PROJECT MANAGER-D) in place 1. CAD: She is doing well after bypass surgery in 2018. No chest pain, continue aspirin and statin.Her most recent LDL was 51 in 05/2023. She is currently on rosuvastatin 10 mg daily and ezetimibe 10mg daily. Continue the same. She does have shortness of breath. It is unclear if she has progressedher coronary disease. I will check a Lexiscan stress test to rule out any significant ischemia. 2. PAF: in sinus rhythm, currently on warfarin. She has no bleeding issues. 3. Systolic HF: in NYHA class II, I will continue carvedilol to 25 mg bid. continue Entresto. She is s/p COMPLIANCE PROJECT MANAGER-D. There was no clear response with COMPLIANCE PROJECT MANAGER therapy. She recently underwent generator change and a septal lead placement however even that did not show significant result based off of the EKG findings of continued wide-complex QRS. Currently no evidence of volume overload. She continues to have shortness of breath with exertion. I will check proBNP as well as an echocardiogram. Continue current GDMT for systolic heart failure. I am going to check a echocardiogram to follow-up on ventricular function. If she continues to do well I will plan on seeing her in follow-up in 6 months. Follow up in about 6 months (around 08/06/2025). Dariana Helms MD ADDENDUM 02/06/25: Her NT proBNP today was 12,881. I am going to recommend taking furosemide to 40 mg once daily. Obtain follow-up Pro-BNP in 1 to 2 weeks. Dariana Helms MD documented in this encounter Miscellaneous Notes * Addendum Note - Dariana Helms MD - 02/06/2025 1:00 PM ESTAddended by: DARIANA HELMS on: 02/06/2025 05:03 PM Modules accepted: Orders documented in this encounter Plan of Treatment NameTypePriorityAssociated DiagnosesOrder SchedulePro-BNPLabRoutine Chronic systolic congestive heart failure (CMS/HCC) Expected: 02/06/2025 (Approximate), Expires: 02/06/2026Lexiscan Stress Myocardial Perfusion ImagingCardiac ServicesRoutine Hx of CABG Shortness of breath Expected: 02/06/2025 (Approximate), Expires: 02/06/2027Transthoracic echo (TTE) completeEchocardiographyRoutine Chronic systolic congestive heart failure (CMS/HCC) Shortness of breath Expected: 02/06/2025 (Approximate), Expires: 02/06/2027Pro-BNPLabRoutine Chronic systolic congestive heart failure (CMS/HCC) Expected: 02/20/2025 (Approximate), Expires: 02/06/2026documented as of this encounter Visit Diagnoses Diagnosis Chronic systolic congestive heart failure (CMS/HCC)- Primary Shortness of breath Coronary artery disease involving ely shoshone coronary artery of ely shoshone heart without angina pectoris Hx of CABG Postsurgical aortocoronary bypass status LBBB (left bundle branch block) Other left bundle branch block Paroxysmal atrial fibrillation (CMS/HCC) Atrial fibrillation Cardiac resynchronization therapy defibrillator (COMPLIANCE PROJECT MANAGER-D) in place documented in this encounter Care Teams Team MemberRelationshipSpecialtyStart DateEnd Date Nadia Peacock MD [address] [place] [id number] [facility] - General06/16/22documented as of this encounter
--- OUTSIDE RECORDS SUMMARY | 2025-02-09 10:29 | XMS_ITS | Continuity of Care Document ---
Author Organization [facility] Address [address] [place] [address] Phone Care Team Providers Care Sample Steamer Name Role Phone Nadia Peacock NP-C Primary Care Provider Ariadne Muniz Attending Provider Nadia Peacock NP-C Attending Provider Anahy Knutson PA-C Attending Provider Issac Helms MD Attending Provider Care Teams Patient Care Team Team Status: Active Member Role/Relationship Status Dates Nadia Peacock NP-C Primary Care Provider Active Visit Care Team Team Status: Active Member Role/Relationship Status Dates Nadia Peacock NP-C Primary Care Provider Active Start: December 21, 2024 Wally Nicolas ProviderActiveStart: December 21, 2024 Visit Care Team Team Status: Inactive Member Role/Relationship Status Dates Nadia Peacock NP-C Primary Care Provider Active Start: December 29, 2024 End: December 29, 2024Savanna Alvarado ProviderActiveStart: December 29, 2024 End: December 29, 2024 Visit Care Team Team Status: Inactive Member Role/Relationship Status Dates Nadia Peacock NP-C Primary Care Provider Active Start: December 29, 2024 End: December 29Wally Lester ProviderActiveStart: December 29, 2024 End: December 29, 2024 Visit Care Team Team Status: Active Member Role/Relationship Status Dates CRYSTAL Alvarado Primary Care Provider Active Start: January 25, 2025 Bret Cooper ProviderActiveStart: January 25, 2025 Visit Care Team Team Status: Active Member Role/Relationship Status Dates CRYSTAL Alvarado Primary Care Provider Active Start: February 06, 2025 Wally Meneses ProviderActiveStart: February 06, 2025 Patient Care Team Team Status: Inactive Member Role/Relationship Status Dates CRYSTAL Alvarado Primary Care Provider Active Start: February 09, 2025 End: February 09, 2025Savanna Alvarado ProviderActiveStart: February 09, 2025 End: February 09, 2025 Chief Complaint and Reason for Visit Chief Complaint Admit Date Medicare Wellness December 29, 2024 10:23am RENAL 6 MONTH F/U December 29, 2024 3:19pm 6W February 09, 2025 2 :20pm Reason for Visit Admit Date Breast cancer screening declined 2024 10:23am CKD stage G4/A1, GFR 15-29 a nd albumin creatinine ratio <30 mg/g December 29, 2024 10:23am Colon cancer screening declined 2024 10:23am COPD mixed type December 29, 2024 10:23am Coronary artery disease December 29, 2024 10:23am Encounter for subsequent [facility] wellness visit (AWV) in Medicare patient December 29, 2024 10:23am Lung cancer screening declined by therese coello December 29, 2024 10:23am Oncocytic neoplasm December 29, 2024 10:23am Systolic heart failure December 29, 2 025 10:23am Hyperlipidemia December 29, 2024 10:23am Hypertension December 29, 2024 10:23am Anemia of renal disease December 29, 2024 3:19pm Chronic kidney disease, stage III (moder ate) December 29, 2024 3:19pm Hypertensive chronic kidney disease with stage 1 through stage 4 chronic ki December 29, 2024 3:19pm Hyperuricemia December 29, 2024 3:19pm Renal cancer December 29, 2024 3:19pm Secondary hyperparathyroidism December 29, 2024 3:19pm Solitary kidney, acquired December 3:19pm CKD stage G4/A1, GFR 15-29 a nd albumin creatinine ratio <30 mg/g February 09, 2025 2:20pm COPD mixed type February 09, 2025 2 :20pm Coronary artery disease February 09 2:20pm Systolic heart failure February 09 2:20pm Hyperlipidemia February 09, 2025 2 :20pm Hypertension February 09, 2025 2 :20pm Allergies, Adverse Reactions, Alerts Allergen Type Severity Reaction Last Updated Verified Status atorvastatin Allergy Unknown Unknown Reaction Sept2024 7:48am Yes Active Social History Smoking Status Status Start Date End Date Date of Observa tion Ex-smoker (finding) December 29, 2024 3:41pm Observation Status Observation Response Date of Response Legal Sex Female (finding) [facility] 1950 Family History Relationship Condition Age at Onset Recorded Date/T estee father Heart disease Unknown motherDiabetes mellitusUnknownHeart diseaseUnknownfatherHypertensionUnknown motherHypertensionUnknownbrotherDiabetes mellitusUnknownHeart diseaseUnknown HypertensionUnknownMalignant neoplasm of pancreasUnknownfatherMalignant neoplasm of liverUnknownbrotherHypertensionUnknownMalignant neoplasmUnknownHistory of strokeUnknownHeart diseaseUnknownDiabetes mellitusUnknownfatherHeart disease UnknownHypertensionUnknownMalignant neoplasmUnknownDeceasedUnknownfamily member DeceasedUnknownmotherDeceasedUnknownHypertensionUnknownDiabetes mellitusUnknown Heart diseaseUnknownsisterMalignant neoplasmUnknown Problems Active Problems Problem Diagnosis/Recorded Date Onset Date Stat us UTI (urinary tract infection) September 30, 2017 2:26pm U nknown Active Chronic kidney disease, stage 3b December 26, 2024 12:40pm Unknown Active Colon cancer screening declined December 29, 2024 1 0:24am Unknown Active Lung cancer screening declin ed by patient December 29, 2024 10:24am Unknown Active Breast cancer screening declined December 29, 2024 10:24am Unknown Active Lesion of liver less than 1 cm in diameter May 22, 2022 3:19pm Unknown Active Encounter for subsequent [facility] wellness visit (AWV) in Medicare patient December 26, 2024 12:48pm Unknown Active 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 December 26, 2024 12:57pm Unknown Active COVID December 26, 2024 12:48pm Unknown Active Tobacco dependence September 19, 2017 6:35am Unknown Active Oncocytic neoplasm December 29, 2024 10:25am Unknow n Active Morbid (severe) obesity with alveolar hypoventilation December 26, 2024 1:00pm Unknown Active Chronic lymphocytic leukemia B-cell type not having achieved remission December 26, 2024 12:42pm Unknown Active Malignant neoplasm of right kidney, except renal pelvis December 26, 2024 12:59pm Unknown Active Thyroid nodule December 26, 2024 1:04pm Unknown Active Secondary hyperparathyroidism May 21, 2023 2:34 pm Unknown Active Secondary hyperparathyroidis m of renal origin December 26, 2024 1:02pm Unknown Active Solitary kidney, acquired May 21, 2023 2:34pm U nknown Active Centrilobular emphysema December 26, 2024 12:40pm U nknown Active COPD mixed type December 29, 2024 10:10am Unknown Active Edema due to congestive heart failure September 24, 2017 1:46pm Unknown Active CKD (chronic kidney disease) stage 4, GFR 15-29 ml/min May 21, 2023 2:41pm Unknown Active Chronic kidney disease, stag e III (moderate) May 21, 2023 4:16pm Unknown Active Coronary artery disease September 19, 2017 6:44pm Unknown Active Biventricular ICD (implantab le cardioverter-defibrillator) in place December 26, 2024 12:39pm Unknown Active Chronic lymphocytic leukemia December 26, 2024 12:4 1pm Unknown Active Atrial fibrillation September 19, 2017 6:36am Unknown Active Closed fracture of one rib o f left side with routine healing December 26, 2024 12:48pm Unknown Activ e Hypertensive chronic kidney disease with stage 1 through stage 4 chronic kidney disease, or unspecified chronic kidney disease May 21, 2023 2:34pm Unknown Active Atherosclerosis of aorta December 26, 2024 12:39pm Unknown Active Heart murmur December 26, 2024 12:54pm Unknown Active Hyperlipidemia September 19, 2017 6:36am Unknown Act varghese Hyperuricemia May 21, 2023 2:44pm Unknown Active Ischemic cardiomyopathy September 19, 2017 12:18pm Unknow n Active Systolic heart failure December 26, 2024 1:02pm Unk nown Active Mass of uterine adnexa May 22, 2022 3:18pm Unkn own Active Pleural effusion September 23, 2017 4:12pm Unknown A ctive DDD (degenerative disc disease) December 26, 2024 1 2:48pm Unknown Active CKD stage G4/A1, GFR 15-29 a nd albumin creatinine ratio <30 mg/g December 26, 2024 12:43pm Unknown Activ e Major depressive disorder, s carmen episode December 26, 2024 12:59pm Unknown Active Iron deficiency anemia February 24, 2022 11:28am Unk nown Active RSV infection December 26, 2024 1:00pm Unknown Active DVT prophylaxis September 19, 2017 6:35am Unknown Ac tive Thyroglossal duct cyst December 26, 2024 1:02pm Unk nown Active Body mass index (BMI) of gre ater than 35 to 39.9 with comorbidity December 26, 2024 12:40pm Unknown Act varghese GERD without esophagitis December 26, 2024 12:53pm Unknown Active S/P coronary artery bypass graft x 1 December 26, 025 1:01pm Unknown Active S/P CABG x 4 September 19, 2017 6:35am Unknown Activ e Renal cancer March 02, 2023 1:11pm Unknown A ctive Bilateral kidney masses May 22, 2022 3:02pm Unk nown Active Anemia of renal disease May 21, 2023 2:34pm Unk nown Active Hypertension September 19, 2017 6:36am Unknown Activ e Coronary arteriosclerosis December 26, 2024 12:46pm Unknown Active Atrial fibrillation with RVR September 25, 2017 9:59pm Un known Active Hypokalemia December 26, 2024 12:56pm Unknown Active Inactive/Resolved Problems Problem Diagnosis/Recorded Date Onset Date Stat us VICENTA (acute kidney injury) September 24, 2017 1:46pm Unkno wn Resolved COVID-19 March 02, 2023 5:29pm Unknown R esolved Chronic kidney disease, stag e III (moderate) September 29, 2017 6:04pm Unknown Resolved Impaired endurance September 19, 2017 6:35am Unknown Resolved Generalized weakness March 02, 2023 5:29pm Unknow n Resolved Leukocytosis September 23, 2017 4:12pm Unknown Resol neeraj Impaired gait and mobility September 19, 2017 6:35am Unkn own Resolved Medications Medication Status Dose Units Route Directions Qty Days Refills S tart Date Stop Date End Date Reason(s) Instructions Adherence Ferrous Sulfate 325 mg (65 mg iron) tablet Active 0 .ROUTE.DHTUHTM246Desdfk 2024 8:05amTAKE 1 TABLET BY MOUTH TWICE A WEEK Complies with drug therapyCarvedilol (Coreg) 6.25 mg TabletDiscontinued6.25MGPO Twice daily[facility]2017 11:00pmSeptember 25, 2017 7:21pmAmiodarone 200 mg Tablet Kigvvjcpmwci487VMZTGbsiaHfaw 14th, 2018 11:002017 4:22pmAspirin (Aspir-81) 81 mg Tablet,Delayed Release (Dr/Ec)Bgqerqmfdqxu487NINAEushjGkpa 14th, 2018 11:2017 1:12pmFamotidine (Pepcid) 20 mg Tablet Lqvexafveivk85OQCQFgpdzCryz 14th, 2018 11:002017 1:13pmFurosemide (Lasix) 20 mg BvbdmaZbpyyqetyfgf45TFFIMrvpqTlye 14th, 2018 11:002017 7:21pmApixaban 5 mg OnmdzvNxswuslcnqob5ECHNMebgf dailySeptember 17, 2017 11:002017 1:12pmPravastatin 40 mg RjxkseRoeijnzayidq23KPRHRcqcfBvzq 14th, 2018 11:002017 1:14pmNystatin 100,000 unit/gram Powder Giqhxxlnjswj4OGSSJLSCROAOGHpolt times dailySeptember 17, 2017:2017 1:13pmLisinopril 2.5 mg TabletDiscontinued2.5MGPODailyUnc Health Nash2017 11:00pmOctober 01, 2017 1:13pmNicotine 14 mg/24 hr Patch 24 FrmgHgqbmcnsywvv2XEYZ PLURAPKOUJTgruf06Ogzj 21st, 2018 11:2017 1:13pmSpironolactone 25 mg UowymsYmgodhlrsmtp36KJIBKhfbc dfowt37Ydpt2017 11:2017 1:14pmDocusate Sodium 100 mg XfuttlmRxjbtulmazre568VKVGNnvvt kmpjs10Rjto2017 11:2017 1:12pmBumetanide 0.25 mg/mL BbcwxzbjUuyntrdjvpya0QX IV-PUSHEvery 8 lvuyf52Ntgi2017 11:2017 4:21pmOxycodone 5 mg LuxclfQgqantsdebza05NCNTGqrof 4 hours as needed for pain 8-2017 11:2017 1:14pmOxycodone 5 mg PtyleuVmwetzuwdidr2SSPDFfxph 4 hours as needed for pain 5-2017 11:2017 1:14pm Bumetanide 1 mg ZzoymfHqvapagmrbfi1ZWGGLJM@0800,143445113TmalSeptember 27, 2017 11:00pm October 01, 2017 1:12pmAmiodarone 400 mg rsydwyFiehtqcgagog579QZHFLxjjm fpent6431 0September 27, 2017 11:00pmJuly 2017 11:2017 1:12pmCarvedilol 12.5 mg SpmegyLtkbbfapuiks66.75MGPOTwice daily with hlsxy26617ZebjSeptember 30, 2017 11:2021 9:18amNicotine 14 mg/24 hr Patch 24 HourDiscontinued1 DHIWBWWHOGZEPXTgxcr67849Xkor 27th, 2018 11:2021 9:18am Pravastatin 40 mg ZfsqiqHqjrkcfwpqav24STXTBngca76983Vzzu 27th, 2018 11:00pm February 24, 2022 9:18amAmiodarone 200 mg IwnyleDcolincweedh568BRWGSjvnh daily 047869KncoSeptember 30, 2017 11:2021 9:19amAspirin 81 mg Tablet,Delayed Release (Dr/Ec)Vzyondswxjqx539ZKJMZridq62669Elsh 27th, 2018 11:00[facility]2022 3:24pmSpironolactone 25 mg GiupfqRufmrspmnkwc24ETOJ Twice yxfpj46161Iomk 27th, 2018 11:00pmFebruary 2022 11:10amFamotidine 20 mg BidhzlUmrhdmulqfdx90ORVCQwyil36847Fjhc 2017 11:00[facility]2021 9:18amDocusate Sodium 100 mg OrvejntXjfwayobkrzm232LUMMLofyt azhkv64114KqvkSeptember 30, 2017 11:00pm[facility]20[facility] 9:18amBumetanide 1 mg TabletDiscontinued1 MGPOBID@0800,239247692Beff 27th, 2018 11:00pm[facility]2021 9:20amNystatin (Nystop) 100,000 unit/gram OflblnJtssrzmomdfs3YEPDWFHLDVTIMSabus times feflk1777 0September 30, 2017 11:00[facility]2021 9:18amLisinopril 2.5 mg Tablet Discontinued2.1PBQLSkcsp60403Wykk 27th, 2018 11:00[facility]2021 9:18am Apixaban (Eliquis) 5 mg XhfsaeNwcixwgkrzfh4DIBWJmrfr dfkut40922Pgfw 27th, 2018 11:00pm[facility]2021 9:20amWarfarin 2.5 mg tabletActive2.5MGPOAs Directed February 24, 2022 12:50afY-M-F-SAComplies with drug therapyHydralazine 25 mg ivkttjVichsirnwkbg25VXUSWbeyaPfplzjsd 21st, 2022 12:00amFebruary 2023 2:08pmFurosemide 20 mg rbwdnnIahmbnsbiqje64NBQTAsfna dailySand[facility]2021 12:00amFebruary 2024 2:55pmCarvedilol 12.5 mg vmzpdyMrlefirkfjsr84CWDR Twice daily with mealsFebruary 24, 2022 9:18amFebruary 2022 11:09am Pravastatin 40 mg jphdwdJzxqdkhdecbz46JJMTXbyflGzyrlsgi 21st, 2022 9:18am March 02, 2023 3:22pmWarfarin 2.5 mg TabletDiscontinued1.25MGPOAs Directed February 24, 2022 12:00amFebruary 2024 2:66vfS-PA-FYBuwrhwtsic-Valsartan (Entresto) 49-51 mg MgkxsjRbcxhz5KZSETHioqg dailyFebruary 24, 2022 12:00am Complies with drug therapyOmeprazole 40 mg capsule,delayed release(DR/EC) Ktamxhppiove50ALFGRqdfx545Lznvgbiu 21st, 2022 12:00amFebruary 2024 2:55pm Hydralazine 25 mg hbhenwSrbjtu65HPKYLzygh dailyFebruary 2023 2:06pm Complies with drug therapyCarvedilol 25 mg NcpdaeIndigrpcsexd80HVKSKydwe daily May 22, 2022 12:00amFebruary 2023 2:06pmmust administer with a meal/foodSertraline 25 mg FguhkrTnngmpvpzqaz75PGMWAbdxtIfjxrwos 2022 12:00amNovember 2022 3:23pmCholecalciferol (Vitamin D3) (Vitamin D3) 125 mcg (5,000 unit) DazphiIjdhwdmtaeff526OCIVWYdfhnAlqstdxq 2022 12:00am May 21, 2023 2:08pmEzetimibe 10 mg olrakpFyuqjf10NJZRPrvbfCscwnsgx 27th, 2023 12:00amComplies with drug therapyAspirin 81 mg tablet,delayed release (DR/EC)Ijxdfd47SFWOFpwpnUgsxkmzb 27th, 2023 3:24pmComplies with drug therapyIron Sucrose (Venofer) 200 mg iron/10 mL juvyoinvEtqbqnlritvx030GGWNQ0K0Aevjjbizq 16th, 2024 11:00pmFebruary 2024 2:58pmadminister over 30 minsCarvedilol 25 mg uchwumHnneue27ZWNHYnozt dailyFebruary 2023 12:00amFreeTextSi Tablet Orally bid; Note: Source Status: Taking; Provider: Flavio Philip (NPI: [id number])Complies with drug therapyRosuvastatin 10 mg ihqmjyGonpxl09DOZJPuocxZxiatipx 2023 12:00amFreeTextSi tablet Orally Once a day; Note: Source Status: Taking; Provider: Flavio Philip ( )Complies with drug therapy Ferrous Sulfate 325 mg (65 mg iron) oqhhjlCmexkxjvbfpq4ETUBDWshsx 48 hours May 21, 2023 12:00amSeptember 2023 3:36pmFreeTextSi tablet Orally every other day; Note: Source Status: Start; Refills: 1; Provider: Flavio ReidulFerrous Sulfate 325 mg (65 mg iron)/5 mL djxxszlkCghsnugopbgs365NZKMXvdur a WeekFebruary 2024 12:00amFebruary 2024 3:09pmFerrous Sulfate 325 mg (65 mg iron) nskdhcHmrntffhtgep864OFCUYikzx a February 2024 12:00am May 30, 2024 3:10pmFerrous Sulfate 325 mg (65 mg iron) tabletDiscontinued 325MGPOTwice a Xhyz627Jhmhqpcd 2024 3:10pmAugust 2024 8:05am Omeprazole 40 mg capsule,delayed release(DR/EC)Ujewzg03RVUFOwcmqYwgsjclgq 2024 11:00pmComplies with drug therapyFurosemide (Lasix) 20 mg tablet Gddholzrzxyf92SHVAQwvpzNnhiweqql 2024 11:00pmDecember 29, 2024 2:40pm Albuterol Sulfate 90 mcg/actuation HFA aerosol wtudgjnAxbojajbraqp3DDDM INHALATIONEVERY 4-6 HOURS as neededSept2024 11:00pmpt2024 10:03ejXrqkhpondfe-Ylzfncxox-Gaipnuuo (Trelegy Ellipta) 100-62.5-25 mcg blister with mflphgRfmhpnzmtmqs0KVQCOHCOBNJEXEpfpiRrfowndzb 2024 11:00pm December 29, 2024 2:39pmAlbuterol Sulfate 90 mcg/actuation HFA aerosol wazhkhtRtuixc5BFWZTGLWNKNHHHYWDWN 4-6 HOURS as needed for shortness of breath or wheezing8.51Sept2024 10:26amChronic airway obstruction, mixed type Chronic obstructive pulmonary disease, unspecifiedComplies with drug therapy Furosemide (Lasix) 20 mg pgttzrQlhmbfbxpeoq71SSZMIeqni as neededSept2024 2:39pmNov2024 3:14pmFurosemide (Lasix) 20 mg htpxoyCjahjd87IBLO DailyNov2024 3:13pmComplies with drug therapy Relevant Diagnostic Tests and/or Laboratory Data Laboratory Results Test Collection Date/Time Result Date/Time Result Interpretation Reference Range Result Comment Performing Site Urine Other Casts December 21, 2024 11:02am NONE SEEN #/LPFNONE SEENUrine Random CreatinineSept2024 11:02am December 21, 2024 11:68vs446.45 mg/dLAbove high .00-300.00Parathyroid Hormone (Intact)December 21, 2024 11:12amSept2024 11:12am84 pg/mL Abnormal (applies to non-numeric results)15-65Performed at: - [facility] [id number] Director: Corby Villatoro PhD, Phone: [phone]-Wmhbrrw Vitamin D TotalSept2024 11:12amSept2024 11:12am37.0 ng/mL<20 ng/mL Vit D rsacwvdjw49-<30 ng/mL Vit D lkkkrfumdrzo86-979 ng/mL Vit D sufficient>100 ng/mL Potential ToxicityFerritin December 21, 2024 11:12amSept2024 11:12am27.0 ng/mL8.0-252.0 Magnesium LevelSept2024 11:12amSept2024 11:12am2.0 mg/dL 1.8-2.4Uric AcidSept2024 11:12amSept2024 11:12am4.2 mg/dL2.6-6.0Anion GapSept2024 11:12amSeptember 2024 11:12am9.9 Iron SaturationSept2024 11:12amSept2024 11:12am32.9 % HematocritSept2024 11:12amSept2024 11:12am41.4 % 36.0-48.0Activated Partial Thromboplast TimeOct2024 3:34pmOct2024 3:34pm44.9 secAbove upper panic .3-36.2RESULTS CALLED TO EMMANUEL PRYOR, ESPERANZArothromb Time International RatioOct2024 3:34pm January 25, 2025 3:34pm2.32DESIRED INR:2.0-3.0 CONDITIONS NOT LISTED BELOW2.5- 3.5 FOR PROSTHETIC HEART VALVE REPLACEMENT2.5-3.5 RECURRENT THROMBOSISAnion Gap January 25, 2025 3:34pm13.9D-Dimer Quantitative (PE/DVT)January 25, 2025 3:34pmOct2024 3:34pm0.25 mg/L FEU<=0.59Increases in D-Dimer concentration observed withthromboembolic events can be variable due to localiz ation,size, and age of the thrombus. Therefore, a thromboembolicevent cannot be diagnosed with certainty on the basis of thereference range. D-Dimers may also be elevated for a varietyof disorders including advanced age, , coronarydisease, cancer, liver disease, infection, inflammation,hematoma, DIC, trauma, post-surgery, diabetes, thrombolyticor anticoagulant therapy, stress, and generalizedhospitalization.Basophils # (Auto)January 25, 2025 3:34pm January 25, 2025 3:34pm0.1 10 3/uL0.0-0.1Troponin I High SensitivityOct2024 6:45pmOct2024 6:45pm31.1 pg/mL4.0-51.3CUT-OFF POINTS HAVE BEEN ESTABLISHED BASED ON THE FOURTHUNIVERSAL DEFINITION OF MYOCARDIAL INFARCTIO N. THE UPPERREFERENCE LIMIT (URL) OF TROPONIN, DEFINED THE 99THPERCENTILE OF cTnI DISTRIBUTION IN A REFERENCE POPULATION,HAS BEEN CONFIRMED THE DECISION THRESHOLD FOR MIDIAGNOSIS.99TH PERCENTILE = 51.4 PG/MLNOTE: HIGH-SENSITIVITY TROPONIN ASSAY IS NOT INTENDED TO BEUSED IN ISOLATION BUT SHOULD BE INTERPRETED IN CONJUNCTIONWITH OTHER DIAGNOSTIC AND CLINICAL INFORMATION.B-Type Natriuretic PeptideNov2024 2:14pmNov2024 2:50uq84543.0 pg/mLAbove upper panic limits<=900.0RESULTS CALLED TO [facility] Other CrystalsSeptember 2024 11:02amNone Seen #/HPFNone SeenUrine Protein/Creatinine RatioSeptember 2024 11:02amSeptember 2024 11:02am 0.32AlbuminSeptember 2024 11:12amSeptember 2024 11:12am3.4 g/dL 3.4-5.0Iron LevelSeptember 2024 11:12amSeptember 2024 11:83ed444.0 ug/dL50.0-170.0HemoglobinSeptember 2024 11:12amSeptember 2024 11:12am13.3 g/dL12.0-16.0Prothrombin TimeOctober 2024 3:34pmOctober 2024 3:34pm22.6 secAbove high normal9.0-11.6Albumin/Globulin RatioOctober 2024 3:34pm0.9Basophils (%) (Auto)January 25, 2025 3:34pmOctober 2024 3:34pm1.2 %0.2-2.0Urine BacteriaSept2024 11:02amMODERATE #/HPF Abnormal (applies to non-numeric results)NONE SEENUrine Random Total Protein December 21, 2024 11:02amSeptember 2024 11:03bt305.0 mg/dLAbove high normal<=11.9BUN/Creatinine RatioSeptember 2024 11:12amSeptember 2024 11:12am13.6Total Iron Binding CapacitySeptember 2024 11:12amSeptember 2024 11:62jg503.0 ug/dL250.0-450.0Mean Corpuscular HemoglobinSeptember 2024 11:12amSeptember 2024 11:12am29.2 pg26.7-34.0AlbuminOctober 2024 3:34pm3.7 g/dL3.4-5.0Eosinophils # (Auto)January 25, 2025 3:34pm January 25, 2025 3:34pm0.2 10 3/uL0.0-0.7Urine BilirubinSeptember 2024 11:02amSMALLAbnormal (applies to non-numeric results)NEGATIVEBlood Urea Nitrogen December 21, 2024 11:12amSeptember 2024 11:12am20.0 mg/dLAbove high normal7.0-18.0Mean Corpuscular Hemoglobin ConcentSeptember 2024 11:12am December 21, 2024 11:12am32.1 g/dL29.9-35.2Alkaline PhosphataseOctober 2024 3:34pm97 U/A02-532Thiyaudnstn (%) (Auto)January 25, 2025 3:34pmOctober 2024 3:34pm4.2 %0.9-7.0Urine Occult BloodSeptember 2024 11:02am NEGATIVENEGATIVECalcium LevelSeptember 2024 11:12amSeptember 2024 11:12am8.7 mg/dL8.5-10.1Mean Corpuscular VolumeSeptember 2024 11:12am December 21, 2024 11:12am90.8 fL81.0-99.0Alanine Aminotransferase (ALT/SGPT) January 25, 2025 3:34pm20 U/Z30-32HyvemzjgnrLcpkrug 2024 3:34pmOctober 2024 3:34pm42.7 %36.0-48.0Urine AppearanceSeptember 2024 11:02amSL CLOUDYCLEARChloride LevelSeptember 2024 11:12amSeptember 2024 11:64xf673 mmol/LAbove high -046Teoa Platelet VolumeSeptember 2024 11:12amSeptember 2024 11:12am9.4 fLBelow low normal9.5-13.5Aspartate Amino Transf (AST/SGOT)January 25, 2025 3:34pm17 U/F39-76JllcsvomsgXqyujlc 2024 3:34pmOctober 2024 3:34pm14.3 g/dL12.0-16.0Urine ColorSeptember 2024 11:02amYELLOWYELLOWCarbon Dioxide LevelSeptember 2024 11:12am December 21, 2024 11:12am27.2 mmol/L21.0-32.0Platelet CountSeptember 2024 11:12amSeptember 2024 11:58hn716 10 3/zG710-464JTD/Creatinine Ratio January 25, 2025 3:34pm13.1Immature Granulocyte # (Auto)January 25, 2025 3:34pmOctober 2024 3:34pm0.01 10 3/uL0.00-0.03Urine Glucose (UA)December 21, 2024 11:02amNEGATIVE mg/dLNEGATIVECreatinineSeptember 2024 11:12am December 21, 2024 11:12am1.47 mg/dLAbove high normal0.55-1.02Red Blood Count December 21, 2024 11:12amSeptember 2024 11:12am4.56 10 6/uL4.20-5.40 Blood Urea NitrogenOctober 2024 3:34pm22.0 mg/dLAbove high normal7.0-18.0 Immature Granulocyte % (Auto)January 25, 2025 3:34pmOctober 2024 3:34pm 0.2 %0.0-0.5Urine KetonesSeptember 2024 11:02amNEGATIVE mg/dLNEGATIVE Estimated GFR ()December 21, 2024 11:12amSeptember 2024 11:39mv70Hpxhh low normal>=60 mL/min/1.73m 2Red Cell Distribution WidthSeptember 2024 11:12amSeptember 2024 11:12am14.4 %11.0-15.0Calcium Level January 25, 2025 3:34pm9.1 mg/dL8.5-10.1Lymphocytes # (Auto)January 25, 2025 3:34pmOctober 2024 3:34pm1.9 10 3/uL1.2-3.8Urine Leukocyte Esterase December 21, 2024 11:02amSMALLAbnormal (applies to non-numeric results) NEGATIVEEstimated GFR (Non- AmericanSeptember 2024 11:12amSeptember 2024 11:08lx34Pcrzk low normal>=60 mL/min/1.73m 2Corrected White Blood CountSeptember 2024 11:12amSeptember 2024 11:12am5.5 10 3/uL4.0-11.0 Chloride LevelOctober 2024 3:68ak135 mmol/V71-090Nygqsjzjssh (%) (Auto) January 25, 2025 3:34pmOctober 2024 3:34pm33.5 %20.5-60.0Urine Mucus December 21, 2024 11:02amTRACEAbnormal (applies to non-numeric results)NONE SEENGlucose LevelSeptember 2024 11:12amSeptember 2024 11:79tb737 mg/sE09-014Ulooge Dioxide LevelOctober 2024 3:34pm30.5 mmol/L21.0-32.0Mean Corpuscular HemoglobinOctober 2024 3:34pmOctober 2024 3:34pm30.4 pg 26.7-34.0Urine NitriteSeptember 2024 11:02amNEGATIVENEGATIVEPotassium LevelSeptember 2024 11:12amSeptember 2024 11:12am4.1 mmol/L3.5-5.1 CreatinineOctober 2024 3:34pm1.68 mg/dLAbove high normal0.55-1.02Mean Corpuscular Hemoglobin ConcentOctober 2024 3:34pmOctober 2024 3:34pm 33.5 g/dL29.9-35.2Urine pHSeptember 2024 11:02am6.05.0-9.0Sodium Level December 21, 2024 11:12amSeptember 2024 11:55di568 mmol/T335-440 Estimated GFR ()January 25, 2025 3:95dg72Egkfg low normal>=60 mL/min/1.73m 2Mean Corpuscular VolumeOctober 2024 3:34pmOctober 2024 3:34pm90.9 fL81.0-99.0Urine ProteinSeptember 2024 11:14ce433 mg/dLAbnormal (applies to non-numeric results)NEG/TRACEPhosphorus LevelSeptember 2024 11:12amSeptember 2024 11:12am3.9 mg/dL2.6-4.7Estimated GFR (Non- AmericanOctober 2024 3:05eq37Pgojp low normal>=60 mL/min/1.73m 2Monocytes # (Auto)January 25, 2025 3:34pmOctober 2024 3:34pm0.6 10 3/uL0.3-0.8 Urine RBCSeptember 2024 11:88wa1-5 #/HPF0-2GlobulinOctober 2024 3:34pm4.0 g/dLMonocytes (%) (Auto)January 25, 2025 3:34pmOctober 2024 3:34pm9.8 %1.7-12.0Urine Specific GravitySeptember 2024 11:02am>=1.030 Abnormal (applies to non-numeric results)1.005-1.025Glucose LevelOctober 2024 3:53no235 mg/cF11-301Ccnj Platelet VolumeOctober 2024 3:34pmOctober 2024 3:34pm9.4 fLBelow low normal9.5-13.5Urine Squamous Epithelial Cells December 21, 2024 11:02amMANY #/LPFAbnormal (applies to non-numeric results) NONE/RAREPotassium LevelOctober 2024 3:34pm4.4 mmol/L3.5-5.1Neutrophils # (Auto)January 25, 2025 3:34pmOctober 2024 3:34pm2.9 10 3/uL1.4-6.5Urine UrobilinogenSeptember 2024 11:02am1.0 EU/dL0.2-1.0Sodium LevelOctober 2024 3:46te311 mmol/N712-038Mtjhwloejtx (%) (Auto)January 25, 2025 3:34pmOctober 2024 3:34pm51.1 %43.0-75.0Urine WBCSeptember 2024 11:16ny4-1 #/HPFAbnormal (applies to non-numeric results)NONE SEENTotal BilirubinOctober 2024 3:34pm0.5 mg/dL0.2-1.0Platelet CountOctober 2024 3:34pmOctober 2024 3:38aa437 10 3/qT659-509Vcagx YeastSeptember 2024 11:02amSEENAbnormal (applies to non-numeric results)NONE SEENTotal Protein January 25, 2025 3:34pm7.7 g/dL6.4-8.2Red Blood CountOctober 2024 3:34pm January 25, 2025 3:34pm4.70 10 6/uL4.20-5.40Red Cell Distribution WidthOctober 2024 3:34pmOctober 2024 3:34pm14.2 %11.0-15.0Corrected White Blood CountOct2024 3:34pmOctober 2024 3:34pm5.7 10 3/uL4.0-11.0 Vital Signs Vital Reading Result Reference Range Collection Date/Time Weight 92.75 kg December 29, 2024 9:39amBody Jsbcqojzqam81.4 [degF]97.6-99.0Sept2024 9:39amHeart Rate73 /vzl70-742Vcxieyibq 25th, 2025 9:39amRespiratory rate18 /slw34-84Mmpgbrayd 25th, 2025 9:39amOxygen saturation by Pulse bovoajck72 % 95-100Sept2024 9:39amBP Mactbbrj204 mm[Hg]100-140Sept2024 9:39amBP Brmosbfqa28 mm[Hg]60-100Sept2024 9:74wmRlgfmq32.5 [in_i]December 29, 2024 2:41djOmhoum23.53 kgSept2024 2:37pmHeart Rate66 /dzz55-015Jscxysmjw 25th, 2025 2:37pmRespiratory rate16 /ojz06-80 December 29, 2024 2:37pmOxygen saturation by Pulse papnwcrg89 %95-100 December 29, 2024 2:37pmBP Inljczqm629 mm[Hg]100-140Sept2024 2:37pmBP Nuqvkrmjk46 mm[Hg]60-100Sept2024 2:37pmBMI (Body Mass Index)36.7 kg/l2Fvskjuitj2024 2:68jvKfgjef18.5 [in_i]February 09, 2025 2:82qxCeymwu59.17 kgNov2024 2:49pmBody Hxkhsqhxuqh08.1 [degF] 97.6-99.0February 09, 2025 2:49pmHeart Rate61 /phq10-474KtrwlfdlFebruary 09, 2025 2:49pmRespiratory rate18 /iek84-23AfslsmciFebruary 09, 2025 2:49pmOxygen saturation by Pulse pgiezqtz22 %95-100February 09, 2025 2:49pmBP Rsmmqunu311 mm[Hg]100-140 February 09, 2025 2:49pmBP Tgdqhnygx11 mm[Hg]60-100Nov2024 2:49pmBMI (Body Mass Index)36.1 kg/w4Krjnefva2024 2:49pm Advance Directives Advance Directive Response Recorded Date/ Time Advance Directives No September 18 3:30pm Insurance Providers Guarantor Jessica Burkett Address [address] [place] [id number] Info.Home Phone: Payer Group Member ID Coverage Type Subscriber Relationship to Subscriber Effective Date Expiration Date MMO Retired Id: [id number] Ann Griffin Id: [id number] [address] [facility] [address] Home Phone: Email: noneSelfMedicare [id number] Tara Burkett Id: [id number] [address] [facility] [address] Home Phone: Email: noneSelf Encounters Encounter Location(s) Arrival/Admit Date Discharge/Departure Date Discharge/Departure Disposition Provider(s) Non-patient / Non-visit -[facility] December 21, 2024 12:02pm ELIDA Nicolaseparted Physician/Provider Office Visit-[facility] Family Medicine [facility]2024 10:23amSept2024 11:19amDischarged to home care or self care (routine discharge)Nadia Peacock NP-CDeparted Physician/[facility] 3:19pmSept2024 4:08pmDischarged to home care or self care (routine discharge)Elkin Nicolas-patient / Pil-cvkfm-[facility] January 25, 2025 4:34pmZOYA Cooper-CNon-patient / Non-visit- [facility] 2024 2:14pmIssac Michelle MD Departed Physician/Provider Office Visit-[facility] Family Medicine [facility] 2024 2:20pmNov2024 3:28pmDischarged to home care or self care (routine discharge)Nadia Peacock NP-C Recent Diagnosis Onset Date Admit Date Breast cancer screening declined Unknown December 29, 2024 10:23am CKD stage G4/A1, GFR 15-29 a nd albumin creatinine ratio <30 mg/g Unknown December 29, 2024 10:23am Colon cancer screening declined Unknown December 29, 2024 10:23am COPD mixed type Unknown December 29, 2024 10:23am Coronary artery disease Unknown 2024 10:23am Encounter for subsequent tara ual wellness visit (AWV) in Medicare patient Unknown December 29, 2024 1 0:23am Lung cancer screening declined by patient Unknow n December 29, 2024 10:23am Oncocytic neoplasm Unknown December 10:23am Systolic heart failure Unknown December 29, 2024 10:23am Hyperlipidemia Unknown December 29, 2024 10:23am Hypertension Unknown December 29, 2024 10:23am Anemia of renal disease Unknown 2024 3:19pm Chronic kidney disease, stage III (moderate) Unk nown December 29, 2024 3:19pm Hypertensive chronic kidney disease with stage 1 through stage 4 chronic ki Unknown December 29 3:19pm Hyperuricemia Unknown December 29, 2024 3:19pm Renal cancer Unknown December 29, 2024 3:19pm Secondary hyperparathyroidism Unknown Se pt2024 3:19pm Solitary kidney, acquired Unknown 2024 3:19pm CKD stage G4/A1, GFR 15-29 a nd albumin creatinine ratio <30 mg/g Unknown February 09, 2025 2:20pm COPD mixed type Unknown February 09 2:20pm Coronary artery disease Unknown February 09, 2025 2:20pm Systolic heart failure Unknown February 09, 2025 2:20pm Hyperlipidemia Unknown February 09 2:20pm Hypertension Unknown February 09 2:20pm Assessments Diagnosis Onset Date Resolution Status Admit Date Breast cancer screening declined acutept2024 10:23amCKD stage G4/A1, GFR 15-29 and albumin creatinine ratio <30 mg/gacuteSept2024 10:23amColon cancer screening declinedacutept2024 10:23amCOPD mixed typeacuteSept2024 10:23amCoronary artery diseaseacuteSept2024 10:23amEncounter for subsequent annual wellness visit (AWV) in Medicare patientacuteSept2024 10:23amLung cancer screening declined by patientacuteSept2024 10:23amOncocytic neoplasmacuteSeptember 2024 10:23amSystolic heart failureacuteSeptember 2024 10:23amHyperlipidemiachronicSeptember 2024 10:23amHypertensionchronicSeptember 2024 10:23amAnemia of renal diseaseacuteSeptember 2024 3:19pmChronic kidney disease, stage III (moderate)acuteSeptember 2024 3:19pmHypertensive chronic kidney disease with stage 1 through stage 4 chronic kiacuteSeptember 2024 3:19pm HyperuricemiaacuteSeptember 2024 3:19pmRenal canceracuteSeptember 2024 3:19pmSecondary hyperparathyroidismacuteSeptember 2024 3:19pmSolitary kidney, acquiredacuteSept2024 3:19pmCKD stage G4/A1, GFR 15-29 and albumin creatinine ratio <30 mg/gacuteNovember 2024 2:20pmCOPD mixed type acuteNovember 2024 2:20pmCoronary artery diseaseacuteNovember 2024 2:20pmSystolic heart failureacuteNovember 2024 2:20pmHyperlipidemiachronic November 2024 2:20pmHypertensionchronicNovember 2024 2:20pm Plan of Treatment Author Cedrick Muniz [facility] HospitalAuthoredSeptember 2024 8: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 She also have bilateral oophorectomy due to ovarian mass. Advised her to continue to follow up with Oncology for for surveillance.?Blood pressure is controlled and she appears to be euvolemic. Continue current medication She has secondary hyperparathyroidism but her calcium, Phosphorus and Vit D within the goal. Continue oral Vit D??.?? Her hemoglobin is within the goal and she has a low iron stores. She had EGD and colonoscopy in February 2022. Will Continue ferrous sulfate every other day. She has only left kidney due to the right nephrectomy She has hyperuricemia due to CKD but denies any recent gout flare. Will monitor without any medications. ??She has CKD due to HTN with baseline serum Creatinine 2.4-2.6 mg/dl. Her renal function has declined due to the nephrectomy. I have d/w her the importance of good HTN control to slow down the progression of her CKD. I explained to her possible need of COMPUTER SCIENCE PROFESSOR in the near future due to the progression of CKD. I discussed with her the different option of COMPUTER SCIENCE PROFESSOR including PD, HD and transplant. She would like to manage medically with NO dialysis. She has large hiatal hernia and would like to take omeprazole which she was taking before. I have advised that she can continue to take it with close monitoring of renal function. Author Nadia [facility] 2024 10:27amReviewed Ht/Wt/BMI Recommend eye exams yearly Recommend dental exam: twice a year Balance work/leisure activities exercise is recommended most days of the week (appropriate as chronic conditions allow) follow up yearly and prn Please check blood pressure daily and record DASH diet Limit caffeine Take medication as directed Contact office if chest pain, pressures, dizziness, shortness of breath, swelling in the legs Recommend slow position changes if you develop dizziness with position changes current meds: carvedilol, hydralazine on statin therapy check labs yearly and prn dose changes follows with [facility] Cardiology current meds: asa, b mallory, lasix, hydralazine, zetia, statin, enresto follows with dr Mukesh garces blood pressure, avoid nephrotoxic drugs whenever possibel trelegy: 100 lot [id number], exp 11/29 #3 refill albuterol hx of smoking in the past, consider PFT at fu in 6 weeks continue with [facility] continue with [facility] Author Nadia [facility] 2024 6:45amPlease check blood pressure daily and record DASH diet Limit caffeine Take medication as directed Contact office if chest pain, pressures, dizziness, shortness of breath, swelling in the legs Recommend slow position changes if you develop dizziness with position changes current meds: carvedilol, hydralazine, and entresto on statin therapy check labs yearly and prn dose changes follows with [facility] Cardiology, had appt this week, was in ER for worsening dyspnea, per cardiology notes going to have an updated ECHO as well as stress test current meds: asa, b mallory, lasix, hydralazine, zetia, statin, enresto follows with dr Mukesh control blood pressure, avoid nephrotoxic drugs whenever possibel last appt gave samples of trelegy: 100 lot [id number], exp 11/29 #3 refill albuterol she did have an ER visit a few weeks ago d/t dyspnea I have reviewed this note as well as cardiology note continue with [facility] had recent evaluation this week w cardiology d/t her dyspnea she is having an updated ECHO and Lexiscan as well Future Tests Future scheduled test information is unavailable Pending Tests Test Name Ordered Date Scheduled Date Renal Function Panel December 29, 2024 3:04pm 6 Months Future Visits Future appointment information is unavailable Future Procedures Procedure Name Ordered Date Scheduled Date Dipstick and Microscopic December 29, 2024 3: 04pm 6 Months Hemogram CBC Without Diff December 29, 2024 3 :04pm 6 Months Magnesium December 29, 2024 3:04pm 6 Mo nths Protein Creat Ratio Ur Random December 29 3:04pm 6 Months Parathyroid Hormone Intact December 29, 2024 3:04pm 6 Months Uric Acid December 29, 2024 3:04pm 6 Mo nths Vitamin D 25 Hydroxy Total December 29, 2024 3:04pm 6 Months Future Medications Future medication information is unavailable Patient Instructions Patient instructions are unavailable
--- OUTSIDE RECORDS SUMMARY | 2025-02-14 09:37 | XMS_ITS | Clinical Summary ---
Author Organization [facility] Address [address] [place] [address] Care Team Providers Care Register In Chancery Name Role Phone Nadia Peacock CNP Primary Care Provider [phone] Issac Helms MD Unavailable [phone] Allergies No known active allergies Medications MedicationSigDispense [...] (07/17/2022 2:53 PM EDT): Assessment: ischemic s/p CCO-D placement ( 2017) in [facility] for ischemic cardiomyopathy last device check 06/27/2022 (scanned into [facility]) Follows with cardiology Hansldesbyzjrl68/13/2023 Assessment & Plan (07/17/2022 2:54 PM EDT): Assessment: Per Dr. Issac Helms ([facility]) last visit 06/16/2022: Aspirin and warfarin can be held 5 days prior to the surgery and resumed afterwards Injury of jbaqim4906/05/2022Lack of zcybiqn4906/05/20225355Lmlnfwdwfceb59/02/2023leural /02/2023 Assessment & Plan (07/17/2022 2:50 PM EDT): Assessment: small bilateral on 06/13/2022 CT Chest Asymptomatic updated CXR Secondary dkwrtswilflzlnxmyhz70/02/2023 Assessment & Plan (07/17/2022 2:51 PM EDT): Assessment: last calcium level stable Vomiting and ivcgcsuv66/02/2023Hypotension due to vvphprrjmcy02/02/2023Iron deficiency rzpmpb1502/24/2022 Assessment & Plan (07/17/2022 2:52 PM EDT): Assessment: Hx iron infusion; last labs stable Stage 3 chronic kidney znefbuz3802/19/2022 Assessment & Plan (07/17/2022 2:51 PM EDT): Assessment: 06/07/2022 GFR 53 mL/min Creatinine Date Value Ref Range Status 06/07/2022 1.12 (H) 0.58 - 0.96 mg/dL Final 06/06/2022 1.58 (H) 0.58 - 0.96 mg/dL Final 06/05/2022 2.23 (H) 0.58 - 0.96 mg/dL Final Monitored by Nephrology Q 6 months Systolic heart hlseiso9812/10/2017 Assessment & Plan (07/17/2022 2:49 PM EDT): Assessment: due to ischemic cardiomyopathy, per 06/04/2022 ECHO CONCLUSION: 1. Left ventricle exhibits global hypokinesis with dyssynchronous contraction and abnormal septal motion. Systolic function is severely reduced. LVEF is estimated at 25%. Right ventricle appears to be normal in size Follows with Dr. Issac Helms ([facility]) last visit 06/16/2022 Pacer-ICD, ENTRESTO, diuretic Atrial /07/2018 Assessment & Plan (07/17/2022 2:49 PM EDT): Assessment: anticoagulated with warfarin Monitored by Cardiology Qfnmemehp59/24/2018Coronary xvngplawndmbxml20/23/2018 Assessment & Plan (07/17/2022 2:48 PM EDT): Assessment: s/p CBAG 09/[address] Issac Helms ([facility]) last visit 06/16/2022 Asymptomatic Tobacco dependence ftefhkva27/14/2018Cardiomyopathy, /14/2018 Assessment & Plan (07/17/2022 2:53 PM EDT): Assessment: ischemic s/p CCO-D placement ( 2017) in [facility] for ischemic cardiomyopathy last device check 06/27/2022 (scanned into [employer]) Follows with cardiology Gjvupocxmnbsqv80/09/2018 Assessment & Plan (07/17/2022 2:48 PM EDT): Assessment: Managed with Statin Peripheral vascular evvkfss9908/12/2017 Encounters DateTypeDepartmentCare MktuRoutjvpszgl20/17/2025 2:30 PM EDTVisit (SP) Office Hematology [address] [place], [place] [id number] Earnest Joyce MD Renal oncocytoma of left kidney (Primary Dx)01/20/20257570Oogkjt04/13/2025 Patient Msg Hematology/Oncology [address] [place] [address] Kendall Clarke MD Appointment Btiwgti3301/16/2025 Get Medical Advice Hematology [address] [place], [place] [address] Earnest Joyce MD Change in tumor and or cyst size on latest CT scan01/11/2025 2:20 PM EDTVisit (SP) Office Hematology/Oncology [address] [place] [address] Kendall Clarke MD Renal oncocytoma of left kidney (Primary Dx)01/06/2025 [place] [address] Provider, Ccf Actionable Imaging Result Notification Patient Nvaiaswi85/01/2025 1:12 PM EDT - 01/04/2025 11:59 PM EDTHospital Encounter Radiology Pet CT [address] [place] [address] Renal cell carcinoma of right kidney (HCC) [C64.1] Discharge Disposition: Home01/03/20258308Xgseio88/19/2025 11:30 AM EDTOffice Visit Urology [address] [address] J[place] Laguerre MD Left renal mass (Primary Dx); Screening for genitourinary /19/2025Patient Outreach Urology [address] [place] [address] Jerson Laguerre MD 11/14/2024 2:00 PM EDTVisit (SP) Office Hematology/Oncology [address] [place] [address] [place] [address] Kendall Clarke MD Renal oncocytoma of left kidney (Primary Dx)11/14/2024Travelfrom Last 3 Months Immunizations ImmunizationAdministration DatesNext DueCOVID-19 original vaccine, age 12+ yr, monovalent ([employer] - 1SDK)03/19/2021OVID-19 vaccine (KIMMIE) 06/11/2020 Family History Medical HistoryRelationCommentsPancreatic CancerBrother 1Pancreatic Cancer Brother 2CancerFatherbladderHeart diseaseFatherNo Known ProblemsMaternal GrandfatherDiabetesMaternal GrandmotherHeart diseaseMaternal GrandmotherHeart diseaseMotherLiver TransplantMotherHeart diseasePaternal GrandmotherHeart diseaseSister 1CancerSister 2soft tissueRelationStatusCommentsBrother 1Alive Brother 2DeceasedFatherMaternal GrandfatherMaternal GrandmotherMotherPaternal GrandmotherSister 1Sister 2Deceased Social History Tobacco UseTypesPacks/DayYears UsedDateSmoking Tobacco: CpzkonRewmyxczly0061552 - 2017Smokeless Tobacco: Never Tobacco Cessation:Counseling Given: Not Answered Alcohol UseStandard Drinks/WeekCommentsNever0 (1 standard drink = 0.6 oz pure alcohol)Overall Financial Resource Strain (CARDIA)AnswerDate RecordedHow hard is it for you to pay for the very basics like food, housing, medical care, and heating?Patient pbxajnga59/08/2023HQ-2AnswerDate RecordedPHQ-2 Hunger Vital SignAnswerDate RecordedWithin the past 12 months, you worried that your food would run out before you got the money to buymore.Patient declined 08/11/2022Within the past 12 months, the food you bought just didn't last and you didn't have money to get more.Patient oonlwgki89/08/2023RAPARE - TransportationAnswerDate RecordedIn the past 12 months, has lack of transportation kept you from medical appointments or from getting medications? Patient /08/2023In the past 12 months, has lack of transportation kept you from meetings, work, or from getting things needed for daily living?Patient axnnxpoy93/08/2023Housing Stability Vital SignAnswerDate RecordedIn the last 12 months, was there a time when you were not able to pay the mortgage or rent on time?Patient egqqost6108/11/2022Number of Places Lived in the Last YearNot on file 08/11/2022In the last 12 months, was there a time when you did not have a steady place to sleep or slept in ashelter (including now)?Patient jtzdpqv5708/11/2022 Area Deprivation IndexAnswerDate RecordedNational Score (1-100), lower number is lower untn150908/20/2022State Score (1-10), lower number is lower chzw154 Data from: https://www.neighborhoodatlas.medicine.[facility]/. Last address used for [address]/20/2022CommentsNoSex and Gender InformationValueDate RecordedSex Assigned at BirthNot on fileLegal SexFemale 03/07/2012 9:35 AM ESTGender IdentityNot on fileSexual OrientationNot on file Last Filed Vital Signs Vital SignReadingTime TakenCommentsBlood Aewtxkei013/5201/20/2025 2:48 PM EDT Gaswv077901/20/2025 2:48 PM YEHLvdiekewabh55.7 ??C (98.1 ??F)01/20/2025 2:48 PM EDTRespiratory Lonk4319 2:23 PM EDTOxygen Epkfkqfqkg62%01/20/2025 2:48 PM EDTInhaled Oxygen Concentration--Daloro60.5 kg (206 lb 2.1 oz)01/20/2025 2:48 PM JRCTnpupy255.8 cm (5' 2.52 )06/15/2023 2:48 PM EDTBody Mass Index37.08 06/15/2023 2:48 PM EDT Plan of Treatment DateTypeDepartmentCare Team (Latest Contact Info)Bjxhplwmpzf88/05/2026 1:45 PM ESTAppointment Radiology Pet CT [address] [place] [address] [place] [address] CT Abd / [facility] MaintenanceDue DateLast DoneCommentsAnnual PCP Team Chronic Disease Visit1968Anxiety Qzangjxad19/09/1969Depression Xugynspbx25/09/1969 Hepatitis C Gxccpkiqo80/09/1969LDL Dgmxsavqspk48/09/1969DTaP,Tdap,Td Vaccine (1 - Tdap)1969Mammogram Hsdcxrjjm93/09/1991CT Csedgtseebeu19/09/1996Cologuard (FIT-DNA)09/13/19950589Eydnlaeoytp31/09/1996Colorectal Cancer Sdofdyzlg07/09/1996 Fecal Occult Blood09/13/1995Lipid Srxkovtaq07/09/1427Wppwoxovfzust67/09/1996 Pneumococcal Vaccine: 50+ (1 of 1 - PCV)2000Shingrix Vaccine (1 of 2) 2000Medicare Annual Wellness Visit09/05/2015Bone Density Screening 09/13/2015Advance Directive Lipjrsatge37/01/2025ovid-19 Vaccine ( season)/, 06/11/2020Influenza Vaccine (#1)2024Serum Jupyauusel41/24/29879312/29/2023, 06/15/2023, 12/17/2022, Additional history existsRSV Vaccine (1 - 1-dose 75+ series)2025Hemoglobin/Hematocrit /10/2024, 10/10/2024, 12/29/2023, Additional history existsLung Cancer Dgbgmtbug20, 06/28/2024, 06/28/2024, Additional history existsDiabetes Wvvcawanz35, 06/15/2023, 12/17/2022, Additional history exists Medical Devices ImplantedTypeAreaManufacturerDevice IdentifierShelf Expiration DateModel / Serial / LotPacemakerPacemakerLeft: Chest Wall Procedures Procedure NamePriorityDate/TimeAssociated DiagnosisCommentsCT ABD/PEL WO IVCON Guguqxx7201/04/2025 2:01 PM EDT Renal cell carcinoma of right kidney (HCC) Small lymphocytic lymphoma (HCC) CT CHEST WO GQKNJNsjahdy61/01/2025 2:01 PM EDT Renal cell carcinoma of right kidney (HCC) Small lymphocytic lymphoma (HCC) UA DIP, URINE (POC)Pfjqhhu5811/22/2024 11:51 AM EDT Screening for genitourinary condition COMPLETE BLOOD GSSCZEHUG78/07/2025 12:09 PM EDT Left renal mass COMPREHENSIVE METABOLIC XHDKSEdermvp70/24/2024 1:12 PM EDT Renal cell carcinoma of [...] any questions regarding this interpretation, please call [phone]. If you are unable to reach us at the number above, please feel free to contact [facility] at [phone]. Narrative 01/05/2025 9:42 AM EDT * * [...] images: No additional findings. Procedure Note Provider, [facility] - 01/05/2025 * * *Final Report* * * DATE OF EXAM: Jan 04 2025 2:01PM [facility] 0541 - CT CHEST WO IVCON / [...] any questions regarding this interpretation, please call [phone]. If you are unable to reach us at the number above, please feel free to contact [facility] at [phone]. Authorizing ProviderResult TypeResult StatusAdarsh Vennepureddy MDCT-PAMAFinal Result [...] be communicated with the ordering provider via [employer] staff message or phone message by Imaging Support Services within 2 business days of report finalization. --END OF FINDING-- Algorithms for management of incidental imaging findings can be found on the [facility] Intranet Sharepoint site at: http://spo.cc.org/documentation/mychartlinks/Managing%20Incidental%20Findi ngs%20at%20Imaging/Forms/AllItems.aspx Transcribe Date/Time: Jan ??2 2024 ??7:53A Dictated by: SHEREEN CLARK MD This examination was interpreted and the report reviewed and electronically signed by: SHEREEN CLARK MD on Jan ??2024 ??8:32AM ??EST Thank you for allowing us to participate in the care of your patient. Should there be any questions regarding this interpretation, please call [phone]. If you are unable to reach us at the number above, please feel free to contact [facility] at [phone]. Narrative 01/05/2025 8:34 AM EDT * * [...] images: No additional findings. Procedure Note Provider, [facility] [place] - 01/05/2025 * * *Final Report* * * DATE OF EXAM: Jan 04 2025 2:01PM [facility] 0531 - CT ABD/PEL WO IVCON / [...] be communicated with the ordering provider via [employer] staff message or phone message by Imaging Support Services within 2 business days of report finalization. --END OF FINDING-- Algorithms for management of incidental imaging findings can be found on the [facility] Intranet Sharepoint site at: http://spo.cc.org/documentation/mychartlinks/Managing%20Incidental%20Findi ngs%20at%20Imaging/Forms/AllItems.aspx Transcribe Date/Time: Jan 05 2025 7:53A Dictated by: SHEREEN CLARK MD This examination was interpreted and the report reviewed and electronically signed by: SHEREEN CLARK MD on Jan 05 2025 8:32AM EST Thank you for allowing us to participate in the care of your patient. Should there be any questions regarding this interpretation, please call [phone]. If you are unable to reach us at the number above, please feel free to contact [facility] at [phone]. Authorizing ProviderResult TypeResult StatusAdarsh Vennepureddy MDCT-PAMAFinal Result * (ABNORMAL) UA DIP, URINE (POC) (11/22/2024 11:51 AM EDT)ComponentValueRef RangeTest MethodAnalysis TimePerformed AtPathologist SignatureGLUCOSE UA (POCT)NegativeNegative mg/dLPeoples HospitalBILIRUBIN UA (POCT)Negative NegativePeoples HospitalKETONE UA (POCT)NegativeNegative mg/dLPeoples Hospital SPECIFIC GRAVITY UA (POCT)1.0201.005 - 1.030Pe[facility] HospitalHEMOGLOBIN/BLOOD UA (POCT)NegativeNegativePeoples HospitalPH UA (POCT)5.54.5 - 8.0Peoples HospitalPROTEIN UA (POCT)100(A)Negative mg/dLPeoples HospitalUROBILINOGEN UA (POCT)1.0Normal E.U./dLPeoples HospitalNITRITE UA (POCT)NegativeNegative Peoples HospitalLEUKOCYTES UA (POCT)Trace(A)NegativePeoples HospitalCOLOR UA (POCT)Dark yellowPeoples HospitalCLARITY UA (POCT)Slightly CloudDetwiler Memorial Hospitalpecimen (Source)Anatomical Location / LateralityCollection Method / VolumeCollection TimeReceived TimeUrine specimen (specimen)URINE SPECIMEN / Nqkvscg2411/22/2024 11:51 AM EDT Narrative [facility] POINT OF CARE - 11/22/2024 11:51 AM EDT Location:[facility], [address] [place] [address], [facility] Authorizing ProviderResult TypeResult StatusVenblack Laguerre MDPOC TESTINGFinal ResultPerforming OrganizationAddressCity/State/ZIP CodePhone Number [facility] POINT OF CARE [facility] [address] [place], [place] * (ABNORMAL) COMPLETE BLOOD COUNT (10/10/2024 12:09 PM EDT)ComponentValueRef RangeTest MethodAnalysis TimePerformed AtPathologist SignatureWBC5.203.70 - 11.00 k/uL10/10/2024 12:12 PM EDTNORTUNIVERSITY OF MICHIGAN [facility]ALTH LABRBC4.90 3.90 - 5.20 m/uL10/10/2024 12:12 PM EDTMON[facility] Ebydzvwons02.011.5 - 15.5 g/dL10/10/2024 12:12 PM [facility] LMODarxcdsiiu64.336.0 - 46.0 %10/10/2024 12:12 PM [facility] XREDIO24.480.0 - 100.0 fL10/10/2024 12:12 PM EDT [facility] WBXHBC52.626.0 - 34.0 pg10/10/2024 12:12 PM [facility] PMAWMWB57.330.5 - 36.0 g/dL10/10/2024 12:12 PM EDTMONTGOMERY [facility] LABRDW-CV14.911.5 - 15.0 % 10/10/2024 12:12 PM EDTMONTG[facility] LABPlatelet Mvwbp437 150 - 400 k/uL10/10/2024 12:12 PM EDTMONTG[facility] LABMPV 8.9(L)9.0 - 12.7 fL10/10/2024 12:12 PM [facility] LABAbsolute nRBC<0.01<0.01 k/uL10/10/2024 12:12 PM EDTNORTHCOAST [facility] LABSpecimen (Source)Anatomical Location / LateralityCollection Method / VolumeCollection TimeReceived TimeBloodBLOOD SPECIMEN / Unknown Venipuncture / Jvrztdf6710/10/2024 12:09 PM EDT10/10/2024 12:09 PM EDT Narrative Authorizing ProviderResult TypeResult StatusChristopher P Coppa MDLABORATORY Final ResultPerforming OrganizationAddressCity/State/ZIP CodePhone Number [facility] [address] [place] [address] * (ABNORMAL) COMP METABOLIC PANEL (12/29/2023 1:12 PM EDT)ComponentValueRef RangeTest MethodAnalysis TimePerformed AtPathologist SignatureProtein, Total 7.26.3 - 8.0 g/dL12/29/2023 1:56 PM [facility] Albumin4.33.9 - 4.9 g/dL12/29/2023 1:56 PM [facility] LABCalcium, Total9.58.5 - 10.2 mg/dL12/29/2023 1:56 PM [facility] LABBilirubin, Total0.30.2 - 1.3 mg/dL12/29/2023 1:56 PM [facility] LABAlkaline Zpsmxioywvl89776 - 123 U/L 12/29/2023 1:56 PM [facility] CTPZOW9588 - 35 U/L 12/29/2023 1:56 PM EDTMONTG[facility]ERY [facility] ANJCDS557 - 38 U/L 12/29/2023 1:56 PM [facility] RSHZdinljn749(H)74 - 99 mg/dL12/29/2023 1:56 PM [facility] LABComment: The [place] Diabetes Association (ADA) provides guidance for cutoff [...] Standards of Medical Care in Diabetes 2016, [place] Diabetes Association. Diabetes Care. 2016.39(Suppl 1). BUN28(H)7 - 21 mg/dL12/29/2023 1:56 PM [facility] Creatinine2.10(H)0.58 - 0.96 mg/dL12/29/2023 1:56 PM [facility] RTKGckjeg920725 - 144 mmol/L12/29/2023 1:56 PM [facility] LABPotassium4.03.7 - 5.1 mmol/L12/29/2023 1:56 PM EDT [facility] LNXWhftuntx64227 - 107 mmol/L12/29/2023 1:56 PM [facility] JJJNY93321 - 30 mmol/L12/29/2023 1:56 PM [facility] LABAnion Whj224 - 15 mmol/L12/29/2023 1:56 PM [facility] LABEstimated Glomerular Filtration Rate 24(L)>=60 mL/min/1.73m 12/29/2023 1:56 PM [facility] LABComment:Estimated Glomerular Filtration Rate (eGFR) [...] VolumeCollection TimeReceived TimeBloodBLOOD SPECIMEN / UnknownVenipuncture / Hglsyim0012/29/2023 1:12 PM EDT12/29/2023 1:12 PM EDT Narrative Authorizing ProviderResult TypeResult StatusBekah KENNY-CLABORATORYFinal ResultPerforming OrganizationAddressCity/State/ZIP CodePhone Number [facility] [address] [place] [address] from Last 3 Months or Most Recently Relevant to Health Maintenance Insurance Advance Directives TypeDate RecordedPatient RepresentativeExplanationAdvance Directive(s)06/05/2022 7:58 AM * DNR-CCA (Latest Code Status on File) Date ActivatedDate InactivatedComments06/05/2022 4:13 PM06/07/2022 3:47 PMQuestion AnswerCommentsDNR Order Discussed With:* Patient Care Teams Team MemberRelationshipSpecialtyStart DateEnd Date Nadia Peacock, HOUSE WORKER [facility] [place] [address] PCP - GeneralFamily Medicine06/04/22 Issac Helms MD [address] [facility] [phone] Cardiology07/15/22
--- OUTSIDE RECORDS SUMMARY | 2025-02-14 09:37 | XMS_ITS | Encounter Summary ---
Author Organization [facility] Address [address] [place] [address] Care Team Providers Care Scanning Supervisor Name Role Phone Nadia Peacock PAPER SAMPLE CLERK Unavailable [phone] Mychal Bowie MD Primary Care Provider Nadia Peacock PAPER SAMPLE CLERK Unavailable [phone] Nadia Peacock PAPER SAMPLE CLERK Unavailable [phone] Kemal Biswas MA Unavailable [phone] Encounter Details DateTypeDepartmentCare Team (Latest Contact Info)Kxojqofkvat04/17/2024Clinisync Result Encounter [facility] External Department Unsolicited Provider, Generic External Data Social History Tobacco UseTypesPacks/DayYears UsedDateSmoking Tobacco: FormerCigarettesQuit: 10/2017Smokeless Tobacco: NeverAlcohol UseStandard Drinks/WeekCommentsNever0 (1 standard drink = 0.6 oz pure alcohol)caffeine more than 4 cups per dayPHQ-2 AnswerDate RecordedPatient Health Questionnaire-2 Zfomu0274 CommentsUnknownSex and Gender InformationValueDate RecordedSex Assigned at Not on fileLegal AajJtgyec95/15/2023 8:26 PM EDTGender IdentityNot on fileSexual OrientationNot on filedocumented as of this encounter Plan of Treatment Not on file documented as of this encounter Procedures Procedure NamePriorityDate/TimeAssociated DiagnosisCommentsCT CHEST WO IV TUIWCFNU59/17/2024 1:48 PM EDT documented in this encounter [...] was performed concurrently and is dictated separately. Jalousies Installer (topogram) images: Unremarkable. IMPRESSION: No metastatic disease [...] any questions regarding this interpretation, please call [phone]. If you are unable to reach us at the number above, please feel free to contact [facility] at [phone]. [id number]^AGFA_IDC^SI^ACN Procedure Note Radiology, Radiologist, - 12/22/2023 * * *Final Report* * * DATE OF EXAM: Dec 22 2023 1:48PM [facility] 0541 - CT CHEST WO [...] was performed concurrently and is dictated separately. Jalousies Installer (topogram) images: Unremarkable. IMPRESSION: No metastatic disease [...] any questions regarding this interpretation, please call [phone]. If you are unable to reach us at the number above, please feel free to contact [facility] at [phone]. [id number]^AGFA_IDC^SI^ACN Authorizing ProviderResult TypeResult StatusGeneric External Data ProviderIMG CT PROCEDURESFinal Result documented in this encounter Visit Diagnoses Not on filedocumented in this encounter Additional Health Concerns AssessmentNoted TimePHQ-9 Depression Total Score: 108 11:07 AM EDT documented as of this encounter Care Teams Team MemberRelationshipSpecialtyStart DateEnd Date Mychal Bowie MD PCP - GeneralFamily Medicine05/20/23 Nadia Peacock NP [address] [place] [address] PCP - ACO Reach05/13/24 Nadia Peacock NP Nurse PractitionerFamily Medicine12/05/22 Nadia Peacock NP Nurse PractitionerFamily Medicine05/20/23 Kemal Biswas, MA [address] [place] [address] Family Medicine08/31//08/28documented as of this encounter
--- OUTSIDE RECORDS SUMMARY | 2025-02-14 09:37 | XMS_ITS | Encounter Summary ---
Author Organization [facility] Address [address] [place] [address] Care Team Providers Care Cocoa Butter Filter Operator Name Role Phone Nadia Peacock NP Unavailable [phone] Mychal Bowie MD Primary Care Provider Nadia Peacock CABLE TESTER Unavailable [phone] Nadia Peacock CABLE TESTER Unavailable [phone] Kemal Biswas MA Unavailable [phone] Encounter Details DateTypeDepartmentCare Team (Latest Contact Info)Wnidtljihjv41/28/2024Clinisync Result Encounter [facility] External Department Unsolicited Provider, Generic External Data Social History Tobacco UseTypesPacks/DayYears UsedDateSmoking Tobacco: FormerCigarettesQuit: 10/2017Smokeless Tobacco: NeverAlcohol UseStandard Drinks/WeekCommentsNever0 (1 standard drink = 0.6 oz pure alcohol)caffeine more than 4 cups per dayPHQ-2 AnswerDate RecordedPatient Health Questionnaire-2 [id number] CommentsUnknownSex and Gender InformationValueDate RecordedSex Assigned at Not on fileLegal DkhGnoeyk39/15/2023 8:26 PM EDTGender IdentityNot on fileSexual OrientationNot on filedocumented as of this encounter Plan of Treatment Not on file documented as of this encounter Procedures Procedure NamePriorityDate/TimeAssociated DiagnosisCommentsCA ECHO DOPPLER BWGNKWTX29/28/2024 3:05 PM EST documented in this encounter Results * CA ECHO DOPPLER COMPLETE (03/03/2024 3:05 PM EST)Anatomical RegionLaterality ModalityOtherSpecimen (Source)Anatomical Location / LateralityCollection Method / VolumeCollection TimeReceived Time03/03/2024 3:05 PM EST Narrative 03/03/2024 3:07 PM EST [facility] ?[address] ? [place] [address] ? Cardiology Report ? Signed ? Patient: THADDEUS BURKETT ?MR#: [id number] ?? : 1950 ?Acct:[id number] ?? Age/Sex: 73 / F ?ADM Date: 03/02/24 ?? Loc: CARD ? Attending Dr: DARIANA HELMS ? Ordering Physician: DARIANA HELMS ?? Date of Service: 03/02/24 ?? Procedure(s): CA echo doppler complete ?? Accession Number(s): [id number] ? cc: Nadia Peacock NP; DARIANA HELMS ? Patient Name: ? THADDEUS BURKETT ? MR#: [id number] ? : 1950 ? Exam Date: 03/02/2024 [...] ? DD/DT: 03/03/ 1505 ? TD/TT: ? Access Clinician: Procedure Note Radiology, Radiologist, - 03/03/2024 [place] [address] Cardiology Report Signed Patient: THADDEUS BURKETT AMR#: [id number] : 1950cct:[id number] Age/Sex: 73 / FADM Date: 03/02/24 Loc: CARD Attending Dr: DARIANA HELMS Ordering Physician: DARIANA HELMS Date of Service: 03/02/24 Procedure(s): CA echo doppler complete Accession Number(s): [id number] cc: Nadia Peacock NP; DARIANA HELMS Patient Name: THADDEUS BURKETT MR#: [id number] : 1950 Exam Date: 03/02/2024 Ordering Doctor: [...] HELMS Signed By:03/03/24 1507 DD/ 1505 TD/TT: Access Clinician: Authorizing ProviderResult TypeResult StatusGeneric External Data Provider CLINISYNC IMAGINGFinal Result documented in this encounter Visit Diagnoses Not on filedocumented in this encounter Additional Health Concerns AssessmentNoted TimePQ-9 Depression Total Score: 11:07 AM EDT documented as of this encounter Care Teams Team MemberRelationshipSpecialtyStart DateEnd Date Mychal Bowie MD PCP - GeneralFamily Medicine05/20/23 Nadia Peacock NP [address] [place] [address] PCP - ACO Reach05/13/24 Nadia Peacock NP Nurse PractitionerFamily Medicine12/05/22 Nadia Peacock NP Nurse PractitionerFamily Medicine05/20/23 Kemal Biswas MA [address] [place] [address] Family Medicine08/31/documented as of this encounter
--- OUTSIDE RECORDS SUMMARY | 2025-02-14 09:37 | XMS_ITS ---
Author Organization [facility] Address [address] [place] [address] Care Team Providers Care Project Management Professor Name Role Phone Nadia Peacock MD Primary Care Provider [phone] Active Problems ProblemNoted DateDiagnosed DateCOPD mixed type02/02/2025Lung cancer screening declined by wpghrfu1702/02/2025Morbid (severe) obesity with alveolar mvgetztaqdahjao51/30/2025Oncocytic lqpvudtl69/30/2025Procedure and treatment not carried out because of patient's decision for unspecified hibywfj5702/02/2025 Centrilobular rwgppkyjp51/20/2025RSV wjjqalxrs00/11/2024cute cough03/15/2024 Jtgjadiywb88/02/2024KI (acute kidney injury)02/24/2024Encounter for prophylactic measures, coolllphtas77/20/2024Generalized nvgnhgih97/20/2024 Impaired gait and wlbniywx44/20/2024Lesion of liver less than 1 cm in diameter 02/24/2024Mass of uterine wpeqmh5004/25/2023UTI (urinary tract infection) 02/24/20243027Jqcawbefgmrie98/20/2024Immunodeficiency due to conditions classified kkmogazlk31/20/2024Morbid (severe) obesity due to excess dufawprc01/20/2024Other ejtvkblotdjim52/20/2024DD (degenerative disc disease), fnajrd2008/20/2023Major depressive disorder, single episode, /14/2024Malignant neoplasm of right kidney, except renal qettri5005/20/2023Thyroglossal duct cyst05/20/2023hest /04/2024andidiasis, unwacrjis35/04/2023hronic lymphocytic leukemia 03/09/2023losed fracture of one rib of left side with routine dkvwgqo3603/09/2023 COVID-19105/10/2022epressive zkqugera67/04/2023astroesophageal reflux disease 03/09/2023Heart fzhdfj1405/10/20225592Xhxhurwrjqg13/04/2023Ischemic myocardial xjwewkvzple41/04/2023Thyroid wwvnap5603/09/2023S/P CABG (coronary artery bypass graft)08/10/2022Renal mass08/07/2022Obesity, Class II, BMI 35-39.9008/07/2022 Biventricular ICD (implantable cardioverter-defibrillator) in place07/17/2022 Overview (08/29/2022): Last Assessment & Plan: Assessment: ischemic s/p PROJECT ARCHIVIST-D placement ( 2017) in [place] for ischemic cardiomyopathy last device check 06/27/2022 (scanned into [employer]) Follows with cardiology Wkqldhnqxzvfqu18/13/2023 Overview (08/29/2022): Last Assessment & Plan: Assessment: Per Dr. Issac Helms ([place] [facility]) last visit 06/16/2022: Aspirin and warfarin can be held 5 days prior to the surgery and resumed afterwards Injury of dvxbqe3506/05/2022Lack of cgrismc5606/05/20227521Zxtcbquvelyh58/02/2023leural mzhpkfyh57/02/2023Secondary ktabbbkttsomenwsjqn50/02/2023Vomiting and diarrhea 06/05/2022Hypotension due to xygqjzwgilk59/02/2023Iron deficiency anemia 02/24/2022tage 3 chronic kidney ychyacx5702/19/2022wollen wrxymzb2607/28/2018 Systolic heart mqvezpa2712/10/2017Atrial wuutcsrrpgww28/07/2789Rmlnfvlfn83/24/2018 Coronary lzpkullulzmkrdu96/23/2018Coronary sdgxvteipzkliuid01/23/2018 Cardiomyopathy, tcilgxezgqz57/14/2018Tobacco dependence hpmvugge13/14/2018 Vgqmymlckwzbdw47/09/2018Peripheral vascular qegdvjz4708/12/2017Hypertensive kbswfzbo63/09/2018 Current Treatment and Therapy Plans No current plan information found. Past Treatment and Therapy Plans No past plan information found. Lifetime Dose Tracking * ChemicalLifetime DoseAutomatic EntryManual EntryFluoro Time15 minutes0 minutes 15 minutesAir Kerma69 mGy0 mGy69 mGyDose Area Product7,420 mGy-cm20 mGy-cm2 7,420 mGy-cm2
--- OUTSIDE RECORDS SUMMARY | 2025-02-14 09:37 | XMS_ITS | Clinical Summary ---
Author Organization [facility] Address [address] [place] [address] Care Team Providers Care Intermediate Project Manager Name Role Phone Nadia Peacock MD Primary Care Provider [phone] Allergies Active AllergyReactionsCriticalityNoted IjzdDbhhequwQlduicjlavle86/25/2023 myalgias Medications MedicationSigDispense QuantityRefillsLast FilledStart DateEnd DateStatus aspirin 81 mg chewable tablet Chew 1 tablet every day by oral route.Active sacubitriL-valsartan (Entresto) 49-51 mg tablet Indications:Acute on chronic systolic heart failure (CMS/HCC)Take 1 tablet by mouth in the morning and at bedtime. 14 tablet 05/28/2022ctive warfarin (Coumadin) 5 mg tablet TAKE 1 TABLET BY MOUTH ONCE DAILY DIRECTED BY COUMADIN YAJHIS0112/04/2021ctive omeprazole (PriLOSEC) [address] capsule Take 40 mg by mouth in the morning.08/16/2022ctive ferrous sulfate 325 (65 Fe) MG tablet Take 325 mg by mouth 2 (two) times a week.06/12/2023ctive hydrALAZINE (Apresoline) 25 mg tablet Indications:Acute on chronic systolic heart failure (CMS/HCC)TAKE 1 TABLET IN THE MORNING AND AT BEDTIME 180 tablet 5Active rosuvastatin (Crestor) 10 mg tablet Indications:Hyperlipidemia, unspecified hyperlipidemia type,Coronary artery disease without angina pectoris, unspecified vessel or lesion type, unspecified whether assiniboine and sioux or transplanted heartTAKE 1 TABLET AT BEDTIME (THIS IS REPLACING ATORVASTATIN) 90 tablet 5Active carvedilol (Coreg) 25 mg tablet Indications:Essential hypertensionTAKE 1 TABLET IN THE MORNING AND AT BEDTIME 180 tablet 5Active ezetimibe (Zetia) 10 mg tablet Indications:Hyperlipidemia, unspecified hyperlipidemia type,Coronary artery disease without angina pectoris, unspecified vessel or lesion type, unspecified whether assiniboine and sioux or transplanted heartTake 1 tablet (10 mg) by mouth once daily as directed. 90 tablet 308/6Active albuterol 90 mcg/actuation inhaler Inhale 2 puffs if needed.5Active furosemide (Lasix) 40 mg tablet Indications:Chronic systolic congestive heart failure (CMS/HCC)Take 1 tablet (40 mg) by mouth in the morning. 90 tablet /6Active furosemide (Lasix) 20 mg tablet Take 20 mg by mouth in the morning. Taking when hzpsai30 Discontinued(Dose adjustment) Active Problems ProblemNoted DateDiagnosed DateCOPD mixed type02/02/2025Lung cancer screening declined by zgptjkt5502/02/2025Morbid (severe) obesity with alveolar ltdrerphujvtjdf67/30/2025Oncocytic bccioktf67/30/2025Procedure and treatment not carried out because of patient's decision for unspecified iutsdvm1502/02/2025 Centrilobular sigoqzvxh32/20/2025RSV ymhsxpjzv08/11/2024cute cough03/15/2024 Pubowtvdjr88/02/2024KI (acute kidney injury)02/24/2024Encounter for prophylactic measures, dthmdydozou41/20/2024Generalized glzluwvb78/20/2024 Impaired gait and jwirnofo80/20/2024Lesion of liver less than 1 cm in diameter 02/24/2024Mass of uterine mtrsrj3304/25/2023UTI (urinary tract infection) 02/24/20247896Ipflplqneewfo07/20/2024Immunodeficiency due to conditions classified minemekrc16/20/2024Morbid (severe) obesity due to excess bxozmbqt85/20/2024Other abcmrhsufpiqi13/20/2024DD (degenerative disc disease), kofpik6808/20/2023Major depressive disorder, single episode, fedslzhf95/14/2024Malignant neoplasm of right kidney, except renal rekivx0305/20/2023Thyroglossal duct cyst05/20/2023hest gniuchskhf86/04/2024andidiasis, kpkmputet13/04/2023hronic lymphocytic leukemia 03/09/2023losed fracture of one rib of left side with routine qovchhq3903/09/2023 COVID-19105/10/2022epressive giaaeplw65/04/2023astroesophageal reflux disease 03/09/2023Heart kckqvr5905/10/20226007Ptzrmdfyeqp93/04/2023Ischemic myocardial hlwvdqmvooz90/04/2023Thyroid thwbic0803/09/2023S/P CABG (coronary artery bypass graft)08/10/2022Renal mass08/07/2022Obesity, Class II, BMI 35-39.9008/07/2022 Biventricular ICD (implantable cardioverter-defibrillator) in place07/17/2022 Overview (08/29/2022): Last Assessment & Plan: Assessment: 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 Issac Helms ([place] [facility]) last visit 06/16/2022: Aspirin and warfarin can be held 5 days prior to the surgery and resumed afterwards Injury of dcvvws7806/05/2022Lack of ahwnexd0906/05/20227455Rqotnqiwicki60/02/2023leural hfyjdfrm72/02/2023Secondary celnljjrsbkppujtynf11/02/2023Vomiting and diarrhea 06/05/2022Hypotension due to ryoukigaoab26/02/2023Iron deficiency anemia 02/24/2022tage 3 chronic kidney fdgstyu1602/19/2022wollen iazuirv8507/28/2018 Systolic heart vzdqnnz5812/10/2017Atrial dzcjfonmyxbt47/07/3657Bppzzxvkc21/24/2018 Coronary bngjozkreycvjgm81/23/2018Coronary vhxgexsckblirthn14/23/2018 Cardiomyopathy, frrbkhwtqiz13/14/2018Tobacco dependence wpdwpkug98/14/2018 Kcpcssxbwrlkni53/09/2018Peripheral vascular ipxkfqr2508/12/2017Hypertensive phrmxxoa10/09/2018 Encounters DateTypeDepartmentCare LupoNdbhfiqncho47/07/2025Refill [address] [address] Issac Helms MD 02/06/2025 1:00 PM ESTOffice Visit [address] [address] Issac Helms MD Chronic systolic congestive heart failure (CMS/HCC) (Primary Dx); Shortness of breath; Coronary artery disease involving assiniboine and sioux coronary artery of assiniboine and sioux heart without angina pectoris; Hx of CABG; LBBB (left bundle branch block); Paroxysmal atrial fibrillation (CMS/HCC); Cardiac resynchronization therapy defibrillator (WREATH MACHINE TENDER-D) in place01/16/2025 9:05 AM EDTAncillary Procedure [facility] [address] [place] [phone] Pre-operative cardiovascular examination, ICD in place01/14/2025Orders Only [facility] [address] [place] [phone] Dominguez Shaver MD 12/21/2024 11:00 AM EDTAncillary Procedure [address] [address] Encounter for implantable defibrillator reprogramming or check11/16/2024Refill [address] [address] Belkis Apodaca MA Hyperlipidemia, unspecified hyperlipidemia type; Coronary artery disease without angina pectoris, unspecified vessel or lesion type, unspecified whether assiniboine and sioux or transplanted heartfrom Last 3 Months Immunizations [...] and Gender Information ValueDate RecordedSex Assigned at BfxujRrhmqi87/12/2025 10:41 AM EDTLegal Sex Vqksat4410/02/2021 10:33 PM EDTGender BjypshjwYxzncn57/12/2025 10:41 AM EDTSexual OrientationHeterosexual or Zgvlqczd66/12/2025 10:41 AM EDT Last Filed Vital Signs Vital SignReadingTime TakenCommentsBlood Opgonnhp044/6002/06/2025 1:20 PM EST Jhdel928302/06/2025 1:20 PM ESTTemperature--Respiratory Motb335606/15/2024 4:00 PM EDTOxygen Kyexrunvrf12%02/06/2025 1:20 PM ESTInhaled Oxygen Concentration-- Jhjbrz33.6 kg (202 lb)02/06/2025 1:20 PM ZDLTevele952.5 cm (5' 2 )02/06/2025 1:20 PM ESTBody Mass Index36.9502/06/2025 1:20 PM EST Plan of Treatment Health MaintenanceDue DateLast DoneCommentsCT Oxbjwvrpllsc83/09/1951Colonoscopy 1950olorectal Cancer Beodskuqd32/09/1951FIT-DNA1950FIT1950 FOBT1950Medicare Annual Wellness (AWV)1950 8015Rooffjzcrmqol39/09/1951 Depression Msfdkbjlr02/09/1963Pneumococcal Vaccine: 50+ Years (1 of 2 - PCV) 1969Zoster Vaccines (1 of 2)1969Adult Kpcalzm1709/12/1972Mammogram 1990Fall Risk Hawkibfjn49/09/2016COVID-19 Vaccine ( season) , 03/19/2021, 06/11/2020Influenza Vaccine [...] ImplantedTypeAreaManufacturerDevice IdentifierShelf Expiration DateModel / Serial / [id number] [place] [id number] Implanted:01/06/2018 (Quantity not on file)WREATH MACHINE TENDER-D [id number] QUADRA ASSURA MP / [id number] / Unifgurpreet Posey Implanted:Qty: 1 on 06/15/2024 by [facility] ICDLeft: HeartABBOTT [id number]- 40Q / [id number] / [id number] Implanted:01/06/2018 (Quantity not on file)[id number] / [id number] / 1458q Quartet [id number] Implanted:01/06/2018 (Quantity not on file)Mfhn7131C QUARTET / [id number] / 7122q/52 [id number] Implanted:01/06/2018 (Quantity not on file)Motl6355V/52 / [id number] / Tendril Sts Implanted:Qty: 1 on 06/15/2024 by [facility]inguez [facility]aver [facility] DaytonLeadN/A: HeartST FRAN MEDCIAL [id number] / [id number] / Procedures Procedure NamePriorityDate/TimeAssociated DiagnosisCommentsCARDIAC DEVICE CHECK CHECK - NTRZWUWlfshqy46/15/2025 11:00 AM EDT Pre-operative cardiovascular examination, ICD in place CARDIAC DEVICE CHECK - REMOTE - BVMBnyakia72/11/2025 12:00 AM EDTCARDIAC DEVICE CHECK - IN CLINIC - ICD BIVENTRICULAR CHAMBER W/ NWYYOscodvj00/18/2025 9:24 AM EDT Encounter for implantable defibrillator reprogramming or check from Last 3 Months Results * CARDIAC DEVICE CHECK - REMOTE - ICD (01/18/2025 11:00 AM EDT)Specimen (Source) Anatomical Location / LateralityCollection Method / VolumeCollection Time Received Time Narrative Authorizing ProviderResult TypeResult StatusAusten Riggs Center IMPLANTABLE CARDIAC DEVICE PROCEDURESFinal ResultPerforming OrganizationAddressCity/State/ZIP Code Phone Number CPACS * Cardiac device check - Remote ICD (01/14/2025 12:00 AM EDT)Anatomical Region LateralityModalityOtherSpecimen (Source)Anatomical Location / Laterality Collection Method / VolumeCollection TimeReceived Time01/14/2025 Narrative Authorizing ProviderResult TypeResult StatusBattle Creek SivakumarSt. Vincent's ChiltonV IMPLANTABLE CARDIAC DEVICE PROCEDURESFinal Result * CARDIAC [...] Please see attached note Authorizing ProviderResult TypeResult StatusAusten Riggs Center IMPLANTABLE CARDIAC DEVICE PROCEDURESFinal Result from Last 3 Months Insurance Care Teams Team MemberRelationshipSpecialtyStart DateEnd Date Nadia Peacock MD [address] [place] [address] [facility]06/16/22
--- OUTSIDE RECORDS SUMMARY | 2025-02-14 09:38 | XMS_ITS | Encounter Summary ---
Author Organization [facility] Address [address] [facility] [place] [address] Care Team Providers Care Six Horse Hitch Driver Name Role Phone Nadia Peacock NP Unavailable [phone] Mychal Bowie MD Primary Care Provider Nadia Peacock NP Unavailable [phone] Nadia Peacock NP Unavailable [phone] Kemal Biswas MA Unavailable [phone] Encounter Details DateTypeDepartmentCare Team (Latest Contact Info)Viprjfeczeq21/10/2024Clinisync Result Encounter [facility] External Department Unsolicited Nadia Peacock NP [address] [place] [address] Social History Tobacco UseTypesPacks/DayYears UsedDateSmoking Tobacco: FormerCigarettesQuit: 10/2017Smokeless Tobacco: NeverAlcohol UseStandard Drinks/WeekCommentsNever0 (1 standard drink = 0.6 oz pure alcohol)caffeine more than 4 cups per dayPHQ-2 AnswerDate RecordedPatient Health Questionnaire-2 Osmzj3874 CommentsUnknownSex and Gender InformationValueDate RecordedSex Assigned at Not on fileLegal PvoBfikxg61/15/2023 8:26 PM EDTGender IdentityNot on fileSexual OrientationNot [...] EST Narrative 03/15/2024 12:59 PM EST [facility] ?[address] ? [place] [address] ?XRay Report ? Signed ? Patient: GREYSONTHADDEUS A ?MR#: [id number] ?? : 1950 ?Acct:[id number] ?? Age/Sex: 73 / F ?ADM Date: 03/15/24 ?? Loc: RAD ? Attending Dr: Nadia Peacock JOINT SETTER ? Ordering Physician: Nadia Peacock NP ?? Date of Service: 03/15/24 ?? Procedure(s): XR chest 2V ?? Accession Number(s): [id number] ? cc: Nadia Peacock NP ? [facility] ? [address] [facility] ? [place] [address] ? Patient Name: ?? THADDEUS BURKETT ? MRN: [facility]:[id number] ? date: 1950 ?Sex: F ?? Assigned Patient Location: RAD ?? Current Patient Location: RAD ?? Accession/Order Number: [id number] ?? Exam Date: 03/15/2024 ??12:10 ?Report Date: [...] ?03/15/24 1259 ? DD/ ? TD/TT: ? Mate Ship: Procedure Note Radiology, Radiologist, MD - 03/15/2024 [place] [address] XRay Report Signed Patient: THADDEUS BURKETT AMR#: [id number] : 1950cct:[id number] Age/Sex: 73 / FADM Date: 03/15/24 Loc: RAD Attending Dr: Nadia Peacock NP Ordering Physician: Nadia Peacock NP Date of Service: 03/15/24 Procedure(s): XR chest 2V Accession Number(s): [id number] cc: Nadia Peacock NP [facility] [place] [address] Patient Name: THADDEUS BURKETT MRN: [id number] date: 1950 Sex: F Assigned Patient [facility]: [facility] Current Patient Location: [facility] Accession/Order Number: [id number] Exam Date: 03/15/2024 12:10 Report Date: 03/15/2024 [...] RAMU ROBB Date: 03/15/2024 12:56 Dictated By: aRmu Robb M.D. Signed By:03/15/24 1259 DD/ 1256 TD/TT: Mate Ship: Authorizing ProviderResult TypeResult StatusLisa Peacock NPCLINISYNC IMAGING Final Result documented in this encounter Visit Diagnoses Not on filedocumented in this encounter Additional Health Concerns AssessmentNoted TimePHQ-9 Depression Total Score: 11:07 AM EDT documented as of this encounter Care Teams Team MemberRelationshipSpecialtyStart DateEnd Date Mychal Bowie MD PCP - GeneralFamily Medicine05/20/23 Nadia Peacock NP [address] [place] [address] PCP - ACO Reach05/13/24 Nadia Peacock NP Nurse PractitionerFamily Medicine12/05/22 Nadia Peacock NP Nurse PractitionerFami Medicine05/20/23 Kemal Biswas, SURESH [address] [place] [address] Family Medicine08/31/documented as of this encounter
--- OUTSIDE RECORDS SUMMARY | 2025-02-14 09:38 | XMS_ITS | Clinical Summary ---
Author Organization [facility] Address [facility] [address] [place] [address] Care Team Providers Care Milk Treater Name Role Phone Nadia Peacock [facility] Primary Care Provider Allergies No known [...] UseTypesPacks/DayYears UsedDateSmoking Tobacco: FormerSmokeless Tobacco: NeverPHQ-2AnswerDate RecordedTotal Qzzfw124ChildcareAnswerDate Recorded QbfwbokqmFmcwjsy54/24/2020EmploymentAnswerDate RecordedEmploymentUnknown 11/28/2019Purpose - LifeAnswerDate RecordedPurpose and direction in lifeUnknown 1CommentsUnknownSex and Gender InformationValueDate RecordedSex Assigned at BirthNot on fileLegal GdzCbxpef96/24/2020 3:06 PM EDTGender Identity Not on fileSexual OrientationNot on file Last Filed Vital Signs Vital SignReadingTime TakenCommentsBlood Zphetopr949/8212/28/2019 4:19 PM EDT Pulse--Temperature--Respiratory Rate--Oxygen Saturation--Inhaled Oxygen Concentration--Depsmp14.7 kg (200 lb)12/28/2019 4:19 PM YOEFlcuoc047.5 cm (5' 2 )12/28/2019 4:19 PM EDTBody Mass Index36.5809 4:19 PM EDT Plan of Treatment Health MaintenanceDue DateLast DoneCommentsDepression Zicbrbxga76/09/1963Tobacco Qlsefzhcw98/09/1963Adult BMI Xeebteogj62/09/1969DTaP,Tdap and Td Vaccines (1 - Tdap)1969Zoster (Shingles) Vaccine (1 of 2)2000Fall Risk Screening 09/13/2015Influenza Kzgcicg0712/05/2024RSV ( or age 60+ yrs) (1 - 1-dose 75+ series)2025 Medical Devices Not on file Insurance Care Teams Team MemberRelationshipSpecialtyStart DateEnd Date Nadia Peacock, HYDROMETER TESTER-OPERATIONS MANAGER/COORDINATOR PCP - GeneralNurse Practitioner12/28/19
--- OUTSIDE RECORDS SUMMARY | 2025-02-14 09:38 | XMS_ITS | Clinical Summary ---
Author Organization [facility] Address [address] [place] [address] Care Team Providers Care Automotive Technology Instructor Name Role Phone Nadia Peacock NP Unavailable [phone] Mychal Bowie MD Primary Care Provider [phone] Nadia Peacock TOOL AND EQUIPMENT RENTAL CLERK Unavailable [phone] Nadia Peacock TOOL AND EQUIPMENT RENTAL CLERK Unavailable [phone] Allergies Active AllergyReactionsCriticalityNoted LyhvSklqgezeVafcvfxzwtie18/25/2023 myalgias Medications MedicationSigDispense QuantityRefillsLast FilledStart DateEnd DateStatus [...] injection Infuse 200 mg into a venous elrevcho37/17/2024Active Enmymmnkpvy-Zykylbaav-Trjiop (Trelegy Ellipta) 100-62.5-25 MCG/ACT aerosol powder Inhale [...] DateDiagnosed DateChronic kidney disease, stage 3b08/24/2024 Centrilobular eefjwclmk61/20/2025 Assessment & Plan (08/24/2024 6:56 AM EDT): No longer smoker Current med: albuterol and trelegy Assessment & Plan (05/26/2024 1:38 PM EST): No longer smoker Current med: albuterol and trelegy Dyspnea does not seem to be COPD related, sounds more heart failure related RSV wulvzdzfu11/11/2024 Assessment & Plan (03/23/2024 6:56 AM EST): Dx in [facility] on 03/07/24 Assessment & Plan (03/16/2024 2:10 PM EST): Dx in [facility] on 03/07/24 Morbid (severe) obesity due to excess yopnolau44/20/2024 Assessment & Plan (08/24/2024 6:59 AM EDT): [...] Body mass index (BMI) 35.0-35.9, adult11/24/2023Other thrombophilia ([facility]) 11/24/2023Immunodeficiency due to conditions classified cbkbrwfop03/20/2024 Atherosclerosis of aorta11/24/2023 Assessment & Plan (11/24/2023 6:56 AM EDT): Cont statin use Hypertensive chronic kidney disease with stage 1 through stage 4 chronic kidney disease, or unspecified chronic kidney sxakuvx5211/24/2023 Assessment & Plan (05/26/2024 6:53 AM EST): [...] Continues with Nephrology on a regular basis Rgnafqtmbwwnz29/20/2024nemia of renal hwepwav6011/24/2023Encounter for subsequent annual wellness visit (AWV) in Medicare fbjqgjh5811/24/2023 Assessment & Plan (11/24/2023 12:06 PM EDT): Reviewed Ht/Wt/BMI Recommend eye exam yearly Recommend dental exams twice a year Balance work/leisure activities Exercises is recommended most days of the week (appropriate as chronic conditions allow) Follow up yearly and prn DDD (degenerative disc disease), spmbrs6708/20/2023 Assessment & Plan (08/20/2023 1:28 PM EDT): Will work with chiropractor for this, Peripheral vascular disease, pilxbgmwhkt14/14/2024 Assessment & Plan (05/26/2024 6:47 AM EST): Continue statin and asa Assessment & Plan (11/24/2023 6:56 AM EDT): Continue statin and asa Systolic heart bypfwdj3305/20/2023 Assessment & Plan (08/24/2024 6:57 AM EDT): Managed by [facility] Recent ECHO completed 03/02/24 Current meds: asa, b mallory, entresto, hydralazine, lasix, crestor, coumadin Assessment & Plan (05/26/2024 1:39 PM EST): Managed by [facility] Recent ECHO completed 03/02/24 Current meds: asa, b mallory, entresto, hydralazine, lasix, crestor, coumadin Took 2 dose of lasix 20mg on Thursday, diuresed 6 pounds, had been compliant with meds, cardiology took her off of lasix a few months ago to give kidneys a break Is feeling better now Assessment & Plan (03/23/2024 6:56 AM EST): Managed by [facility] Recent ECHO completed 03/02/24 Assessment & Plan (03/07/2024 1:52 PM EST): Managed by [facility] Recent ECHO completed 03/02/24 Assessment & Plan (08/20/2023 1:24 PM EDT): Appears to be stable, no acute symptoms at this time No changes in meds or doses Assessment & Plan (05/20/2023 1:29 PM EST): Stable, chest is clear today Major depressive disorder, single episode, gdebetnn08/14/2024 Assessment & Plan (05/26/2024 1:40 PM EST): No current medication use PHQ 9=1 JUAN 7=0 Malignant neoplasm of right kidney, except renal yiglzu5405/20/2023 Assessment & Plan (11/24/2023 6:57 AM EDT): Follows with nephrology/oncology Thyroglossal duct cyst05/20/2023hronic lymphocytic leukemia of B-cell type not having achieved cderzhofe16/14/2024 Assessment & Plan (03/23/2024 6:56 AM EST): Continue with Oncology Assessment & Plan (03/16/2024 6:53 AM EST): Continue with Oncology Assessment & Plan (03/07/2024 1:53 PM EST): Continue with Oncology Assessment & Plan (11/24/2023 12:08 PM EDT): Continue with Oncology Unspecified atrial avufdskqosus06/04/2023 Assessment & Plan (05/26/2024 6:48 AM EST): B mallory, coumadin cardiology Assessment & Plan (11/24/2023 12:07 PM EDT): Cont coumadin as well as cardiac meds Cont with cardiology Leukemia, lymphocytic, rcsiuln8403/09/2023 Assessment & Plan (11/24/2023 6:58 AM EDT): Continue with oncology Heart gxlsup8305/10/20222914Noxxfwniwisfib45/04/2023Essential (primary) hypertension 03/09/2023 Assessment & Plan (08/24/2024 [...] at this time No changes to meds Ycdusmmqrdl54/04/2023astroesophageal reflux zzjonpt6003/09/2023 Assessment & Plan (05/26/2024 6:49 AM EST): Recommendations: freq small meals, nothing to eat or drink at least 2 hours prior to bed, limit caffeine, alcohol, as well as spicy foods Meds to limit or avoid if possible: NSAIDS Elevate HOB if possible Current meds: omeprazole Cardiomyopathy, hhuathnw77/04/2023 Assessment & Plan (08/24/2024 6:57 AM EDT): [...] with cardiology once a year now Thyroid hdaywt8003/09/20236238DNFNH17/04/2023 Assessment & Plan (03/09/2023 4:44 PM EST): Resp ruff is better Still w some weakness, will trial home PT for strengthening Fu in 2-3 weeks for a recheck Closed fracture of one rib of left side with routine eckoyid0803/09/2023 Assessment & Plan (03/09/2023 4:43 PM EST): Xray rib fracture from fall with dog Encouraged deep breathing and cough S/P CABG (coronary artery bypass graft)08/10/2022iventricular ICD (implantable cardioverter-defibrillator) in place07/17/2022 Overview (03/09/2023): Last Assessment & Plan: Assessment: ischemic s/p VOCATIONAL HORTICULTURE INSTRUCTOR-D placement ( 2017) in [facility] for ischemic cardiomyopathy last device check 06/27/2022 (scanned into Epic) Follows with cardiology Last Assessment & Plan: Assessment: ischemic s/p VOCATIONAL HORTICULTURE INSTRUCTOR-D placement ( 2018) in [facility] for ischemic cardiomyopathy last device check06/27/2022 (scanned into Epic) Follows with cardiology Assessment & Plan (05/26/2024 1:38 PM EST): Continues with [facility] cardiology Current meds: asa, carvedilol, entresto, hydralizine, crestor, warfarin Will be having battery replacement in future Assessment & Plan (03/16/2024 6:52 AM EST): Continues with [facility] cardiology Current meds: asa, carvedilol, entresto, hydralizine, crestor, warfarin Gvuseivtpwapdw94/13/2023 Overview (05/20/2023): Last Assessment & Plan: Assessment: Per Dr. Issac Helms ([facility]) last visit 06/16/2022: Aspirin and warfarin can be held 5 days prior to the surgery and resumed afterwards Last Assessment & Plan: Assessment: Per Dr. Issac Helms ([facility]) last visit 06/16/2022: Aspirin and warfarin can be held 5 days prior to the surgery and resumed afterwards Assessment & Plan (03/07/2024 1:53 PM EST): Continues on anti coagulation Secondary hyperparathyroidism of renal bucvnv3406/05/2022 Overview (03/09/2023): Last Assessment & Plan: Assessment: last calcium level stable Assessment & Plan (11/24/2023 6:57 AM EDT): Cont with nephrology Iron deficiency jvxttf4202/24/2022 Overview (03/09/2023): Last Assessment & Plan: Assessment: Hx iron infusion; last labs stable Coronary jpzhiwompnehrthn57/23/2018 Assessment & Plan (08/24/2024 6:57 AM EDT): Current meds: asa, b mallory, entresto, zetia, crestor Assessment & Plan (05/26/2024 6:47 AM EST): Current meds: asa, b mallory, entresto, zetia, crestor Resolved Problems ProblemNoted DateDiagnosed DateResolved DateAcute cough Itaqsospyl92 Assessment & Plan (03/23/2024 10:19 AM EST): [...] to be seen and will go to [facility] ER CKD (chronic kidney disease) Assessment & Plan (08/20/2023 1:24 PM EDT): Continue with seeing Nephrology Assessment & Plan (05/20/2023 1:28 PM EST): Continue with Nephrology Fractured rib Overview (05/20/2023): left side number 7 Tobacco user4Chest ffuzelcqga16 Assessment & Plan (04/09/2023 2:35 PM EST): Lung sound as though loose rales, absolutely no resp distress No s/s URI Will check CXR Advised if sudden onset dyspnea, cough etc go to ER Acute kidney injury (nontraumatic)hronic kidney disease epressive rqemeism35 Assessment & Plan (05/26/2024 1:40 PM EST): PHQ 9=1 No current meds Candidiasis, aaguiuzhq97Heart failure, fsjutose79/04/2023 03/07/2024 Assessment & Plan (04/09/2023 2:36 PM EST): Cont with entresto Will check cxr for evidence of acute HR Cont current meds, VSS Obesity (BMI 30-39.9)ardiomyopathy, zuxkvhxjfpl16/14/2018 03/07/2024 Overview (03/09/2023): Last Assessment & Plan: Assessment: ischemic s/p VOCATIONAL HORTICULTURE INSTRUCTOR-D placement ( 2017) in [facility] for ischemic cardiomyopathy last device check 06/27/2022 (scanned into [employer]) Follows with cardiology Encounters DateTypeDepartmentCare JdhwDyijnkgbglt17/11/2025bstract [facility] [address] [place] [id number] Nadia Peacock NP from Last 3 Months Immunizations ImmunizationAdministration DatesNext DueJanssen NMKM-JoJ-261/08/2021Pfizer Purple Cap SARS-CoV-2 Bfcoufmrrjz97/14/6722MEAT-XhT-6, Spavexuglrt71/14/2021 Family History Medical HistoryRelationNameCommentsCancerFatherHeart diseaseFatherHypertension Fatherbladder problemFatherstomach problemFatherHeart diseaseMaternal GrandfatherHeart diseaseMaternal GrandmotherHypertensionMaternal Grandmother StrokeMaternal GrandmotherDiabetesMotherHeart diseaseMotherHypertensionMother Heart diseasePaternal GrandmotherHypertensionPaternal GrandmotherDiabetesSibling Heart diseaseSiblingRelationNameStatusCommentsFatherDeceasedMaternal Grandfather Maternal GrandmotherMotherDeceasedPaternal GrandmotherSibling Social History Tobacco UseTypesPacks/DayYears UsedDateSmoking Tobacco: FormerCigarettesQuit: 10/2017Smokeless Tobacco: Never Tobacco Cessation:Counseling Given: Not Answered Alcohol UseStandard Drinks/WeekCommentsNever0 (1 standard drink = 0.6 oz pure alcohol)caffeine more than 4 cups per dayPHQ-2AnswerDate RecordedPatient Health Questionnaire-2 Ixqov8084CommentsUnknownSex and Gender InformationValueDate RecordedSex Assigned at BirthNot on fileLegal SexFemale 06/18/2022 8:26 PM EDTGender IdentityNot on fileSexual OrientationNot on file Last Filed Vital Signs Vital SignReadingTime TakenCommentsBlood Nuvpqpmj379/80008/24/2024 1:03 PM EDT Kkjhg689808/24/2024 1:03 PM ODWYgpotecdnmr11.7 ??C (98.1 ??F)08/24/2024 1:03 PM EDTRespiratory Krdz983308/24/2024 1:03 PM EDTOxygen Ddjonwxzkc61%08/24/2024 1:03 PM EDTInhaled Oxygen Concentration--Qqddud54.8 kg (202 lb 6.4 oz)08/24/2024 1:03 PM OMVEorlbq091.6 cm (5' 4 )03/23/2024 10:03 AM ESTBody Mass Index34.74 03/23/2024 10:03 AM EST Plan of Treatment Health MaintenanceDue DateLast DoneCommentsCT Rouorwynzmwm46/09/1951FIT-DNA 1950FIT1950FOBT1950 6325Aywxcinxzsvtx22/09/1951neumococcal Vaccine: 65+ Years (1 of 2 - PCV)1969Medicare Annual Wellness (AWV) , 11/24/2023OVID-19 Vaccine ( - season)2024 03/19/2021, 03/19/2021, 06/11/20201296Fqqgpdeot11 (Patient Refused), 03/09/2023 (Patient Refused)Skxkmciwyjy68/21/567468/2Colorectal Cancer Xybdodjat38/21/2032Influenza VaccineDiscontinued Insurance Care Teams Team MemberRelationshipSpecialtyStart DateEnd Date Mychal Bowie MD PCP - GeneralFamily Medicine05/20/23 Nadia Peacock NP [address] [place] [address] PCP - ACO Reach05/13/24 Nadia Peacock NP Nurse PractitionerFavtly Medicine12/05/22 Nadia Peacock NP Nurse PractitionerMercyone Centerville Medical Centerly Medicine05/20/23
--- OUTSIDE RECORDS SUMMARY | 2025-02-14 09:38 | XMS_ITS | Encounter Summary ---
Author Organization [facility] Address [address] [place] [address] Care Team Providers Care Digital Marketing Assistant Name Role Phone Naida Peacock NP Unavailable [phone] Mychal Bowie MD Primary Care Provider [phone] Nadia Peacock NP Unavailable [phone] Nadia Peacock NP Unavailable [phone] Kemal Biswas MA Unavailable [phone] Encounter Details DateTypeDepartmentCare Team (Latest Contact Info)Qzbbvhlirpo56/04/2024Clinisync Result Encounter [facility] External Department Unsolicited Nadia Peacock NP [address] [place] [address] Social History Tobacco UseTypesPacks/DayYears UsedDateSmoking Tobacco: FormerCigarettesQuit: 10/2017Smokeless Tobacco: NeverAlcohol UseStandard Drinks/WeekCommentsNever0 (1 standard drink = 0.6 oz pure alcohol)caffeine more than 4 cups per dayPHQ-2 AnswerDate RecordedPatient Health Questionnaire-2 Zyzmt7914 CommentsUnknownSex and Gender InformationValueDate RecordedSex Assigned at Not on fileLegal OhrLigmqe50/15/2023 8:26 PM EDTGender IdentityNot on fileSexual OrientationNot on filedocumented as of this encounter Functional Status * Over the past 2 weeks, how often have you been bothered by any of the following problems?QuestionAnswerDate of AssessmentAuthorLittle interest or pleasure in doing thingsSeveral days11/24/2023 11:07 AM Leticia Gregg MAFeeling down, depressed, or hopelessNot at all11/24/2023 11:07 AM Leticia Rodriguez MAPatient Health Questionnaire-2 Wpblu211 11:07 AM Leticia Gregg MA * QuestionAnswerDate [...] 11:07 AM Leticia Gregg MAPatient Health Questionnaire-9 Udmyu401 11:07 AM Leticia Gregg MA * How [...] EST Narrative 04/09/2023 3:48 PM EST [facility] ?[address] ? [place], [place] [address] ?XRay Report ? Signed ? Patient: THADDEUS BURKETT A ?MR#: [id number] ?? : 1950 ?Acct:[id number] ?? Age/Sex: 72 / F ?ADM Date: 04/09/23 ?? Loc: RAD ? Attending Dr: Nadia Peacock CUSTOMER SERVICES SUPERVISOR ? Ordering Physician: Nadia Peacock NP ?? Date of Service: 04/09/23 ?? Procedure(s): XR chest 2V ?? Accession Number(s): [id number] ? cc: Nadia Peacock NP ? [facility] ? [address] ? [place] [address] ? Patient Name: ?? THADDEUS BURKETT ? MRN: [facility]:[id number] ? date: 1950 ?Sex: F ?? Assigned Patient Location: RAD ?? Current Patient Location: RAD ?? Accession/Order Number: [id number] ?? Exam Date: 04/09/2023 ??15:08 ?Report Date: [...] 1548 ? DD/ 1546 ? TD/TT: ? Enginehouse Brakeman: Procedure Note Radiology, Radiologist, MD - 04/09/2023 [place] [address] XRay Report Signed Patient: THADDEUS BURKETT AMR#: [id number] : 1950cct:[id number] Age/Sex: 72 / FADM Date: 04/09/23 Loc: [facility] Attending Dr: Nadia Peacock NP Ordering Physician: Nadia Peacock NP Date of Service: 04/09/23 Procedure(s): XR chest 2V Accession Number(s): [id number] cc: Nadia Peacock NP [facility] [place] [address] Patient Name: THADDEUS BURKETT MRN: [id number] date: 1950 Sex: F Assigned Patient Location: [facility] Current Patient Location: [facility] Accession/Order Number: [id number] Exam Date: 04/09/2023 15:08 Report Date: 04/09/2023 [...] M.D. Signed By:04/09/23 1548 DD/ 1546 TD/TT: Enginehouse Brakeman: Authorizing ProviderResult TypeResult StatusLisa Clar[facility] Hospitalshane NPCLINISYNC IMAGING Final Result documented in this encounter Visit Diagnoses Not on filedocumented in this encounter Care Teams Team MemberRelationshipSpecialtyStart DateEnd Date Mychal Bowie MD PCP - GeneralFamily Medicine05/20/23 Nadia Peacock NP [address] [facility] [place] [address] PCP - ACO Reach05/13/24 Nadia Peacock NP Nurse PractitionerFamily Medicine12/05/22 Nadia Peacock NP Nurse PractitionerFamily Medicine05/20/23 Kemal Biswas, SURESH [address] [place] [address] Family Medicine08/31/documented as of this encounter
--- OUTSIDE RECORDS SUMMARY | 2025-02-14 09:38 | XMS_ITS | Encounter Summary ---
Author Organization [facility] Address [address] [place] [address] Care Team Providers Care Environmental Health Inspector Name Role Phone Nadia Peacock ELECTRICAL CONTROLS DESIGNER Unavailable [phone] Mychal Bowie MD Primary Care Provider [phone] Nadia Peacock ELECTRICAL CONTROLS DESIGNER Unavailable [phone] Nadia Peacock ELECTRICAL CONTROLS DESIGNER Unavailable [phone] Kemal Biswas MA Unavailable [phone] Encounter Details DateTypeDepartmentCare Team (Latest Contact Info)Uzcauczinuv31/06/2024Clinisync Result Encounter [facility] External Department Unsolicited Provider, Generic External Data Social History Tobacco UseTypesPacks/DayYears UsedDateSmoking Tobacco: FormerCigarettesQuit: 10/2017Smokeless Tobacco: NeverAlcohol UseStandard Drinks/WeekCommentsNever0 (1 standard drink = 0.6 oz pure alcohol)caffeine more than 4 cups per dayPHQ-2 AnswerDate RecordedPatient Health Questionnaire-2 Lnqve2564 CommentsUnknownSex and Gender InformationValueDate RecordedSex Assigned at Not on fileLegal NjlIidqsf26/15/2023 8:26 PM EDTGender IdentityNot on fileSexual OrientationNot on filedocumented as of this encounter Functional Status * Over the past 2 weeks, how often have you been bothered by any of the following problems?QuestionAnswerDate of AssessmentAuthorLittle interest or pleasure in doing thingsSeveral days11/24/2023 11:07 AM EDLeticia Ramos MAFeeling down, depressed, or hopelessNot at all11/24/2023 11:07 AM Leticia Rodriguez MAPatient Health Questionnaire-2 Vnjcc511 11:07 AM Leticia Gregg MA * QuestionAnswerDate [...] 11:07 AM Leticia Gregg MAPatient Health Questionnaire-9 Axadw579 11:07 AM Leticia Gregg MA * How [...] memory than most?No11/24/2023 11:10 AM EDT Leticia aHys MADo you think it is wonderful to [...] Procedures Procedure NamePriorityDate/TimeAssociated DiagnosisCommentsCT CHEST WO IV FLEQIMWU34/09/2023 1:16 PM EST documented in this encounter [...] otherwise unremarkable, within limitations of noncontrast technique. Collar Fuser (topogram) images: No additional findings. IMPRESSION: 1. [...] any questions regarding this interpretation, please call [phone]. If you are unable to reach us at the number above, please feel free to contact [facility] at [phone]. [id number]^AGFA_IDC^SI^ACN Procedure Note Radiology, Radiologist, - 06/11/2023 * * *Final Report* * * DATE OF EXAM: Jun 10 2023 1:16PM [facility] 0541 - CT CHEST WO IVCON [...] otherwise unremarkable, within limitations of noncontrast technique. Collar Fuser (topogram) images: No additional findings. IMPRESSION: 1. [...] any questions regarding this interpretation, please call [phone]. If you are unable to reach us at the number above, please feel free to contact [facility] at [phone]. [id number]^AGFA_IDC^SI^ACN Authorizing ProviderResult TypeResult StatusGeneric External Data ProviderIMG CT PROCEDURESFinal Result documented in this encounter Visit Diagnoses Not on filedocumented in this encounter Care Teams Team MemberRelationshipSpecialtyStart DateEnd Date Mychal Bowie MD PCP - GeneralFamily Medicine05/20/23 Nadia Peacock NP [address] [place] [address] PCP - ACO Reach05/13/24 Nadia Peacock NP Nurse PractitionerFamily Medicine12/05/22 Nadia Peacock NP Nurse PractitionerFami Medicine05/20/23 Kemal Biswas, [place] [address] [place] [address] Family Medicine08/31/documented as of this encounter
--- OUTSIDE RECORDS SUMMARY | 2025-02-14 09:38 | XMS_ITS | Encounter Summary ---
Author Organization [facility] Address [address] [place] [address] Care Team Providers Care Integration Consultant Name Role Phone Nadia Peacock MD Primary Care Provider [phone] Reason for Visit * ReasonCommentsMed Refill Encounter Details DateTypeDepartmentCare Team (Latest Contact Info)Yoogbdbfmxp56/07/2025Refill [facility] [address] [place] [address] Issac Helms MD [address] [facility] [place] [address] Social History Tobacco UseTypesPacks/DayYears UsedDateSmoking Tobacco: FormerCigarettes Smokeless Tobacco: NeverAlcohol UseStandard Drinks/WeekCommentsNot Currently0 (1 standard drink = 0.6 oz pure alcohol)UT Safety & EnvironmentAnswerDate Recorded Fear of Current or Ex-PartnerNot on file05/28/2023Emotionally AbusedNot on file 4Physically AbusedNot on file05/28/2023Sexually AbusedNot on file 4Physically or Sexually AbusedNot on file05/28/2023CommentsNo Sex and Gender InformationValueDate RecordedSex Assigned at BirthFemale 06/15/2024 10:41 AM EDTLegal WkiMffeui35/29/2022 10:33 PM EDTGender Identity Skwoji9606/15/2024 10:41 AM EDTSexual OrientationHeterosexual or Straight 06/15/2024 10:41 AM EDTdocumented as of this encounter Plan of Treatment Not on file documented as of this encounter Visit Diagnoses Not on filedocumented in this encounter Care Teams Team MemberRelationshipSpecialtyStart DateEnd Date Nadia Peacock MD [address] [place] [address] PCP - General06/16/22documented as of this encounter
--- OUTSIDE RECORDS SUMMARY | 2025-02-14 09:38 | XMS_ITS | Encounter Summary ---
Author Organization [facility] Address [address] [place] [address] Care Team Providers Care Radiographer Technologist Name Role Phone Nadia Peacock MALLET CUTTER Unavailable [phone] Mychal Bowie MD Primary Care Provider [phone] Nadia Peacock MALLET CUTTER Unavailable [phone] Nadia Peacock MALLET CUTTER Unavailable [phone] Kemal Biswas MA Unavailable [phone] Encounter Details DateTypeDepartmentCare Team (Latest Contact Info)Ldyeukdlaoe09/17/2024Clinisync Result Encounter [facility] Department Unsolicited Provider, Generic External Data Social History Tobacco UseTypesPacks/DayYears UsedDateSmoking Tobacco: FormerCigarettesQuit: 10/2017Smokeless Tobacco: NeverAlcohol UseStandard Drinks/WeekCommentsNever0 (1 standard drink = 0.6 oz pure alcohol)caffeine more than 4 cups per dayPHQ-2 AnswerDate RecordedPatient Health Questionnaire-2 [id number] CommentsUnknownSex and Gender InformationValueDate RecordedSex Assigned at Not on fileLegal WfeLmgsme64/15/2023 8:26 PM EDTGender IdentityNot on fileSexual OrientationNot [...] was performed concurrently and is dictated separately. Kettle Room Helper (topogram) images: Unremarkable. IMPRESSION: No metastatic disease [...] any questions regarding this interpretation, please call [phone]. If you are unable to reach us at the number above, please feel free to contact [facility] at [phone]. [id number]^[email or web address]^SI^ACN Procedure Note Radiology, Radiologist, - 12/22/2023 * * *Final Report* * * DATE OF EXAM: Dec 22 2023 1:48PM [facility] 0531 - CT ABD/PEL WO [...] was performed concurrently and is dictated separately. Kettle Room Helper (topogram) images: Unremarkable. IMPRESSION: No metastatic disease [...] any questions regarding this interpretation, please call [phone]. If you are unable to reach us at the number above, please feel free to contact [facility] at [phone]. [id number]^[email or web address]^SI^ACN Authorizing ProviderResult TypeResult StatusGeneric External Data Provider CLINISYNC IMAGINGFinal Result documented in this encounter Visit Diagnoses Not on filedocumented in this encounter Additional Health Concerns AssessmentNoted TimePHQ-9 Depression Total Score: 11:07 AM EDT documented as of this encounter Care Teams Team MemberRelationshipSpecialtyStart DateEnd Date Mychal Bowie MD PCP - GeneralFamily Medicine05/20/23 Nadia Peacock NP [address] [place] [address] PCP - ACO Reach05/13/24 Nadia Peacock NP Nurse Practition[facility]Fab[facility]12/05/22 Nadia Peacock NP Nurse PractitionerFami Medicine05/20/23 Kemal Biswas, SURESH [address] [place] [address] Family Medicine08/31/documented as of this encounter
--- NOTE | 2025-02-14 09:45 | NM_ITS ---
Patient Name: THADDEUS RUBI MR#: [id number] : 1950 Exam Date: 02/14/2025 Ordering Doctor: DR DARIANA MARQUEZ M.D. RADIOLOGY REPORT PROCEDURE: NM MARCELINO PERF SPECT REST STR COMPARISON: None. INDICATIONS: SHORTNESS OF BREATH, HISTORY OF CABG TECHNIQUE: Exam Description: Stress/Rest one day protocol gated SPECT Rest Imagin.0 mCi Tc-99m Cardiolite IV on 02/14/2025 Stress Imaging 30.5 mCi Tc-99m Cardiolite IV on 02/14/2025 Exercise Protocol: 0.4 mg Lexiscan given IV Heart Rate (bpm): Rest: 77 Max: 116 PMHR: 79 Blood Pressure: Rest: 165/95 Max: 171/89 Symptoms: Rest and peak stress ECG findings were pending, and the exercise portion of the study was pending per attending physician [facility]. For more details, please see separate cardiac stress test report. FINDINGS: QUALITY OF STUDY: Good PERFUSION DEFECT: LOCATION: Anteroapical SIZE: Large SEVERITY: Severe TYPE: Fixed WALL MOTION: Akinesis of the distal third of the myocardium LV SIZE: 185 mL. TID / TCD: 0.8 LVEF: Calculated EF 24%. SUMMARY: Myocardial perfusion imaging study is abnormal CONCLUSION: 1. Myocardial perfusion is abnormal 2. There is a large, fixed, anteroapical defect consistent with infarct 3. Global left ventricular systolic function is severely reduced; ejection fraction is 24% 4. No significant transient ischemic dilatation Dictated by: Julito Rivera M.D. on 02/15/2025 at 15:37 Approved by: Julito Rivera M.D. on 02/15/2025 at 15:42
--- NOTE | 2025-02-14 11:38 | PC.NURSE ---
Patient had lexiscan, tolerated well. No CP, SOB. Taken down by w/c to breakfast, was asymptomatic.
[2025-02-14] MEDS: REGADENOSON 0.4 MG/5 ML SYRINGE IV (11:50)
--- NOTE | 2025-02-14 12:50 | CA_ITS ---
Patient Name: THADDEUS RUBI MR#: [id number] : 1950 Exam Date: 02/14/2025 Ordering Doctor: DR DARIANA MARQUEZ M.D. ECHOCARDIOGRAM REPORT PROCEDURE: CA ECHO DOPPLER COMPLETE INDICATIONS: Chronic systolic heart failure, SOB, CABG, pace/defib COMPARISON: None. DESCRIPTION: COMPLETE ECHOCARDIOGRAM Real-time transthoracic echocardiography with 2D, M-mode, spectral and color flow Doppler performed. QUALITY: Technical quality was good. LEFT VENTRICLE: Mild dilatation. Normal left ventricular wall thickness. LV EF: Global left ventricular systolic function is severely reduced; visually estimated ejection fraction is 15 to 20%. Abnormal septal motion may be related to underlying paced rhythm. DIASTOLIC: Grade I diastolic dysfunction. ATRIAL SEPTUM: Inadequately seen. LEFT ATRIUM: Moderate dilatation. RIGHT ATRIUM: Normal chamber size. RIGHT VENTRICLE: Normal chamber size. Normal systolic function. Pacer wire present. TRICUSPID VALVE: Normal mobility and thickness. No stenosis with trivial regurgitation. No evidence of pulmonary hypertension. RVSP 29 mmHg MITRAL VALVE: Normal mobility and thickness. No evidence of mitral valve stenosis. Mild mitral annular calcification. Trivial mitral regurgitation. AORTIC VALVE: Normal trileaflet appearance. No visible sclerosis. Normal leaflet mobility. No evidence of aortic valve stenosis. No aortic regurgitation. AORTIC ROOT: Normal diameter and appearance. Ascending aorta is normal in size. PULMONIC VALVE: Normal thickness and mobility. No stenosis. Mild regurgitation. PERICARDIUM: No evidence of pericardial effusion. IVC: Not well visualized. CONCLUSION: 1. Global left ventricular systolic function is severely reduced; visually estimated ejection fraction is 15 to 20% 2. The right ventricle is poorly seen; it appears normal in size and systolic function 3. Grade 1 diastolic dysfunction 4. The left atrium is moderately dilated 5. Mild pulmonic regurgitation Adult Echocardiography Procedure Report Left Ventricle LVEDD (3.7 - 5.6 cm): 5.54 cm LVESD (2.2 - 4.0 cm): 5.33 cm LVIVS thickness (0.6 - 1.2 cm): 0.86 cm LVPW thickness (0.5 - 1.0 cm): 1.01 cm e': 0.09 m/s E - e': 6.57 LVOT Max Gradient: 1.07 mm[Hg] LVOT Area (cm2): 0.52 m/s Peak Velocity (LVOT): 0.52 m/s Mean Velocity (LVOT): 0.32 m/s LVOT Diameter 2.18 cm Left Atrium LA Volume Index (2D A2C): 45.48 ml/m2 Left Atrium Systolic Dimension: 3.89 cm Mitral Valve MV E to A Ratio: 0.72 Mitral Valve A-Wave Peak Velocity: 0.79 m/s Mitral Valve E-Wave Peak Velocity: 0.57 m/s Right Ventricle Aorta AO Root Diam: 2.99 cm Ascending Ao Diam: 2.73 cm Aortic Valve AoV Area (Peak Jack): 2.27 cm2, 2.27 cm2 AoV Area (VTI): 2.09 cm2, 2.09 cm2 Peak Velocity(Antegrade Flow): 0.85 m/s Peak Gradient(Antegrade Flow): 2.91 mm[Hg] Mean Velocity(Antegrade Flow): 0.53 m/s Mean Gradient(Antegrade Flow): 1.37 mm[Hg] Velocity Time Integral: 17.03 cm Tricuspid Valve Peak Velocity (Regurgitant Flow): 2.56 m/s Pulmonic Valve Mean Gradient: 2.55 mm[Hg] Mean Velocity: 0.73 m/s Peak Velocity: 1.24 m/s Peak Gradient: 6.12 mm[Hg] Right Atrium Right Atrium Systolic Pressure: 43.72 ml, 43.72 ml Dictated by: Julito Rivera M.D. on 02/15/2025 at 12:59 Approved by: Julito Rivera M.D. on 02/15/2025 at 13:03
--- NOTE | 2025-02-15 12:13 | PM.STRESS ---
Stress Test Stress Test Allergies Allergy/AdvReac Type Severity Reaction Status Date / Time No Known Drug Allergies Allergy Verified 01/25/25 15:28 Requesting physician: DARIANA MARQUEZ Procedure: Lexiscan pharmacological stress test General Information: Reason for Stress Test: [Shortness of breath] Cardiac History and Risk Factors: [History of coronary artery bypass graft surgery, dyslipidemia, hypertension, pacemaker/defibrillator] Resting 12 - Lead Electrocardiogram: Ventricular paced rhythm Abnormal ECG Stress Test: Protocol: [Lexiscan] Exercise Capacity: [N/A] Blood Pressure Response: [N/A] Rhythm: [Paced rhythm, escape and/or fusion beats] ST - Response: [N/A] Patient Response: [No chest pain] Interpretation: 1. Uninterpretable Lexiscan stress test due to paced rhythm 2. Nuclear images to be read, interpreted, and reported separately
== END 2025-02-14 09:33 | disposition home or self-care (01) ==
LOC: NM 09:32
PROVIDERS: PCP Nurse Practitioner; Visit Provider Internal Medicine Interventional Cardiology
DX: R06.02 Shortness of breath (principal); Z95.1 Presence of aortocoronary bypass graft; I50.22 Chronic systolic (congestive) heart failure
CPT/HCPCS: 78452; 93017; 93306; 93356; A9500; J2785

== ENCOUNTER 2025-02-20 15:12 | Outpatient (OUT) | payer MEDICARE, OTHER, SELFPAY | END 2025-02-20 15:13 | disposition home or self-care (01) | LOC: LAB 15:13 | PROVIDERS: PCP Nurse Practitioner; Visit Provider Internal Medicine Interventional Cardiology | DX: I50.22 Chronic systolic (congestive) heart failure (principal) | CPT/HCPCS: 36415; 83880 ==

== ENCOUNTER 2025-03-06 10:17 | Outpatient (RCR) | payer MEDICARE, OTHER, SELFPAY | END 2025-04-05 13:17 | disposition home or self-care (01) | LOC: MM 10:17 | PROVIDERS: PCP Nurse Practitioner; Visit Provider Nurse Practitioner | DX: Z51.81 Encounter for therapeutic drug level monitoring (principal); Z79.01 Long term (current) use of anticoagulants; I48.0 Paroxysmal atrial fibrillation | CPT/HCPCS: 85610; G0463 ==